=== PATIENT | female | born 1950 | race Caucasian/White ===

== ENCOUNTER → 2016-05-08 | Outpatient (CLI) | payer MEDICARE ==
[2016-05-08 10:24] LABS: ALT 67 U/L (9-52); AST 35 U/L (14-36); Alkaline Phosphatase 107 U/L (38-126); Anion Gap 12 mmol/L; Blood Urea Nitrogen 16 mg/dL (7-17); Calcium 10.1 mg/dL (8.4-10.2); Carbon Dioxide 26 mmol/L (22-30); Chloride 100 mmol/L (98-107); Cholesterol 153 mg/dL (<200); Glucose 197 mg/dL (74-99); HDL Cholesterol 88 mg/dL (40-60); Non-African American GFR(MDRD) >60 (>60 ml/min/1.73 sqM); Potassium 5.2 mmol/L (3.5-5.1); Sodium 138 mmol/L (137-145); Total Bilirubin 0.9 mg/dL (0.2-1.3); Total Protein 7.1 g/dL (6.3-8.2); Triglycerides 91 mg/dL (<150)
== END | disposition home or self-care (01) ==
LOC: LABWHC1 09:13
PROVIDERS: ATTEND Internal Medicine Endocrinology, Diabetes & Metabolism
DX: E10.65 Type 1 diabetes mellitus with hyperglycemia (principal)
CPT/HCPCS: 36415; 80053; 80061; 82043

== ENCOUNTER → 2016-08-14 | Outpatient (CLI) | payer MEDICARE ==
[2016-08-14 12:01] LABS: ALT 35 U/L (9-52); AST 28 U/L (14-36); Alkaline Phosphatase 95 U/L (38-126); Anion Gap 9 mmol/L; Blood Urea Nitrogen 15 mg/dL (7-17); Carbon Dioxide 28 mmol/L (22-30); Chloride 99 mmol/L (98-107); Glucose 113 mg/dL (74-99); Non-African American GFR(MDRD) >60 (>60 ml/min/1.73 sqM); Potassium 4.5 mmol/L (3.5-5.1); Sodium 136 mmol/L (137-145); Total Bilirubin 0.9 mg/dL (0.2-1.3); Total Protein 7.1 g/dL (6.3-8.2)
== END | disposition home or self-care (01) ==
LOC: LABWHC1 11:32
PROVIDERS: ATTEND Internal Medicine Endocrinology, Diabetes & Metabolism
DX: E10.65 Type 1 diabetes mellitus with hyperglycemia (principal)
CPT/HCPCS: 36415; 80053; 84443

== ENCOUNTER → 2016-09-03 | Outpatient (CLI) | payer MEDICARE ==
--- NOTE | 2016-09-03 15:51 | BD ---
EXAMINATION TYPE: MG DEXA axial skeleton. DATE OF EXAM: 09/03/2016 3:36 PM COMPARISON: 2007 CLINICAL HISTORY: osteoporosis Height: 4'9 Weight: 107 FRAX RISK QUESTIONS: Alcohol (3 or more units per day): no Family History (Parent hip fracture): yes Glucocorticoids (More than 3mos): no (Ex: prednisone, prednisolone, methylprednisolone, dexamethasone, and hydrocortisone). History of Fracture in Adulthood: no Secondary Osteoporosis: 1. Type 1 Diabetes: yes 2. Hyperthyroidism: no 3. Menopause before 45: yes 4. Malnutrition: no 5. Chronic liver disease: no Rheumatoid Arthritis: no Current Tobacco Use: yes RISK FACTORS HISTORY OF: Smoke tobacco: yes Active: Postmenopausal woman: MEDICATIONS: Osteoporosis Medications: Which medication: Other Atelvia How Lon years Additional Medications: insulin pump, blood pressure, cholesterol, heart meds Additional History: osteoporosis EXAM MEASUREMENTS: Bone mineral densitometry was performed using the Demdex System. Bone mineral density as measured about the Lumbar spine is: ----- L1-L4(G/cm2): 1.228 T Score Values are as follows: ----- L2: -0.6 ----- L3: 0.3 ----- L4: 2.0 ----- L1-L4: 0.4 Bone mineral density has: Increased 1.7% since study of: 12/17/2007 Bone mineral density about the R hip (g/cm2): 0752 Bone mineral density about the L hip (g/cm2): 0.828 T Score values are as follows: -----R Neck: -2.1 -----L Neck: -1.5 -----R Total: -1.8 -----L Total: -1.1 Bone mineral density has: Decreased -10.2% since study of: 12/17/2007 IMPRESSION: Osteopenia (T Score between -2.5 and -1 as noted by T score values Ferm[place] Hips There is slightly increased risk of fracture and the patient may be considered for treatment. Re-Screen 2-5 years. NOTE: T-SCORE=SD OF THE YOUNG ADULT MEAN.
== END | disposition home or self-care (01) ==
LOC: RADBDWWP 15:06
PROVIDERS: ATTEND Internal Medicine Endocrinology, Diabetes & Metabolism
DX: M85.851 Other specified disorders of bone density and structure, right thigh (principal); M85.852 Other specified disorders of bone density and structure, left thigh
CPT/HCPCS: 77080

== ENCOUNTER → 2016-11-09 | Outpatient (CLI) | payer MEDICARE ==
[2016-11-09 09:46] LABS: Blood Urea Nitrogen 13 mg/dL (7-17); Non-African American GFR(MDRD) >60 (>60 ml/min/1.73 sqM)
--- NOTE | 2016-11-09 11:16 | CT ---
EXAMINATION TYPE: CT angio neck DATE OF EXAM: 11/09/2016 COMPARISON: CT brain 07/08/2009 HISTORY: 66-year-old female right-sided carotid stenosis. History of CVA. TECHNIQUE: Contiguous axial scanning of the neck performed with IV Contrast, patient injected with 65 mL of Omnipaque 350. Coronal/sagittal MIP reconstructions performed. 3-D reconstructions generated o n a dedicated independent workstation. 3-D vessel probe was utilized for detailed assessment. CT DLP: 1434 mGycm Automated exposure control for dose reduction was used. FINDINGS: There is moderate emphysematous change within the visualized upper lungs. Moderate atherosclerotic calcifications involving the aortic arch. Conventional arch vessel branching anatomy. There is atherosclerotic calcification and plaque causing moderate narrowing at the origin of the lef t subclavian artery. Moderate to severe narrowing at the origin of the left vertebral artery, coronal minute image 16 and axial image 19. The vertebral arteries are otherwise codominant and the origin of the right vertebral artery is patent. Additional prominent atherosclerotic calcification narrowing the origin of the right brachiocephalic artery to a moderate degree, 60-70%. Large atherosclerotic calcification within the proximal right subclavian artery causes mild narrowing . On the right, there is moderate to severe atherosclerotic calcification at the bifurcation causing a severe, just over 70% proximal ICA stenosis. The carotid bifurcation is located 1.5 cm below the angl e of the mandible and there is a double hairpin loop formed of the mid ICA at the level of the mandib ular angle. On the left, there is focal noncalcified narrowing of the carotid bulb just after the bifurcation cau sing a moderate 60% stenosis. The carotid bifurcation is located 2.2 cm below the angle of the mandib le. There is a single hairpin loop directed left laterally at the mid ICA. Mild atherosclerotic calcifications within the carotid siphons with suspected persistent origin of the left WIRE TINNER. Focal hypodensity in the medial inferior left cerebellar hemisphere is more well-defined and has less mass effect as compared to CT of 07/08/2009 suggesting old infarct and should be correlated clinicall y. IMPRESSION: 1. ON THE RIGHT, SEVERE, JUST OVER 70% PROXIMAL ICA STENOSIS SECONDARY TO ATHEROSCLEROTIC CALCIFICATI ON. BIFURCATION APPROXIMATELY 1.5 CM BELOW THE ANGLE OF THE MANDIBLE. 2. ON THE LEFT, THERE IS MODERATE (APPROXIMATELY 60%) FOCAL NONCALCIFIED STENOSIS OF THE CAROTID BULB JUST AFTER THE BIFURCATION. BIFURCATION APPROXIMATELY 2.2 CM BELOW THE ANGLE OF THE MANDIBLE. 3. BILATERAL ICA TORTUOSITY, RIGHT GREATER THAN LEFT, OF THE MIDDLE THIRD SEGMENTS. 4. MODERATE ATHEROSCLEROTIC NARROWING AT THE ORIGIN OF THE LEFT SUBCLAVIAN ARTERY AND MODERATE TO SEV ERE NARROWING AT THE ORIGIN OF THE LEFT VERTEBRAL ARTERY. 5. MODERATE ATHEROSCLEROTIC NARROWING AT THE ORIGIN OF THE RIGHT BRACHIOCEPHALIC ARTERY (60-70%). 6. FINDINGS SUGGEST OLD LEFT-SIDED PICA INFARCT.
== END | disposition home or self-care (01) ==
LOC: RADCTMAIN 09:04
PROVIDERS: ATTEND Thoracic Surgery (Cardiothoracic Vascular Surgery)
DX: I65.23 Occlusion and stenosis of bilateral carotid arteries (principal); I65.02 Occlusion and stenosis of left vertebral artery; I70.208 Unspecified atherosclerosis of native arteries of extremities, other extremity; I70.8 Atherosclerosis of other arteries
CPT/HCPCS: 82565; 84520; 70498; 36415; Q9967

== ENCOUNTER → 2016-11-24 | Outpatient (CLI) | payer MEDICARE ==
[2016-11-24 09:57] LABS: ALT 29 U/L (9-52); AST 20 U/L (14-36); Alkaline Phosphatase 94 U/L (38-126); Anion Gap 8 mmol/L; Blood Urea Nitrogen 14 mg/dL (7-17); Calcium 9.5 mg/dL (8.4-10.2); Carbon Dioxide 29 mmol/L (22-30); Chloride 100 mmol/L (98-107); Cholesterol 129 mg/dL (<200); Glucose 178 mg/dL (74-99); HDL Cholesterol 75 mg/dL (40-60); Non-African American GFR(MDRD) >60 (>60 ml/min/1.73 sqM); Potassium 4.8 mmol/L (3.5-5.1); Sodium 137 mmol/L (137-145); Total Bilirubin 0.8 mg/dL (0.2-1.3); Total Protein 6.2 g/dL (6.3-8.2)
[2016-11-24 23:28] LABS: Urine Creatinine 24.3 mg/dL
== END | disposition home or self-care (01) ==
LOC: LABWHC1 09:17
PROVIDERS: ATTEND Internal Medicine Interventional Cardiology
DX: E78.2 Mixed hyperlipidemia (principal); E10.65 Type 1 diabetes mellitus with hyperglycemia
CPT/HCPCS: 36415; 80053; 80061; 82043; 82570

== ENCOUNTER → 2017-02-26 | Outpatient (CLI) | payer MEDICARE ==
[2017-02-26 10:53] LABS: ALT 28 U/L (9-52); AST 22 U/L (14-36); Alkaline Phosphatase 126 U/L (38-126); Anion Gap 10 mmol/L; Blood Urea Nitrogen 12 mg/dL (7-17); Calcium 10.4 mg/dL (8.4-10.2); Carbon Dioxide 28 mmol/L (22-30); Chloride 100 mmol/L (98-107); Cholesterol 138 mg/dL (<200); Glucose 198 mg/dL (74-99); HDL Cholesterol 65 mg/dL (40-60); Non-African American GFR(MDRD) >60 (>60 ml/min/1.73 sqM); Potassium 4.9 mmol/L (3.5-5.1); Sodium 138 mmol/L (137-145); Total Bilirubin 0.5 mg/dL (0.2-1.3); Total Protein 6.6 g/dL (6.3-8.2)
[2017-02-26 16:45] LABS: Urine Creatinine 27.4 mg/dL
== END | disposition home or self-care (01) ==
LOC: LABWHC1 10:00
PROVIDERS: ATTEND Internal Medicine Endocrinology, Diabetes & Metabolism
DX: E10.65 Type 1 diabetes mellitus with hyperglycemia (principal)
CPT/HCPCS: 36415; 80053; 80061; 82043; 82570; 83036

== ENCOUNTER → 2017-02-26 | Outpatient (CLI) | payer MEDICARE ==
--- NOTE | 2017-02-27 10:48 | MM ---
Reason for exam: screening (asymptomatic). Last mammogram was performed 1 year and 1 month ago. History: Patient is postmenopausal. Benign excisional biopsy of the left breast. Took estrogen for 15 years beginning at age 34. Physical Findings: A clinical breast exam by your physician is recommended on an annual basis and results should be correlated with mammographic findings. MG 3D Screening Mammo W/Cad Bilateral CC and MLO view(s) were taken. Prior study comparison: January 30, 2016, bilateral MG 3d screening mammo w/cad. January 26, 2015, bilateral MG screening mammo w CAD. The breast tissue is heterogeneously dense. This may lower the sensitivity of mammography. Finding: There are typically benign round, diffuse/scattered and grouped calcifications in both breasts. There is no discrete abnormality. ASSESSMENT: Benign, BI-RAD 2 RECOMMENDATION: Routine screening mammogram of both breasts in 1 year.
== END | disposition home or self-care (01) ==
LOC: RADMAMWWP 10:16
PROVIDERS: ATTEND Family Medicine
DX: Z12.31 Encounter for screening mammogram for malignant neoplasm of breast (principal)
CPT/HCPCS: 77063; G0202; 36415; 80053; 80061; 82043; 82570; 83036

== ENCOUNTER 2017-07-07 18:28 | Emergency (ER) | payer MEDICARE ==
[2017-07-07 18:41] VITALS: TEMP 97.3
[2017-07-07] MEDS ORDERED: methylPREDNISolone SOD SUCCI 125 MG/2 ML VIAL IV STA (18:43)
[2017-07-07] MEDS ORDERED: IPRATROPIUM 0.5 MG/2.5 ML NEBU INHALATION STA (18:43)
[2017-07-07] MEDS ORDERED: SODIUM CHLORIDE 0.9% 1,000 ML IV STA (18:43)
[2017-07-07] MEDS ORDERED: ALBUTEROL NEBULIZED 2.5 MG/3 ML INHALATION STA (18:43)
[2017-07-07 19:01] LABS: Basophils # (A) 0.1 k/uL (0-0.2); Basophils % (A) 0 %; Eosinophils # (A) 0.2 k/uL (0-0.7); Eosinophils % (A) 2 %; HCT 46.4 % (34.0-46.0); HGB 15.5 gm/dL (11.4-16.0); Lymphocytes # (A) 1.8 k/uL (1.0-4.8); Lymphocytes % (A) 15 %; MCHC 33.3 g/dL (31.0-37.0); Mean Platelet Volume 8.2; Monocytes # (A) 0.8 k/uL (0-1.0); Monocytes % (A) 6 %; Neutrophils # (A) 9.7 k/uL (1.3-7.7); Neutrophils % (A) 76 %; Platelet Count 279 k/uL (150-450); RBC 4.99 m/uL (3.80-5.40); RDW 12.4 % (11.5-15.5); WBC 12.7 k/uL (3.8-10.6)
[2017-07-07 19:08] VITALS: RESP 20
[2017-07-07 19:11] LABS: ALT 34 U/L (9-52); AST 15 U/L (14-36); Albumin 3.9 g/dL (3.5-5.0); Alkaline Phosphatase 96 U/L (38-126); Anion Gap 11 mmol/L; Blood Urea Nitrogen 9 mg/dL (7-17); Calcium 9.7 mg/dL (8.4-10.2); Carbon Dioxide 31 mmol/L (22-30); Chloride 92 mmol/L (98-107); Glucose 223 mg/dL (74-99); Magnesium 1.7 mg/dL (1.6-2.3); Potassium 4.3 mmol/L (3.5-5.1); Sodium 134 mmol/L (137-145); Total Bilirubin 1.1 mg/dL (0.2-1.3); Total Protein 6.1 g/dL (6.3-8.2)
[2017-07-07] MEDS ORDERED: MORPHINE SULFATE/PF 10MG/10ML VL IVP STA (19:16)
--- NOTE | 2017-07-07 19:16 | ED ---
General Adult HPI - General Chief complaint: Chest Pain Stated complaint: back/neck pain chest pressure Time Seen by Provider: 07/07/17 18:43 Source: patient, RN notes reviewed, old records reviewed Mode of arrival: wheelchair Limitations: no limitations - History of Present Illness Initial comments: This is a 59-year-old female the ER for eversion of left scapular pain. Acute on chronic pain. Patient has no cough or congestion no recent fevers. No travel history no sick contacts. Patient did have recent epidural for chronic pain. She has are from COPD she missed a mild cough and congestion but no fevers. No chest pain. No significant shortness of breath. No recent hospitalizations or travel history - Related Data Home Medications Medication Instructions Recorded Confirmed Clopidogrel Bisulfate [Clopidogrel] 75 mg PO DAILY 11/04/13 07/07/17 Furosemide 20 mg PO DAILY 11/04/13 07/07/17 Isosorbide Mononitrate [Imdur] 60 mg PO DAILY 11/04/13 07/07/17 Mometasone Furoate [Nasonex Nasal 2 spray EA NOSTRIL DAILY 11/04/13 07/07/17 [place]] Ranitidine HCl 300 mg PO DAILY 11/04/13 07/07/17 Risedronate Sodium [Atelvia] 35 mg PO MCKEON 11/04/13 07/07/17 Tiotropium 18 Mcg/Puff [Spiriva] 18 mcg INHALATION RT-DAILY 11/04/13 07/07/17 Albuterol Sulfate [Ventolin HFA] 1 - 2 puff INHALATION RT-Q4H PRN 12/29/1507/07 Diltiazem HCl [Diltiazem 24Hr ER] 360 mg PO DAILY 12/29/15 07/07/17 Gabapentin 300 mg PO HS 12/29/15 07/07/17 HYDROcodone/APAP 5-325MG [Isom 1 tab PO DAILY PRN 12/29/15 07/07/17 5-325] Metoprolol Tartrate 25 mg PO BID 12/29/15 07/07/17 Multivitamins, Thera [Multivitamin 1 tab PO DAILY 12/29/15 07/07/17 (formulary)] Nitroglycerin Sl Tabs [Nitrostat] 0.4 mg PO Q5M PRN 12/29/15 07/07/17 Promethazine [Phenergan] 25 mg PO Q8H PRN 12/29/15 07/07/17 SUMAtriptan SUCCINATE [Imitrex] 100 mg PO BID PRN 12/29/15 07/07/17 Atorvastatin [Lipitor] 10 mg PO DAILY 07/07/17 07/07/17 Benazepril [Lotensin] 10 mg PO DAILY 07/07/17 07/07/17 Ezetimibe [Zetia] 10 mg PO DAILY 07/07/17 07/07/17 Insulin Aspart (For Pump) [NovoLOG 0.01 unit SQ-PUMP CONTINUOUS 07/07/17 (For Pump)] Omeprazole [PriLOSEC] 40 mg PO DAILY 07/07/17 07/07/17 Polyethylene Glycol 3350 [Miralax] 17 gm PO DAILY PRN 07/07/17 07/07/17 Psyllium Husk [Metamucil] 0.4 gm PO DAILY PRN 07/07/17 07/07/17 Allergies Allergy/AdvReac Type Severity Reaction Status Date / Time erythromycin base Allergy Rash/Hives Verified 07/07/17 19:46 Review of Systems ROS Statement: Those systems with pertinent positive or pertinent negative responses have been documented in the HPI. ROS Other: All systems not noted in ROS Statement are negative. Past Medical History Past Medical History: COPD, CVA/TIA, Diabetes Mellitus, GERD/Reflux, Hyperlipidemia, Hypertension, Myocardial Infarction ([place]), Pneumonia, Seizure Disorder Additional Past Medical History / Comment(s): Only one seizure 2002, cva-06/2009 with residual lt sided weakness, HOME O2 2LITERS N/C AT HS, IDDM-HAS INSULIN PUMP,DIVERTICULITIS,OSTEOPOROSIS, ARTHRITIS, SEES DRENCHER FOR"LEAKY RETINA LT EYE" Last Myocardial Infarction Date:: 1993 History of Any Multi-Drug Resistant Organisms: None Reported Past Surgical History: Appendectomy, Bowel Resection, Cholecystectomy, Heart Catheterization, Hysterectomy Additional Past Surgical History / Comment(s): ANGIOPLASTY-1993, Colonoscopy/EGD ,CARPAL TUNNEL RELEASE,ASA CATARACTS, BREAST BX-NEG Past Anesthesia/Blood Transfusion Reactions: Previous Problems w/ Anesthesia, Motion Sickness, Postoperative Nausea & Vomiting (PONV) Past Psychological History: No Psychological Hx Reported Smoking Status: Current every day smoker Past Alcohol Use History: None Reported Past Drug Use History: None Reported - Past Family History Father Family Medical History: Diabetes Mellitus, Myocardial Infarction ([place]) Mother Family Medical History: Diabetes Mellitus, Renal Disease General Exam Limitations: no limitations General appearance: alert, in no apparent distress Head exam: Present: atraumatic, normocephalic, normal inspection Eye exam: Present: normal appearance, PERRL, EOMI. Absent: scleral icterus, conjunctival injection, periorbital swelling ENT exam: Present: normal exam, mucous membranes moist Neck exam: Present: normal inspection. Absent: tenderness, meningismus, lymphadenopathy Respiratory exam: Present: normal lung sounds bilaterally. Absent: respiratory distress, wheezes, rales, rhonchi, stridor Cardiovascular Exam: Present: regular rate, normal rhythm, normal heart sounds. Absent: systolic murmur, diastolic murmur, rubs, gallop, clicks GI/Abdominal exam: Present: soft, normal bowel sounds. Absent: distended, tenderness, guarding, rebound, rigid Extremities exam: Present: normal inspection, full ROM, normal capillary refill. Absent: tenderness, pedal edema, joint swelling, calf tenderness Back exam: Present: normal inspection Neurological exam: Present: alert, oriented X3, CN II-XII intact Psychiatric exam: Present: normal affect, normal mood Skin exam: Present: warm, dry, intact, normal color. Absent: rash Course Vital Signs 07/07/17 07/07/17 07/07/17 18:38 18:56 19:05 Temperature 97.3 F L Pulse Rate 67 64 84 Respiratory 18 Rate Blood Pressure 119/59 O2 Sat by Pulse 90 L Oximetry 07/07/17 19:07 Temperature Pulse Rate Respiratory 20 Rate Blood Pressure O2 Sat by Pulse Oximetry - Reevaluation(s) Reevaluation #1: 07/07/17 19:15 Records thoroughly reviewed EKG Findings - EKG Comments: EKG Findings:: EKG shows sinus rhythm rate of 72, MO 162, QRS 72, QTc 418 Medical Decision Making - Lab Data Result diagrams: 07/07/17 18:30 07/07/17 18:30 Lab Results 07/07/17 07/07/17 07/07/17 Range/Units 18:30 18:30 18:30 WBC 12.7 H (3.8-10.6) k/uL RBC 4.99 (3.80-5.40) m/uL Hgb 15.5 (11.4-16.0) gm/dL Hct 46.4 H (34.0-46.0) % MCV 93.0 (80.0-100.0) fL MCH 31.0 (25.0-35.0) pg MCHC 33.3 (31.0-37.0) g/dL RDW 12.4 (11.5-15.5) % Plt Count 279 (150-450) k/uL Neutrophils % 76 % Lymphocytes % 15 % Monocytes % 6 % Eosinophils % 2 % Basophils % 0 % Neutrophils # 9.7 H (1.3-7.7) k/uL Lymphocytes # 1.8 (1.0-4.8) k/uL Monocytes # 0.8 (0-1.0) k/uL Eosinophils # 0.2 (0-0.7) k/uL Basophils # 0.1 (0-0.2) k/uL PT (9.0-12.0) sec INR (<1.2) APTT (22.0-30.0) sec D-Dimer (<0.60) mg/L FEU Sodium 134 L (137-145) mmol/L Potassium 4.3 (3.5-5.1) mmol/L Chloride 92 L (98-107) mmol/L Carbon Dioxide 31 H (22-30) mmol/L Anion Gap 11 mmol/L BUN 9 (7-17) mg/dL Creatinine 0.60 (0.52-1.04) mg/dL Est GFR (CKD-EPI)AfAm >90 (>60 ml/min/1.73 sqM) Est GFR (CKD-EPI)NonAf >90 (>60 ml/min/1.73 sqM) Glucose 223 H (74-99) mg/dL Calcium 9.7 (8.4-10.2) mg/dL Magnesium 1.7 (1.6-2.3) mg/dL Total Bilirubin 1.1 (0.2-1.3) mg/dL AST 15 (14-36) U/L ALT 34 (9-52) U/L Alkaline Phosphatase 96 (38-126) U/L Total Creatine Kinase 27 L (30-135) U/L CK-MB (CK-2) 1.2 (0.0-2.4) ng/mL CK-MB (CK-2) Rel Index 4.4 Troponin I <0.012 (0.000-0.034) ng/mL NT-Pro-B Natriuret Pep pg/mL Total Protein 6.1 L (6.3-8.2) g/dL Albumin 3.9 (3.5-5.0) g/dL 07/07/17 07/07/17 Range/Units 18:30 18:30 WBC (3.8-10.6) k/uL RBC (3.80-5.40) m/uL Hgb (11.4-16.0) gm/dL Hct (34.0-46.0) % MCV (80.0-100.0) fL MCH (25.0-35.0) pg MCHC (31.0-37.0) g/dL RDW (11.5-15.5) % Plt Count (150-450) k/uL Neutrophils % % Lymphocytes % % Monocytes % % Eosinophils % % Basophils % % Neutrophils # (1.3-7.7) k/uL Lymphocytes # (1.0-4.8) k/uL Monocytes # (0-1.0) k/uL Eosinophils # (0-0.7) k/uL Basophils # (0-0.2) k/uL PT 9.9 (9.0-12.0) sec INR 1.0 (<1.2) APTT 21.7 L (22.0-30.0) sec D-Dimer 0.30 (<0.60) mg/L FEU Sodium (137-145) mmol/L Potassium (3.5-5.1) mmol/L Chloride (98-107) mmol/L Carbon Dioxide (22-30) mmol/L Anion Gap mmol/L BUN (7-17) mg/dL Creatinine (0.52-1.04) mg/dL Est GFR (CKD-EPI)AfAm (>60 ml/min/1.73 sqM) Est GFR (CKD-EPI)NonAf (>60 ml/min/1.73 sqM) Glucose (74-99) mg/dL Calcium (8.4-10.2) mg/dL Magnesium (1.6-2.3) mg/dL Total Bilirubin (0.2-1.3) mg/dL AST (14-36) U/L ALT (9-52) U/L Alkaline Phosphatase (38-126) U/L Total Creatine Kinase (30-135) U/L CK-MB (CK-2) (0.0-2.4) ng/mL CK-MB (CK-2) Rel Index Troponin I (0.000-0.034) ng/mL NT-Pro-B Natriuret Pep 138 pg/mL Total Protein (6.3-8.2) g/dL Albumin (3.5-5.0) g/dL Disposition Clinical Impression: Pain of left scapula, Back pain, Chronic back pain Disposition: HOME SELF-CARE Condition: Good Instructions: Back Pain (ED) Referrals: Lo Dugan DO [Primary Care Provider] - 1-2 days
[2017-07-07 19:18] LABS: D-Dimer 0.3 mg/L FEU (<0.60)
[2017-07-07 19:19] LABS: Creatine Kinase 27 U/L (30-135)
[2017-07-07 19:22] LABS: Partial Thromboplastin Time 21.7 sec (22.0-30.0)
[2017-07-07 19:25] LABS: Prothrombin Time 9.9 sec (9.0-12.0)
[2017-07-07 19:32] LABS: Creatine Kinase MB 1.2 ng/mL (0.0-2.4); Troponin I <0.012 ng/mL (0.000-0.034)
--- NOTE | 2017-07-07 20:19 | XR ---
EXAMINATION: XR chest 2V DATE AND TIME: 07/07/2017 7:30 PM ORDERING PROVIDER: Desmond Springer DO CLINICAL INDICATION: difficulty breathing TECHNIQUE: PA and lateral COMPARISON: 12/29/2015 DESCRIPTION: The lungs are clear. The pleural spaces are negative. The cardiac silhouette is not enlarged. The mediastinal and pleural silhouettes are unremarkable. The skeletal structures are intact without focal findings. The soft tissues are unremarkable. IMPRESSION: NO ACUTE PROCESS.
[2017-07-07 20:53] VITALS: BP 107/63; PULSE 76
== END 2017-07-07 20:56 | disposition home or self-care (01) ==
LOC: EC 18:28
DX: M25.512 Pain in left shoulder (principal); M54.9 Dorsalgia, unspecified; G89.29 Other chronic pain; R07.9 Chest pain, unspecified; J44.9 Chronic obstructive pulmonary disease, unspecified; E11.9 Type 2 diabetes mellitus without complications; K21.9 Gastro-esophageal reflux disease without esophagitis; E78.5 Hyperlipidemia, unspecified; I10 Essential (primary) hypertension; I25.2 Old myocardial infarction; F17.200 Nicotine dependence, unspecified, uncomplicated; G40.909 Epilepsy, unspecified, not intractable, without status epilepticus; Z86.73 Personal history of transient ischemic attack (TIA), and cerebral infarction without residual deficits; Z95.5 Presence of coronary angioplasty implant and graft; Z79.02 Long term (current) use of antithrombotics/antiplatelets; Z79.4 Long term (current) use of insulin; Z79.51 Long term (current) use of inhaled steroids; Z79.899 Other long term (current) drug therapy; Z53.8 Procedure and treatment not carried out for other reasons
CPT/HCPCS: 36415; 94640; 93005; 85379; 83880; 80053; 82550; 82553; 83735; 84484; 85025; 85610; 85730; 71046; 99285; 96374; 96361 ×2; J2930

== ENCOUNTER → 2017-07-25 | Outpatient (CLI) | payer MEDICARE ==
[2017-07-25 10:25] LABS: ALT 30 U/L (9-52); AST 17 U/L (14-36); Alkaline Phosphatase 117 U/L (38-126); Anion Gap 12 mmol/L; Blood Urea Nitrogen 14 mg/dL (7-17); Calcium 9.8 mg/dL (8.4-10.2); Carbon Dioxide 27 mmol/L (22-30); Chloride 102 mmol/L (98-107); Cholesterol 141 mg/dL (<200); Glucose 169 mg/dL (74-99); HDL Cholesterol 82 mg/dL (40-60); LDL Cholesterol,Calculated 50 mg/dL (0-99); Potassium 4.4 mmol/L (3.5-5.1); Sodium 141 mmol/L (137-145); Total Bilirubin 0.5 mg/dL (0.2-1.3); Total Protein 6.1 g/dL (6.3-8.2); Triglycerides 46 mg/dL (<150)
[2017-07-25 19:11] LABS: Hemoglobin A1C 7.5 % (4.0-6.0)
== END | disposition home or self-care (01) ==
LOC: LABWHC1 09:04
PROVIDERS: ATTEND Internal Medicine Endocrinology, Diabetes & Metabolism
DX: E78.2 Mixed hyperlipidemia (principal); E10.65 Type 1 diabetes mellitus with hyperglycemia
CPT/HCPCS: 36415; 80053; 80061; 82043; 82570; 83036; 84443

== ENCOUNTER 2017-08-20 12:31 | Inpatient (IN) | payer MEDICARE ==
[2017-08-20] MEDS ORDERED: SODIUM CHLORIDE 0.9% 500 ML IV STA (12:51)
[2017-08-20] MEDS ORDERED: ALBUTEROL NEBULIZED 2.5 MG/3 ML INHALATION STA (12:51)
[2017-08-20] MEDS ORDERED: methylPREDNISolone SOD SUCCI 125 MG/2 ML VIAL IV STA (12:51)
[2017-08-20] MEDS ORDERED: ACETAMINOPHEN TAB 500 MG TAB PO STA (12:55)
--- NOTE | 2017-08-20 12:55 | ED ---
General Adult HPI - General Chief complaint: Shortness of Breath Stated complaint: Weakness, SOB Time Seen by Provider: 08/20/17 12:31 Source: patient, RN notes reviewed Mode of arrival: wheelchair Limitations: no limitations - History of Present Illness Initial comments: This is a 67-year-old female with a past medical history significant for COPD. Patient states she continues to smoke though she hasn't smoked in the last 2 days. Patient states she went to her doctor's because she was feeling weak and short of breath the doctor sent her into our emergency department. Patient denies any fever patient denies any significant cough. Patient denies any headache patient denies lightheadedness patient denies any dizziness or near- syncopal episode. Patient denies any abdominal pain patient denies nausea vomiting diarrhea. Patient denies any edema to the legs patient denies any calf tenderness. - Related Data Home Medications Medication Instructions Recorded Confirmed Clopidogrel Bisulfate [Clopidogrel] 75 mg PO DAILY 11/04/13 08/20/17 Furosemide 20 mg PO DAILY 11/04/13 08/20/17 Isosorbide Mononitrate [Imdur] 60 mg PO DAILY 11/04/13 08/20/17 Mometasone Furoate [Nasonex Nasal 2 spray EA NOSTRIL DAILY 11/04/13 08/20/17 [place]] Ranitidine HCl 300 mg PO DAILY 11/04/13 08/20/17 Risedronate Sodium [Atelvia] 35 mg PO MCKEON 11/04/13 08/20/17 Tiotropium 18 Mcg/Puff [Spiriva] 18 mcg INHALATION RT-DAILY 11/04/13 08/20/17 Albuterol Sulfate [Ventolin HFA] 1 - 2 puff INHALATION RT-Q4H PRN 12/29/1508/20 Diltiazem HCl [Diltiazem 24Hr ER] 360 mg PO DAILY 12/29/15 08/20/17 Gabapentin 300 mg PO HS 12/29/15 08/20/17 HYDROcodone/APAP 5-325MG [[place] 1 tab PO DAILY PRN 12/29/15 08/20/17 5-325] Metoprolol Tartrate 25 mg PO BID 12/29/15 08/20/17 Multivitamins, Thera [Multivitamin 1 tab PO DAILY 12/29/15 08/20/17 (formulary)] Nitroglycerin Sl Tabs [Nitrostat] 0.4 mg PO Q5M PRN 12/29/15 08/20/17 Promethazine [Phenergan] 25 mg PO Q8H PRN 12/29/15 08/20/17 SUMAtriptan SUCCINATE [Imitrex] 100 mg PO BID PRN 12/29/15 08/20/17 Atorvastatin [Lipitor] 10 mg PO DAILY 07/07/17 08/20/17 Benazepril [Lotensin] 10 mg PO DAILY 07/07/17 08/20/17 Ezetimibe [Zetia] 10 mg PO DAILY 07/07/17 08/20/17 Insulin Aspart (For Pump) [NovoLOG 0.01 unit SQ-PUMP CONTINUOUS 07/07/17 (For Pump)] Omeprazole [PriLOSEC] 40 mg PO DAILY 07/07/17 08/20/17 Polyethylene Glycol 3350 [Miralax] 17 gm PO DAILY PRN 07/07/17 08/20/17 Psyllium Husk [Metamucil] 0.4 gm PO DAILY PRN 07/07/17 08/20/17 Calcium Carbonate/Vitamin D3 1 tab PO DAILY 08/20/17 08/20/17 [Calcium 600-Vit D3 400 Caplet] Allergies Allergy/AdvReac Type Severity Reaction Status Date / Time erythromycin base Allergy Rash/Hives Verified 08/20/17 13:10 Review of Systems ROS Statement: Those systems with pertinent positive or pertinent negative responses have been documented in the HPI. ROS Other: All systems not noted in ROS Statement are negative. Past Medical History Past Medical History: COPD, CVA/TIA, Diabetes Mellitus, GERD/Reflux, Hyperlipidemia, Hypertension, Myocardial Infarction ([place]), Pneumonia, Seizure Disorder Additional Past Medical History / Comment(s): Only one seizure 2002, cva-06/2009 with residual lt sided weakness, HOME O2 2LITERS N/C AT HS, IDDM-HAS INSULIN PUMP,DIVERTICULITIS,OSTEOPOROSIS, ARTHRITIS, SEES HULL GRINDER FOR"LEAKY RETINA LT EYE" Last Myocardial Infarction Date:: 1993 History of Any Multi-Drug Resistant Organisms: None Reported Past Surgical History: Appendectomy, Bowel Resection, Cholecystectomy, Heart Catheterization, Hysterectomy Additional Past Surgical History / Comment(s): ANGIOPLASTY-1993, Colonoscopy/EGD ,CARPAL TUNNEL RELEASE,ASA CATARACTS, BREAST BX-NEG Past Anesthesia/Blood Transfusion Reactions: Previous Problems w/ Anesthesia, Motion Sickness, Postoperative Nausea & Vomiting (PONV) Past Psychological History: No Psychological Hx Reported Smoking Status: Current some day smoker Past Alcohol Use History: None Reported Past Drug Use History: None Reported - Past Family History Father Family Medical History: Diabetes Mellitus, Myocardial Infarction ([place]) Mother Family Medical History: Diabetes Mellitus, Renal Disease General Exam - General Exam Comments Initial Comments: GENERAL: Patient is well-developed and well-nourished. Patient is nontoxic and well- hydrated and is in mild distress. ENT: Neck is soft and supple. No significant lymphadenopathy is noted. Oropharynx is clear. Moist mucous membranes. Neck has full range of motion without eliciting any pain. EYES: The sclera were anicteric and conjunctiva were pink and moist. Extraocular movements were intact and pupils were equal round and reactive to light. Eyelids were unremarkable. PULMONARY: Diminished breath sounds diffusely with an occasional expiratory wheeze CARDIOVASCULAR: There is a regular rate and rhythm without any murmurs gallops or rubs. ABDOMEN: Soft and nontender with normal bowel sounds. No palpable organomegaly was noted. There is no palpable pulsatile mass. SKIN: Skin is clear with no lesions or rashes and otherwise unremarkable. NEUROLOGIC: Patient is alert and oriented x3. Cranial nerves II through XII are grossly intact. Motor and sensory are also intact. Normal speech, volume and content. Symmetrical smile. MUSCULOSKELETAL: Normal extremities with adequate strength and full range of motion. No lower extremity swelling or edema. No calf tenderness. LYMPHATICS: No significant lymphadenopathy is noted PSYCHIATRIC: Normal psychiatric evaluation. Normal interpersonal interactions appears functionally intact in deals appropriately with others. No signs of depression. Limitations: no limitations Course Vital Signs 08/20/17 08/20/17 08/20/17 12:34 13:14 13:23 Temperature 99.9 F H Pulse Rate 83 77 73 Respiratory 20 20 Rate Blood Pressure 107/58 92/57 O2 Sat by Pulse 89 L 90 L Oximetry 08/20/17 08/20/17 13:49 13:51 Temperature Pulse Rate 74 72 Respiratory 108 H Rate Blood Pressure 92/55 O2 Sat by Pulse 98 Oximetry Medical Decision Making - Medical Decision Making EKG shows normal sinus rhythm at 79 bpm NV interval is 166 QRS is 66 QT interval 356 QTC is 408. Patient's EKG shows no ST segment elevation or depression or T wave abnormalities are noted. Chest x-ray shows patchy basilar infiltrates with small effusions I started patient on Levaquin. I spoke with Dr. Wakefield he agreed to admit the patient admitted the patient wrote admitting orders I continued antibiotics on the floor. - Lab Data Result diagrams: 08/20/17 13:00 08/20/17 13:00 Lab Results 08/20/17 08/20/17 08/20/17 Range/Units 13:00 13:00 13:00 WBC 16.3 H (3.8-10.6) k/uL RBC 4.12 (3.80-5.40) m/uL Hgb 12.8 (11.4-16.0) gm/dL Hct 38.3 (34.0-46.0) % MCV 92.8 (80.0-100.0) fL MCH 31.0 (25.0-35.0) pg MCHC 33.4 (31.0-37.0) g/dL RDW 12.8 (11.5-15.5) % Plt Count 399 (150-450) k/uL Neutrophils % 83 % Lymphocytes % 6 % Monocytes % 8 % Eosinophils % 1 % Basophils % 0 % Neutrophils # 13.5 H (1.3-7.7) k/uL Lymphocytes # 1.0 (1.0-4.8) k/uL Monocytes # 1.3 H (0-1.0) k/uL Eosinophils # 0.1 (0-0.7) k/uL Basophils # 0.1 (0-0.2) k/uL PT 9.9 (9.0-12.0) sec INR 1.0 (<1.2) APTT 21.3 L (22.0-30.0) sec Sodium 129 L (137-145) mmol/L Potassium 4.1 (3.5-5.1) mmol/L Chloride 87 L (98-107) mmol/L Carbon Dioxide 30 (22-30) mmol/L Anion Gap 12 mmol/L BUN 8 (7-17) mg/dL Creatinine 0.42 L (0.52-1.04) mg/dL Est GFR (CKD-EPI)AfAm >90 (>60 ml/min/1.73 sqM) Est GFR (CKD-EPI)NonAf >90 (>60 ml/min/1.73 sqM) Glucose 242 H (74-99) mg/dL Calcium 8.9 (8.4-10.2) mg/dL Magnesium 1.5 L (1.6-2.3) mg/dL Total Bilirubin 0.7 (0.2-1.3) mg/dL AST 16 (14-36) U/L ALT 29 (9-52) U/L Alkaline Phosphatase 128 H (38-126) U/L Total Protein 4.9 L (6.3-8.2) g/dL Albumin 2.9 L (3.5-5.0) g/dL Disposition Clinical Impression: Pneumonia, Acute exacerbation of chronic obstructive airways disease Disposition: ADMITTED IP TO THIS HOSP Referrals: Jackson Pena, [facility]I [REFERRING] - 1-2 days Time of Disposition: 14:02
[2017-08-20 13:14] LABS: Basophils # (A) 0.1 k/uL (0-0.2); Basophils % (A) 0 %; Eosinophils # (A) 0.1 k/uL (0-0.7); Eosinophils % (A) 1 %; HCT 38.3 % (34.0-46.0); HGB 12.8 gm/dL (11.4-16.0); Lymphocytes % (A) 6 %; MCHC 33.4 g/dL (31.0-37.0); MCV 92.8 fL (80.0-100.0); Mean Platelet Volume 7.5; Monocytes # (A) 1.3 k/uL (0-1.0); Monocytes % (A) 8 %; Neutrophils # (A) 13.5 k/uL (1.3-7.7); Neutrophils % (A) 83 %; Platelet Count 399 k/uL (150-450); RBC 4.12 m/uL (3.80-5.40); RDW 12.8 % (11.5-15.5); WBC 16.3 k/uL (3.8-10.6)
[2017-08-20 13:26] LABS: ALT 29 U/L (9-52); AST 16 U/L (14-36); Albumin 2.9 g/dL (3.5-5.0); Alkaline Phosphatase 128 U/L (38-126); Anion Gap 12 mmol/L; Blood Urea Nitrogen 8 mg/dL (7-17); Calcium 8.9 mg/dL (8.4-10.2); Carbon Dioxide 30 mmol/L (22-30); Chloride 87 mmol/L (98-107); Glucose 242 mg/dL (74-99); Magnesium 1.5 mg/dL (1.6-2.3); Potassium 4.1 mmol/L (3.5-5.1); Sodium 129 mmol/L (137-145); Total Bilirubin 0.7 mg/dL (0.2-1.3); Total Protein 4.9 g/dL (6.3-8.2)
--- NOTE | 2017-08-20 13:28 | XR ---
EXAMINATION TYPE: XR chest 2V DATE OF EXAM: 08/20/2017 COMPARISON: 325 HISTORY: Shortness of breath TECHNIQUE: Frontal and lateral views of the chest are obtained. FINDINGS: Scattered senescent parenchymal changes noted. Hyperinflation compatible with COPD. Patchy basilar infiltrates with small pleural effusions noted. Correlate for pneumonia. Heart size is stable. Mediastinal structures are stable and grossly unremarkable. No evidence for hilar prominence. Degenerative changes dorsal spine. IMPRESSION: 1. Patchy basilar infiltrates with small pleural effusions noted. Correlate for pneumonia.
[2017-08-20 13:29] LABS: Prothrombin Time 9.9 sec (9.0-12.0)
[2017-08-20 13:39] LABS: Partial Thromboplastin Time 21.3 sec (22.0-30.0)
[2017-08-20 13:47] LABS: Creatine Kinase MB 1.4 ng/mL (0.0-2.4)
[2017-08-20] MEDS ORDERED: MAGNESIUM SULFATE-D5W PMX 1 GM in DEXTROSE/WATER 1 100ML.BAG IVPB ONE (13:56)
[2017-08-20] MEDS ORDERED: SODIUM CHLORIDE 0.9% 1,000 ML IV ONE (13:57)
[2017-08-20] MEDS ORDERED: LEVOFLOXACIN 750MG-D5W PMX 750 MG in DEXTROSE/WATER 1 150ML.BAG IVPB STA (13:57)
[2017-08-20] MEDS ORDERED: PNEUMONIA PROTOCOL UTILIZED 1 EACH MISC PO PRN (14:03)
[2017-08-20] MEDS ORDERED: ALBUTEROL NEBULIZED 2.5 MG/3 ML INHALATION PRN (14:03)
[2017-08-20 14:07] LABS: Troponin I 0.07 ng/mL (0.000-0.034)
[2017-08-20] MEDS ORDERED: NON-FORMULARY DRUG (Psyllium Husk [Metamucil] 0.4 GM) PO PRN (15:39)
[2017-08-20] MEDS ORDERED: POLYETHYLENE GLYCOL 3350 17 GM POWD.PACK PO PRN (15:39)
[2017-08-20] MEDS ORDERED: SUMAtriptan SUCCINATE 50 MG TAB PO PRN (15:39)
[2017-08-20] MEDS ORDERED: Insulin Aspart (For Pump) 100 UNIT/ML VIAL SQ-PUMP SCH (15:45)
[2017-08-20] MEDS: IPRATROPIUM-ALBUTEROL 3 ML NEB INHALATION SCH ×2 (16:02→19:55)
--- NOTE | 2017-08-20 16:05 | P.HPIM ---
History of Present Illness H&P Date: 08/20/17 Chief Complaint: Shortness of breath with cough This is a 67-year-old female, patient of [facility]. She has a known past medical history of COPD, nicotine dependence, CVA, diabetes mellitus with insulin pump, hyperlipidemia, myocardial infarction with angioplasty in 1993, hypertension and seizure last seizure 2002. Patient with see her PCP regarding worsening cough and shortness of breath of the last 3 days. She was found to be hypoxic with oxygen saturation of 60-70% on room air. She was informed to present to the emergency room for further evaluation and treatment. Patient usually only uses home oxygen in the evening time but has required it throughout the day. She also has been having a productive cough with yellowish to greenish sputum also having some chills. She's also been nauseated and having some constipation. Last bowel movement was yesterday but hard pebble like. Patient denies any chest pain. Denies any vomiting. Denies any burning with urination. Patient was hypotensive on admission. She received 2 IV fluid boluses blood pressure has come up to 99/51. BP meds have been placed on hold. Patient's sodium level also 129. She'll be started on normal saline at 100 mL per hour. White count 16.3 troponin 0.070. Lactic acid normal at 1 and magnesium 1.5 she threw receiving replacement of magnesium in the ER. Dr. EYAL Teresa will be consulted for her COPD and pneumonia. EKG showing a normal sinus rhythm with septal infarct age undetermined Review of Systems Please refer to HPI otherwise unremarkable Past Medical History Past Medical History: COPD, CVA/TIA, Diabetes Mellitus, GERD/Reflux, Hyperlipidemia, Hypertension, Myocardial Infarction (SD), Pneumonia, Seizure Disorder Additional Past Medical History / Comment(s): Only one seizure 2002, cva-06/2009 with residual lt sided weakness, HOME O2 2LITERS N/C AT HS, IDDM-HAS INSULIN PUMP,DIVERTICULITIS,OSTEOPenia, ARTHRITIS, in past saw eye specualist for ?lt eye leaky retina-pt states never had any sx no current problem Last Myocardial Infarction Date:: 1993 History of Any Multi-Drug Resistant Organisms: None Reported Past Surgical History: Appendectomy, Bowel Resection, Cholecystectomy, Heart Catheterization, Hysterectomy Additional Past Surgical History / Comment(s): ANGIOPLASTY-1993, Colonoscopy/EGD ,rt CARPAL TUNNEL RELEASE,ASA CATARACTS, BREAST BX-NEG, tendon sx rt thumb Past Anesthesia/Blood Transfusion Reactions: Previous Problems w/ Anesthesia, Motion Sickness, Postoperative Nausea & Vomiting (PONV) Additional Past Anesthesia/Blood Transfusion Reaction / Comment(s): past blood transfusion-no reaction Smoking Status: Former smoker - Past Family History Father Family Medical History: Diabetes Mellitus, Myocardial Infarction (SD) Mother Family Medical History: Diabetes Mellitus, Renal Disease Medications and Allergies Home Medications Medication Instructions Recorded Confirmed Type Clopidogrel Bisulfate [Clopidogrel] 75 mg PO DAILY 11/04/13 08/20/17 History Furosemide 20 mg PO DAILY 11/04/13 08/20/17 History Isosorbide Mononitrate [Imdur] 60 mg PO DAILY 11/04/13 08/20/17 History Mometasone Furoate [Nasonex Nasal 2 spray EA NOSTRIL DAILY 11/04/13 08/20/17 History [place]] Ranitidine HCl 300 mg PO DAILY 11/04/13 08/20/17 History Risedronate Sodium [Atelvia] 35 mg PO MCKEON 11/04/13 08/20/17 History Tiotropium 18 Mcg/Puff [Spiriva] 18 mcg INHALATION RT-DAILY 11/04/13 08/20/17 History Albuterol Sulfate [Ventolin HFA] 1 - 2 puff INHALATION RT-Q4H PRN 12/29/1508/20 History Diltiazem HCl [Diltiazem 24Hr ER] 360 mg PO DAILY 12/29/15 08/20/17 History Gabapentin 300 mg PO HS 12/29/15 08/20/17 History HYDROcodone/APAP 5-325MG [Omar 1 tab PO DAILY PRN 12/29/15 08/20/17 History 5-325] Metoprolol Tartrate 25 mg PO BID 12/29/15 08/20/17 History Multivitamins, Thera [Multivitamin 1 tab PO DAILY 12/29/15 08/20/17 History (formulary)] Nitroglycerin Sl Tabs [Nitrostat] 0.4 mg PO Q5M PRN 12/29/15 08/20/17 History Promethazine [Phenergan] 25 mg PO Q8H PRN 12/29/15 08/20/17 History SUMAtriptan SUCCINATE [Imitrex] 100 mg PO BID PRN 12/29/15 08/20/17 History Atorvastatin [Lipitor] 10 mg PO DAILY 07/07/17 08/20/17 History Benazepril [Lotensin] 10 mg PO DAILY 07/07/17 08/20/17 History Ezetimibe [Zetia] 10 mg PO DAILY 07/07/17 08/20/17 History Insulin Aspart (For Pump) [NovoLOG 0.01 unit SQ-PUMP CONTINUOUS 07/07/17 History (For Pump)] Omeprazole [PriLOSEC] 40 mg PO DAILY 07/07/17 08/20/17 History Polyethylene Glycol 3350 [Miralax] 17 gm PO DAILY PRN 07/07/17 08/20/17 History Psyllium Husk [Metamucil] 0.4 gm PO DAILY PRN 07/07/17 08/20/17 History Calcium Carbonate/Vitamin D3 1 tab PO DAILY 08/20/17 08/20/17 History [Calcium 600-Vit D3 400 Caplet] Allergies Allergy/AdvReac Type Severity Reaction Status Date / Time erythromycin base Allergy Rash/Hives Verified 08/20/17 13:10 Physical Exam Vitals: Vital Signs Temp Pulse Resp BP Pulse Ox 08/20/17 14:58 78 20 99/51 90 L 08/20/17 14:27 80 20 96/46 89 L 08/20/17 14:15 76 20 81/44 89 L 08/20/17 13:51 72 08/20/17 13:49 74 20 92/55 98 08/20/17 13:23 73 08/20/17 13:14 77 20 92/57 90 L 08/20/17 12:34 99.9 F H 83 20 107/58 89 L Intake and Output 08/20/17 08/20/17 08/20/17 06:59 14:59 22:59 Other: Weight 49.895 kg Head normocephalic Neck supple Lungs tight with a few scattered wheezes posteriorly Heart regular rate and rhythm S1-S2, no rub or gallop Abdomen is soft epigastric tenderness nondistended positive bowel sounds no hepatosplenomegaly Extremities no edema Neuro alert and orientated to 3 Results CBC & Chem 7: 08/20/17 13:00 08/20/17 13:00 Labs: Abnormal Lab Results - Last 24 Hours (Table) 08/20/17 08/20/17 08/20/17 Range/Units 13:00 13:00 13:00 WBC 16.3 H (3.8-10.6) k/uL Neutrophils # 13.5 H (1.3-7.7) k/uL Monocytes # 1.3 H (0-1.0) k/uL APTT (22.0-30.0) sec Sodium 129 L (137-145) mmol/L Chloride 87 L (98-107) mmol/L Creatinine 0.42 L (0.52-1.04) mg/dL Glucose 242 H (74-99) mg/dL Magnesium 1.5 L (1.6-2.3) mg/dL Alkaline Phosphatase 128 H (38-126) U/L Troponin I 0.070 H* (0.000-0.034) ng/mL Total Protein 4.9 L (6.3-8.2) g/dL Albumin 2.9 L (3.5-5.0) g/dL 08/20/17 Range/Units 13:00 WBC (3.8-10.6) k/uL Neutrophils # (1.3-7.7) k/uL Monocytes # (0-1.0) k/uL APTT 21.3 L (22.0-30.0) sec Sodium (137-145) mmol/L Chloride (98-107) mmol/L Creatinine (0.52-1.04) mg/dL Glucose (74-99) mg/dL Magnesium (1.6-2.3) mg/dL Alkaline Phosphatase (38-126) U/L Troponin I (0.000-0.034) ng/mL Total Protein (6.3-8.2) g/dL Albumin (3.5-5.0) g/dL Assessment and Plan Assessment: 1. Acute COPD exacerbation: Patient started on nebulizer treatments and IV steroids. Pulmonary service consulted 2. Pneumonia with chest x-ray showing evidence of a patchy by basilar infiltrate with small effusion: Patient started on Levaquin in the emergency room. Pulmonary service consulted. Check sputum culture. 3. Hyponatremia with a sodium level 129. Likely related to dehydration. Hold Lasix. Place patient on normal saline at 100 mL an hour. Repeat labs in a.m. 4. Hypotension: Hold BP meds. Patient given Teufel fluid boluses in the ER. Also continue normal saline at 100 5. Hypomagnesemia and patient receiving magnesium supplement. Repeat magnesium level in a.m. 6. Acute hypoxic respiratory failure likely related to COPD exacerbation and pneumonia 7. Chronic hypoxic respiratory failure home O2 dependent 8. Nicotine dependence: Discussed smoking cessation for greater than 3 minutes. Add nicotine patch 9. Moderate protein calorie malnutrition with albumin of 2.9 add Glucerna shakes 10. Elevated troponin no chest pain. We'll check serial EKG and cardiac enzymes. Consult cardiology. 11. Insulin-dependent diabetes mellitus: On insulin pump at home sugars have been elevated in the 200s to 300s. 12. History of CVA with residual left-sided weakness on Plavix 13. Hyperlipidemia continue statin GI prophylaxis Protonix and DVT prophylaxis Lovenox Time with Patient: Greater than 30 (Greater than 50% of the total time spent in counseling and coordination of care.I performed an examination of the patient and discussed their management with the physician Business Analysis Professional. I have reviewed the Physician Business Analysis Professional's notes and agree with the documented findings and plan of care)
[2017-08-20 16:23] LABS: Amylase <30 U/L (30-110); Lipase 22 U/L (23-300)
[2017-08-20] MEDS: SODIUM CHLORIDE 0.9% 1,000 ML IV SCH (16:41)
[2017-08-20] MEDS: methylPREDNISolone SOD SUCCI 125 MG/2 ML VIAL IV SCH (18:05)
[2017-08-20] MEDS: PANTOPRAZOLE 40 MG/10 ML VIAL IVP SCH (18:15)
[2017-08-20] MEDS: NICOTINE 14MG/24HR PATCH TRANSDERM SCH (18:15)
[2017-08-20] MEDS: ENOXAPARIN 40 MG/0.4 ML SYRINGE SQ SCH (18:16)
[2017-08-20 20:12] LABS: Creatine Kinase MB 1.6 ng/mL (0.0-2.4)
[2017-08-20 20:15] LABS: Troponin I 0.053 ng/mL (0.000-0.034)
[2017-08-20] MEDS: GABAPENTIN 300 MG CAP PO SCH (20:58)
[2017-08-20] MEDS: DOCUSATE 100 MG CAP PO SCH (20:58)
[2017-08-20 21:02] LABS: Glucose,Whole Blood 313 mg/dL (75-99)
[2017-08-20] MEDS: CALCIUM CARB-VIT D 500MG-200UN 1 EACH TAB PO SCH (21:43)
[2017-08-20] MEDS: CLOPIDOGREL 75 MG TAB PO SCH (21:43)
[2017-08-20] MEDS: ATORVASTATIN 10 MG TAB PO SCH (21:43)
[2017-08-20] MEDS: EZETIMIBE 10 MG TAB PO SCH (21:43)
[2017-08-21] MEDS: methylPREDNISolone SOD SUCCI 125 MG/2 ML VIAL IV SCH ×5 (00:02→23:58)
[2017-08-21 01:31] LABS: Troponin I 0.037 ng/mL (0.000-0.034)
[2017-08-21] MEDS: SODIUM CHLORIDE 0.9% 1,000 ML IV SCH (02:46)
[2017-08-21 03:35] LABS: Glucose,Whole Blood 272 mg/dL (75-99)
[2017-08-21] MEDS: ONDANSETRON 4 MG/2 ML VIAL IVP PRN ×4 (03:42→23:58)
[2017-08-21 06:04] LABS: Glucose,Whole Blood 276 mg/dL (75-99)
[2017-08-21 06:50] LABS: Basophils % (A) 0 %; Eosinophils % (A) 0 %; HCT 35.3 % (34.0-46.0); HGB 11.5 gm/dL (11.4-16.0); Lymphocytes # (A) 0.9 k/uL (1.0-4.8); Lymphocytes % (A) 7 %; MCH 31.4 pg (25.0-35.0); MCHC 32.6 g/dL (31.0-37.0); MCV 96.2 fL (80.0-100.0); Mean Platelet Volume 7.5; Monocytes # (A) 0.5 k/uL (0-1.0); Monocytes % (A) 3 %; Neutrophils # (A) 11.7 k/uL (1.3-7.7); Neutrophils % (A) 89 %; Platelet Count 314 k/uL (150-450); RBC 3.67 m/uL (3.80-5.40); RDW 12.8 % (11.5-15.5); WBC 13.2 k/uL (3.8-10.6)
[2017-08-21 07:02] LABS: ALT 28 U/L (9-52); AST 20 U/L (14-36); Albumin 2.6 g/dL (3.5-5.0); Alkaline Phosphatase 106 U/L (38-126); Anion Gap 11 mmol/L; Blood Urea Nitrogen 7 mg/dL (7-17); Calcium 8.3 mg/dL (8.4-10.2); Carbon Dioxide 25 mmol/L (22-30); Chloride 96 mmol/L (98-107); Glucose 259 mg/dL (74-99); Magnesium 1.9 mg/dL (1.6-2.3); Potassium 4.6 mmol/L (3.5-5.1); Sodium 132 mmol/L (137-145); Total Bilirubin 0.5 mg/dL (0.2-1.3); Total Protein 4.7 g/dL (6.3-8.2)
[2017-08-21] MEDS ORDERED: TIOTROPIUM INHALATION SCH (08:00)
[2017-08-21] MEDS: IPRATROPIUM-ALBUTEROL 3 ML NEB INHALATION SCH ×4 (08:13→19:47)
[2017-08-21] MEDS: POLYETHYLENE GLYCOL 3350 17 GM POWD.PACK PO SCH (08:28)
[2017-08-21] MEDS: ISOSORBIDE MONONITRATE ER 60 MG TAB.ER.24H PO SCH (08:28)
[2017-08-21] MEDS: PANTOPRAZOLE 40 MG/10 ML VIAL IVP SCH (08:28)
[2017-08-21] MEDS: FLUTICASONE 50MCG/SPRAY NASAL 16GM EA NOSTRIL SCH (08:28)
[2017-08-21] MEDS: ENOXAPARIN 40 MG/0.4 ML SYRINGE SQ SCH (08:28)
[2017-08-21] MEDS ORDERED: SODIUM CHLORIDE 0.9% 1,000 ML IV STA (08:28)
[2017-08-21] MEDS: DOCUSATE 100 MG CAP PO SCH ×2 (08:28→20:16)
[2017-08-21] MEDS: NICOTINE 14MG/24HR PATCH TRANSDERM SCH (08:29)
[2017-08-21] MEDS: PSYLLIUM HUSK 100% 6 GM PACKET PO SCH (08:33)
--- NOTE | 2017-08-21 08:35 | P.PN ---
Subjective Progress Note Date: 08/21/17 This is a 67-year-old female, patient of [facility]. She has a known past medical history of COPD, nicotine dependence, CVA, diabetes mellitus with insulin pump, hyperlipidemia, myocardial infarction with angioplasty in 1993, hypertension and seizure last seizure 2002. Patient with see her PCP regarding worsening cough and shortness of breath of the last 3 days. She was found to be hypoxic with oxygen saturation of 60-70% on room air. She was informed to present to the emergency room for further evaluation and treatment. Patient usually only uses home oxygen in the evening time but has required it throughout the day. She also has been having a productive cough with yellowish to greenish sputum also having some chills. She's also been nauseated and having some constipation. Last bowel movement was yesterday but hard pebble like. Patient denies any chest pain. Denies any vomiting. Denies any burning with urination. Patient was hypotensive on admission. She received 2 IV fluid boluses blood pressure has come up to 99/51. BP meds have been placed on hold. Patient's sodium level also 129. She'll be started on normal saline at 100 mL per hour. White count 16.3 troponin 0.070. Lactic acid normal at 1 and magnesium 1.5 she threw receiving replacement of magnesium in the ER. Dr. EYAL Teresa will be consulted for her COPD and pneumonia. EKG showing a normal sinus rhythm with septal infarct age undetermined On 08/21/2017 patient is alert and oriented 3 complaining of headache, complaining of shortness of breath, complaining of cough was minimal sputum production, denies any chest pain, there is no fever or chills, she is complaining of upset stomach, no nausea or vomiting no diarrhea no burning with urination no frequency or urgency. Objective - Vital Signs Vital signs: Vital Signs Temp 97.3 F L 08/21/17 08:00 Pulse 100 08/21/17 08:28 Resp 18 08/21/17 08:00 BP 126/92 08/21/17 08:00 Pulse Ox 93 L 08/21/17 08:00 Intake & Output 08/20/17 08/21/17 08/21/17 18:59 06:59 18:59 Intake Total 700 240 Balance 700 240 Weight 49.895 kg 53.7 kg Intake: IV 700 Sodium Chloride 0.9% 1, 700 000 ml @ 100 mls/hr IV . Q10H [facility] Rx#:[id number] Oral 240 Other: Voiding Method Bedside Commode # Voids 1 1 # Bowel Movements 1 1 - Exam HEENT head normocephalic and atraumatic Neck is supple Chest exam reveals a scattered crackles bilaterally with end expiratory wheezing Cardiac exam reveals regular heart sounds no gallops no murmurs Abdomen is soft nontender no organomegaly Extremity exam reveals no edema - Labs CBC & Chem 7: 08/21/17 05:38 08/21/17 05:38 Labs: Abnormal Lab Results - Last 24 Hours (Table) 08/20/17 08/20/17 08/20/17 Range/Units 13:00 13:00 13:00 WBC 16.3 H (3.8-10.6) k/uL RBC (3.80-5.40) m/uL Neutrophils # 13.5 H (1.3-7.7) k/uL Lymphocytes # (1.0-4.8) k/uL Monocytes # 1.3 H (0-1.0) k/uL APTT (22.0-30.0) sec Sodium 129 L (137-145) mmol/L Chloride 87 L (98-107) mmol/L Creatinine 0.42 L (0.52-1.04) mg/dL Glucose 242 H (74-99) mg/dL POC Glucose (mg/dL) (75-99) mg/dL Calcium (8.4-10.2) mg/dL Magnesium 1.5 L (1.6-2.3) mg/dL Alkaline Phosphatase 128 H (38-126) U/L Troponin I 0.070 H* (0.000-0.034) ng/mL Total Protein 4.9 L (6.3-8.2) g/dL Albumin 2.9 L (3.5-5.0) g/dL Amylase (30-110) U/L Lipase (23-300) U/L 08/20/17 08/20/17 08/20/17 Range/Units 13:00 13:00 19:25 WBC (3.8-10.6) k/uL RBC (3.80-5.40) m/uL Neutrophils # (1.3-7.7) k/uL Lymphocytes # (1.0-4.8) k/uL Monocytes # (0-1.0) k/uL APTT 21.3 L (22.0-30.0) sec Sodium (137-145) mmol/L Chloride (98-107) mmol/L Creatinine (0.52-1.04) mg/dL Glucose (74-99) mg/dL POC Glucose (mg/dL) (75-99) mg/dL Calcium (8.4-10.2) mg/dL Magnesium (1.6-2.3) mg/dL Alkaline Phosphatase (38-126) U/L Troponin I 0.053 H* (0.000-0.034) ng/mL Total Protein (6.3-8.2) g/dL Albumin (3.5-5.0) g/dL Amylase <30 L (30-110) U/L Lipase 22 L (23-300) U/L 08/20/17 08/21/17 08/21/17 Range/Units 20:58 00:42 03:34 WBC (3.8-10.6) k/uL RBC (3.80-5.40) m/uL Neutrophils # (1.3-7.7) k/uL Lymphocytes # (1.0-4.8) k/uL Monocytes # (0-1.0) k/uL APTT (22.0-30.0) sec Sodium (137-145) mmol/L Chloride (98-107) mmol/L Creatinine (0.52-1.04) mg/dL Glucose (74-99) mg/dL POC Glucose (mg/dL) 313 H 272 H (75-99) mg/dL Calcium (8.4-10.2) mg/dL Magnesium (1.6-2.3) mg/dL Alkaline Phosphatase (38-126) U/L Troponin I 0.037 H* (0.000-0.034) ng/mL Total Protein (6.3-8.2) g/dL Albumin (3.5-5.0) g/dL Amylase (30-110) U/L Lipase (23-300) U/L 08/21/17 08/21/17 08/21/17 Range/Units 05:38 05:38 06:02 WBC 13.2 H (3.8-10.6) k/uL RBC 3.67 L (3.80-5.40) m/uL Neutrophils # 11.7 H (1.3-7.7) k/uL Lymphocytes # 0.9 L (1.0-4.8) k/uL Monocytes # (0-1.0) k/uL APTT (22.0-30.0) sec Sodium 132 L (137-145) mmol/L Chloride 96 L (98-107) mmol/L Creatinine 0.35 L (0.52-1.04) mg/dL Glucose 259 H (74-99) mg/dL POC Glucose (mg/dL) 276 H (75-99) mg/dL Calcium 8.3 L (8.4-10.2) mg/dL Magnesium (1.6-2.3) mg/dL Alkaline Phosphatase (38-126) U/L Troponin I (0.000-0.034) ng/mL Total Protein 4.7 L (6.3-8.2) g/dL Albumin 2.6 L (3.5-5.0) g/dL Amylase (30-110) U/L Lipase (23-300) U/L Assessment and Plan Plan: 1. Acute COPD exacerbation: Patient started on DuoNeb nebulizer treatments and IV steroids. Pulmonary service consulted 2. Pneumonia with chest x-ray showing evidence of a patchy by basilar infiltrate with small effusion: Patient started on Levaquin in the emergency room. Pulmonary service consulted. Check sputum culture. 3. Hyponatremia with a sodium level 129. Sodium is up to 132 today decrease IV fluids to 50 mL/h 4. Hypotension: Hold BP meds. Patient given fluid boluses in the ER. Also continue normal saline at 50 blood pressure today is 126/92 5. Hypomagnesemia and patient receiving magnesium supplement. Repeat magnesium level in a.m. 6. Acute hypoxic respiratory failure likely related to COPD exacerbation and pneumonia 7. Chronic hypoxic respiratory failure home O2 dependent 8. Nicotine dependence: Discussed smoking cessation for greater than 3 minutes. Add nicotine patch 9. Moderate protein calorie malnutrition with albumin of 2.9 add Glucerna shakes 10. Elevated troponin no chest pain. We'll check serial EKG and cardiac enzymes. Consult cardiology. 11. Insulin-dependent diabetes mellitus: On insulin pump at home sugars have been elevated in the 200s to 300s. Patient wants to continue managing her sugar through her pump she will be given a copy of a sliding scale so she can adjust her insulin intake before meals glucose is elevated due to steroid use 12. History of CVA with residual left-sided weakness on Plavix 13. Hyperlipidemia continue statin and Zetia 14. For DVT prophylaxis patient on subcu Lovenox, for GI prophylaxis patient on oral Protonix Continue current care awaiting input from cardiology and pulmonary patient is improving slowly.
[2017-08-21] MEDS ORDERED: NITROGLYCERIN SL TABS 0.4 MG TAB SUBLINGUAL PRN (08:42)
[2017-08-21] MEDS ORDERED: CLOPIDOGREL 75 MG TAB PO SCH (09:00)
[2017-08-21] MEDS ORDERED: CALCIUM CARB-VIT D 500MG-200UN 1 EACH TAB PO SCH (09:00)
[2017-08-21] MEDS ORDERED: EZETIMIBE 10 MG TAB PO SCH (09:00)
[2017-08-21] MEDS ORDERED: ATORVASTATIN 10 MG TAB PO SCH (09:00)
--- NOTE | 2017-08-21 09:16 | XR ---
EXAMINATION TYPE: XR chest 2V DATE OF EXAM: 08/21/2017 COMPARISON: 08/20/2017 TECHNIQUE: PA and lateral views submitted. HISTORY: Pneumonia FINDINGS: Bilateral consolidation and small effusion seen. Coarsened interstitium suggests chronic interstitial lung disease. Superimposed pneumonitis or venous congestion in the differential diagnosis. Generativ e change of the spine and atherosclerotic change aorta. No pneumothorax. Chronic rib deformity in the left suggest remote trauma. IMPRESSION: 1. Bilateral lower lobe infiltrate and small effusion. 2. COPD correlate for interstitial pulmonary lung disease such as fibrosis. Superimposed pneumonitis or congestion in the differential diagnosis. Findings are stable.
[2017-08-21] MEDS ORDERED: INSULIN PUMP BASAL RATES 1 EACH MISC MISCELLANE PRN (09:19)
[2017-08-21] MEDS ORDERED: INSULIN ASPART 100 UNIT/ML 1 ML 10 ML VIAL SQ PRN (09:19)
[2017-08-21] MEDS: METOPROLOL TARTRATE 25 MG TAB PO SCH ×2 (09:38→20:16)
[2017-08-21] MEDS: DILTIAZEM CD 180 MG CAP.ER.24H PO SCH (09:38)
[2017-08-21] MEDS: LISINOPRIL 10 MG TAB PO SCH (09:39)
[2017-08-21] MEDS: FUROSEMIDE 20 MG TAB PO SCH (09:39)
[2017-08-21] MEDS ORDERED: RX INFO: IV CONTRAST WAS GIVEN 1 EACH MISC MISCELLANE PRN (10:20)
--- NOTE | 2017-08-21 10:22 | P.CNPUL ---
History of Present Illness Consult date: 08/21/17 Requesting physician: Garcia Wakefield Reason for consult: dyspnea, COPD, pneumonia Chief complaint: shortness of breath History of present illness: This is a 67-year-old female patient being seen examined and evaluated today for consultation. This patient was being seen by her PCP for cough congestion and shortness of breath over the last 3 or 4 days and was found to be hypoxic in the office with oxygen saturations in the 60-70% on room air, and was sent over to the emergency room for evaluation and treatment. Patient is known to have supplemental oxygen at 2 L during the nighttime hours only. She states that over the past 3-4 days she has had a productive cough with yellow sputum with chills. She is also had some nausea and constipation. Upon evaluation in the emergency room she was found to be hypotensive and was given 2 L IV bolus. She also had a sodium of 129, WBC of 16.3 and slightly elevated troponins at 0.070. She was negative for a lactic acid. And her magnesium was 1.5 which was replaced. Patient was initiated on antibiotics and breathing treatments. Patient's chest x-ray from this morning does show bilateral lower lobe infiltrates with small effusion. COPD correlate for interstitial pulmonary lung disease such as fibrosis, superimposed pneumonitis or congestion also on the differential. Upon examination the patient's resting up in bed on 4 L of supplemental oxygen via nasal cannula. She continues to have shortness of breath cough and congestion. Sputum culture is pending. Patient is a half a pack per day smoker for approximately 30 years. She does have pets in the home just [place] dog[place] For work the patient worked in secretarial or housekeeping. She is afebrile no further complaints. Review of Systems 14 point review of systems was completed and is negative unless noted in the HPI. 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, HOME O2 2LITERS N/C AT HS, IDDM-HAS INSULIN PUMP,DIVERTICULITIS,OSTEOPenia, ARTHRITIS, in past saw eye specualist for ?lt eye leaky retina-pt states never had any sx no current problem Last Myocardial Infarction Date:: 1993 History of Any Multi-Drug Resistant Organisms: None Reported Past Surgical History: Appendectomy, Bowel Resection, Cholecystectomy, Heart Catheterization, Hysterectomy Additional Past Surgical History / Comment(s): ANGIOPLASTY-1993, Colonoscopy/EGD ,rt CARPAL TUNNEL RELEASE,ASA CATARACTS, BREAST BX-NEG, tendon sx rt thumb Past Anesthesia/Blood Transfusion Reactions: Previous Problems w/ Anesthesia, Motion Sickness, Postoperative Nausea & Vomiting (PONV) Additional Past Anesthesia/Blood Transfusion Reaction / Comment(s): past blood transfusion-no reaction Smoking Status: Former smoker - Past Family History Father Family Medical History: Diabetes Mellitus, Myocardial Infarction ([place]) Mother Family Medical History: Diabetes Mellitus, Renal Disease Medications and Allergies Home Medications Medication Instructions Recorded Confirmed Type Clopidogrel Bisulfate [Clopidogrel] 75 mg PO DAILY 11/04/13 08/20/17 History Furosemide 20 mg PO DAILY 11/04/13 08/20/17 History Isosorbide Mononitrate [Imdur] 60 mg PO DAILY 11/04/13 08/20/17 History Mometasone Furoate [Nasonex Nasal 2 spray EA NOSTRIL DAILY 11/04/13 08/20/17 History [place]] Ranitidine HCl 300 mg PO DAILY 11/04/13 08/20/17 History Risedronate Sodium [Atelvia] 35 mg PO MCKEON 11/04/13 08/20/17 History Tiotropium 18 Mcg/Puff [Spiriva] 18 mcg INHALATION RT-DAILY 11/04/13 08/20/17 History Albuterol Sulfate [Ventolin HFA] 1 - 2 puff INHALATION RT-Q4H PRN 12/29/1508/20 History Diltiazem HCl [Diltiazem 24Hr ER] 360 mg PO DAILY 12/29/15 08/20/17 History Gabapentin 300 mg PO HS 12/29/15 08/20/17 History HYDROcodone/APAP 5-325MG [[place] 1 tab PO DAILY PRN 12/29/15 08/20/17 History 5-325] Metoprolol Tartrate 25 mg PO BID 12/29/15 08/20/17 History Multivitamins, Thera [Multivitamin 1 tab PO DAILY 12/29/15 08/20/17 History (formulary)] Nitroglycerin Sl Tabs [Nitrostat] 0.4 mg PO Q5M PRN 12/29/15 08/20/17 History Promethazine [Phenergan] 25 mg PO Q8H PRN 12/29/15 08/20/17 History SUMAtriptan SUCCINATE [Imitrex] 100 mg PO BID PRN 12/29/15 08/20/17 History Atorvastatin [Lipitor] 10 mg PO DAILY 07/07/17 08/20/17 History Benazepril [Lotensin] 10 mg PO DAILY 07/07/17 08/20/17 History Ezetimibe [Zetia] 10 mg PO DAILY 07/07/17 08/20/17 History Insulin Aspart (For Pump) [NovoLOG 0.01 unit SQ-PUMP CONTINUOUS 07/07/17 History (For Pump)] Omeprazole [PriLOSEC] 40 mg PO DAILY 07/07/17 08/20/17 History Polyethylene Glycol 3350 [Miralax] 17 gm PO DAILY PRN 07/07/17 08/20/17 History Psyllium Husk [Metamucil] 0.4 gm PO DAILY PRN 07/07/17 08/20/17 History Calcium Carbonate/Vitamin D3 1 tab PO DAILY 08/20/17 08/20/17 History [Calcium 600-Vit D3 400 Caplet] Allergies Allergy/AdvReac Type Severity Reaction Status Date / Time erythromycin base Allergy Rash/Hives Verified 08/20/17 13:10 Physical Exam Vitals: Vital Signs Temp Pulse Pulse Resp BP BP Pulse Ox 08/21/17 08:28 100 08/21/17 08:13 104 H 08/21/17 08:00 97.3 F L 104 H 18 126/92 93 L 08/21/17 04:00 97.8 F 103 H 17 131/69 92 L 08/21/17 00:00 97.9 F 65 16 96/68 94 L 08/20/17 20:05 92 18 08/20/17 20:00 97.4 F L 81 18 99/54 92 L 08/20/17 19:56 91 18 08/20/17 18:22 97.8 F 83 20 100/50 91 L 08/20/17 16:44 77 18 103/55 93 L 08/20/17 16:12 84 18 08/20/17 16:02 80 16 05/08/18 15:45 78 20 104/55 91 L 08/20/17 14:58 78 20 99/51 90 L 08/20/17 14:27 80 20 96/46 89 L 08/20/17 14:15 76 20 81/44 89 L 08/20/17 13:51 72 08/20/17 13:49 74 20 92/55 98 08/20/17 13:23 73 08/20/17 13:14 77 20 92/57 90 L 08/20/17 12:34 99.9 F H 83 20 107/58 89 L Intake and Output 08/20/17 08/21/17 08/21/17 22:59 06:59 14:59 Intake Total 700 240 Balance 700 240 Intake: IV 700 Sodium Chloride 0.9% 1, 700 000 ml @ 100 mls/hr IV . Q10H [facility] Rx#:[id number] Oral 240 Other: Voiding Method Bedside Commode Bedside Commode # Voids 1 1 # Bowel Movements 1 1 Weight 53.7 kg 53.7 kg GENERAL EXAM: Alert, comfortable in no apparent distress. HEAD: Normocephalic. EYES: Normal reaction of pupils, equal size. NOSE: Clear with pink turbinates. THROAT: No erythema or exudates. NECK: No masses, no JVD. CHEST: No chest wall deformity. LUNGS: Lungs noted to be tight slightly coarse with few scattered expiratory wheezing. Bases diminished CVS: S1 and S2 normal with no audible mumurs, regular rhythm. ABDOMEN: No hepatosplenomegaly, normal bowel sounds, no guarding or rigidity. EXTREMITIES: No edema noted, pedal pulses palpable. CENTRAL NERVOUS SYSTEM: No focal deficits, tone is normal in all 4 extremities. Results - Laboratory Findings CBC and BMP: 08/21/17 05:38 08/21/17 05:38 PT/INR, D-dimer PT 9.9 sec (9.0-12.0) 08/20/17 13:00 INR 1.0 (<1.2) 08/20/17 13:00 Abnormal lab findings: Abnormal Labs 08/20/17 08/20/17 08/20/17 13:00 13:00 13:00 WBC 16.3 H RBC Neutrophils # 13.5 H Lymphocytes # Monocytes # 1.3 H APTT Sodium 129 L Chloride 87 L Creatinine 0.42 L Glucose 242 H POC Glucose (mg/dL) Calcium Magnesium 1.5 L Alkaline Phosphatase 128 H Troponin I 0.070 H* Total Protein 4.9 L Albumin 2.9 L Amylase Lipase 08/20/17 08/20/17 08/20/17 13:00 13:00 19:25 WBC RBC Neutrophils # Lymphocytes # Monocytes # APTT 21.3 L Sodium Chloride Creatinine Glucose POC Glucose (mg/dL) Calcium Magnesium Alkaline Phosphatase Troponin I 0.053 H* Total Protein Albumin Amylase <30 L Lipase 22 L 08/20/17 08/21/17 08/21/17 20:58 00:42 03:34 WBC RBC Neutrophils # Lymphocytes # Monocytes # APTT Sodium Chloride Creatinine Glucose POC Glucose (mg/dL) 313 H 272 H Calcium Magnesium Alkaline Phosphatase Troponin I 0.037 H* Total Protein Albumin Amylase Lipase 08/21/17 08/21/17 08/21/17 05:38 05:38 06:02 WBC 13.2 H RBC 3.67 L Neutrophils # 11.7 H Lymphocytes # 0.9 L Monocytes # APTT Sodium 132 L Chloride 96 L Creatinine 0.35 L Glucose 259 H POC Glucose (mg/dL) 276 H Calcium 8.3 L Magnesium Alkaline Phosphatase Troponin I Total Protein 4.7 L Albumin 2.6 L Amylase Lipase - Diagnostic Findings Chest x-ray: report reviewed, image reviewed Assessment and Plan Assessment: Assessment Acute exacerbation of COPD Bilateral pneumonia, community acquired suspect mixed bacterial Hyponatremia Hypotension next hypomagnesemia next acute on chronic hypoxic respiratory failure requiring additional supplemental oxygen. Nicotine dependence Elevated troponins Diabetes mellitus type 1 History of CVA Hyperlipidemia Plan Medications have been reviewed and will be continued as ordered. We will obtain a CT of the chest with contrast to further evaluate for suspected underlying fibrosis. We will obtain also alpha 1 antitrypsin antigen and phenotype as well as [place] ALLERGY panel and IGE. We will also obtain Legionella specimen from her urine. Initiate and encourage incentive spirometer. Add on PT and OT. Continue to monitor and replace electrolytes. Continue with pulmonary hygiene, coughing and deep breathing exercises, and supportive care. Supplemental oxygen to maintain oxygen saturations of 92% or better. Continue nebulizer treatments. GI and DVT prophylaxis. We will continue to monitor labs/results and adjust treatment as necessary. Further recommendations pending. I performed an examination of the patient and discussed their management with the nurse practitioner. I have reviewed the nurse practitioner's note and agree with the documented findings and plan of care.
[2017-08-21] MEDS: INSULIN PUMP MEAL BOLUS 1 UNIT MISC MISCELLANE SCH ×3 (11:07→20:41)
[2017-08-21] MEDS: MULTIVITAMINS, THERA 1 EACH TAB PO SCH (12:32)
--- NOTE | 2017-08-21 12:41 | CT ---
EXAMINATION TYPE: CT chest w con DATE OF EXAM: 08/21/2017 COMPARISON: CT chest January 11, 2011 HISTORY: Pneumonia, COPD Exacerbation shortness of breath CT DLP: 484 mGycm Automated exposure control for dose reduction was used. CONTRAST: CT scan of the chest is performed with IV Contrast, patient injected with 100 ml mL of Isovue 300. FINDINGS: LUNGS: Moderate to advanced underlying emphysematous change is redemonstrated. There are increased ma rkings bilaterally likely reflecting component of interstitial edema. There are new small bilateral p leural effusions with associated compressive atelectasis. There are more focal areas of reticulonodul ar infiltrates in the periphery of the bilateral upper lobes for reference coronal image 48 could ref lect more focal edema and/or infiltrates. No pneumothorax is seen bilaterally. There is masslike cons olidation abutting the anterior medial left chest wall axial image 32 measuring 3.5 x 1.9 cm new from prior study favor focal atelectasis. No suspicious nodule or mass is otherwise present. MEDIASTINUM: There are persistent abnormal thoracic lymph nodes slightly larger versus prior. For ref erence posterior AP window lymph node measures 1.7 x 1.2 cm on current study axial image 20. No card iomegaly or pericardial effusion is seen. Coronary artery calcification is present which is noted ma rker for coronary artery disease. There is moderate mixed plaque in the aorta extending into branch v essels OTHER: Underlying scoliosis is present. Some generalized fat replaced atrophy of pancreas is felt pr esent. Some new subcutaneous edema and/or skin thickening inferior aspect of left breast is felt pres ent. Suspect likely on basis of fluid overload state but should be correlated clinically and with rec ent mammograms. IMPRESSION: There is persistent moderate to advanced underlying emphysematous change. There is suspe cted fluid overload state as there are new small bilateral pleural effusions and new moderate interst itial edema felt present. Areas of acute interstitial infiltrate are difficult to exclude. More promi nent thoracic adenopathy identified. Consider bronchoscopy or PET CT follow-up. Attention to left blane ast as noted above.
[2017-08-21] MEDS ORDERED: LEVOFLOXACIN 750MG-D5W PMX 750 MG in DEXTROSE/WATER 1 150ML.BAG IVPB SCH (16:00)
--- NOTE | 2017-08-21 16:14 | ECHOF ---
Referral Reason:abn trop MEASUREMENTS -------- HEIGHT: 127.0 cm WEIGHT: 53.5 kg BP: IVSd: 0.7 cm (0.6 - 1.1) LVIDd: 3.8 cm (3.9 - 5.3) LVPWd: 0.6 cm (0.6 - 1.1) IVSs: 1.1 cm LVIDs: 2.1 cm LVPWs: 1.3 cm LA Diam: 3.1 cm (2.7 - 3.8) Ao Diam: 2.5 cm (2.0 - 3.7) AV Cusp: 1.5 cm (1.5 - 2.6) LA Diam: 3.7 cm (2.7 - 3.8) MV EXCURSION: 15.944 mm (> 18.000) MV EF SLOPE: 82 mm/s (70 - 150) EPSS: 0.7 cm MV E Tom: 0.84 m/s MV DecT: 238 ms MV A Tom: 0.99 m/s MV E/A Ratio: 0.85 RAP: 5.00 mmHg RVSP: 33.57 mmHg FINDINGS -------- Sinus rhythm. This was a technically good study. LV size, wall thickness and systolic function are normal, with an EF greater than 55%. The left elton tricular size is normal. The right ventricle is normal in size. The left atrial size is normal. The right atrial size is normal. There is mild aortic valve sclerosis. There is no evidence of aortic regurgitation. Mild mitral annular calcification present. Mild mitral regurgitation is present. Mild tricuspid regurgitation present. There is no evidence of pulmonary hypertension. The right v entricular systolic pressure, as measured by Doppler, is 33.57mmHg. There is no pulmonic regurgitation present. The aortic root size is normal. There is no pericardial effusion. CONCLUSIONS -------- 1. LV size, wall thickness and systolic function are normal, with an EF greater than 55%. 2. The left ventricular size is normal. 3. There is mild aortic valve sclerosis. 4. Mild mitral annular calcification present. 5. Mild mitral regurgitation is present. 6. Mild tricuspid regurgitation present. 7. There is no evidence of pulmonary hypertension. 8. The right ventricular systolic pressure, as measured by Doppler, is 33.57mmHg. 9. There is no pulmonic regurgitation present. 10. The aortic root size is normal. 11. There is no pericardial effusion. SALES ENGINEER [employer]: Devorah Lizama RDCS
[2017-08-21 16:49] LABS: Glucose,Whole Blood 343 mg/dL (75-99)
[2017-08-21] MEDS: LEVOFLOXACIN 750 MG TAB PO SCH (16:53)
[2017-08-21 19:42] LABS: Hemoglobin A1C 7.4 % (4.0-6.0)
[2017-08-21] MEDS: CLOPIDOGREL 75 MG TAB PO SCH (20:16)
[2017-08-21] MEDS: ATORVASTATIN 10 MG TAB PO SCH (20:16)
[2017-08-21] MEDS: CALCIUM CARB-VIT D 500MG-200UN 1 EACH TAB PO SCH (20:16)
[2017-08-21] MEDS: HYDROcodone/APAP 5-325MG 1 EACH TAB PO PRN (20:16)
[2017-08-21] MEDS: GABAPENTIN 300 MG CAP PO SCH (20:16)
[2017-08-21] MEDS: EZETIMIBE 10 MG TAB PO SCH (20:16)
[2017-08-21 20:36] LABS: Glucose,Whole Blood 372 mg/dL (75-99)
[2017-08-22 02:08] LABS: Glucose,Whole Blood 302 mg/dL (75-99)
[2017-08-22] MEDS: INSULIN PUMP MEAL BOLUS 1 UNIT MISC MISCELLANE SCH ×4 (02:16→21:11)
[2017-08-22] MEDS: HYDROcodone/APAP 5-325MG 1 EACH TAB PO PRN ×2 (02:31→22:21)
[2017-08-22 05:46] LABS: Glucose,Whole Blood 210 mg/dL (75-99)
[2017-08-22 05:52] LABS: Basophils % (A) 0 %; Eosinophils # (A) 0.2 k/uL (0-0.7); Eosinophils % (A) 1 %; HCT 35.9 % (34.0-46.0); HGB 12.2 gm/dL (11.4-16.0); Lymphocytes # (A) 1.3 k/uL (1.0-4.8); Lymphocytes % (A) 6 %; MCH 31.7 pg (25.0-35.0); MCHC 33.9 g/dL (31.0-37.0); MCV 93.2 fL (80.0-100.0); Mean Platelet Volume 7.4; Monocytes # (A) 0.8 k/uL (0-1.0); Monocytes % (A) 4 %; Neutrophils % (A) 88 %; Platelet Count 408 k/uL (150-450); RBC 3.85 m/uL (3.80-5.40); RDW 12.9 % (11.5-15.5); WBC 20.5 k/uL (3.8-10.6)
[2017-08-22 06:05] LABS: ALT 22 U/L (9-52); AST 21 U/L (14-36); Albumin 2.8 g/dL (3.5-5.0); Alkaline Phosphatase 102 U/L (38-126); Anion Gap 11 mmol/L; Blood Urea Nitrogen 12 mg/dL (7-17); Calcium 8.7 mg/dL (8.4-10.2); Carbon Dioxide 30 mmol/L (22-30); Chloride 91 mmol/L (98-107); Glucose 209 mg/dL (74-99); Potassium 4.4 mmol/L (3.5-5.1); Sodium 132 mmol/L (137-145); Total Bilirubin 0.2 mg/dL (0.2-1.3); Total Protein 4.9 g/dL (6.3-8.2)
[2017-08-22] MEDS: PANTOPRAZOLE 40 MG TABLET PO SCH (06:32)
[2017-08-22] MEDS: methylPREDNISolone SOD SUCCI 125 MG/2 ML VIAL IV SCH ×4 (06:32→23:33)
[2017-08-22] MEDS: IPRATROPIUM-ALBUTEROL 3 ML NEB INHALATION SCH ×4 (07:33→20:14)
[2017-08-22] MEDS: ONDANSETRON 4 MG/2 ML VIAL IVP PRN ×2 (07:36→20:27)
--- NOTE | 2017-08-22 08:30 | P.CRDCN ---
History of Present Illness Consult date: 08/22/17 Requesting physician: Garcia Wakefield Consult reason: shortness of breath Chief complaint: Shortness of breath History of present illness: This is a 67-year-old female with known history of coronary artery disease and prior angioplasty of the proximal OM 2 in 1993, she follows with Dr. Rausch in the office. Patient also has history of hyperlipidemia, hypertension, peripheral vascular disease, chronic nicotine dependence, COPD, O2 dependent, prior CVA, diabetes with insulin pump. She presented to the hospital with symptoms of shortness of breath with associated productive cough of yellow sputum. Patient also states that she had been having chills at home. Patient also complains that she's been quite nauseated and constipated at home , still complains of nausea this morning at the time of my examination. Blood pressure on admission here 107/58, O2 saturation 89% on 3 L of oxygen. Temperature on arrival 99.9. Let pressure this morning 136/70 with a heart rate in the 80s, temperature 90.7, she is 95% on 3 L of oxygen. EKG on arrival here showed a normal sinus rhythm with no acute changes. Chest x-ray on admission revealed patchy basilar infiltrates with small pleural effusions. Repeat chest x-ray showed bilateral lower lobe infiltrate and small effusions. COPD. CAT scan of the chest was also performed which revealed persistent moderate to advanced underlying emphysema changes. There is suspicion of possible fluid overload as her new small bilateral pleural effusions. An echocardiogram with Doppler study was performed which revealed an ejection fraction of greater than 55%. Laboratory data was reviewed, sodium 1:30 to, potassium 4.4, BUN 12, creatinine 0.4. Magnesium on admission 1.5, 1.9 subsequently. At the time of my examination this morning, patient still feels short of breath, her main complaint is that of nausea this morning. Troponins 0.07, 0.05, 0.03. Influenza A and B are negative. White blood cell count 16.3 on admission, 20.5 this morning, hemoglobin 12.2 and platelet count 408. Past Medical History Past Medical History: COPD, CVA/TIA, Diabetes Mellitus, GERD/Reflux, Hyperlipidemia, Hypertension, Myocardial Infarction ([place]), Pneumonia, Seizure Disorder Additional Past Medical History / Comment(s): Only one seizure 2002, cva-06/2009 with residual lt sided weakness, HOME O2 2LITERS N/C AT HS, IDDM-HAS INSULIN PUMP,DIVERTICULITIS,OSTEOPenia, ARTHRITIS, in past saw eye specualist for ?lt eye leaky retina-pt states never had any sx no current problem Last Myocardial Infarction Date:: 1993 History of Any Multi-Drug Resistant Organisms: None Reported Past Surgical History: Appendectomy, Bowel Resection, Cholecystectomy, Heart Catheterization, Hysterectomy Additional Past Surgical History / Comment(s): ANGIOPLASTY-1993, Colonoscopy/EGD ,rt CARPAL TUNNEL RELEASE,AAS CATARACTS, BREAST BX-NEG, tendon sx rt thumb Past Anesthesia/Blood Transfusion Reactions: Previous Problems w/ Anesthesia, Motion Sickness, Postoperative Nausea & Vomiting (PONV) Additional Past Anesthesia/Blood Transfusion Reaction / Comment(s): past blood transfusion-no reaction Smoking Status: Former smoker - Past Family History Father Family Medical History: Diabetes Mellitus, Myocardial Infarction ([place]) Mother Family Medical History: Diabetes Mellitus, Renal Disease Medications and Allergies Home Medications Medication Instructions Recorded Confirmed Type Clopidogrel Bisulfate [Clopidogrel] 75 mg PO DAILY 11/04/13 08/20/17 History Furosemide 20 mg PO DAILY 11/04/13 08/20/17 History Isosorbide Mononitrate [Imdur] 60 mg PO DAILY 11/04/13 08/20/17 History Mometasone Furoate [Nasonex Nasal 2 spray EA NOSTRIL DAILY 11/04/13 08/20/17 History Jefferson] Ranitidine HCl 300 mg PO DAILY 11/04/13 08/20/17 History Risedronate Sodium [Atelvia] 35 mg PO MCKEON 11/04/13 08/20/17 History Tiotropium 18 Mcg/Puff [Spiriva] 18 mcg INHALATION RT-DAILY 11/04/13 08/20/17 History Albuterol Sulfate [Ventolin HFA] 1 - 2 puff INHALATION RT-Q4H PRN 12/29/1508/20 History Diltiazem HCl [Diltiazem 24Hr ER] 360 mg PO DAILY 12/29/15 08/20/17 History Gabapentin 300 mg PO HS 12/29/15 08/20/17 History HYDROcodone/APAP 5-325MG [Hinckley 1 tab PO DAILY PRN 12/29/15 08/20/17 History 5-325] Metoprolol Tartrate 25 mg PO BID 12/29/15 08/20/17 History Multivitamins, Thera [Multivitamin 1 tab PO DAILY 12/29/15 08/20/17 History (formulary)] Nitroglycerin Sl Tabs [Nitrostat] 0.4 mg PO Q5M PRN 12/29/15 08/20/17 History Promethazine [Phenergan] 25 mg PO Q8H PRN 12/29/15 08/20/17 History SUMAtriptan SUCCINATE [Imitrex] 100 mg PO BID PRN 12/29/15 08/20/17 History Atorvastatin [Lipitor] 10 mg PO DAILY 07/07/17 08/20/17 History Benazepril [Lotensin] 10 mg PO DAILY 07/07/17 08/20/17 History Ezetimibe [Zetia] 10 mg PO DAILY 07/07/17 08/20/17 History Insulin Aspart (For Pump) [NovoLOG 0.01 unit SQ-PUMP CONTINUOUS 07/07/17 History (For Pump)] Omeprazole [PriLOSEC] 40 mg PO DAILY 07/07/17 08/20/17 History Polyethylene Glycol 3350 [Miralax] 17 gm PO DAILY PRN 07/07/17 08/20/17 History Psyllium Husk [Metamucil] 0.4 gm PO DAILY PRN 07/07/17 08/20/17 History Calcium Carbonate/Vitamin D3 1 tab PO DAILY 08/20/17 08/20/17 History [Calcium 600-Vit D3 400 Caplet] Allergies Allergy/AdvReac Type Severity Reaction Status Date / Time erythromycin base Allergy Rash/Hives Verified 08/20/17 13:10 Physical Exam Vitals: Vital Signs Temp Pulse Pulse Resp BP Pulse Ox 08/22/17 07:48 96 08/22/17 07:38 88 08/22/17 04:00 97.5 F L 82 16 131/70 96 08/22/17 00:00 97.6 F 79 16 114/58 93 L 08/21/17 20:05 100 08/21/17 20:00 97.2 F L 63 17 96/56 95 08/21/17 19:50 105 H 92 L 08/21/17 16:00 96.8 F L 88 18 105/63 95 08/21/17 15:39 92 08/21/17 15:26 92 08/21/17 12:00 96 20 115/79 93 L 08/21/17 11:44 100 08/21/17 11:19 96 08/21/17 08:28 100 Intake and Output 08/21/17 08/22/17 08/22/17 22:59 06:59 14:59 Output Total 800 400 Balance -800 -400 Output: Urine 800 400 Other: Voiding Method Bedside Commode Bedside Commode # Voids 1 Weight 54.2 kg PHYSICAL EXAMINATION: HEENT: Head is atraumatic, normocephalic. Pupils equal, round. Neck is supple. There is no elevated jugular venous pressure. HEART EXAMINATION: Heart S1 and S2 systolic ejection murmur is heard at the base. CHEST EXAMINATION: Lungs reveal scattered coarse wheezing throughout. Diminished air entry to the bases ABDOMEN: Soft, nontender. Bowel sounds are heard. No organomegaly noted. EXTREMITIES: 1+ peripheral pulses with trace evidence of peripheral edema and no calf tenderness noted. NEUROLOGIC patient is awake, alert and oriented -3. . Results 08/22/17 05:35 08/22/17 05:35 Cardiac Enzymes 08/22/17 Range/Units 05:35 AST 21 (14-36) U/L CBC 08/22/17 Range/Units 05:35 WBC 20.5 H (3.8-10.6) k/uL RBC 3.85 (3.80-5.40) m/uL Hgb 12.2 (11.4-16.0) gm/dL Hct 35.9 (34.0-46.0) % Plt Count 408 (150-450) k/uL Comprehensive Metabolic Panel 08/22/17 Range/Units 05:35 Sodium 132 L (137-145) mmol/L Potassium 4.4 (3.5-5.1) mmol/L Chloride 91 L (98-107) mmol/L Carbon Dioxide 30 (22-30) mmol/L BUN 12 (7-17) mg/dL Creatinine 0.40 L (0.52-1.04) mg/dL Glucose 209 H (74-99) mg/dL Calcium 8.7 (8.4-10.2) mg/dL AST 21 (14-36) U/L ALT 22 (9-52) U/L Alkaline Phosphatase 102 (38-126) U/L Total Protein 4.9 L (6.3-8.2) g/dL Albumin 2.8 L (3.5-5.0) g/dL Current Medications Generic Name Dose Route Start Last Admin Trade Name Freq PRN Reason Stop Dose Admin Hydrocodone Bitart/Acetaminophen 1 each 08/21/17 08:42 08/22/17 02:31 Hinckley 5-325 PO 1 each DAILY PRN Administration Pain Albuterol Sulfate 2.5 mg 08/20/17 14:03 Ventolin Nebulized INHALATION RT-Q4H PRN Shortness Of Breath Or Wheezing Albuterol/Ipratropium 3 ml 08/20/17 16:00 08/22/17 07:33 Duoneb 0.5 Mg-3 Mg/3 Ml Soln INHALATION 3 ml RT-QID RJ Administration Atorvastatin Calcium 10 mg 08/20/17 21:15 08/21/17 20:16 Lipitor PO 10 mg HS RJ Administration Calcium Carbonate 1 each 08/20/17 21:15 08/21/17 20:16 Oscal 500+D PO 1 each HS RJ Administration Clopidogrel Bisulfate 75 mg 08/20/17 21:15 08/21/17 20:16 Plavix PO 75 mg HS RJ Administration Diltiazem HCl 360 mg 08/21/17 09:00 08/21/17 09:38 Cardizem Cd PO 360 mg DAILY RJ Administration Docusate Sodium 100 mg 08/20/17 21:00 08/21/17 20:16 Colace PO 100 mg BID RJ Administration Ezetimibe 10 mg 08/20/17 21:15 08/21/17 20:16 Zetia PO 10 mg HS RJ Administration Enoxaparin Sodium 40 mg 08/20/17 16:00 08/21/17 08:28 Lovenox SQ 40 mg DAILY RJ Administration Fluticasone Propionate 2 spray 08/21/17 09:00 08/21/17 08:28 Flonase Nasal Jefferson EA NOSTRIL 2 spray DAILY RJ Administration Furosemide 20 mg 08/21/17 09:00 08/21/17 09:39 Lasix PO 20 mg DAILY RJ Administration Gabapentin 300 mg 08/20/17 21:00 08/21/17 20:16 Neurontin PO 300 mg HS RJ Administration Insulin Aspart 0 unit 08/21/17 09:19 Novolog SQ DAILY PRN Insulin Pump Replacement Isosorbide Mononitrate 60 mg 08/21/17 09:00 08/21/17 08:28 Imdur PO 60 mg DAILY RJ Administration Levofloxacin 750 mg 08/21/17 16:00 08/21/17 16:53 Levaquin PO 750 mg Q24H RJ Administration Lisinopril 10 mg 08/21/17 09:00 08/21/17 09:39 Zestril PO 10 mg DAILY RJ Administration Methylprednisolone Sodium Succinate 60 mg 08/20/17 18:00 08/22/17 06:32 Solu-Medrol IV 60 mg Q6HR RJ Administration Metoprolol Tartrate 25 mg 08/21/17 09:00 08/21/17 20:16 Lopressor PO 25 mg BID RJ Administration Miscellaneous Information 1 each 08/20/17 14:03 Pneumonia Protocol Utilized PO ONCE PRN Per Protocol Miscellaneous Information 1 each 08/21/17 09:19 Insulin Pump Basal Rates MISCELLANE Q6HR PRN Blood Sugar - High Protocol Miscellaneous Information 0 unit 08/21/17 09:19 Insulin Pump Correction Bolus MISCELLANE ACHS PRN Blood Sugar - High Protocol Miscellaneous Information 0 unit 08/21/17 12:30 08/22/17 06:39 Insulin Pump Meal Bolus MISCELLANE 6.4 unit ACHS RJ Administration Protocol Miscellaneous Information 1 each 08/21/17 10:20 Rx Info: Iv Contrast Was Given MISCELLANE 08/23/17 10:20 DAILY PRN Per Protocol Multivitamins 1 each 08/21/17 12:00 08/21/17 12:32 Theragran PO 1 each DAILY@1200 RJ Administration Nicotine 1 patch 08/20/17 16:00 08/21/17 08:29 Habitrol 14mg/24hr Patch TRANSDERM 1 patch DAILY RJ Administration Nitroglycerin 0.4 mg 08/21/17 08:42 Nitrostat SUBLINGUAL Q5M PRN Chest Pain Ondansetron HCl 4 mg 08/20/17 15:43 08/22/17 07:36 Zofran IVP 4 mg Q6HR PRN Administration Vomiting Pantoprazole Sodium 40 mg 08/22/17 07:30 08/22/17 06:32 Protonix PO 40 mg [id number] RJ Administration Polyethylene Glycol 17 gm 08/21/17 09:00 08/21/17 08:28 Miralax PO 17 gm DAILY RJ Administration Psyllium Hydrophilic Mucilloid 6 gm 08/21/17 09:00 08/21/17 08:33 Metamucil PO 6 gm DAILY RJ Administration Sumatriptan Succinate 100 mg 08/20/17 15:39 Imitrex PO BID PRN Migraine Headache Intake and Output 08/21/17 08/22/17 08/22/17 22:59 06:59 14:59 Output Total 800 400 Balance -800 -400 Output: Urine 800 400 Other: Voiding Method Bedside Commode Bedside Commode # Voids 1 Weight 54.2 kg 08/22/17 05:35 08/22/17 05:35 EKG Interpretations (text) EKG shows normal sinus rhythm with no acute changes. Assessment and Plan Plan: Assessment and plan #1 symptoms of shortness of breath with associated productive cough of yellow sputum, chills, acute exacerbation of COPD with evidence of a bilateral pneumonia. #2 hypotension #3 history of hypertension #4 history of coronary artery disease with prior PTCA of the proximal OM in 1993 #5 hyperlipidemia #6 nicotine dependence #7 COPD #8 history of CVA #9 diabetes #8 elevated troponins, likely secondary to supply and demand mismatch Plan Echocardiogram with Doppler study was performed which revealed a normal left ventricular systolic function. We will obtain a BNP level, no clear-cut evidence of congestive cardiac failure. Continue current medications. Further recommendations to follow. DNP note has been reviewed, I agree with a documented findings and plan of care. Patient was seen and examined.
[2017-08-22] MEDS: PSYLLIUM HUSK 100% 6 GM PACKET PO SCH (09:11)
[2017-08-22] MEDS: POLYETHYLENE GLYCOL 3350 17 GM POWD.PACK PO SCH (09:11)
[2017-08-22] MEDS: DOCUSATE 100 MG CAP PO SCH ×2 (09:12→20:20)
[2017-08-22] MEDS: DILTIAZEM CD 180 MG CAP.ER.24H PO SCH (09:12)
[2017-08-22] MEDS: METOPROLOL TARTRATE 25 MG TAB PO SCH ×2 (09:13→20:20)
[2017-08-22] MEDS: FLUTICASONE 50MCG/SPRAY NASAL 16GM EA NOSTRIL SCH (09:13)
[2017-08-22] MEDS: LISINOPRIL 10 MG TAB PO SCH (09:13)
[2017-08-22] MEDS: ENOXAPARIN 40 MG/0.4 ML SYRINGE SQ SCH (09:13)
[2017-08-22] MEDS: NICOTINE 14MG/24HR PATCH TRANSDERM SCH (09:13)
[2017-08-22] MEDS: ISOSORBIDE MONONITRATE ER 60 MG TAB.ER.24H PO SCH (09:13)
[2017-08-22] MEDS: FUROSEMIDE 20 MG TAB PO SCH (09:13)
--- NOTE | 2017-08-22 09:38 | P.PN ---
Subjective Progress Note Date: 08/22/17 HPI: This is a 67-year-old female patient being seen examined and evaluated today for consultation. This patient was being seen by her PCP for cough congestion and shortness of breath over the last 3 or 4 days and was found to be hypoxic in the office with oxygen saturations in the 60-70% on room air, and was sent over to the emergency room for evaluation and treatment. Patient is known to have supplemental oxygen at 2 L during the nighttime hours only. She states that over the past 3-4 days she has had a productive cough with yellow sputum with chills. She is also had some nausea and constipation. Upon evaluation in the emergency room she was found to be hypotensive and was given 2 L IV bolus. She also had a sodium of 129, WBC of 16.3 and slightly elevated troponins at 0.070. She was negative for a lactic acid. And her magnesium was 1.5 which was replaced. Patient was initiated on antibiotics and breathing treatments. Patient's chest x-ray from this morning does show bilateral lower lobe infiltrates with small effusion. COPD correlate for interstitial pulmonary lung disease such as fibrosis, superimposed pneumonitis or congestion also on the differential. Upon examination the patient's resting up in bed on 4 L of supplemental oxygen via nasal cannula. She continues to have shortness of breath cough and congestion. Sputum culture is pending. Patient is a half a pack per day smoker for approximately 30 years. She does have pets in the home [place] dog[place] For work the patient worked in secretarial or housekeeping. She is afebrile no further complaints. Interval History: 08/22/17- patient is being seen examined and evaluated today on rounds. She is resting up in bed on 3 L of supplemental oxygen via nasal cannula. The patient does have some nausea this morning. She was unable to eat her breakfast. She did receive Zofran and that seems to be working at this time. Patient states she continues to have shortness of breath cough and congestion. States that her secretions are still too thick to bring up. She currently is afebrile, WBC is 20.5. CT was reviewed and does show advanced emphysema with fluid overload and small bilateral pleural effusions with moderate interstitial edema/ infiltrate. There is also a masslike consolidation in the anterior medial left chest wall. Objective - Vital Signs Vital signs: Vital Signs Temp 97.0 F L 08/22/17 08:00 Pulse 87 08/22/17 08:00 Resp 18 08/22/17 08:00 BP 136/74 08/22/17 08:00 Pulse Ox 95 08/22/17 08:00 Intake & Output 08/21/17 08/22/17 08/22/17 18:59 06:59 18:59 Intake Total 300 0 Output Total 800 400 Balance -500 -400 0 Weight 53.7 kg 54.2 kg Intake: Oral 300 0 Output: Urine 800 400 Other: Voiding Method Bedside Commode Bedside Commode # Voids 1 1 1 # Bowel Movements 1 - Exam GENERAL EXAM: Alert, comfortable in no apparent distress. HEAD: Normocephalic. EYES: Normal reaction of pupils, equal size. NOSE: Clear with pink turbinates. THROAT: No erythema or exudates. NECK: No masses, no JVD. CHEST: No chest wall deformity. LUNGS: Lungs noted to be tight, slightly coarse with few scattered expiratory wheezing and rhonchi. Bases diminished CVS: S1 and S2 normal with no audible mumurs, regular rhythm. ABDOMEN: No hepatosplenomegaly, normal bowel sounds, no guarding or rigidity. EXTREMITIES: No edema noted, pedal pulses palpable. CENTRAL NERVOUS SYSTEM: No focal deficits, tone is normal in all 4 extremities. - Labs CBC & Chem 7: 08/22/17 05:35 08/22/17 05:35 Labs: Abnormal Lab Results - Last 24 Hours (Table) 08/20/17 08/21/17 08/21/17 Range/Units 13:00 16:45 20:34 WBC (3.8-10.6) k/uL Neutrophils # (1.3-7.7) k/uL Sodium (137-145) mmol/L Chloride (98-107) mmol/L Creatinine (0.52-1.04) mg/dL Glucose (74-99) mg/dL POC Glucose (mg/dL) 343 H 372 H (75-99) mg/dL Hemoglobin A1c 7.4 H (4.0-6.0) % Total Protein (6.3-8.2) g/dL Albumin (3.5-5.0) g/dL 08/22/17 08/22/17 08/22/17 Range/Units 02:06 05:35 05:35 WBC 20.5 H (3.8-10.6) k/uL Neutrophils # 18.0 H (1.3-7.7) k/uL Sodium 132 L (137-145) mmol/L Chloride 91 L (98-107) mmol/L Creatinine 0.40 L (0.52-1.04) mg/dL Glucose 209 H (74-99) mg/dL POC Glucose (mg/dL) 302 H (75-99) mg/dL Hemoglobin A1c (4.0-6.0) % Total Protein 4.9 L (6.3-8.2) g/dL Albumin 2.8 L (3.5-5.0) g/dL 08/22/17 Range/Units 05:44 WBC (3.8-10.6) k/uL Neutrophils # (1.3-7.7) k/uL Sodium (137-145) mmol/L Chloride (98-107) mmol/L Creatinine (0.52-1.04) mg/dL Glucose (74-99) mg/dL POC Glucose (mg/dL) 210 H (75-99) mg/dL Hemoglobin A1c (4.0-6.0) % Total Protein (6.3-8.2) g/dL Albumin (3.5-5.0) g/dL Microbiology - Last 24 Hours (Table) 08/21/17 08:29 Gram Stain - Preliminary Sputum 08/20/17 13:00 Blood Culture - Preliminary Blood No Growth after 24 hours Assessment and Plan Assessment: Assessment Small bilateral pleural effusions Acute exacerbation of COPD Bilateral pneumonia, community acquired suspect mixed bacterial Hyponatremia Hypotension hypomagnesemia acute on chronic hypoxic respiratory failure requiring additional supplemental oxygen. Nicotine dependence Elevated troponins Diabetes mellitus type 1 History of CVA Hyperlipidemia Plan Medications have been reviewed and will be continued as ordered. Add mucinex and flutter valve. Plan is for the patient to undergo a bronchoscopy this afternoon, unsure if a biopsy will be possible of the mass as it is peripheral on CT. We will do an outpatient PET scan as well. Also obtain an ultrasound of the chest of bilateral pleural effusions may undergo possible thoracentesis. Pending labs: alpha 1 antitrypsin antigen and phenotype as well as [place] ALLERGY panel, hypersensitivity pneumonitis, and IGE and urine Legionella. Initiate and encourage incentive spirometer. Add on PT and OT. Continue to monitor and replace electrolytes. Continue with pulmonary hygiene, coughing and deep breathing exercises, and supportive care. Supplemental oxygen to maintain oxygen saturations of 92% or better. Continue nebulizer treatments. GI and DVT prophylaxis. We will continue to monitor labs/results and adjust treatment as necessary. Further recommendations pending. I performed an examination of the patient and discussed their management with the nurse practitioner. I have reviewed the nurse practitioner's note and agree with the documented findings and plan of care.
[2017-08-22] MEDS: guaiFENesin 600 MG TABLET.ER PO SCH ×2 (10:03→20:20)
--- NOTE | 2017-08-22 11:20 | US ---
EXAMINATION TYPE: US chest DATE OF EXAM: 08/22/2017 COMPARISON: CT chest CLINICAL HISTORY: bilateraly pl effusions. EXAM MEASUREMENTS: Right Pleural Effusion fluid pocket: 1.8 cm Right skin to fluid thickness: 1.4 cm Left Pleural Effusion fluid pocket: 1.6 cm Left skin to fluid thickness: 1.4 cm No markings done due to small fluid pockets Pulmonologists are able to review the images in the patient?s EMR. IMPRESSIONS: Small bilateral pleural effusion
[2017-08-22 11:37] LABS: Glucose,Whole Blood 159 mg/dL (75-99)
--- NOTE | 2017-08-22 11:41 | P.PN ---
Subjective Progress Note Date: 08/22/17 this is a 67-year-old female, patient of [facility]. She has a known past medical history of COPD, nicotine dependence, CVA, diabetes mellitus with insulin pump, hyperlipidemia, myocardial infarction with angioplasty in 1993, hypertension and seizure last seizure 2002. Patient with see her PCP regarding worsening cough and shortness of breath of the last 3 days. She was found to be hypoxic with oxygen saturation of 60-70% on room air. She was informed to present to the emergency room for further evaluation and treatment. Patient usually only uses home oxygen in the evening time but has required it throughout the day. She also has been having a productive cough with yellowish to greenish sputum also having some chills. She's also been nauseated and having some constipation. Last bowel movement was yesterday but hard pebble like. Patient denies any chest pain. Denies any vomiting. Denies any burning with urination. Patient was hypotensive on admission. She received 2 IV fluid boluses blood pressure has come up to 99/51. BP meds have been placed on hold. Patient's sodium level also 129. She'll be started on normal saline at 100 mL per hour. White count 16.3 troponin 0.070. Lactic acid normal at 1 and magnesium 1.5 she threw receiving replacement of magnesium in the ER. Dr. EYAL Teresa will be consulted for her COPD and pneumonia. EKG showing a normal sinus rhythm with septal infarct age undetermined On 08/21/2017 patient is alert and oriented 3 complaining of headache, complaining of shortness of breath, complaining of cough was minimal sputum production, denies any chest pain, there is no fever or chills, she is complaining of upset stomach, no nausea or vomiting no diarrhea no burning with urination no frequency or urgency. 08/22/2017 patient is feeling more nauseated today. Still having elevated blood sugars in the 200s to 300s. Patient is now on 2 L satting at 96%. White count up to 20.5 she is on steroids. Echo showing EF of 55%. Computed tomography scan of the chest showing persistent moderate to advanced underlying emphysematous changes. There is suspected fluid overload state there is small bilateral pleural effusions and a new moderate interstitial edema felt present. There is more prominent thoracic adenopathy identified. Consider bronchoscopy or PET scans follow-up. Discussed with pulmonary service. The planning for bronchoscopy this afternoon. Patient is having small pebble-like bowel movements. Due to her nausea she is refused her MiraLAX and Metamucil. Objective - Vital Signs Vital signs: Vital Signs Temp 97.0 F L 08/22/17 08:00 Pulse 100 08/22/17 10:55 Resp 18 08/22/17 08:00 BP 136/74 08/22/17 08:00 Pulse Ox 95 08/22/17 08:00 Intake & Output 08/21/17 08/22/17 08/22/17 18:59 06:59 18:59 Intake Total 300 0 Output Total 800 400 Balance -500 -400 0 Weight 53.7 kg 54.2 kg Intake: Oral 300 0 Output: Urine 800 400 Other: Voiding Method Bedside Commode Bedside Commode # Voids 1 1 1 # Bowel Movements 1 - Exam Head normocephalic Neck supple Lungs diminished bilaterally no crackles or wheezing Heart regular rate and rhythm S1-S2, no rub or gallop Abdomen is soft nontender nondistended positive bowel sounds no hepatosplenomegaly Extremities no edema Neuro alert and orientated to 3 - Labs CBC & Chem 7: 08/22/17 05:35 08/22/17 05:35 Labs: Abnormal Lab Results - Last 24 Hours (Table) 08/20/17 08/21/17 08/21/17 Range/Units 13:00 16:45 20:34 WBC (3.8-10.6) k/uL Neutrophils # (1.3-7.7) k/uL Sodium (137-145) mmol/L Chloride (98-107) mmol/L Creatinine (0.52-1.04) mg/dL Glucose (74-99) mg/dL POC Glucose (mg/dL) 343 H 372 H (75-99) mg/dL Hemoglobin A1c 7.4 H (4.0-6.0) % Total Protein (6.3-8.2) g/dL Albumin (3.5-5.0) g/dL 08/22/17 08/22/17 08/22/17 Range/Units 02:06 05:35 05:35 WBC 20.5 H (3.8-10.6) k/uL Neutrophils # 18.0 H (1.3-7.7) k/uL Sodium 132 L (137-145) mmol/L Chloride 91 L (98-107) mmol/L Creatinine 0.40 L (0.52-1.04) mg/dL Glucose 209 H (74-99) mg/dL POC Glucose (mg/dL) 302 H (75-99) mg/dL Hemoglobin A1c (4.0-6.0) % Total Protein 4.9 L (6.3-8.2) g/dL Albumin 2.8 L (3.5-5.0) g/dL 08/22/17 Range/Units 05:44 WBC (3.8-10.6) k/uL Neutrophils # (1.3-7.7) k/uL Sodium (137-145) mmol/L Chloride (98-107) mmol/L Creatinine (0.52-1.04) mg/dL Glucose (74-99) mg/dL POC Glucose (mg/dL) 210 H (75-99) mg/dL Hemoglobin A1c (4.0-6.0) % Total Protein (6.3-8.2) g/dL Albumin (3.5-5.0) g/dL Microbiology - Last 24 Hours (Table) 08/21/17 08:29 Gram Stain - Preliminary Sputum 08/20/17 13:00 Blood Culture - Preliminary Blood No Growth after 24 hours Assessment and Plan Assessment: 1. Acute COPD exacerbation: Patient started on nebulizer treatments and IV steroids. Pulmonary service consulted 2. Pneumonia with chest x-ray showing evidence of a patchy by basilar infiltrate with small effusion: Continue Levaquin. Pulmonary service following. Patient is scheduled for bronchoscopy this afternoon. Computed tomography scan of the chest did reveal more of a prominent thoracic adenopathy 3. Hyponatremia with a sodium level 129 on admission. Sodium is up to 132. Fluids hep-locked 4. Hypotension: Improved. Patient restarted on blood pressure medications 5. Hypomagnesemia improved with supplement 6. Acute hypoxic respiratory failure likely related to COPD exacerbation and pneumonia 7. Chronic hypoxic respiratory failure home O2 dependent 8. Nicotine dependence: Discussed smoking cessation for greater than 3 minutes. Add nicotine patch 9. Moderate protein calorie malnutrition with albumin of 2.9 add Glucerna shakes 10. Elevated troponin no chest pain. Seen by cardiology. [place] that elevated troponins were due to a oxygen supply and demand mismatch 11. Insulin-dependent diabetes mellitus: Continue insulin pump and sliding scale. Patient's blood sugars are still elevated 12. History of CVA with residual left-sided weakness on Plavix 13. Hyperlipidemia continue statin GI prophylaxis Protonix and DVT prophylaxis Lovenox
[2017-08-22] MEDS: MULTIVITAMINS, THERA 1 EACH TAB PO SCH (12:04)
[2017-08-22] MEDS ORDERED: LIDOCAINE 2% (PF) 20 MG/ML 2 ML AMP INHALATION ONE (12:19)
[2017-08-22] MEDS ORDERED: LIDOCAINE VISCOUS 300 MG/15 ML CUP MUCOUS MEM ONE (12:19)
[2017-08-22] MEDS ORDERED: ALBUTEROL NEBULIZED 2.5 MG/3 ML INHALATION ONE (12:19)
[2017-08-22 12:54] LABS: Alpha 1 Anti-Trypsin 328 mg/dL (90 - 200)
[2017-08-22] MEDS ORDERED: IV FLUID CONTINUATION 950 ML IV ONE (13:34)
[2017-08-22 14:10] LABS: Partial Thromboplastin Time 21.8 sec (22.0-30.0)
[2017-08-22 14:47] LABS: Glucose,Whole Blood 179 mg/dL (75-99)
--- NOTE | 2017-08-22 14:53 | P.PCN ---
Date of Procedure: 08/22/17 Preoperative Diagnosis: Cough, COPD, pneumonitis Postoperative Diagnosis: Mucous plugging EDAC Procedure(s) Performed: Bronchoscopy with washings Surgeon: Phyllis Rivero Estimated Blood Loss (ml): 5 Pathology: other (washings sent for cytology) Condition: stable Disposition: PACU Indications for Procedure: Cough, pneumonitis, COPD, shortness of breath Description of Procedure: After review of risks and benefits and discussion of alternative methods of diagnosis, the patient provided informed consent and is willing to proceed with evaluation is recommended. The patient, in endoscopy suite, was placed on continuous electrocardiogram, noninvasive blood pressure monitoring, and SpO2 monitoring. She was administered supplemental oxygen via nasal cannula and given IV sedation by the Department of anesthesia. The video bronchoscope was passed through the left nares and carried down to the level of the vocal cords the vocal cords were seen to be moving freely and phonation and respiration. The larynx is normal. The trachea was normal. The tere is sharp. The right mainstem bronchus was entered first where the right upper lobe, right middle lobe, and right lower lobe were identified. The patient was found to have multiple mucous plugs worse in the right lower lobe where the mucosa was also edematous and friable. Saline was instilled and suctioned until clear. The bronchoscope was then directed into the left mainstem bronchus. The left upper lobe and lingula appeared somewhat edematous and friable. The left lower lobe bronchus was quite edematous. The left mainstem bronchus had a moderate amount of mucous. Saline was instilled and suctioned until clear. It was also noted that the patient appears to have excessive dynamic airway collapse. Some bleeding occurred but hemostasis was achieved spontaneously. The bronchoscope was then retracted and the procedure was terminated. The patient tolerated the procedure well. He was discharged to the recovery suite in stable and satisfactory position.
[2017-08-22 14:57] LABS: Alt. alternata IgE Class CLASS 0; Alternaria alternata IgE <0.35 kU/L (<0.35); Asperg. fumagatus IgE <0.35 kU/L (<0.35); Asperg. fumagatus IgE Class CLASS 0; Bermuda Grass IgE <0.35 kU/L (<0.35); Birch(Com.Silvr) IgE <0.35 kU/L (<0.35); Birch(Com.Silvr) IgE Class CLASS 0; Cat Epith & Dander IgE <0.35 kU/L (<0.35); Cat Epith & Dander IgE Class CLASS 0; Clad herbarum IgE <0.35 kU/L (<0.35); Cockroach IgE <0.35 kU/L (<0.35); Cottonwood IgE <0.35 kU/L (<0.35); Dermato. Pteronyssinus IgE <0.35 kU/L (<0.35); Dermato. farinae IgE <0.35 kU/L (<0.35); Dermato. farinae IgE Class CLASS 0; Dog Dander IgE <0.35 kU/L (<0.35); Elm IgE <0.35 kU/L (<0.35); Maple (Box Elder) IgE <0.35 kU/L (<0.35); Maple (Box Elder) IgE Class CLASS 0; Mountain Cedar IgE <0.35 kU/L (<0.35); Mountain Cedar IgE Class CLASS 0; Mouse Urine IgE Class CLASS 0; Nettle IgE <0.35 kU/L (<0.35); Nettle IgE Class CLASS 0; Oak IgE <0.35 kU/L (<0.35); Penicillium notatum IgE Class CLASS 0; Rough Marshelder IgE <0.35 kU/L (<0.35); Rough Marshelder IgE Class CLASS 0; Timothy Grass IgE <0.35 kU/L (<0.35); White Ash IgE Class CLASS 0
[2017-08-22 16:52] LABS: Glucose,Whole Blood 247 mg/dL (75-99)
[2017-08-22] MEDS: LEVOFLOXACIN 750 MG TAB PO SCH (17:27)
[2017-08-22] MEDS: INSPUCOR MISCELLANE PRN (19:08)
[2017-08-22] MEDS: BUDESONIDE 0.5 MG/2 ML NEBU INHALATION SCH (20:14)
[2017-08-22] MEDS: ATORVASTATIN 10 MG TAB PO SCH (20:19)
[2017-08-22] MEDS: GABAPENTIN 300 MG CAP PO SCH (20:20)
[2017-08-22] MEDS: EZETIMIBE 10 MG TAB PO SCH (20:20)
[2017-08-22] MEDS: CLOPIDOGREL 75 MG TAB PO SCH (20:20)
[2017-08-22] MEDS: MONTELUKAST 10 MG TAB PO SCH (20:20)
[2017-08-22] MEDS: CALCIUM CARB-VIT D 500MG-200UN 1 EACH TAB PO SCH (20:20)
[2017-08-22 20:45] LABS: Appearance,BF Bloody; Color,BF Red; Nucleated Cells, Body Fluid 600 /uL; Polynuclear WBC,Body Fluid 91 %; RBC, Body Fluid 72450 /uL
[2017-08-22 20:46] LABS: Appearance,BF Hazy; Color,BF Red; Mononuclear WBC,Body Fluid 9 %; Nucleated Cells, Body Fluid 275 /uL; RBC, Body Fluid 6580 /uL
[2017-08-22 20:47] LABS: Mononuclear WBC,Body Fluid 5 %; Polynuclear WBC,Body Fluid 95 %
[2017-08-22 21:06] LABS: Glucose,Whole Blood 337 mg/dL (75-99)
[2017-08-23 01:34] LABS: Glucose,Whole Blood 232 mg/dL (75-99)
[2017-08-23] MEDS: INSPUCOR MISCELLANE PRN (03:28)
[2017-08-23 06:14] LABS: Glucose,Whole Blood 81 mg/dL (75-99)
[2017-08-23 06:15] LABS: Basophils % (A) 0 %; Eosinophils # (A) 0.1 k/uL (0-0.7); Eosinophils % (A) 0 %; HCT 36.2 % (34.0-46.0); HGB 12.1 gm/dL (11.4-16.0); Lymphocytes # (A) 1.2 k/uL (1.0-4.8); Lymphocytes % (A) 6 %; MCH 30.6 pg (25.0-35.0); MCHC 33.4 g/dL (31.0-37.0); MCV 91.5 fL (80.0-100.0); Mean Platelet Volume 7.1; Monocytes # (A) 0.8 k/uL (0-1.0); Monocytes % (A) 4 %; Neutrophils # (A) 17.2 k/uL (1.3-7.7); Neutrophils % (A) 88 %; Platelet Count 446 k/uL (150-450); RBC 3.95 m/uL (3.80-5.40); RDW 12.7 % (11.5-15.5); WBC 19.5 k/uL (3.8-10.6)
[2017-08-23 06:28] LABS: ALT 39 U/L (9-52); AST 22 U/L (14-36); Albumin 2.6 g/dL (3.5-5.0); Alkaline Phosphatase 86 U/L (38-126); Anion Gap 7 mmol/L; Blood Urea Nitrogen 14 mg/dL (7-17); Calcium 8.7 mg/dL (8.4-10.2); Carbon Dioxide 34 mmol/L (22-30); Chloride 89 mmol/L (98-107); Glucose 80 mg/dL (74-99); Potassium 4.3 mmol/L (3.5-5.1); Sodium 130 mmol/L (137-145); Total Bilirubin 0.3 mg/dL (0.2-1.3); Total Protein 4.6 g/dL (6.3-8.2)
[2017-08-23] MEDS: INSULIN PUMP MEAL BOLUS 1 UNIT MISC MISCELLANE SCH ×4 (06:31→21:26)
[2017-08-23] MEDS: PANTOPRAZOLE 40 MG TABLET PO SCH (06:34)
[2017-08-23] MEDS: methylPREDNISolone SOD SUCCI 125 MG/2 ML VIAL IV SCH (06:34)
[2017-08-23] MEDS: HYDROcodone/APAP 5-325MG 1 EACH TAB PO PRN (06:44)
[2017-08-23] MEDS: ONDANSETRON 4 MG/2 ML VIAL IVP PRN ×3 (06:44→17:41)
[2017-08-23] MEDS: IPRATROPIUM-ALBUTEROL 3 ML NEB INHALATION SCH ×4 (07:53→19:48)
[2017-08-23] MEDS: BUDESONIDE 0.5 MG/2 ML NEBU INHALATION SCH ×2 (07:53→19:48)
[2017-08-23] MEDS: POLYETHYLENE GLYCOL 3350 17 GM POWD.PACK PO SCH (08:59)
[2017-08-23] MEDS: FLUTICASONE 50MCG/SPRAY NASAL 16GM EA NOSTRIL SCH (09:09)
[2017-08-23] MEDS: DILTIAZEM CD 180 MG CAP.ER.24H PO SCH (09:09)
[2017-08-23] MEDS: DOCUSATE 100 MG CAP PO SCH ×2 (09:09→21:23)
[2017-08-23] MEDS: PSYLLIUM HUSK 100% 6 GM PACKET PO SCH (09:09)
[2017-08-23] MEDS: METOPROLOL TARTRATE 25 MG TAB PO SCH ×2 (09:10→21:25)
[2017-08-23] MEDS: ISOSORBIDE MONONITRATE ER 60 MG TAB.ER.24H PO SCH (09:10)
[2017-08-23] MEDS: NICOTINE 14MG/24HR PATCH TRANSDERM SCH (09:10)
[2017-08-23] MEDS: guaiFENesin 600 MG TABLET.ER PO SCH ×2 (09:10→21:24)
[2017-08-23] MEDS: FUROSEMIDE 20 MG TAB PO SCH (09:10)
[2017-08-23] MEDS: LISINOPRIL 10 MG TAB PO SCH (09:10)
[2017-08-23] MEDS: ENOXAPARIN 40 MG/0.4 ML SYRINGE SQ SCH (09:10)
--- NOTE | 2017-08-23 09:56 | P.PN ---
<Tejal Ortiz E - Last Filed: 08/23/17 09:49> Subjective Progress Note Date: 08/23/17 HPI: This is a 67-year-old female patient being seen examined and evaluated today for consultation. This patient was being seen by her PCP for cough congestion and shortness of breath over the last 3 or 4 days and was found to be hypoxic in the office with oxygen saturations in the 60-70% on room air, and was sent over to the emergency room for evaluation and treatment. Patient is known to have supplemental oxygen at 2 L during the nighttime hours only. She states that over the past 3-4 days she has had a productive cough with yellow sputum with chills. She is also had some nausea and constipation. Upon evaluation in the emergency room she was found to be hypotensive and was given 2 L IV bolus. She also had a sodium of 129, WBC of 16.3 and slightly elevated troponins at 0.070. She was negative for a lactic acid. And her magnesium was 1.5 which was replaced. Patient was initiated on antibiotics and breathing treatments. Patient's chest x-ray from this morning does show bilateral lower lobe infiltrates with small effusion. COPD correlate for interstitial pulmonary lung disease such as fibrosis, superimposed pneumonitis or congestion also on the differential. Upon examination the patient's resting up in bed on 4 L of supplemental oxygen via nasal cannula. She continues to have shortness of breath cough and congestion. Sputum culture is pending. Patient is a half a pack per day smoker for approximately 30 years. She does have pets in the home just [place] dog[place] For work the patient worked in secretarial or housekeeping. She is afebrile no further complaints. Interval History: 08/22/17- patient is being seen examined and evaluated today on rounds. She is resting up in bed on 3 L of supplemental oxygen via nasal cannula. The patient does have some nausea this morning. She was unable to eat her breakfast. She did receive Zofran and that seems to be working at this time. Patient states she continues to have shortness of breath cough and congestion. States that her secretions are still too thick to bring up. She currently is afebrile, WBC is 20.5. CT was reviewed and does show advanced emphysema with fluid overload and small bilateral pleural effusions with moderate interstitial edema/ infiltrate. There is also a masslike consolidation in the anterior medial left chest wall. 08/23/17- patient is being seen examined and evaluated today on rounds. She is resting up in bed on 4 L of supplemental oxygen via nasal cannula and satting in the mid 90s. The patient did undergo a bronchoscopy yesterday with washings see those notes for details. Patient states she feels about the same today may be slightly better than yesterday after having the bronchoscopy procedure. She does have some complaints of oral thrush, nystatin will be initiated. Patient' s CT was reviewed with radiology and Dr. Rivero yesterday, it is recommended that she undergo a PET scan in the outpatient setting to evaluate her lymphadenopathy and the chest wall mass. She is afebrile no further complaints. Objective - Vital Signs Vital signs: Vital Signs Temp 97.9 F 08/23/17 08:00 Pulse 84 08/23/17 08:14 Resp 18 08/23/17 08:00 BP 97/64 08/23/17 08:00 Pulse Ox 97 08/23/17 08:00 Intake & Output 08/22/17 08/23/17 08/23/17 18:59 06:59 18:59 Intake Total 325 Output Total 200 Balance 125 Weight 55.1 kg Intake: IV 175 Oral 150 Output: Urine 200 Other: Voiding Method Bedside Commode # Voids 1 1 - Exam GENERAL EXAM: Alert, comfortable in no apparent distress. HEAD: Normocephalic. EYES: Normal reaction of pupils, equal size. NOSE: Clear with pink turbinates. THROAT: No erythema or exudates. NECK: No masses, no JVD. CHEST: No chest wall deformity. LUNGS: Lungs noted to be tight, slightly coarse with few scattered expiratory wheezing, much less rhonchi today. Bases diminished CVS: S1 and S2 normal with no audible mumurs, regular rhythm. ABDOMEN: No hepatosplenomegaly, normal bowel sounds, no guarding or rigidity. EXTREMITIES: No edema noted, pedal pulses palpable. CENTRAL NERVOUS SYSTEM: No focal deficits, tone is normal in all 4 extremities. - Labs CBC & Chem 7: 08/23/17 05:45 08/23/17 05:45 Labs: Abnormal Lab Results - Last 24 Hours (Table) 08/21/17 08/21/17 08/22/17 Range/Units 05:38 05:38 11:31 WBC (3.8-10.6) k/uL Neutrophils # (1.3-7.7) k/uL APTT (22.0-30.0) sec Sodium (137-145) mmol/L Chloride (98-107) mmol/L Carbon Dioxide (22-30) mmol/L Creatinine (0.52-1.04) mg/dL POC Glucose (mg/dL) 159 H (75-99) mg/dL Total Protein (6.3-8.2) g/dL Albumin (3.5-5.0) g/dL [id number] 328 H 330.0 H (90 - 200) mg/dL 08/22/17 08/22/17 08/22/17 Range/Units 13:18 14:43 16:47 WBC (3.8-10.6) k/uL Neutrophils # (1.3-7.7) k/uL APTT 21.8 L (22.0-30.0) sec Sodium (137-145) mmol/L Chloride (98-107) mmol/L Carbon Dioxide (22-30) mmol/L Creatinine (0.52-1.04) mg/dL POC Glucose (mg/dL) 179 H 247 H (75-99) mg/dL Total Protein (6.3-8.2) g/dL Albumin (3.5-5.0) g/dL Rqfst-1-[id number] (90 - 200) mg/dL 08/22/17 08/23/17 08/23/17 Range/Units 21:00 01:32 05:45 WBC 19.5 H (3.8-10.6) k/uL Neutrophils # 17.2 H (1.3-7.7) k/uL APTT (22.0-30.0) sec Sodium (137-145) mmol/L Chloride (98-107) mmol/L Carbon Dioxide (22-30) mmol/L Creatinine (0.52-1.04) mg/dL POC Glucose (mg/dL) 337 H 232 H (75-99) mg/dL Total Protein (6.3-8.2) g/dL Albumin (3.5-5.0) g/dL Eyxxx-2-Nnlnthiibhj (90 - 200) mg/dL 08/23/17 Range/Units 05:45 WBC (3.8-10.6) k/uL Neutrophils # (1.3-7.7) k/uL APTT (22.0-30.0) sec Sodium 130 L (137-145) mmol/L Chloride 89 L (98-107) mmol/L Carbon Dioxide 34 H (22-30) mmol/L Creatinine 0.49 L (0.52-1.04) mg/dL POC Glucose (mg/dL) (75-99) mg/dL Total Protein 4.6 L (6.3-8.2) g/dL Albumin 2.6 L (3.5-5.0) g/dL Xhkkf-1-Rtsuqqgncqk (90 - 200) mg/dL Microbiology - Last 24 Hours (Table) 08/22/17 13:59 Acid Fast Bacilli Smear - Final Bronchial Washings - Right Acid Fast Bacilli Culture - Preliminary 08/22/17 13:59 Acid Fast Bacilli Smear - Final Bronchial Washings - Left Acid Fast Bacilli Culture - Preliminary 08/22/17 13:59 Gram Stain - Preliminary Bronchial Washings - Right Bronchial Washings Culture - Preliminary 08/22/17 13:59 Gram Stain - Preliminary Bronchial Washings - Left Bronchial Washings Culture - Preliminary 08/22/17 13:59 Fungal Culture - Preliminary Bronchial Washings - Right 08/22/17 13:59 Fungal Culture - Preliminary Bronchial Washings - Left 08/20/17 13:00 Blood Culture - Preliminary Blood No Growth after 48 hours Assessment and Plan Assessment: Assessment Small bilateral pleural effusions Acute exacerbation of COPD Bilateral pneumonia, community acquired suspect mixed bacterial Hyponatremia Hypotension hypomagnesemia acute on chronic hypoxic respiratory failure requiring additional supplemental oxygen. Nicotine dependence Elevated troponins Diabetes mellitus type 1 History of CVA Hyperlipidemia Plan Medications have been reviewed and will be continued as ordered. Continue mucinex and flutter valve. Bronchoscopy completed yesterday We will do an outpatient PET scan as well. Ultrasound of the chest was reviewed and effusions too small for thoracentesis. Chest x-ray tomorrow. Reviewed labs: alpha 1 antitrypsin antigen and phenotype as well as [place] ALLERGY panel, hypersensitivity pneumonitis, and IGE and urine Legionella. Initiate and encourage incentive spirometer. PT and OT. Continue to monitor and replace electrolytes. Continue with pulmonary hygiene, coughing and deep breathing exercises, and supportive care. Supplemental oxygen to maintain oxygen saturations of 92% or better. Continue nebulizer treatments. GI and DVT prophylaxis. We will continue to monitor labs/results and adjust treatment as necessary. Further recommendations pending. I performed an examination of the patient and discussed their management with the nurse practitioner. I have reviewed the nurse practitioner's note and agree with the documented findings and plan of care. <MatPhyllis J Luis - Last Filed: 08/23/17 16:15> Objective - Vital Signs Vital signs: Vital Signs Temp 97.0 F L 08/23/17 12:00 Pulse 80 08/23/17 15:56 Resp 16 08/23/17 12:00 BP 107/71 08/23/17 12:00 Pulse Ox 91 L 08/23/17 12:00 Intake & Output 08/22/17 08/23/17 08/23/17 18:59 06:59 18:59 Intake Total 325 340 Output Total 200 200 Balance 125 140 Weight 55.1 kg Intake: IV 175 Oral 150 340 Output: Urine 200 200 Other: Voiding Method Bedside Commode # Voids 1 1 - Labs CBC & Chem 7: 08/23/17 05:45 08/23/17 05:45 Labs: Abnormal Lab Results - Last 24 Hours (Table) 08/22/17 08/22/17 08/22/17 Range/Units 13:18 13:59 13:59 WBC (3.8-10.6) k/uL Neutrophils # (1.3-7.7) k/uL Sodium (137-145) mmol/L Chloride (98-107) mmol/L Carbon Dioxide (22-30) mmol/L Creatinine (0.52-1.04) mg/dL POC Glucose (mg/dL) (75-99) mg/dL Total Protein (6.3-8.2) g/dL Albumin (3.5-5.0) g/dL T-Suppressor Cells 100 L (190-832) cell/ul CD4/CD8 Ratio 8.5 H (1.0-3.7) % CD8 Suppressor 7 L (9-37) % Viral Test See Below H See Below H 08/22/17 08/22/17 08/23/17 Range/Units 16:47 21:00 01:32 WBC (3.8-10.6) k/uL Neutrophils # (1.3-7.7) k/uL Sodium (137-145) mmol/L Chloride (98-107) mmol/L Carbon Dioxide (22-30) mmol/L Creatinine (0.52-1.04) mg/dL POC Glucose (mg/dL) 247 H 337 H 232 H (75-99) mg/dL Total Protein (6.3-8.2) g/dL Albumin (3.5-5.0) g/dL T-Suppressor Cells (190-832) cell/ul CD4/CD8 Ratio (1.0-3.7) % CD8 Suppressor (9-37) % Viral Test 08/23/17 08/23/17 08/23/17 Range/Units 05:45 05:45 11:46 WBC 19.5 H (3.8-10.6) k/uL Neutrophils # 17.2 H (1.3-7.7) k/uL Sodium 130 L (137-145) mmol/L Chloride 89 L (98-107) mmol/L Carbon Dioxide 34 H (22-30) mmol/L Creatinine 0.49 L (0.52-1.04) mg/dL POC Glucose (mg/dL) 224 H (75-99) mg/dL Total Protein 4.6 L (6.3-8.2) g/dL Albumin 2.6 L (3.5-5.0) g/dL T-Suppressor Cells (190-832) cell/ul CD4/CD8 Ratio (1.0-3.7) % CD8 Suppressor (9-37) % Viral Test Microbiology - Last 24 Hours (Table) 08/20/17 13:00 Blood Culture - Preliminary Blood No Growth after 72 hours 08/21/17 08:29 Gram Stain - Final Sputum Sputum Culture - Final 08/22/17 13:59 Acid Fast Bacilli Smear - Final Bronchial Washings - Right Acid Fast Bacilli Culture - Preliminary 08/22/17 13:59 Acid Fast Bacilli Smear - Final Bronchial Washings - Left Acid Fast Bacilli Culture - Preliminary 08/22/17 13:59 Gram Stain - Preliminary Bronchial Washings - Right Bronchial Washings Culture - Preliminary 08/22/17 13:59 Gram Stain - Preliminary Bronchial Washings - Left Bronchial Washings Culture - Preliminary 08/22/17 13:59 Fungal Culture - Preliminary Bronchial Washings - Right 08/22/17 13:59 Fungal Culture - Preliminary Bronchial Washings - Left Assessment and Plan Assessment: Patient seen and examined. Patient states she is feeling a little bit better but she feels very weak. She denies fevers and chills. She still has a cough. She is also complaining of nausea. Bronchoscopy cultures are pending. Continue antibiotics. Patient will need outpatient PET scan and possible EBUS for diagnosis of lymphadeonpathy and anterior mediastinal mass. Incentive spirometry, pulmonary hygiene, flutter, mucinex, bronchodilators, pulmicort, steroid taper, singlair. Outpatient PFT. 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 IgE/HP/allergy panel all within normal limits. Legionella pending. ~Phyllis Rivero, DO
[2017-08-23] MEDS: NYSTATIN 100,000 UNIT/ML SUSP 500,000 UNIT/5 ML CUP PO SCH ×4 (10:14→21:25)
[2017-08-23 10:32] LABS: T4/T8 Ratio (CD4:CD8) 8.5 (1.0-3.7)
[2017-08-23] MEDS: MULTIVITAMINS, THERA 1 EACH TAB PO SCH (11:45)
[2017-08-23 11:48] LABS: Glucose,Whole Blood 224 mg/dL (75-99)
[2017-08-23] MEDS ORDERED: BISACODYL 10 MG SUPP RECTAL STA (12:23)
--- NOTE | 2017-08-23 12:29 | P.PN ---
Subjective Progress Note Date: 08/23/17 this is a 67-year-old female, patient of [facility]. She has a known past medical history of COPD, nicotine dependence, CVA, diabetes mellitus with insulin pump, hyperlipidemia, myocardial infarction with angioplasty in 1993, hypertension and seizure last seizure 2002. Patient with see her PCP regarding worsening cough and shortness of breath of the last 3 days. She was found to be hypoxic with oxygen saturation of 60-70% on room air. She was informed to present to the emergency room for further evaluation and treatment. Patient usually only uses home oxygen in the evening time but has required it throughout the day. She also has been having a productive cough with yellowish to greenish sputum also having some chills. She's also been nauseated and having some constipation. Last bowel movement was yesterday but hard pebble like. Patient denies any chest pain. Denies any vomiting. Denies any burning with urination. Patient was hypotensive on admission. She received 2 IV fluid boluses blood pressure has come up to 99/51. BP meds have been placed on hold. Patient's sodium level also 129. She'll be started on normal saline at 100 mL per hour. White count 16.3 troponin 0.070. Lactic acid normal at 1 and magnesium 1.5 she threw receiving replacement of magnesium in the ER. Dr. EYAL Teresa will be consulted for her COPD and pneumonia. EKG showing a normal sinus rhythm with septal infarct age undetermined On 08/21/2017 patient is alert and oriented 3 complaining of headache, complaining of shortness of breath, complaining of cough was minimal sputum production, denies any chest pain, there is no fever or chills, she is complaining of upset stomach, no nausea or vomiting no diarrhea no burning with urination no frequency or urgency. 08/22/2017 patient is feeling more nauseated today. Still having elevated blood sugars in the 200s to 300s. Patient is now on 2 L satting at 96%. White count up to 20.5 she is on steroids. Echo showing EF of 55%. Computed tomography scan of the chest showing persistent moderate to advanced underlying emphysematous changes. There is suspected fluid overload state there is small bilateral pleural effusions and a new moderate interstitial edema felt present. There is more prominent thoracic adenopathy identified. Consider bronchoscopy or PET scans follow-up. Discussed with pulmonary service. The planning for bronchoscopy this afternoon. Patient is having small pebble-like bowel movements. Due to her nausea she is refused her MiraLAX and Metamucil. 08/23/2017 patient is looking better today. She still having some nausea. She underwent bronchoscopy yesterday which did show mucous plugging and EDAC. Pulmonary service is following. Blood sugars are showing improvement. Chest ultrasound showed small bilateral pleural effusions. Patient complaining of some constipation only able to have small hard bowel movements. But due to her nausea she is refusing lactulose and also her MiraLAX and Metamucil. Objective - Vital Signs Vital signs: Vital Signs Temp 97.0 F L 08/23/17 12:00 Pulse 87 08/23/17 12:00 Resp 16 08/23/17 12:00 BP 107/71 08/23/17 12:00 Pulse Ox 91 L 08/23/17 12:00 Intake & Output 08/22/17 08/23/17 08/23/17 18:59 06:59 18:59 Intake Total 325 100 Output Total 200 Balance 125 100 Weight 55.1 kg Intake: IV 175 Oral 150 100 Output: Urine 200 Other: Voiding Method Bedside Commode # Voids 1 1 - Exam Head normocephalic Neck supple Lungs diminished bilaterally no crackles or wheezing Heart regular rate and rhythm S1-S2, no rub or gallop Abdomen is soft nontender nondistended positive bowel sounds no hepatosplenomegaly Extremities no edema Neuro alert and orientated to 3 - Labs CBC & Chem 7: 08/23/17 05:45 08/23/17 05:45 Labs: Abnormal Lab Results - Last 24 Hours (Table) 08/21/17 08/21/17 08/22/17 Range/Units 05:38 05:38 13:18 WBC (3.8-10.6) k/uL Neutrophils # (1.3-7.7) k/uL APTT 21.8 L (22.0-30.0) sec Sodium (137-145) mmol/L Chloride (98-107) mmol/L Carbon Dioxide (22-30) mmol/L Creatinine (0.52-1.04) mg/dL POC Glucose (mg/dL) (75-99) mg/dL Total Protein (6.3-8.2) g/dL Albumin (3.5-5.0) g/dL Fxray-1-Kfocmyrqatt 328 H 330.0 H (90 - 200) mg/dL T-Suppressor Cells (190-832) cell/ul CD4/CD8 Ratio (1.0-3.7) % CD8 Suppressor (9-37) % 08/22/17 08/22/17 08/22/17 Range/Units 13:18 14:43 16:47 WBC (3.8-10.6) k/uL Neutrophils # (1.3-7.7) k/uL APTT (22.0-30.0) sec Sodium (137-145) mmol/L Chloride (98-107) mmol/L Carbon Dioxide (22-30) mmol/L Creatinine (0.52-1.04) mg/dL POC Glucose (mg/dL) 179 H 247 H (75-99) mg/dL Total Protein (6.3-8.2) g/dL Albumin (3.5-5.0) g/dL Kghxz-1-Xwipnsiyoba (90 - 200) mg/dL T-Suppressor Cells 100 L (190-832) cell/ul CD4/CD8 Ratio 8.5 H (1.0-3.7) % CD8 Suppressor 7 L (9-37) % 08/22/17 08/23/17 08/23/17 Range/Units 21:00 01:32 05:45 WBC 19.5 H (3.8-10.6) k/uL Neutrophils # 17.2 H (1.3-7.7) k/uL APTT (22.0-30.0) sec Sodium (137-145) mmol/L Chloride (98-107) mmol/L Carbon Dioxide (22-30) mmol/L Creatinine (0.52-1.04) mg/dL POC Glucose (mg/dL) 337 H 232 H (75-99) mg/dL Total Protein (6.3-8.2) g/dL Albumin (3.5-5.0) g/dL Rbesx-6-Latyrlevryz (90 - 200) mg/dL T-Suppressor Cells (190-832) cell/ul CD4/CD8 Ratio (1.0-3.7) % CD8 Suppressor (9-37) % 08/23/17 08/23/17 Range/Units 05:45 11:46 WBC (3.8-10.6) k/uL Neutrophils # (1.3-7.7) k/uL APTT (22.0-30.0) sec Sodium 130 L (137-145) mmol/L Chloride 89 L (98-107) mmol/L Carbon Dioxide 34 H (22-30) mmol/L Creatinine 0.49 L (0.52-1.04) mg/dL POC Glucose (mg/dL) 224 H (75-99) mg/dL Total Protein 4.6 L (6.3-8.2) g/dL Albumin 2.6 L (3.5-5.0) g/dL Ysdmf-5-Lykahkbxtte (90 - 200) mg/dL T-Suppressor Cells (190-832) cell/ul CD4/CD8 Ratio (1.0-3.7) % CD8 Suppressor (9-37) % Microbiology - Last 24 Hours (Table) 08/21/17 08:29 Gram Stain - Final Sputum Sputum Culture - Final 08/22/17 13:59 Acid Fast Bacilli Smear - Final Bronchial Washings - Right Acid Fast Bacilli Culture - Preliminary 08/22/17 13:59 Acid Fast Bacilli Smear - Final Bronchial Washings - Left Acid Fast Bacilli Culture - Preliminary 08/22/17 13:59 Gram Stain - Preliminary Bronchial Washings - Right Bronchial Washings Culture - Preliminary 08/22/17 13:59 Gram Stain - Preliminary Bronchial Washings - Left Bronchial Washings Culture - Preliminary 08/22/17 13:59 Fungal Culture - Preliminary Bronchial Washings - Right 08/22/17 13:59 Fungal Culture - Preliminary Bronchial Washings - Left 08/20/17 13:00 Blood Culture - Preliminary Blood No Growth after 48 hours Assessment and Plan Assessment: 1. Acute COPD exacerbation: Patient started on nebulizer treatments and IV steroids. Pulmonary service following. 2. Pneumonia with chest x-ray showing evidence of a patchy by basilar infiltrate with small effusion: Continue Levaquin. Pulmonary service following. Status post bronchoscopy cultures pending. Showed evidence of mucous plugging and excessive dynamic airway collapse 3. Hyponatremia with a sodium level 129 on admission. Sodium is up to 132. Fluids hep-locked 4. Hypotension: Improved. Patient restarted on blood pressure medications 5. Hypomagnesemia improved with supplement 6. Acute hypoxic respiratory failure likely related to COPD exacerbation and pneumonia 7. Chronic hypoxic respiratory failure home O2 dependent 8. Nicotine dependence: Discussed smoking cessation for greater than 3 minutes. Add nicotine patch 9. Moderate protein calorie malnutrition with albumin of 2.9 add Glucerna shakes 10. Elevated troponin no chest pain. Seen by cardiology. [place] that elevated troponins were due to a oxygen supply and demand mismatch 11. Insulin-dependent diabetes mellitus: Continue insulin pump and sliding scale. Blood sugars are showing improvement 12. History of CVA with residual left-sided weakness on Plavix 13. Hyperlipidemia continue statin 14. Prominent adenopathy anterior chest wall on computed tomography scan: Further evaluation with PET scan outpatient per pulmonary service 15. Constipation we'll add suppository Consult Physical therapy GI prophylaxis Protonix and DVT prophylaxis Lovenox I performed an examination of the patient and discussed their management with the physician Greenskeeper Supervisor. I have reviewed the Physician Greenskeeper Supervisor's notes and agree with the documented findings and plan of care
[2017-08-23] MEDS: LEVOFLOXACIN 750 MG TAB PO SCH (16:15)
[2017-08-23] MEDS ORDERED: LACTULOSE 20 GM/30 ML CUP PO ONE (17:00)
[2017-08-23 17:03] LABS: Glucose,Whole Blood 319 mg/dL (75-99)
[2017-08-23] MEDS: methylPREDNISolone SOD SUCCI 40 MG/ML 1 ML VIAL IV SCH ×2 (17:40→23:25)
[2017-08-23 20:48] LABS: Glucose,Whole Blood 275 mg/dL (75-99)
[2017-08-23] MEDS: EZETIMIBE 10 MG TAB PO SCH (21:23)
[2017-08-23] MEDS: ATORVASTATIN 10 MG TAB PO SCH (21:23)
[2017-08-23] MEDS: GABAPENTIN 300 MG CAP PO SCH (21:24)
[2017-08-23] MEDS: CLOPIDOGREL 75 MG TAB PO SCH (21:24)
[2017-08-23] MEDS: CALCIUM CARB-VIT D 500MG-200UN 1 EACH TAB PO SCH (21:25)
[2017-08-23] MEDS: MONTELUKAST 10 MG TAB PO SCH (21:25)
[2017-08-24] MEDS: ONDANSETRON 4 MG/2 ML VIAL IVP PRN ×2 (01:29→07:36)
[2017-08-24] MEDS: IPRATROPIUM-ALBUTEROL 3 ML NEB INHALATION SCH ×4 (07:00→19:24)
[2017-08-24] MEDS: BUDESONIDE 0.5 MG/2 ML NEBU INHALATION SCH ×2 (07:00→19:24)
[2017-08-24 07:26] LABS: Glucose,Whole Blood 205 mg/dL (75-99)
[2017-08-24] MEDS: FLUTICASONE 50MCG/SPRAY NASAL 16GM EA NOSTRIL SCH (07:48)
[2017-08-24] MEDS: methylPREDNISolone SOD SUCCI 40 MG/ML 1 ML VIAL IV SCH ×3 (07:48→23:24)
[2017-08-24] MEDS: DOCUSATE 100 MG CAP PO SCH ×2 (07:49→21:29)
[2017-08-24] MEDS: FUROSEMIDE 20 MG TAB PO SCH (07:49)
[2017-08-24] MEDS: NICOTINE 14MG/24HR PATCH TRANSDERM SCH (07:49)
[2017-08-24] MEDS: METOPROLOL TARTRATE 25 MG TAB PO SCH ×2 (07:49→21:29)
[2017-08-24] MEDS: guaiFENesin 600 MG TABLET.ER PO SCH ×2 (07:49→21:29)
[2017-08-24] MEDS: PANTOPRAZOLE 40 MG TABLET PO SCH (07:49)
[2017-08-24] MEDS: NYSTATIN 100,000 UNIT/ML SUSP 500,000 UNIT/5 ML CUP PO SCH ×4 (07:49→21:29)
[2017-08-24] MEDS: DILTIAZEM CD 180 MG CAP.ER.24H PO SCH (07:49)
[2017-08-24] MEDS: ISOSORBIDE MONONITRATE ER 60 MG TAB.ER.24H PO SCH (07:49)
[2017-08-24] MEDS: INSULIN PUMP MEAL BOLUS 1 UNIT MISC MISCELLANE SCH ×4 (07:50→21:30)
[2017-08-24] MEDS: LISINOPRIL 10 MG TAB PO SCH (07:50)
[2017-08-24] MEDS: ENOXAPARIN 40 MG/0.4 ML SYRINGE SQ SCH (07:50)
[2017-08-24] MEDS: POLYETHYLENE GLYCOL 3350 17 GM POWD.PACK PO SCH (07:50)
[2017-08-24] MEDS: PSYLLIUM HUSK 100% 6 GM PACKET PO SCH (08:09)
[2017-08-24 08:26] LABS: HCT 38.6 % (34.0-46.0); HGB 12.9 gm/dL (11.4-16.0); MCHC 33.4 g/dL (31.0-37.0); MCV 92.7 fL (80.0-100.0); Mean Platelet Volume 6.9; Platelet Count 522 k/uL (150-450); RBC 4.17 m/uL (3.80-5.40); RDW 12.9 % (11.5-15.5); WBC 24.2 k/uL (3.8-10.6)
[2017-08-24 08:29] LABS: ALT 37 U/L (9-52); AST 20 U/L (14-36); Albumin 2.7 g/dL (3.5-5.0); Alkaline Phosphatase 112 U/L (38-126); Anion Gap 9 mmol/L; Blood Urea Nitrogen 18 mg/dL (7-17); Calcium 8.8 mg/dL (8.4-10.2); Carbon Dioxide 33 mmol/L (22-30); Chloride 85 mmol/L (98-107); Glucose 198 mg/dL (74-99); Potassium 4.9 mmol/L (3.5-5.1); Sodium 127 mmol/L (137-145); Total Bilirubin 0.4 mg/dL (0.2-1.3); Total Protein 4.7 g/dL (6.3-8.2)
--- NOTE | 2017-08-24 09:44 | XR ---
EXAMINATION TYPE: XR chest 2V DATE OF EXAM: 08/24/2017 HISTORY: sob. REFERENCE: Previous study dated 08/21/2017 as well as a previous CT scan of the chest dated 08/21/2017. FINDINGS: The lungs are overinflated. There are bilateral pleural effusions. The heart is not enlarged. There is mild vascular congestion. There is no clemencia edema. IMPRESSION: 1. COPD. 2. BILATERAL EFFUSIONS.
[2017-08-24 10:14] LABS: Band Neutrophils % 3 %; Lymphocytes # (M) 1.45 k/uL (1.0-4.8); Metamyelocytes # (M) 0.97 k/uL (0); Metamyelocytes % 4 %; Monocytes # (M) 0.73 k/uL (0-1.0); Myelocytes # (M) 0.73 k/uL (0); Myelocytes % 3 %; Neutrophils % (M) 82 %; Nucleated Red Blood Cells 0 /100 WBC (0-0); Poikilocytosis (M) Present; Total Cells Counted 200
[2017-08-24] MEDS: HYDROcodone/APAP 5-325MG 1 EACH TAB PO PRN ×2 (11:02→22:18)
[2017-08-24 12:15] LABS: Glucose,Whole Blood 199 mg/dL (75-99)
[2017-08-24] MEDS ORDERED: FUROSEMIDE 10 MG/ML 10 ML VIAL IV STA (12:24)
[2017-08-24] MEDS: MULTIVITAMINS, THERA 1 EACH TAB PO SCH (13:06)
--- NOTE | 2017-08-24 13:40 | PN ---
PROGRESS NOTE DATE OF SERVICE: 08/24/2017. She continues to have shortness of breath and has been having some worsening edema as well. On physical examination: Respiratory rate is 20, pulse rate of 77, temperature 98.5, blood pressure 124/80, O2 saturation on 3 L by nasal cannula is 99%. HEENT is unremarkable. Chest is clear. Cardiovascular system reveals S1, S2. Abdomen is soft. There is 2+ pedal edema. White count is 24.2, hemoglobin of 12.9, sodium 127, potassium 4.9, chloride 85, bicarb 33. IMPRESSION: At this time: 1. Asthma with chronic obstructive pulmonary disease with acute exacerbation. 2. Congestive heart failure with fluid overload. 3. Medical debility. 4. Acute on chronic respiratory failure. Keep the patient in negative fluid balance. Increase activity level. Her prognosis at this time is guarded. MMJULIANNEL / SHMAAR: [id number] /
--- NOTE | 2017-08-24 14:04 | CONS ---
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 Need for antiviral. HISTORY OF PRESENT ILLNESS: The patient is a 67-year-old female presenting to the ER at [facility] on 08/20/2017 with the chief complaint of difficulty in breathing. Her symptom had been getting worse for the last 2-3 days prior to presentation to hospital. Main symptom was increasing shortness of breath along with wheezing. She did have a cough but unable to bring any sputum up. Patient denies having any URI symptoms. Some nausea but no vomiting and no diarrhea. With these symptoms the patient was evaluated by the ER physician on arrival in the ER. The patient did have a chest x-ray which shows patchy bibasilar infiltrate with small pleural effusion noted; correlate for pneumonia. The patient did have a temperature of 99.9 on admission. The white count was slightly elevated at 16.3. The patient subsequently has been treated with bronchodilator therapy and steroids in addition to the Levaquin. The patient subsequently had a CT of the chest completed on August 21, which showed persistent moderate to advanced underlying emphysematous changes, suspected fluid overload state, small bilateral effusion and new moderate interstitial edema felt present. Patient did have a bronchoscopy done by Dr. Rivero on August 22, noted to have mucous plugging. She did have bronchoscopy with washing. 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 That prompted this consultation. Patient does not have currently any perioral or lip lesions. She did have some thrush, currently being treated with nystatin swish and swallow. Denies having difficulty swallowing. REVIEW OF SYSTEMS: CONSTITUTIONAL: Positive for weakness. Some low-grade fever. EYES: No complaint. ENT: No complaint. RESPIRATORY: As per HPI. CARDIOVASCULAR: No complaint. GENITOURINARY: No complaint. GASTROINTESTINAL: No complaint. MUSCULOSKELETAL: No complaint. INTEGUMENTARY: No complaint. PSYCHOLOGICAL: No complaint. ENDOCRINE: No complaint. NEUROLOGICAL: No complaint. PAST MEDICAL HISTORY: 1. COPD. 2. CVA TIA. 3. Diabetes mellitus. 4. Gastroesophageal reflux disease. 5. Hyperlipidemia. 6. Hypertension. 7. Pneumonia. 8. Seizure disorder. PAST SURGICAL HISTORY: 1. Appendectomy. 2. Bowel resection. 3. Cholecystectomy. 4. Heart catheterization. 5. Hysterectomy. SOCIAL HISTORY: Positive for smoking. No drinking or drug use. FAMILY HISTORY: Father with history of diabetes, MS. Mother with history of diabetes and renal disease. ALLERGIES: ERYTHROMYCIN. CURRENT MEDICATIONS: 1. Imitrex. 2. Metamucil. 3. MiraLAX. 4. Protonix. 5. Zofran. 6. Nystatin swish and swallow. 7. Nicotine patch. 8. Singulair. 9. Solu-Medrol. 10.Levofloxacin. 11.Imdur. 12.NovoLog. 13.Mucinex. 14.Neurontin. 15.Flonase. 16.Colace. 17.Cardizem. 18.Plavix. 19.Os-Akhil + D. 20.Lipitor. 21.[place]. PHYSICAL EXAMINATION: Blood pressure 124/80 with a pulse of 77, temperature 98.5. She is 99% on 3 L nasal cannula. General description is an elderly female lying in bed in no distress with no tachypnea or accessory muscles of respiration use. HEENT examination shows no pallor or scleral icterus. Mild oral thrush. No upper lip or lower lip herpetic lesion. NECK: Trachea is central. There is no thyromegaly. LUNGS: Unlabored breathing with decreased intensity of breath sounds. No wheeze. HEART: S1, S2. Regular rate and rhythm. ABDOMEN: Soft. No tenderness. No guarding or rigidity. No organomegaly. EXTREMITIES: No edema of feet. SKIN EXAMINATION: No rash or mass palpable. Neurologically patient is awake, alert, oriented x3. Mood and affect normal. LABS: Hemoglobin is 12.9, white count 24.2. Admission white count was 16.3. BUN of 18, creatinine 0.52. Bronch culture so far negative. Blood culture negative. Sputum was negative. DIAGNOSTIC IMPRESSION AND PLAN: 1. Patient with a positive bronchial washing serology for HSV-1. It is more likely secondary to oropharyngeal shedding of this virus into the bronchial mucosa, as the HSV is not a very common cause of a community-acquired pneumonia in a patient who does have a normal immune system currently, with no evidence of any immunosuppression. CD4 counts were within normal range and no history of any immunosuppressive treatment. 2. Patient admitted to hospital with difficulty breathing, more likely representing chronic obstructive pulmonary disease exacerbation with possible tracheobronchitis. Clinical suspicion remains low for pneumonia. PLAN: 1. No need for any antiviral therapy. 2. Continue with bronchodilators, steroids and short course of Levaquin . 3. Continue with nystatin swish and swallow for her underlying oral thrush. 4. Will follow up on clinical condition and culture to further adjust medication if needed. Thank you for this consultation. Will follow this patient along with you. CHERYL / ETHANN: [id number] /
--- NOTE | 2017-08-24 15:29 | P.PN ---
Subjective Progress Note Date: 08/24/17 Patient reported that her shortness of breath is slightly better compared to yesterday. She is still dyspneic. She did not get up and walk around as directed. Objective - Vital Signs Vital signs: Vital Signs Temp 98.5 F 08/24/17 06:15 Pulse 86 08/24/17 11:26 Resp 20 08/24/17 06:15 BP 124/80 08/24/17 06:15 Pulse Ox 99 08/24/17 06:15 Intake & Output 08/23/17 08/24/17 08/24/17 18:59 06:59 18:59 Intake Total 340 Output Total 200 Balance 140 Weight 59.5 kg Intake: Oral 340 Output: Urine 200 Other: # Voids 3 # Bowel Movements 1 - Exam General: The patient is awake and alert, in no distress Eye: there is normal conjunctiva bilaterally. Neck: The neck is supple, there is no JVD. Cardiovascular: Normal S1-S2, no S3-S4, no murmurs. Respiratory: Lungs clear to auscultation bilaterally Gastrointestinal: Abdomen is soft, nontender Musculoskeletal: There is no pedal edema. Neurological:. Speech is normal. Skin: Skin is warm and dry - Labs CBC & Chem 7: 08/24/17 07:25 08/24/17 07:25 Labs: Abnormal Lab Results - Last 24 Hours (Table) 08/23/17 08/23/17 08/24/17 Range/Units 16:55 20:47 07:16 WBC (3.8-10.6) k/uL Plt Count (150-450) k/uL Neutrophils # (Manual) (1.3-7.7) k/uL Metamyelocytes # (Man) (0) k/uL Myelocytes # (Manual) (0) k/uL Sodium (137-145) mmol/L Chloride (98-107) mmol/L Carbon Dioxide (22-30) mmol/L BUN (7-17) mg/dL Glucose (74-99) mg/dL POC Glucose (mg/dL) 319 H 275 H 205 H (75-99) mg/dL Total Protein (6.3-8.2) g/dL Albumin (3.5-5.0) g/dL 08/24/17 08/24/17 08/24/17 Range/Units 07:25 07:25 12:13 WBC 24.2 H (3.8-10.6) k/uL Plt Count 522 H (150-450) k/uL Neutrophils # (Manual) 20.50 H (1.3-7.7) k/uL Metamyelocytes # (Man) 0.97 H (0) k/uL Myelocytes # (Manual) 0.73 H (0) k/uL Sodium 127 L (137-145) mmol/L Chloride 85 L (98-107) mmol/L Carbon Dioxide 33 H (22-30) mmol/L BUN 18 H (7-17) mg/dL Glucose 198 H (74-99) mg/dL POC Glucose (mg/dL) 199 H (75-99) mg/dL Total Protein 4.7 L (6.3-8.2) g/dL Albumin 2.7 L (3.5-5.0) g/dL Microbiology - Last 24 Hours (Table) 08/20/17 13:00 Blood Culture - Preliminary Blood No Growth after 96 hours 08/22/17 13:59 Gram Stain - Final Bronchial Washings - Left Bronchial Washings Culture - Final 08/22/17 13:59 Gram Stain - Final Bronchial Washings - Right Bronchial Washings Culture - Final Assessment and Plan Assessment: 1. Acute COPD exacerbation: Patient started on nebulizer treatments and IV steroids. Pulmonary service following. 2. Pneumonia with chest x-ray showing evidence of a patchy by basilar infiltrate with small effusion: Continue Levaquin. Pulmonary service following. Status post bronchoscopy cultures pending. Showed evidence of mucous plugging and excessive dynamic airway collapse 3. Hyponatremia with a sodium level 129 on admission. Sodium is up to 132. Fluids hep-locked 4. Hypotension: Improved. Patient restarted on blood pressure medications 5. Hypomagnesemia improved with supplement 6. Acute hypoxic respiratory failure likely related to COPD exacerbation and pneumonia 7. Chronic hypoxic respiratory failure home O2 dependent 8. Nicotine dependence: Discussed smoking cessation for greater than 3 minutes. Add nicotine patch 9. Moderate protein calorie malnutrition with albumin of 2.9 add Glucerna shakes 10. Elevated troponin no chest pain. Seen by cardiology. [place] that elevated troponins were due to a oxygen supply and demand mismatch 11. Insulin-dependent diabetes mellitus: Continue insulin pump and sliding scale. Blood sugars are showing improvement 12. History of CVA with residual left-sided weakness on Plavix 13. Hyperlipidemia continue statin 14. Prominent adenopathy anterior chest wall on computed tomography scan: Further evaluation with PET scan outpatient per pulmonary service 15. Constipation we'll add suppository Consult Physical therapy GI prophylaxis Protonix and DVT prophylaxis Lovenox
[2017-08-24 17:13] LABS: Glucose,Whole Blood 169 mg/dL (75-99)
[2017-08-24] MEDS: LEVOFLOXACIN 750 MG TAB PO SCH (17:17)
[2017-08-24 21:22] LABS: Glucose,Whole Blood 231 mg/dL (75-99)
[2017-08-24] MEDS: ATORVASTATIN 10 MG TAB PO SCH (21:29)
[2017-08-24] MEDS: CLOPIDOGREL 75 MG TAB PO SCH (21:29)
[2017-08-24] MEDS: MONTELUKAST 10 MG TAB PO SCH (21:29)
[2017-08-24] MEDS: EZETIMIBE 10 MG TAB PO SCH (21:29)
[2017-08-24] MEDS: GABAPENTIN 300 MG CAP PO SCH (21:29)
[2017-08-24] MEDS: CALCIUM CARB-VIT D 500MG-200UN 1 EACH TAB PO SCH (21:29)
[2017-08-24] MEDS: HEPARIN SODIUM,PORCINE 5,000 UNIT/ML 1 ML VIAL SQ SCH (21:31)
[2017-08-25 01:08] LABS: Glucose,Whole Blood 163 mg/dL (75-99)
[2017-08-25 07:31] LABS: Glucose,Whole Blood 244 mg/dL (75-99)
[2017-08-25 08:10] LABS: HGB 14.4 gm/dL (11.4-16.0); MCH 31.2 pg (25.0-35.0); MCHC 33.6 g/dL (31.0-37.0); MCV 92.9 fL (80.0-100.0); Mean Platelet Volume 6.9; Platelet Count 552 k/uL (150-450); RBC 4.63 m/uL (3.80-5.40); RDW 12.9 % (11.5-15.5)
[2017-08-25] MEDS: guaiFENesin 600 MG TABLET.ER PO SCH ×2 (08:10→20:09)
[2017-08-25] MEDS: FLUTICASONE 50MCG/SPRAY NASAL 16GM EA NOSTRIL SCH (08:10)
[2017-08-25] MEDS: ISOSORBIDE MONONITRATE ER 60 MG TAB.ER.24H PO SCH (08:10)
[2017-08-25] MEDS: DOCUSATE 100 MG CAP PO SCH ×2 (08:10→20:09)
[2017-08-25] MEDS: NYSTATIN 100,000 UNIT/ML SUSP 500,000 UNIT/5 ML CUP PO SCH ×4 (08:10→20:11)
[2017-08-25] MEDS: methylPREDNISolone SOD SUCCI 40 MG/ML 1 ML VIAL IV SCH ×3 (08:10→23:38)
[2017-08-25] MEDS: METOPROLOL TARTRATE 25 MG TAB PO SCH ×2 (08:11→20:09)
[2017-08-25] MEDS: PANTOPRAZOLE 40 MG TABLET PO SCH (08:11)
[2017-08-25] MEDS: INSULIN PUMP MEAL BOLUS 1 UNIT MISC MISCELLANE SCH ×4 (08:11→22:01)
[2017-08-25] MEDS: LISINOPRIL 10 MG TAB PO SCH (08:11)
[2017-08-25] MEDS: DILTIAZEM CD 180 MG CAP.ER.24H PO SCH (08:11)
[2017-08-25] MEDS: NICOTINE 14MG/24HR PATCH TRANSDERM SCH (08:11)
[2017-08-25] MEDS: HEPARIN SODIUM,PORCINE 5,000 UNIT/ML 1 ML VIAL SQ SCH ×2 (08:11→20:10)
[2017-08-25] MEDS: FUROSEMIDE 20 MG TAB PO SCH (08:11)
[2017-08-25 08:12] LABS: Anion Gap 8 mmol/L; Blood Urea Nitrogen 23 mg/dL (7-17); Calcium 9.2 mg/dL (8.4-10.2); Carbon Dioxide 38 mmol/L (22-30); Chloride 82 mmol/L (98-107); Glucose 223 mg/dL (74-99); Potassium 5.3 mmol/L (3.5-5.1); Sodium 128 mmol/L (137-145); WBC 26.9 k/uL (3.8-10.6)
[2017-08-25] MEDS: BUDESONIDE 0.5 MG/2 ML NEBU INHALATION SCH ×2 (08:20→20:01)
[2017-08-25] MEDS: IPRATROPIUM-ALBUTEROL 3 ML NEB INHALATION SCH ×4 (08:20→20:01)
[2017-08-25] MEDS: ONDANSETRON 4 MG/2 ML VIAL IVP PRN (09:17)
[2017-08-25 09:59] LABS: Band Neutrophils % 3 %; Lymphocytes # (M) 1.61 k/uL (1.0-4.8); Metamyelocytes # (M) 1.35 k/uL (0); Metamyelocytes % 5 %; Monocytes # (M) 0.81 k/uL (0-1.0); Myelocytes # (M) 0.81 k/uL (0); Myelocytes % 3 %; Neutrophils % (M) 81 %; Nucleated Red Blood Cells 0 /100 WBC (0-0); Total Cells Counted 200; Toxic Granulation Present
[2017-08-25] MEDS: POLYETHYLENE GLYCOL 3350 17 GM POWD.PACK PO SCH (11:00)
[2017-08-25] MEDS: PSYLLIUM HUSK 100% 6 GM PACKET PO SCH (11:01)
[2017-08-25 12:31] LABS: Glucose,Whole Blood 151 mg/dL (75-99)
[2017-08-25] MEDS: MULTIVITAMINS, THERA 1 EACH TAB PO SCH (12:59)
--- NOTE | 2017-08-25 15:10 | P.PN ---
Subjective Patient reported that her shortness of breath is slightly better compared to yesterday. Objective - Vital Signs Vital signs: Vital Signs Temp 98.3 F 08/25/17 05:55 Pulse 76 08/25/17 08:36 Resp 20 08/25/17 05:55 BP 154/85 08/25/17 05:55 Pulse Ox 98 08/25/17 05:55 Intake & Output 08/24/17 08/25/17 08/25/17 18:59 06:59 18:59 Weight 58.5 kg Other: # Voids 6 3 # Bowel Movements 2 1 - Exam General: The patient is awake and alert, in no distress Eye: there is normal conjunctiva bilaterally. Neck: The neck is supple, there is no JVD. Cardiovascular: Normal S1-S2, no S3-S4, no murmurs. Respiratory: Lungs are diminished bilaterally Gastrointestinal: Abdomen is soft, nontender Musculoskeletal: There is no pedal edema. Neurological:. Speech is normal. Skin: Skin is warm and dry - Labs CBC & Chem 7: 08/25/17 07:02 08/25/17 07:02 Labs: Abnormal Lab Results - Last 24 Hours (Table) 08/24/17 08/24/17 08/25/17 Range/Units 17:05 20:48 01:06 WBC (3.8-10.6) k/uL Plt Count (150-450) k/uL Neutrophils # (Manual) (1.3-7.7) k/uL Metamyelocytes # (Man) (0) k/uL Myelocytes # (Manual) (0) k/uL Sodium (137-145) mmol/L Potassium (3.5-5.1) mmol/L Chloride (98-107) mmol/L Carbon Dioxide (22-30) mmol/L BUN (7-17) mg/dL Glucose (74-99) mg/dL POC Glucose (mg/dL) 169 H 231 H 163 H (75-99) mg/dL 08/25/17 08/25/17 08/25/17 Range/Units 07:02 07:02 07:27 WBC 26.9 H* (3.8-10.6) k/uL Plt Count 552 H (150-450) k/uL Neutrophils # (Manual) 22.50 H (1.3-7.7) k/uL Metamyelocytes # (Man) 1.35 H (0) k/uL Myelocytes # (Manual) 0.81 H (0) k/uL Sodium 128 L (137-145) mmol/L Potassium 5.3 H (3.5-5.1) mmol/L Chloride 82 L (98-107) mmol/L Carbon Dioxide 38 H (22-30) mmol/L BUN 23 H (7-17) mg/dL Glucose 223 H (74-99) mg/dL POC Glucose (mg/dL) 244 H (75-99) mg/dL 08/25/17 Range/Units 12:30 WBC (3.8-10.6) k/uL Plt Count (150-450) k/uL Neutrophils # (Manual) (1.3-7.7) k/uL Metamyelocytes # (Man) (0) k/uL Myelocytes # (Manual) (0) k/uL Sodium (137-145) mmol/L Potassium (3.5-5.1) mmol/L Chloride (98-107) mmol/L Carbon Dioxide (22-30) mmol/L BUN (7-17) mg/dL Glucose (74-99) mg/dL POC Glucose (mg/dL) 151 H (75-99) mg/dL Microbiology - Last 24 Hours (Table) 08/20/17 13:00 Blood Culture - Preliminary Blood No Growth after 120 hours Assessment and Plan Assessment: 1. Acute COPD exacerbation: Patient started on nebulizer treatments and IV steroids. Pulmonary service following. 2. Pneumonia with chest x-ray showing evidence of a patchy by basilar infiltrate with small effusion: Continue Levaquin. Pulmonary service following. Status post bronchoscopy cultures pending. Showed evidence of mucous plugging and excessive dynamic airway collapse 3. Hyponatremia with a sodium level 129 on admission. Sodium is up to 132. Fluids hep-locked 4. Hypotension: Improved. Patient restarted on blood pressure medications 5. Hypomagnesemia improved with supplement 6. Acute hypoxic respiratory failure likely related to COPD exacerbation and pneumonia 7. Chronic hypoxic respiratory failure home O2 dependent 8. Nicotine dependence: Discussed smoking cessation for greater than 3 minutes. Add nicotine patch 9. Moderate protein calorie malnutrition with albumin of 2.9 add Glucerna shakes 10. Elevated troponin no chest pain. Seen by cardiology. [place] that elevated troponins were due to a oxygen supply and demand mismatch 11. Insulin-dependent diabetes mellitus: Continue insulin pump and sliding scale. Blood sugars are showing improvement 12. History of CVA with residual left-sided weakness on Plavix 13. Hyperlipidemia continue statin 14. Prominent adenopathy anterior chest wall on computed tomography scan: Further evaluation with PET scan outpatient per pulmonary service 15. Constipation we'll add suppository Consult Physical therapy GI prophylaxis Protonix and DVT prophylaxis Lovenox
--- NOTE | 2017-08-25 17:52 | US ---
EXAMINATION TYPE: US venous doppler duplex LE DATE OF EXAM: 08/25/2017 5:46 PM COMPARISON: NONE CLINICAL HISTORY: dvt. Bilateral swelling SIDE PERFORMED: Bilateral TECHNIQUE: The lower extremity deep venous system is examined utilizing real time linear array sonog julia with graded compression, doppler sonography and color-flow sonography. VESSELS IMAGED: External Iliac Vein (EIV) Common Femoral Vein Deep Femoral Vein Greater Saphenous Vein * Femoral Vein Popliteal Vein Small Saphenous Vein * Proximal Calf Veins (* superficial vessels) Grayscale, color doppler, spectral doppler imaging performed of the deep veins of the lower extremiti es. There is normal flow, compressibility, vascular waveforms. Right Leg: Negative for DVT Left Leg: Negative for DVT Nonspecific lower extremity subcutaneous edema is noted, moderate in degree. IMPRESSION: No sonographic evidence of deep venous thrombosis within the lower extremities.
[2017-08-25 17:56] LABS: Glucose,Whole Blood 106 mg/dL (75-99)
[2017-08-25] MEDS: LEVOFLOXACIN 750 MG TAB PO SCH (18:08)
[2017-08-25] MEDS: ATORVASTATIN 10 MG TAB PO SCH (20:08)
[2017-08-25] MEDS: CLOPIDOGREL 75 MG TAB PO SCH (20:09)
[2017-08-25] MEDS: CALCIUM CARB-VIT D 500MG-200UN 1 EACH TAB PO SCH (20:09)
[2017-08-25] MEDS: MONTELUKAST 10 MG TAB PO SCH (20:09)
[2017-08-25] MEDS: EZETIMIBE 10 MG TAB PO SCH (20:09)
[2017-08-25] MEDS: GABAPENTIN 300 MG CAP PO SCH (20:10)
[2017-08-25 20:49] LABS: Glucose,Whole Blood 165 mg/dL (75-99)
[2017-08-25] MEDS: HYDROcodone/APAP 5-325MG 1 EACH TAB PO PRN (21:59)
--- NOTE | 2017-08-25 22:14 | PN ---
PROGRESS NOTE She continues to have shortness of breath. She has no chest pain, but has swelling in the left lower extremity. On physical examination, her respiratory rate is 16, pulse rate of 78, O2 saturation on 2 L by nasal cannula is 93%. Blood pressure is 154/85. HEENT is unremarkable. Chest is prolonged expiration. Cardiovascular system is S1, S2. Abdomen is soft. There is edema of the left lower extremity. IMPRESSION: 1. Acute respiratory failure secondary to atypical pneumonia. 2. Left lower extremity edema secondary to cor pulmonale is likely. Continue to diurese her. Check a lower extremity duplex to make sure we are not dealing with deep vein thrombosis. Continue on the current medications which were reviewed. MMODL / IJN: [id number] /
--- NOTE | 2017-08-25 22:49 | PN ---
PROGRESS NOTE DATE OF SERVICE: 08/25/2017 REASON FOR FOLLOWUP: 1. patient tracheobronchitis. 2. Positive blood culture with herpes. INTERVAL HISTORY: The patient is afebrile. She is complaining of more shortness of breath. She did have wheezing. Cough is mostly dry in nature. No chest pain. No nausea, no vomiting. No abdominal pain or any diarrhea. EXAMINATION: Blood pressure is 154/85 with a pulse of 80, temperature of 98.3. She is 98% on 3 L nasal cannula. General description is an elderly female up in the bed in no distress. RESPIRATORY DISTRESS: Unlabored breathing, decreased breath sound with no wheeze. HEART: S1, S2. Regular rate and rhythm. ABDOMEN: Soft, no tenderness. LABS: Hemoglobin 14.4, white count 26.9, BUN of 23, creatinine 0.60. cultures so far negative showing only HSV. DIAGNOSTIC IMPRESSION/PLAN: 1. Patient admitted to the hospital because of shortness of breath and wheezing, more likely an underlying chronic obstructive pulmonary disease. The patient with tracheobronchitis. Clinically doubt pneumonia. positive in the bronch is usually indicative of an oropharyngeal shedding other than herpetic pneumonia. 2. Patient with elevated white count more likely steroid effect worsening condition. We will continue to monitor closely. 3. Multiple family member present at bedside. Their questions were answered. MMODL / IJN: [id number] /
[2017-08-26 02:17] LABS: Glucose,Whole Blood 143 mg/dL (75-99)
[2017-08-26] MEDS: ONDANSETRON 4 MG/2 ML VIAL IVP PRN (03:00)
--- NOTE | 2017-08-26 06:24 | P.CONS ---
History of Present Illness - Chief Complaint Medical debility - History of Present Illness I had the opportunity to see patient for inpatient rehab consultation with regard to medical debility. She was admitted to [facility] August 20 with shortness of breath and cough. Diagnoses bilateral pneumonia. Seen in consultation by Dr. anthony tracy and cardiology. Chest CT demonstrates persistent moderate emphysematous change and pleural effusions. Chest ultrasound demonstrated small effusions. Chest x-ray demonstrates COPD with effusions. Lower extremity Doppler for negative for DVT right and left. PT reports minimal assistance for functional body transfers and gait 175 feet with roller walker. OT prescribed. Previous functional history as elicited from patient: 67-year-old right-handed white female who is lives in one floor home with . does the cooking, laundry, driving although patient can do some of it. Patient retired. Describes independent with standing shower, gait with roller walker. History smoking but doesn't smoke or drink currently. Dr. Lo Dugan regular doctor. Family history of [place] in father and end-stage renal failure mother. Review of Systems Review of systems: ENT: Denies sneezes or discharge. Eyes: Denies discharge or photophobia. Cardiac: Denies chest pain or palpitation. Pulmonary: Improved shortness of breath. Breast: Denies discharge or lumps. Gastrointestinal: Denies nausea, emesis, constipation, diarrhea. Genitourinary: Denies discharge or frequency. Musculoskeletal: Denies muscle or bone aches. Neurologic: Mild weakness. Endocrine: Denies shakes or sweats. Oncology: Denies cancers. Dermatologic: Denies rash, itching, pruritus. ALLERGY/immunology: Denies sneezes, rashes. Past Medical History Past Medical History: COPD, CVA/TIA, Diabetes Mellitus, GERD/Reflux, Hyperlipidemia, Hypertension, Myocardial Infarction (TX), Pneumonia, Seizure Disorder Additional Past Medical History / Comment(s): Only one seizure 2002, cva-06/2009 with residual lt sided weakness, HOME O2 2LITERS N/C AT HS, IDDM-HAS INSULIN PUMP,DIVERTICULITIS,OSTEOPenia, ARTHRITIS, in past saw eye specualist for ?lt eye leaky retina-pt states never had any sx no current problem Last Myocardial Infarction Date:: 1993 History of Any Multi-Drug Resistant Organisms: None Reported Past Surgical History: Appendectomy, Bowel Resection, Cholecystectomy, Heart Catheterization, Hysterectomy Additional Past Surgical History / Comment(s): ANGIOPLASTY-1993, Colonoscopy/EGD ,rt CARPAL TUNNEL RELEASE,ASA CATARACTS, BREAST BX-NEG, tendon sx rt thumb Past Anesthesia/Blood Transfusion Reactions: Previous Problems w/ Anesthesia, Motion Sickness, Postoperative Nausea & Vomiting (PONV) Additional Past Anesthesia/Blood Transfusion Reaction / Comm: past blood transfusion-no reaction Smoking Status: Former smoker - Past Family History Father Family Medical History: Diabetes Mellitus, Myocardial Infarction (TX) Mother Family Medical History: Diabetes Mellitus, Renal Disease Medications and Allergies Home Medications Medication Instructions Recorded Confirmed Type Clopidogrel Bisulfate [Clopidogrel] 75 mg PO DAILY 11/04/13 08/20/17 History Furosemide 20 mg PO DAILY 11/04/13 08/20/17 History Isosorbide Mononitrate [Imdur] 60 mg PO DAILY 11/04/13 08/20/17 History Mometasone Furoate [Nasonex Nasal 2 spray EA NOSTRIL DAILY 11/04/13 08/20/17 History [place]] Ranitidine HCl 300 mg PO DAILY 11/04/13 08/20/17 History Risedronate Sodium [Atelvia] 35 mg PO MCKEON 11/04/13 08/20/17 History Tiotropium 18 Mcg/Puff [Spiriva] 18 mcg INHALATION RT-DAILY 11/04/13 08/20/17 History Albuterol Sulfate [Ventolin HFA] 1 - 2 puff INHALATION RT-Q4H PRN 12/29/1508/20 History Diltiazem HCl [Diltiazem 24Hr ER] 360 mg PO DAILY 12/29/15 08/20/17 History Gabapentin 300 mg PO HS 12/29/15 08/20/17 History HYDROcodone/APAP 5-325MG [Ucon 1 tab PO DAILY PRN 12/29/15 08/20/17 History 5-325] Metoprolol Tartrate 25 mg PO BID 12/29/15 08/20/17 History Multivitamins, Thera [Multivitamin 1 tab PO DAILY 12/29/15 08/20/17 History (formulary)] Nitroglycerin Sl Tabs [Nitrostat] 0.4 mg PO Q5M PRN 12/29/15 08/20/17 History Promethazine [Phenergan] 25 mg PO Q8H PRN 12/29/15 08/20/17 History SUMAtriptan SUCCINATE [Imitrex] 100 mg PO BID PRN 12/29/15 08/20/17 History Atorvastatin [Lipitor] 10 mg PO DAILY 07/07/17 08/20/17 History Benazepril [Lotensin] 10 mg PO DAILY 07/07/17 08/20/17 History Ezetimibe [Zetia] 10 mg PO DAILY 07/07/17 08/20/17 History Insulin Aspart (For Pump) [NovoLOG 0.01 unit SQ-PUMP CONTINUOUS 07/07/17 History (For Pump)] Omeprazole [PriLOSEC] 40 mg PO DAILY 07/07/17 08/20/17 History Polyethylene Glycol 3350 [Miralax] 17 gm PO DAILY PRN 07/07/17 08/20/17 History Psyllium Husk [Metamucil] 0.4 gm PO DAILY PRN 07/07/17 08/20/17 History Calcium Carbonate/Vitamin D3 1 tab PO DAILY 08/20/17 08/20/17 History [Calcium 600-Vit D3 400 Caplet] Allergies Allergy/AdvReac Type Severity Reaction Status Date / Time erythromycin base Allergy Rash/Hives Verified 08/20/17 13:10 Physical Exam Vitals: Vital Signs Temp Pulse Pulse Resp BP BP Pulse Ox 08/25/17 23:00 98.5 F 75 20 111/68 96 08/25/17 20:01 84 16 08/25/17 16:45 98.6 F 84 14 117/70 95 08/25/17 15:59 80 16 08/25/17 15:52 93 L 08/25/17 15:51 78 16 08/25/17 08:36 76 08/25/17 08:20 80 Intake and Output 08/25/17 08/25/17 08/26/17 14:59 22:59 06:59 Intake Total 1025 500 Output Total 300 Balance 1025 500 -300 Intake: Oral 1025 500 Output: Urine 300 Other: # Voids 3 2 1 # Bowel Movements 1 2 0 Skin: Good color, texture, turgor. General: Medium build and comfortable appearance. Head: Normocephalic, atraumatic. Eyes: Symmetric. Pupils equal round. Ears: Symmetric. Hearing within normal limits. Mouth: Clear. Neck: Supple. Carotid without bruit. Cardiac: Regular rate and rhythm. Lungs: Clear anteriorly and posteriorly. Abdomen: Soft active nontender. Extremities: Normal tone. Neurological: Mental status: Alert, cooperative, pleasant. Cranial nerves: Symmetric facial tone and trapezius. Motor: Normal strength and isolation all 4 limbs. Left ankle 4/5. Left arm and synergy posturing when still. Sensation: Intact throughout. DTRs: Symmetric and equal throughout. Mobility: Sits with minimal assistance. Results CBC & Chem 7: 08/25/17 07:02 08/25/17 07:02 Labs: Abnormal Lab Results - Last 24 Hours (Table) 08/25/17 08/25/17 08/25/17 Range/Units 07:02 07:02 07:27 WBC 26.9 H* (3.8-10.6) k/uL Plt Count 552 H (150-450) k/uL Neutrophils # (Manual) 22.50 H (1.3-7.7) k/uL Metamyelocytes # (Man) 1.35 H (0) k/uL Myelocytes # (Manual) 0.81 H (0) k/uL Sodium 128 L (137-145) mmol/L Potassium 5.3 H (3.5-5.1) mmol/L Chloride 82 L (98-107) mmol/L Carbon Dioxide 38 H (22-30) mmol/L BUN 23 H (7-17) mg/dL Glucose 223 H (74-99) mg/dL POC Glucose (mg/dL) 244 H (75-99) mg/dL 08/25/17 08/25/17 08/25/17 Range/Units 12:30 17:52 20:36 WBC (3.8-10.6) k/uL Plt Count (150-450) k/uL Neutrophils # (Manual) (1.3-7.7) k/uL Metamyelocytes # (Man) (0) k/uL Myelocytes # (Manual) (0) k/uL Sodium (137-145) mmol/L Potassium (3.5-5.1) mmol/L Chloride (98-107) mmol/L Carbon Dioxide (22-30) mmol/L BUN (7-17) mg/dL Glucose (74-99) mg/dL POC Glucose (mg/dL) 151 H 106 H 165 H (75-99) mg/dL 08/26/17 Range/Units 02:12 WBC (3.8-10.6) k/uL Plt Count (150-450) k/uL Neutrophils # (Manual) (1.3-7.7) k/uL Metamyelocytes # (Man) (0) k/uL Myelocytes # (Manual) (0) k/uL Sodium (137-145) mmol/L Potassium (3.5-5.1) mmol/L Chloride (98-107) mmol/L Carbon Dioxide (22-30) mmol/L BUN (7-17) mg/dL Glucose (74-99) mg/dL POC Glucose (mg/dL) 143 H (75-99) mg/dL Microbiology - Last 24 Hours (Table) 08/20/17 13:00 Blood Culture - Preliminary Blood No Growth after 120 hours Chest x-ray: report reviewed (COPD and effusions.) CT scan - chest: report reviewed (Persistent emphysematous change and effusions. ) Assessment and Plan (1) Pneumonia Current Visit: Yes Status: Acute Code(s): J18.9 - PNEUMONIA, UNSPECIFIED ORGANISM SNOMED Code(s): 938581710 Plan: Impression: 1. Medical debility. 2. Pneumonia. 3. COPD exacerbation. 4. Angina. 5. Hypertension. 6. Dyslipidemia. 7. History of [place]. 8. Seizure disorder. 9. History of stroke and left hemiparesthesias. Comments and plan: PT ongoing and OT prescribed. Follow therapies with yourself for possible need and benefit inpatient rehab. Have also discussed therapies at home.
[2017-08-26 07:19] LABS: Glucose,Whole Blood 161 mg/dL (75-99)
[2017-08-26 07:55] LABS: HGB 13.9 gm/dL (11.4-16.0); MCV 91.3 fL (80.0-100.0); Mean Platelet Volume 6.7; Platelet Count 532 k/uL (150-450); RBC 4.48 m/uL (3.80-5.40); RDW 12.9 % (11.5-15.5)
[2017-08-26 08:04] LABS: WBC 27.8 k/uL (3.8-10.6)
[2017-08-26 08:13] LABS: Anion Gap 7 mmol/L; Blood Urea Nitrogen 22 mg/dL (7-17); Calcium 8.7 mg/dL (8.4-10.2); Carbon Dioxide 36 mmol/L (22-30); Chloride 83 mmol/L (98-107); Glucose 155 mg/dL (74-99); Potassium 4.9 mmol/L (3.5-5.1); Sodium 126 mmol/L (137-145)
[2017-08-26] MEDS: BUDESONIDE 0.5 MG/2 ML NEBU INHALATION SCH ×2 (08:27→20:18)
[2017-08-26] MEDS: IPRATROPIUM-ALBUTEROL 3 ML NEB INHALATION SCH ×4 (08:27→20:18)
[2017-08-26 08:35] LABS: Band Neutrophils % 1 %; Lymphocytes # (M) 1.95 k/uL (1.0-4.8); Metamyelocytes # (M) 0.56 k/uL (0); Metamyelocytes % 2 %; Monocytes # (M) 0.83 k/uL (0-1.0); Myelocytes # (M) 0.56 k/uL (0); Myelocytes % 2 %; Neutrophils % (M) 86 %; Nucleated Red Blood Cells 0 /100 WBC (0-0); Total Cells Counted 200
[2017-08-26 08:36] LABS: Toxic Vacuolation Present
[2017-08-26] MEDS: PSYLLIUM HUSK 100% 6 GM PACKET PO SCH (08:44)
[2017-08-26] MEDS: POLYETHYLENE GLYCOL 3350 17 GM POWD.PACK PO SCH (08:44)
[2017-08-26] MEDS: NICOTINE 14MG/24HR PATCH TRANSDERM SCH (08:45)
[2017-08-26] MEDS: NYSTATIN 100,000 UNIT/ML SUSP 500,000 UNIT/5 ML CUP PO SCH ×4 (08:45→21:50)
[2017-08-26] MEDS: ISOSORBIDE MONONITRATE ER 60 MG TAB.ER.24H PO SCH (08:45)
[2017-08-26] MEDS: methylPREDNISolone SOD SUCCI 40 MG/ML 1 ML VIAL IV SCH ×2 (08:45→21:40)
[2017-08-26] MEDS: FLUTICASONE 50MCG/SPRAY NASAL 16GM EA NOSTRIL SCH (08:45)
[2017-08-26] MEDS: PANTOPRAZOLE 40 MG TABLET PO SCH (08:46)
[2017-08-26] MEDS: DILTIAZEM CD 180 MG CAP.ER.24H PO SCH (08:46)
[2017-08-26] MEDS: guaiFENesin 600 MG TABLET.ER PO SCH ×2 (08:46→21:29)
[2017-08-26] MEDS: HEPARIN SODIUM,PORCINE 5,000 UNIT/ML 1 ML VIAL SQ SCH ×2 (08:46→21:40)
[2017-08-26] MEDS: LISINOPRIL 10 MG TAB PO SCH (08:46)
[2017-08-26] MEDS: DOCUSATE 100 MG CAP PO SCH ×2 (08:46→21:28)
[2017-08-26] MEDS: INSULIN PUMP MEAL BOLUS 1 UNIT MISC MISCELLANE SCH ×4 (08:47→21:40)
[2017-08-26] MEDS: FUROSEMIDE 20 MG TAB PO SCH (08:47)
[2017-08-26] MEDS: METOPROLOL TARTRATE 25 MG TAB PO SCH ×2 (08:47→21:28)
--- NOTE | 2017-08-26 10:11 | P.PN ---
Subjective Progress Note Date: 08/26/17 HPI: This is a 67-year-old female patient being seen examined and evaluated today for consultation. This patient was being seen by her PCP for cough congestion and shortness of breath over the last 3 or 4 days and was found to be hypoxic in the office with oxygen saturations in the 60-70% on room air, and was sent over to the emergency room for evaluation and treatment. Patient is known to have supplemental oxygen at 2 L during the nighttime hours only. She states that over the past 3-4 days she has had a productive cough with yellow sputum with chills. She is also had some nausea and constipation. Upon evaluation in the emergency room she was found to be hypotensive and was given 2 L IV bolus. She also had a sodium of 129, WBC of 16.3 and slightly elevated troponins at 0.070. She was negative for a lactic acid. And her magnesium was 1.5 which was replaced. Patient was initiated on antibiotics and breathing treatments. Patient's chest x-ray from this morning does show bilateral lower lobe infiltrates with small effusion. COPD correlate for interstitial pulmonary lung disease such as fibrosis, superimposed pneumonitis or congestion also on the differential. Upon examination the patient's resting up in bed on 4 L of supplemental oxygen via nasal cannula. She continues to have shortness of breath cough and congestion. Sputum culture is pending. Patient is a half a pack per day smoker for approximately 30 years. She does have pets in the home just [place] dog[place] For work the patient worked in secretarial or housekeeping. She is afebrile no further complaints. Interval History: 08/22/17- patient is being seen examined and evaluated today on rounds. She is resting up in bed on 3 L of supplemental oxygen via nasal cannula. The patient does have some nausea this morning. She was unable to eat her breakfast. She did receive Zofran and that seems to be working at this time. Patient states she continues to have shortness of breath cough and congestion. States that her secretions are still too thick to bring up. She currently is afebrile, WBC is 20.5. CT was reviewed and does show advanced emphysema with fluid overload and small bilateral pleural effusions with moderate interstitial edema/ infiltrate. There is also a masslike consolidation in the anterior medial left chest wall. 08/23/17- patient is being seen examined and evaluated today on rounds. She is resting up in bed on 4 L of supplemental oxygen via nasal cannula and satting in the mid 90s. The patient did undergo a bronchoscopy yesterday with washings see those notes for details. Patient states she feels about the same today may be slightly better than yesterday after having the bronchoscopy procedure. She does have some complaints of oral thrush, nystatin will be initiated. Patient' s CT was reviewed with radiology and Dr. Rivero yesterday, it is recommended that she undergo a PET scan in the outpatient setting to evaluate her lymphadenopathy and the chest wall mass. She is afebrile no further complaints. 08/24-08/25/17- Please see Dr EYAL Box notes 08/26/17- patient is being seen examined and evaluated today on rounds. She is resting up in bed on 2 L of supplemental oxygen via nasal cannula. The patient appears to be doing a lot better. She is currently being evaluated for inpatient rehab. Patient was also noted to have a positive herpes simplex type I noted and her" shooting and infectious disease on consult and feels that this is more herpetic setting versus a herpetic pneumonia which is less likely. Her breathing is more stable today. She does occasional get short of breath with exertion. She continues to have a cough however its place productive. Steroids continue to be tapered. Objective - Vital Signs Vital signs: Vital Signs Temp 98.4 F 08/26/17 06:39 Pulse 75 08/26/17 08:42 Resp 18 08/26/17 06:39 BP 153/75 08/26/17 06:39 Pulse Ox 97 08/26/17 06:39 Intake & Output 08/25/17 08/26/17 08/26/17 18:59 06:59 18:59 Intake Total 1025 800 Output Total 300 Balance 1025 500 Weight 59 kg Intake: Oral 1025 800 Output: Urine 300 Other: Voiding Method Bedside Commode # Voids 3 2 1 # Bowel Movements 1 2 1 - Exam GENERAL EXAM: Alert, comfortable in no apparent distress. HEAD: Normocephalic. EYES: Normal reaction of pupils, equal size. NOSE: Clear with pink turbinates. THROAT: No erythema or exudates. NECK: No masses, no JVD. CHEST: No chest wall deformity. LUNGS: Lungs noted to be improving, slightly coarse with few faint scattered expiratory wheezing, Bases diminished CVS: S1 and S2 normal with no audible mumurs, regular rhythm. ABDOMEN: No hepatosplenomegaly, normal bowel sounds, no guarding or rigidity. EXTREMITIES: No edema noted, pedal pulses palpable. CENTRAL NERVOUS SYSTEM: No focal deficits, tone is normal in all 4 extremities. - Labs CBC & Chem 7: 08/26/17 07:21 08/26/17 07:21 Labs: Abnormal Lab Results - Last 24 Hours (Table) 08/25/17 08/25/17 08/25/17 Range/Units 12:30 17:52 20:36 WBC (3.8-10.6) k/uL Plt Count (150-450) k/uL Neutrophils # (Manual) (1.3-7.7) k/uL Metamyelocytes # (Man) (0) k/uL Myelocytes # (Manual) (0) k/uL Sodium (137-145) mmol/L Chloride (98-107) mmol/L Carbon Dioxide (22-30) mmol/L BUN (7-17) mg/dL Glucose (74-99) mg/dL POC Glucose (mg/dL) 151 H 106 H 165 H (75-99) mg/dL 08/26/17 08/26/17 08/26/17 Range/Units 02:12 07:11 07:21 WBC 27.8 H* (3.8-10.6) k/uL Plt Count 532 H (150-450) k/uL Neutrophils # (Manual) 24.10 H (1.3-7.7) k/uL Metamyelocytes # (Man) 0.56 H (0) k/uL Myelocytes # (Manual) 0.56 H (0) k/uL Sodium (137-145) mmol/L Chloride (98-107) mmol/L Carbon Dioxide (22-30) mmol/L BUN (7-17) mg/dL Glucose (74-99) mg/dL POC Glucose (mg/dL) 143 H 161 H (75-99) mg/dL 08/26/17 Range/Units 07:21 WBC (3.8-10.6) k/uL Plt Count (150-450) k/uL Neutrophils # (Manual) (1.3-7.7) k/uL Metamyelocytes # (Man) (0) k/uL Myelocytes # (Manual) (0) k/uL Sodium 126 L (137-145) mmol/L Chloride 83 L (98-107) mmol/L Carbon Dioxide 36 H (22-30) mmol/L BUN 22 H (7-17) mg/dL Glucose 155 H (74-99) mg/dL POC Glucose (mg/dL) (75-99) mg/dL Microbiology - Last 24 Hours (Table) 08/20/17 13:00 Blood Culture - Preliminary Blood No Growth after 120 hours Assessment and Plan Assessment: Assessment Small bilateral pleural effusions Acute exacerbation of COPD Bilateral pneumonia, community acquired suspect mixed bacterial Hyponatremia Hypotension hypomagnesemia acute on chronic hypoxic respiratory failure requiring additional supplemental oxygen. Nicotine dependence Elevated troponins Diabetes mellitus type 1 History of CVA Hyperlipidemia Plan Medications have been reviewed and will be continued as ordered. Continue mucinex and flutter valve. Steroids have been tapered. Patient could switch to oral steroids tomorrow. We will do an outpatient PET scan as well. Initiate and encourage incentive spirometer. Evaluation for inpatient rehab under way, continue with PT and OT. Continue to monitor and replace electrolytes. Continue with pulmonary hygiene, coughing and deep breathing exercises, and supportive care. Supplemental oxygen to maintain oxygen saturations of 92% or better. She will need a home oxygen evaluation before discharge. Continue nebulizer treatments. GI and DVT prophylaxis. We will continue to monitor labs/results and adjust treatment as necessary. Further recommendations pending. I performed an examination of the patient and discussed their management with the nurse practitioner. I have reviewed the nurse practitioner's note and agree with the documented findings and plan of care.
[2017-08-26 12:18] LABS: Glucose,Whole Blood 207 mg/dL (75-99)
[2017-08-26] MEDS: MULTIVITAMINS, THERA 1 EACH TAB PO SCH (13:48)
[2017-08-26] MEDS: SODIUM CHLORIDE 0.9% 1,000 ML IV SCH (13:54)
--- NOTE | 2017-08-26 13:58 | P.PN ---
Subjective Progress Note Date: 08/26/17 this is a 67-year-old female, patient of [facility]. She has a known past medical history of COPD, nicotine dependence, CVA, diabetes mellitus with insulin pump, hyperlipidemia, myocardial infarction with angioplasty in 1993, hypertension and seizure last seizure 2002. Patient with see her PCP regarding worsening cough and shortness of breath of the last 3 days. She was found to be hypoxic with oxygen saturation of 60-70% on room air. She was informed to present to the emergency room for further evaluation and treatment. Patient usually only uses home oxygen in the evening time but has required it throughout the day. She also has been having a productive cough with yellowish to greenish sputum also having some chills. She's also been nauseated and having some constipation. Last bowel movement was yesterday but hard pebble like. Patient denies any chest pain. Denies any vomiting. Denies any burning with urination. Patient was hypotensive on admission. She received 2 IV fluid boluses blood pressure has come up to 99/51. BP meds have been placed on hold. Patient's sodium level also 129. She'll be started on normal saline at 100 mL per hour. White count 16.3 troponin 0.070. Lactic acid normal at 1 and magnesium 1.5 she threw receiving replacement of magnesium in the ER. Dr. EYAL Teresa will be consulted for her COPD and pneumonia. EKG showing a normal sinus rhythm with septal infarct age undetermined On 08/21/2017 patient is alert and oriented 3 complaining of headache, complaining of shortness of breath, complaining of cough was minimal sputum production, denies any chest pain, there is no fever or chills, she is complaining of upset stomach, no nausea or vomiting no diarrhea no burning with urination no frequency or urgency. 08/22/2017 patient is feeling more nauseated today. Still having elevated blood sugars in the 200s to 300s. Patient is now on 2 L satting at 96%. White count up to 20.5 she is on steroids. Echo showing EF of 55%. Computed tomography scan of the chest showing persistent moderate to advanced underlying emphysematous changes. There is suspected fluid overload state there is small bilateral pleural effusions and a new moderate interstitial edema felt present. There is more prominent thoracic adenopathy identified. Consider bronchoscopy or PET scans follow-up. Discussed with pulmonary service. The planning for bronchoscopy this afternoon. Patient is having small pebble-like bowel movements. Due to her nausea she is refused her MiraLAX and Metamucil. 08/23/2017 patient is looking better today. She still having some nausea. She underwent bronchoscopy yesterday which did show mucous plugging and EDAC. Pulmonary service is following. Blood sugars are showing improvement. Chest ultrasound showed small bilateral pleural effusions. Patient complaining of some constipation only able to have small hard bowel movements. But due to her nausea she is refusing lactulose and also her MiraLAX and Metamucil. 08/26/17 patient reports improvement in her breathing. She was able to ambulate in the hallway down to the nurses station. She is on her home dose of oxygen of 2 L. Pulmonary service is planning to switch her over to oral prednisone tomorrow. 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 Patient seen by infectious disease they felt that HSV is most likely secondary to oropharyngeal shedding of the virus into the bronchial mucosa. And no antiviral is needed. Patient's sodium is 126. Lasix has been discontinued. Objective - Vital Signs Vital signs: Vital Signs Temp 98.4 F 08/26/17 06:39 Pulse 75 08/26/17 08:42 Resp 18 08/26/17 06:39 BP 153/75 08/26/17 06:39 Pulse Ox 97 08/26/17 06:39 Intake & Output 08/25/17 08/26/17 08/26/17 18:59 06:59 18:59 Intake Total 1025 800 Output Total 300 Balance 1025 500 Weight 59 kg Intake: Oral 1025 800 Output: Urine 300 Other: Voiding Method Bedside Commode # Voids 3 2 1 # Bowel Movements 1 2 1 - Exam Head normocephalic Neck supple Lungs diminished bilaterally no crackles or wheezing Heart regular rate and rhythm S1-S2, no rub or gallop Abdomen is soft nontender nondistended positive bowel sounds no hepatosplenomegaly Extremities +1 edema bilateral lower extremities Neuro alert and orientated to 3 - Labs CBC & Chem 7: 08/26/17 07:21 08/26/17 07:21 Labs: Abnormal Lab Results - Last 24 Hours (Table) 08/25/17 08/25/17 08/26/17 Range/Units 17:52 20:36 02:12 WBC (3.8-10.6) k/uL Plt Count (150-450) k/uL Neutrophils # (Manual) (1.3-7.7) k/uL Metamyelocytes # (Man) (0) k/uL Myelocytes # (Manual) (0) k/uL Sodium (137-145) mmol/L Chloride (98-107) mmol/L Carbon Dioxide (22-30) mmol/L BUN (7-17) mg/dL Glucose (74-99) mg/dL POC Glucose (mg/dL) 106 H 165 H 143 H (75-99) mg/dL 08/26/17 08/26/17 08/26/17 Range/Units 07:11 07:21 07:21 WBC 27.8 H* (3.8-10.6) k/uL Plt Count 532 H (150-450) k/uL Neutrophils # (Manual) 24.10 H (1.3-7.7) k/uL Metamyelocytes # (Man) 0.56 H (0) k/uL Myelocytes # (Manual) 0.56 H (0) k/uL Sodium 126 L (137-145) mmol/L Chloride 83 L (98-107) mmol/L Carbon Dioxide 36 H (22-30) mmol/L BUN 22 H (7-17) mg/dL Glucose 155 H (74-99) mg/dL POC Glucose (mg/dL) 161 H (75-99) mg/dL 08/26/17 Range/Units 12:14 WBC (3.8-10.6) k/uL Plt Count (150-450) k/uL Neutrophils # (Manual) (1.3-7.7) k/uL Metamyelocytes # (Man) (0) k/uL Myelocytes # (Manual) (0) k/uL Sodium (137-145) mmol/L Chloride (98-107) mmol/L Carbon Dioxide (22-30) mmol/L BUN (7-17) mg/dL Glucose (74-99) mg/dL POC Glucose (mg/dL) 207 H (75-99) mg/dL Microbiology - Last 24 Hours (Table) 08/20/17 13:00 Blood Culture - Preliminary Blood No Growth after 120 hours Assessment and Plan Assessment: 1. Acute COPD exacerbation: Patient started on nebulizer treatments and IV steroids. Pulmonary service following. They're planning to start oral prednisone tomorrow. IV Solu-Medrol taper down to 40 mg every 12 hours 2. Pneumonia with chest x-ray showing evidence of a patchy by basilar infiltrate with small effusion: Continue Levaquin. Pulmonary service following. Status post bronchoscopy pathology shows no malignant cells. Bronchial wash essentially negative. 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 3. Hyponatremia with a sodium level 129 on admission. Sodium is again trending down to 126. Lasix discontinued. Will give patient normal saline at 20 MLS per hour. Patient does have some lower extremity edema. Repeat sodium level in a.m. 4. Hypotension: Improved. Patient restarted on blood pressure medications 5. Hypomagnesemia improved with supplement 6. Acute hypoxic respiratory failure likely related to COPD exacerbation and pneumonia 7. Chronic hypoxic respiratory failure home O2 dependent 8. Nicotine dependence: Discussed smoking cessation for greater than 3 minutes. Add nicotine patch 9. Moderate protein calorie malnutrition with albumin of 2.9 add Glucerna shakes 10. Elevated troponin no chest pain. Seen by cardiology. [place] that elevated troponins were due to a oxygen supply and demand mismatch 11. Insulin-dependent diabetes mellitus: Continue insulin pump and sliding scale. Blood sugars are showing improvement 12. History of CVA with residual left-sided weakness on Plavix 13. Hyperlipidemia continue statin 14. Prominent adenopathy anterior chest wall on computed tomography scan: Further evaluation with PET scan outpatient per pulmonary service 15. Constipation improved Consult Physical therapy GI prophylaxis Protonix and DVT prophylaxis Lovenox Anticipating discharge home within the next 1-2 days depending on sodium level I performed an examination of the patient and discussed their management with the physician Book Or Script Editor. I have reviewed the Physician Book Or Script Editor's notes and agree with the documented findings and plan of care
[2017-08-26 15:07] VITALS: BMI 27.1
[2017-08-26 17:38] LABS: Glucose,Whole Blood 226 mg/dL (75-99)
[2017-08-26] MEDS: LEVOFLOXACIN 750 MG TAB PO SCH (17:38)
[2017-08-26 20:24] LABS: Glucose,Whole Blood 166 mg/dL (75-99)
[2017-08-26] MEDS: CLOPIDOGREL 75 MG TAB PO SCH (21:28)
[2017-08-26] MEDS: MONTELUKAST 10 MG TAB PO SCH (21:28)
[2017-08-26] MEDS: ATORVASTATIN 10 MG TAB PO SCH (21:28)
[2017-08-26] MEDS: CALCIUM CARB-VIT D 500MG-200UN 1 EACH TAB PO SCH (21:28)
[2017-08-26] MEDS: EZETIMIBE 10 MG TAB PO SCH (21:29)
[2017-08-26] MEDS: GABAPENTIN 300 MG CAP PO SCH (21:29)
[2017-08-26] MEDS: HYDROcodone/APAP 5-325MG 1 EACH TAB PO PRN (21:38)
[2017-08-27 02:47] LABS: Glucose,Whole Blood 229 mg/dL (75-99)
--- NOTE | 2017-08-27 03:09 | PN ---
PROGRESS NOTE DATE OF SERVICE: 08/26/2017. REASON FOR FOLLOWUP: 1. Tracheobronchitis. 2. Positive blood culture with herpes. INTERVAL HISTORY: The patient is afebrile. She has been breathing slightly comfortably. The patient denies having any chest pain. She did have some cough but less productive. No chest pain. No abdominal pain. No diarrhea. EXAMINATION: Her blood pressure is 153/75 with a pulse of 73, temperature 98.4. She is 97% on 3 L nasal cannula. General description is an elderly female up in the bed in no distress. Respiratory system unlabored breathing, with decreased intensive breath sounds. No wheeze. Heart S1, S2. Regular rate and rhythm. ABDOMEN: Soft, no tenderness. EXTREMITIES: No edema of the feet. LABS: Hemoglobin 13.9, white count 27.8. BUN of 22, creatinine 0.52. DIAGNOSTIC IMPRESSION AND PLAN: 1. Patient admitted to the hospital to the hospital with increasing shortness of breath, more likely chronic obstructive pulmonary disease exacerbation with tracheobronchitis. Clinically doubt pneumonia. She did have a sputum which has been negative. Bronch cultures did show yeast and both of them colonizer and some oropharyngeal swelling cause of pneumonia in an immune compromised patient. No need for antiviral. She will continue bronchodilators and steroids per Pulmonary. 2. Patient with elevated white count more likely steroid effect. Continue supportive care. MMODL / IJN: [id number] /
[2017-08-27 07:24] LABS: Glucose,Whole Blood 193 mg/dL (75-99)
[2017-08-27] MEDS: ONDANSETRON 4 MG/2 ML VIAL IVP PRN (07:29)
[2017-08-27 07:30] VITALS: BP 133/76; RESP 18; TEMP 98.1
[2017-08-27] MEDS: INSPUCOR MISCELLANE PRN (07:31)
[2017-08-27] MEDS: IPRATROPIUM-ALBUTEROL 3 ML NEB INHALATION SCH ×2 (08:16→11:55)
[2017-08-27] MEDS: BUDESONIDE 0.5 MG/2 ML NEBU INHALATION SCH (08:16)
[2017-08-27 08:21] VITALS: PULSE 76
[2017-08-27 08:56] LABS: HCT 47.2 % (34.0-46.0); MCHC 31.7 g/dL (31.0-37.0); MCV 94.4 fL (80.0-100.0); Platelet Count 511 k/uL (150-450); RDW 13.2 % (11.5-15.5)
[2017-08-27 08:57] LABS: WBC 28.6 k/uL (3.8-10.6)
[2017-08-27] MEDS ORDERED: predniSONE 50 MG TAB PO SCH (09:00)
[2017-08-27] MEDS: FLUTICASONE 50MCG/SPRAY NASAL 16GM EA NOSTRIL SCH (09:01)
[2017-08-27] MEDS: METOPROLOL TARTRATE 25 MG TAB PO SCH (09:02)
[2017-08-27] MEDS: PANTOPRAZOLE 40 MG TABLET PO SCH (09:02)
[2017-08-27] MEDS: NYSTATIN 100,000 UNIT/ML SUSP 500,000 UNIT/5 ML CUP PO SCH ×2 (09:02→13:09)
[2017-08-27] MEDS: methylPREDNISolone SOD SUCCI 40 MG/ML 1 ML VIAL IV SCH (09:02)
[2017-08-27] MEDS: HEPARIN SODIUM,PORCINE 5,000 UNIT/ML 1 ML VIAL SQ SCH (09:02)
[2017-08-27] MEDS: guaiFENesin 600 MG TABLET.ER PO SCH (09:02)
[2017-08-27] MEDS: ISOSORBIDE MONONITRATE ER 60 MG TAB.ER.24H PO SCH (09:02)
[2017-08-27] MEDS: DILTIAZEM CD 180 MG CAP.ER.24H PO SCH (09:02)
[2017-08-27] MEDS: NICOTINE 14MG/24HR PATCH TRANSDERM SCH (09:02)
[2017-08-27 09:03] LABS: Anion Gap 9 mmol/L; Blood Urea Nitrogen 25 mg/dL (7-17); Carbon Dioxide 37 mmol/L (22-30); Chloride 83 mmol/L (98-107); Glucose 198 mg/dL (74-99); Potassium 4.4 mmol/L (3.5-5.1); Sodium 129 mmol/L (137-145)
[2017-08-27] MEDS: DOCUSATE 100 MG CAP PO SCH (09:03)
[2017-08-27] MEDS: LISINOPRIL 10 MG TAB PO SCH (09:03)
[2017-08-27] MEDS: INSULIN PUMP MEAL BOLUS 1 UNIT MISC MISCELLANE SCH ×2 (09:03→13:08)
[2017-08-27] MEDS: POLYETHYLENE GLYCOL 3350 17 GM POWD.PACK PO SCH (09:04)
[2017-08-27] MEDS: SODIUM CHLORIDE 0.9% 1,000 ML IV SCH (09:04)
[2017-08-27] MEDS: PSYLLIUM HUSK 100% 6 GM PACKET PO SCH (09:04)
[2017-08-27] MEDS ORDERED: ACETAMINOPHEN TAB 325 MG TAB PO PRN (09:59)
--- NOTE | 2017-08-27 10:33 | P.PN ---
Subjective Progress Note Date: 08/27/17 HPI: This is a 67-year-old female patient being seen examined and evaluated today for consultation. This patient was being seen by her PCP for cough congestion and shortness of breath over the last 3 or 4 days and was found to be hypoxic in the office with oxygen saturations in the 60-70% on room air, and was sent over to the emergency room for evaluation and treatment. Patient is known to have supplemental oxygen at 2 L during the nighttime hours only. She states that over the past 3-4 days she has had a productive cough with yellow sputum with chills. She is also had some nausea and constipation. Upon evaluation in the emergency room she was found to be hypotensive and was given 2 L IV bolus. She also had a sodium of 129, WBC of 16.3 and slightly elevated troponins at 0.070. She was negative for a lactic acid. And her magnesium was 1.5 which was replaced. Patient was initiated on antibiotics and breathing treatments. Patient's chest x-ray from this morning does show bilateral lower lobe infiltrates with small effusion. COPD correlate for interstitial pulmonary lung disease such as fibrosis, superimposed pneumonitis or congestion also on the differential. Upon examination the patient's resting up in bed on 4 L of supplemental oxygen via nasal cannula. She continues to have shortness of breath cough and congestion. Sputum culture is pending. Patient is a half a pack per day smoker for approximately 30 years. She does have pets in the home just [place] dog[place] For work the patient worked in secretarial or housekeeping. She is afebrile no further complaints. Interval History: 08/22/17- patient is being seen examined and evaluated today on rounds. She is resting up in bed on 3 L of supplemental oxygen via nasal cannula. The patient does have some nausea this morning. She was unable to eat her breakfast. She did receive Zofran and that seems to be working at this time. Patient states she continues to have shortness of breath cough and congestion. States that her secretions are still too thick to bring up. She currently is afebrile, WBC is 20.5. CT was reviewed and does show advanced emphysema with fluid overload and small bilateral pleural effusions with moderate interstitial edema/ infiltrate. There is also a masslike consolidation in the anterior medial left chest wall. 08/23/17- patient is being seen examined and evaluated today on rounds. She is resting up in bed on 4 L of supplemental oxygen via nasal cannula and satting in the mid 90s. The patient did undergo a bronchoscopy yesterday with washings see those notes for details. Patient states she feels about the same today may be slightly better than yesterday after having the bronchoscopy procedure. She does have some complaints of oral thrush, nystatin will be initiated. Patient' s CT was reviewed with radiology and Dr. Rivero yesterday, it is recommended that she undergo a PET scan in the outpatient setting to evaluate her lymphadenopathy and the chest wall mass. She is afebrile no further complaints. 08/24-08/25/17- Please see Dr EYAL Box notes 08/26/17- patient is being seen examined and evaluated today on rounds. She is resting up in bed on 2 L of supplemental oxygen via nasal cannula. The patient appears to be doing a lot better. She is currently being evaluated for inpatient rehab. Patient was also noted to have a positive herpes simplex type I noted and her" shooting and infectious disease on consult and feels that this is more herpetic setting versus a herpetic pneumonia which is less likely. Her breathing is more stable today. She does occasional get short of breath with exertion. She continues to have a cough however its place productive. Steroids continue to be tapered. 08/27/17- patient seen and seen examined and evaluated today on rounds. She is resting up in bed on 2 L of supplemental oxygen via nasal cannula. Patient continues to improve respiratory burdick. She is being cleared for discharge from pulmonary standpoint. She has been up ambulating in the hallway. Her steroids have been switched over to oral. Objective - Vital Signs Vital signs: Vital Signs Temp 98.1 F 08/27/17 07:00 Pulse 76 08/27/17 08:36 Resp 18 08/27/17 07:00 BP 133/76 08/27/17 07:00 Pulse Ox 92 L 08/27/17 07:00 Intake & Output 08/26/17 08/27/17 08/27/17 18:59 06:59 18:59 Intake Total 750 Balance 750 Weight 59 kg Intake: Oral 750 Other: Voiding Method Bedside Commode # Voids 1 3 # Bowel Movements 1 0 - Exam GENERAL EXAM: Alert, comfortable in no apparent distress. HEAD: Normocephalic. EYES: Normal reaction of pupils, equal size. NOSE: Clear with pink turbinates. THROAT: No erythema or exudates. NECK: No masses, no JVD. CHEST: No chest wall deformity. LUNGS: Lungs noted to be improving, less coarse with few faint scattered expiratory wheezing, Bases diminished CVS: S1 and S2 normal with no audible mumurs, regular rhythm. ABDOMEN: No hepatosplenomegaly, normal bowel sounds, no guarding or rigidity. EXTREMITIES: No edema noted, pedal pulses palpable. CENTRAL NERVOUS SYSTEM: No focal deficits, tone is normal in all 4 extremities. - Labs CBC & Chem 7: 08/27/17 08:05 08/27/17 08:05 Labs: Abnormal Lab Results - Last 24 Hours (Table) 08/26/17 08/26/17 08/26/17 Range/Units 12:14 17:26 20:20 WBC (3.8-10.6) k/uL Hct (34.0-46.0) % Plt Count (150-450) k/uL Sodium (137-145) mmol/L Chloride (98-107) mmol/L Carbon Dioxide (22-30) mmol/L BUN (7-17) mg/dL Glucose (74-99) mg/dL POC Glucose (mg/dL) 207 H 226 H 166 H (75-99) mg/dL 08/27/17 08/27/17 08/27/17 Range/Units 02:31 07:02 08:05 WBC 28.6 H* (3.8-10.6) k/uL Hct 47.2 H (34.0-46.0) % Plt Count 511 H (150-450) k/uL Sodium (137-145) mmol/L Chloride (98-107) mmol/L Carbon Dioxide (22-30) mmol/L BUN (7-17) mg/dL Glucose (74-99) mg/dL POC Glucose (mg/dL) 229 H 193 H (75-99) mg/dL 08/27/17 Range/Units 08:05 WBC (3.8-10.6) k/uL Hct (34.0-46.0) % Plt Count (150-450) k/uL Sodium 129 L (137-145) mmol/L Chloride 83 L (98-107) mmol/L Carbon Dioxide 37 H (22-30) mmol/L BUN 25 H (7-17) mg/dL Glucose 198 H (74-99) mg/dL POC Glucose (mg/dL) (75-99) mg/dL Microbiology - Last 24 Hours (Table) 08/22/17 13:59 Fungal Culture - Preliminary Bronchial Washings - Right Olga glabrata 08/20/17 13:00 Blood Culture - Final Blood No Growth after 144 hours Assessment and Plan Assessment: Assessment Small bilateral pleural effusions Acute exacerbation of COPD Bilateral pneumonia, community acquired suspect mixed bacterial Hyponatremia Hypotension hypomagnesemia acute on chronic hypoxic respiratory failure requiring additional supplemental oxygen. Nicotine dependence Elevated troponins Diabetes mellitus type 1 History of CVA Hyperlipidemia Plan Patient is cleared from pulmonary standpoint for discharge. Medications have been reviewed and will be continued as ordered. Continue mucinex and flutter valve. Steroids have been tapered, and switched over to oral.. We will do an outpatient PET scan as well. Initiate and encourage incentive spirometer. Evaluation for inpatient rehab under way, continue with PT and OT. Continue to monitor and replace electrolytes. Continue with pulmonary hygiene, coughing and deep breathing exercises, and supportive care. Supplemental oxygen to maintain oxygen saturations of 92% or better. She will need a home oxygen evaluation before discharge. Continue nebulizer treatments. GI and DVT prophylaxis. We will continue to monitor labs/results and adjust treatment as necessary. Further recommendations pending. I performed an examination of the patient and discussed their management with the nurse practitioner. I have reviewed the nurse practitioner's note and agree with the documented findings and plan of care.
--- NOTE | 2017-08-27 10:54 | P.PN ---
Subjective Progress Note Date: 08/27/17 this is a 67-year-old female, patient of [facility]. She has a known past medical history of COPD, nicotine dependence, CVA, diabetes mellitus with insulin pump, hyperlipidemia, myocardial infarction with angioplasty in 1993, hypertension and seizure last seizure 2002. Patient with see her PCP regarding worsening cough and shortness of breath of the last 3 days. She was found to be hypoxic with oxygen saturation of 60-70% on room air. She was informed to present to the emergency room for further evaluation and treatment. Patient usually only uses home oxygen in the evening time but has required it throughout the day. She also has been having a productive cough with yellowish to greenish sputum also having some chills. She's also been nauseated and having some constipation. Last bowel movement was yesterday but hard pebble like. Patient denies any chest pain. Denies any vomiting. Denies any burning with urination. Patient was hypotensive on admission. She received 2 IV fluid boluses blood pressure has come up to 99/51. BP meds have been placed on hold. Patient's sodium level also 129. She'll be started on normal saline at 100 mL per hour. White count 16.3 troponin 0.070. Lactic acid normal at 1 and magnesium 1.5 she threw receiving replacement of magnesium in the ER. Dr. EYAL Teresa will be consulted for her COPD and pneumonia. EKG showing a normal sinus rhythm with septal infarct age undetermined On 08/21/2017 patient is alert and oriented 3 complaining of headache, complaining of shortness of breath, complaining of cough was minimal sputum production, denies any chest pain, there is no fever or chills, she is complaining of upset stomach, no nausea or vomiting no diarrhea no burning with urination no frequency or urgency. 08/22/2017 patient is feeling more nauseated today. Still having elevated blood sugars in the 200s to 300s. Patient is now on 2 L satting at 96%. White count up to 20.5 she is on steroids. Echo showing EF of 55%. Computed tomography scan of the chest showing persistent moderate to advanced underlying emphysematous changes. There is suspected fluid overload state there is small bilateral pleural effusions and a new moderate interstitial edema felt present. There is more prominent thoracic adenopathy identified. Consider bronchoscopy or PET scans follow-up. Discussed with pulmonary service. The planning for bronchoscopy this afternoon. Patient is having small pebble-like bowel movements. Due to her nausea she is refused her MiraLAX and Metamucil. 08/23/2017 patient is looking better today. She still having some nausea. She underwent bronchoscopy yesterday which did show mucous plugging and EDAC. Pulmonary service is following. Blood sugars are showing improvement. Chest ultrasound showed small bilateral pleural effusions. Patient complaining of some constipation only able to have small hard bowel movements. But due to her nausea she is refusing lactulose and also her MiraLAX and Metamucil. 08/26/17 patient reports improvement in her breathing. She was able to ambulate in the hallway down to the nurses station. She is on her home dose of oxygen of 2 L. Pulmonary service is planning to switch her over to oral prednisone tomorrow. 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 Patient seen by infectious disease they felt that HSV is most likely secondary to oropharyngeal shedding of the virus into the bronchial mucosa. And no antiviral is needed. Patient's sodium is 126. Lasix has been discontinued. 08/27/2017 patient has had improvement in her breathing. Coronary service has switched over to oral prednisone. She's been cleared by pulmonary service for discharge. Patient did have an episode of hypotension yesterday afternoon that per improved on its own. Blood pressures this morning are stable. Patient's sodium level has come up from 126-129. Her Lasix remains on hold. She does have some lower extremity edema. Reports having bowel movements. Still having some nausea occasionally. She is complaining of left-sided rib pain with her cough. Tylenol has been ordered. Objective - Vital Signs Vital signs: Vital Signs Temp 98.1 F 08/27/17 07:00 Pulse 76 08/27/17 08:36 Resp 18 08/27/17 07:00 BP 133/76 08/27/17 07:00 Pulse Ox 92 L 08/27/17 07:00 Intake & Output 08/26/17 08/27/17 08/27/17 18:59 06:59 18:59 Intake Total 750 Balance 750 Weight 59 kg Intake: Oral 750 Other: Voiding Method Bedside Commode # Voids 1 3 # Bowel Movements 1 0 - Exam Head normocephalic Neck supple Lungs diminished bilaterally no crackles or wheezing Heart regular rate and rhythm S1-S2, no rub or gallop Abdomen is soft nontender nondistended positive bowel sounds no hepatosplenomegaly Extremities +1 edema bilateral lower extremities Neuro alert and orientated to 3 - Labs CBC & Chem 7: 08/27/17 08:05 08/27/17 08:05 Labs: Abnormal Lab Results - Last 24 Hours (Table) 08/26/17 08/26/17 08/26/17 Range/Units 12:14 17:26 20:20 WBC (3.8-10.6) k/uL Hct (34.0-46.0) % Plt Count (150-450) k/uL Sodium (137-145) mmol/L Chloride (98-107) mmol/L Carbon Dioxide (22-30) mmol/L BUN (7-17) mg/dL Glucose (74-99) mg/dL POC Glucose (mg/dL) 207 H 226 H 166 H (75-99) mg/dL 08/27/17 08/27/17 08/27/17 Range/Units 02:31 07:02 08:05 WBC 28.6 H* (3.8-10.6) k/uL Hct 47.2 H (34.0-46.0) % Plt Count 511 H (150-450) k/uL Sodium (137-145) mmol/L Chloride (98-107) mmol/L Carbon Dioxide (22-30) mmol/L BUN (7-17) mg/dL Glucose (74-99) mg/dL POC Glucose (mg/dL) 229 H 193 H (75-99) mg/dL 08/27/17 Range/Units 08:05 WBC (3.8-10.6) k/uL Hct (34.0-46.0) % Plt Count (150-450) k/uL Sodium 129 L (137-145) mmol/L Chloride 83 L (98-107) mmol/L Carbon Dioxide 37 H (22-30) mmol/L BUN 25 H (7-17) mg/dL Glucose 198 H (74-99) mg/dL POC Glucose (mg/dL) (75-99) mg/dL Microbiology - Last 24 Hours (Table) 08/22/17 13:59 Fungal Culture - Preliminary Bronchial Washings - Right Olga glabrata 08/20/17 13:00 Blood Culture - Final Blood No Growth after 144 hours Assessment and Plan Assessment: 1. Acute COPD exacerbation: Continue nebulizer treatments. Pulmonary service has placed patient on prednisone 50 mg by mouth daily 2. Pneumonia with chest x-ray showing evidence of a patchy by basilar infiltrate with small effusion: Continue Levaquin. Pulmonary service following. Status post bronchoscopy pathology shows no malignant cells. Bronchial wash essentially negative. 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 We'll await final recommendations for antibiotics per infectious disease 3. Hyponatremia: Sodium has increased from 126-129. Lasix currently on hold. Patient received IV fluids at 20 MLS per hour. Repeat sodium level in a.m. 4. Hypotension: Improved. Continue to monitor 5. Hypomagnesemia improved with supplement 6. Acute hypoxic respiratory failure likely related to COPD exacerbation and pneumonia 7. Chronic hypoxic respiratory failure home O2 dependent 8. Nicotine dependence: Discussed smoking cessation for greater than 3 minutes. Add nicotine patch 9. Moderate protein calorie malnutrition with albumin of 2.9 add Glucerna shakes 10. Elevated troponin no chest pain. Seen by cardiology. [place] that elevated troponins were due to a oxygen supply and demand mismatch 11. Insulin-dependent diabetes mellitus: Continue insulin pump and sliding scale. Blood sugars are showing improvement 12. History of CVA with residual left-sided weakness on Plavix 13. Hyperlipidemia continue statin 14. Prominent adenopathy anterior chest wall on computed tomography scan: Further evaluation with PET scan outpatient per pulmonary service 15. Constipation improved Consult Physical therapy GI prophylaxis Protonix and DVT prophylaxis Lovenox Anticipate discharge possibly tomorrow I performed an examination of the patient and discussed their management with the physician Central Lab Technician. I have reviewed the Physician Central Lab Technician's notes and agree with the documented findings and plan of care
[2017-08-27 11:10] LABS: Band Neutrophils % 2 %; Lymphocytes # (M) 1.14 k/uL (1.0-4.8); Metamyelocytes # (M) 0.29 k/uL (0); Metamyelocytes % 1 %; Monocytes # (M) 0.86 k/uL (0-1.0); Myelocytes # (M) 0.57 k/uL (0); Myelocytes % 2 %; Neutrophils % (M) 90 %; Nucleated Red Blood Cells 0 /100 WBC (0-0); Total Cells Counted 200
[2017-08-27 11:11] LABS: Anisocytosis (M) Present; Poikilocytosis (M) Present
[2017-08-27] MEDS: MULTIVITAMINS, THERA 1 EACH TAB PO SCH (11:23)
[2017-08-27 11:39] LABS: Glucose,Whole Blood 259 mg/dL (75-99)
--- NOTE | 2017-08-27 13:35 | P.DS ---
Providers Date of admission: 08/20/17 14:03 Expected date of discharge: 08/27/17 Attending physician: Garcia Wakefield Consults: 08/20/17 15:45 Consult Physician Routine Consulting Provider: John Teresa Consult Reason/Comments: COPD exacerbation, pneumonia Do you want consulting provider notified?: Yes 08/20/17 16:09 Consult Physician Routine Consulting Provider: Jaqui Aguayo Consult Reason/Comments: elevated troponin Do you want consulting provider notified?: Yes 08/23/17 16:16 Consult Physician Routine Consulting Provider: Mauro Davis Consult Reason/Comments: HSV1 in bronch washings Do you want consulting provider notified?: Yes 08/24/17 12:23 Consult Physician Routine Consulting Provider: Byron De La O Consult Reason/Comments: medical debility Do you want consulting provider notified?: Yes Primary care physician: Lo Dugan Hospital Course: Discharge diagnosis 1. Acute COPD exacerbation: Patient has been cleared by pulmonary service for discharge. Continue prednisone taper and home inhalers. Follow-up with primary service outpatient 2. Community-acquired Pneumonia with chest x-ray showing evidence of a patchy by basilar infiltrate with small effusion: Pulmonary service following. Status post bronchoscopy pathology shows no malignant cells. Bronchial wash essentially negative. 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 Continue Levaquin for 3 more days 3. Hyponatremia: Sodium has increased from 126-129. We'll have patient recheck sodium level on Saturday. Okay for patient to resume her Lasix 20 mg daily. Patient informed that if she has no lower extremity edema that she can hold off on taking the Lasix. 4. Hypotension: Improved. Continue to monitor 5. Hypomagnesemia improved with supplement 6. Acute hypoxic respiratory failure likely related to COPD exacerbation and pneumonia 7. Chronic hypoxic respiratory failure home O2 dependent 8. Nicotine dependence: Discussed smoking cessation for greater than 3 minutes. Add nicotine patch 9. Moderate protein calorie malnutrition with albumin of 2.9 . Patient given a prescription for Glucerna shakes 10. Elevated troponin no chest pain. Seen by cardiology. [place] that elevated troponins were due to a oxygen supply and demand mismatch 11. Insulin-dependent diabetes mellitus: Continue insulin pump and sliding scale. Blood sugars are showing improvement 12. History of CVA with residual left-sided weakness on Plavix 13. Hyperlipidemia continue statin 14. Prominent adenopathy anterior chest wall on computed tomography scan: Further evaluation with PET scan outpatient per pulmonary service 15. Constipation improved Hospital course this is a 67-year-old female, patient of [facility]. She has a known past medical history of COPD, nicotine dependence, CVA, diabetes mellitus with insulin pump, hyperlipidemia, myocardial infarction with angioplasty in 1993, hypertension and seizure last seizure 2002. Patient with see her PCP regarding worsening cough and shortness of breath of the last 3 days. She was found to be hypoxic with oxygen saturation of 60-70% on room air. She was informed to present to the emergency room for further evaluation and treatment. Patient usually only uses home oxygen in the evening time but has required it throughout the day. She also has been having a productive cough with yellowish to greenish sputum also having some chills. She's also been nauseated and having some constipation. Last bowel movement was yesterday but hard pebble like. Patient denies any chest pain. Denies any vomiting. Denies any burning with urination. Patient was hypotensive on admission. She received 2 IV fluid boluses blood pressure has come up to 99/51. BP meds have been placed on hold. Patient's sodium level also 129. She'll be started on normal saline at 100 mL per hour. White count 16.3 troponin 0.070. Lactic acid normal at 1 and magnesium 1.5 she threw receiving replacement of magnesium in the ER. Dr. EYAL Teresa will be consulted for her COPD and pneumonia. EKG showing a normal sinus rhythm with septal infarct age undetermined Patient was seen evaluated by pulmonary service. She was maintained on IV antibiotics IV steroids for a possible pneumonia and COPD exacerbation. Patient underwent bronchoscopy. Pathology results as stated above showed no malignant cells. She was seen by infectious disease due to HSV type I positive and culture results from bronchoscopy. However, infectious disease felt this was shedding from the oropharyngeal area and did not require any antiviral medication. I patient will continue Levaquin for 3 more days to complete treatment for her pneumonia. Patient is also on a long prednisone taper for her COPD exacerbation. Patient's symptoms are improved. Place service has cleared her for discharge. Patient also had elevated blood sugars due to her diabetes history and steroids. Blood sugars are controlled with her insulin pump and the addition of using R sliding scale. Patient can continue using the sliding scale at home with her insulin pump while finishing the prednisone taper. Computed tomography scan of the chest had shown some prominent adenopathy in the chest wall. Pulmonary service has evaluated patient and recommending PET scan as outpatient. Patient did have some hypotension during this admission lisinopril was decreased from 10 mg daily to 5 mg daily. Will have patient follow-up with her PCP for further adjustment in blood pressure medications. Patient is also been having some hyponatremia she has had hyponatremia in the past. Lasix was held and patient given IV fluids. Potassium level has shown improvement at 129. Recommend the patient has sodium level rechecked on Saturday. Also, patient can restart her Lasix 20 mg daily only if she is having lower extremity edema. Patient is medically stable for discharge. We'll have her follow-up with her PCP and pulmonary service. I performed an examination of the patient and discussed their management with the physician Telecommunication Systems Designer. I have reviewed the Physician Telecommunication Systems Designer's notes and agree with the documented findings and plan of care Patient Condition at Discharge: Stable Plan - Discharge Summary Discharge Rx Participant: No New Discharge Prescriptions: New Docusate [Colace] 100 mg PO BID #60 cap guaiFENesin [Mucinex] 1,200 mg PO Q12HR #6 tablet.er Levofloxacin [Levaquin] 500 mg PO DAILY 3 Days #3 tab Montelukast [Singulair] 10 mg PO HS #30 tab Nicotine 14Mg/24Hr Patch [Habitrol] 1 patch TRANSDERM DAILY #30 patch Nystatin 100,000 Unit/ml Susp [Mycostatin Oral Susp] 500,000 unit PO QID #10 cup predniSONE 10 mg PO DIRECTED #30 tab Continue Tiotropium 18 Mcg/Puff [Spiriva] 18 mcg INHALATION RT-DAILY Risedronate Sodium [Atelvia] 35 mg PO MCKEON Ranitidine HCl 300 mg PO DAILY Mometasone Furoate [Nasonex Nasal [place]] 2 spray EA NOSTRIL DAILY Isosorbide Mononitrate [Imdur] 60 mg PO DAILY Furosemide 20 mg PO DAILY Clopidogrel Bisulfate [Clopidogrel] 75 mg PO DAILY SUMAtriptan SUCCINATE [Imitrex] 100 mg PO BID PRN PRN Reason: Migraine Headache Albuterol Sulfate [Ventolin HFA] 1 - 2 puff INHALATION RT-Q4H PRN PRN Reason: Shortness Of Breath Promethazine [Phenergan] 25 mg PO Q8H PRN PRN Reason: Nausea Multivitamins, Thera [Multivitamin (formulary)] 1 tab PO DAILY Metoprolol Tartrate 25 mg PO BID HYDROcodone/APAP 5-325MG [[place] 5-325] 1 tab PO DAILY PRN PRN Reason: Pain Gabapentin 300 mg PO HS Diltiazem HCl [Diltiazem 24Hr ER] 360 mg PO DAILY Nitroglycerin Sl Tabs [Nitrostat] 0.4 mg PO Q5M PRN PRN Reason: Chest Pain Psyllium Husk [Metamucil] 0.4 gm PO DAILY PRN PRN Reason: Constipation Omeprazole [PriLOSEC] 40 mg PO DAILY Ezetimibe [Zetia] 10 mg PO DAILY Atorvastatin [Lipitor] 10 mg PO DAILY Insulin Aspart (For Pump) [NovoLOG (For Pump)] 0.01 unit SQ-PUMP CONTINUOUS Polyethylene Glycol 3350 [Miralax] 17 gm PO DAILY PRN PRN Reason: Constipation Calcium Carbonate/Vitamin D3 [Calcium 600-Vit D3 400 Caplet] 1 tab PO DAILY Changed Benazepril [Lotensin] 5 mg PO DAILY #30 tab Discharge Medication List Clopidogrel Bisulfate [Clopidogrel] 75 mg PO DAILY 11/04/13 [History] Furosemide 20 mg PO DAILY 11/04/13 [History] Isosorbide Mononitrate [Imdur] 60 mg PO DAILY 11/04/13 [History] Mometasone Furoate [Nasonex Nasal [place]] 2 spray EA NOSTRIL DAILY 11/04/13 [ History] Ranitidine HCl 300 mg PO DAILY 11/04/13 [History] Risedronate Sodium [Atelvia] 35 mg PO MCKEON 11/04/13 [History] Tiotropium 18 Mcg/Puff [Spiriva] 18 mcg INHALATION RT-DAILY 11/04/13 [History] Albuterol Sulfate [Ventolin HFA] 1 - 2 puff INHALATION RT-Q4H PRN 12/29/15 [ History] Diltiazem HCl [Diltiazem 24Hr ER] 360 mg PO DAILY 12/29/15 [History] Gabapentin 300 mg PO HS 12/29/15 [History] HYDROcodone/APAP 5-325MG [[place] 5-325] 1 tab PO DAILY PRN 12/29/15 [History] Metoprolol Tartrate 25 mg PO BID 12/29/15 [History] Multivitamins, Thera [Multivitamin (formulary)] 1 tab PO DAILY 12/29/15 [History ] Nitroglycerin Sl Tabs [Nitrostat] 0.4 mg PO Q5M PRN 12/29/15 [History] Promethazine [Phenergan] 25 mg PO Q8H PRN 12/29/15 [History] SUMAtriptan SUCCINATE [Imitrex] 100 mg PO BID PRN 12/29/15 [History] Atorvastatin [Lipitor] 10 mg PO DAILY 07/07/17 [History] Ezetimibe [Zetia] 10 mg PO DAILY 07/07/17 [History] Insulin Aspart (For Pump) [NovoLOG (For Pump)] 0.01 unit SQ-PUMP CONTINUOUS [History] Omeprazole [PriLOSEC] 40 mg PO DAILY 07/07/17 [History] Polyethylene Glycol 3350 [Miralax] 17 gm PO DAILY PRN 07/07/17 [History] Psyllium Husk [Metamucil] 0.4 gm PO DAILY PRN 07/07/17 [History] Calcium Carbonate/Vitamin D3 [Calcium 600-Vit D3 400 Caplet] 1 tab PO DAILY 11/30 [History] Benazepril [Lotensin] 5 mg PO DAILY #30 tab 08/27/17 [Rx] Docusate [Colace] 100 mg PO BID #60 cap 08/27/17 [Rx] Levofloxacin [Levaquin] 500 mg PO DAILY 3 Days #3 tab 08/27/17 [Rx] Montelukast [Singulair] 10 mg PO HS #30 tab 08/27/17 [Rx] Nicotine 14Mg/24Hr Patch [Habitrol] 1 patch TRANSDERM DAILY #30 patch 08/27/17 [ Rx] Nystatin 100,000 Unit/ml Susp [Mycostatin Oral Susp] 500,000 unit PO QID #10 cup 08/27/17 [Rx] guaiFENesin [Mucinex] 1,200 mg PO Q12HR #6 tablet.er 08/27/17 [Rx] predniSONE 10 mg PO DIRECTED #30 tab 08/27/17 [Rx] Follow up Appointment(s)/Referral(s): [facility] Nurse, [NON-STAFF] - Jackson Pena PAC [REFERRING] - 3 Days Patient Instructions/Handouts: Type 2 Diabetes in Adults (DC) Activity/Diet/Wound Care/Special Instructions: diet: diabetic Activity: as tolerated hold lasix if there is no lower extremity edema check BMP on Saturday Discharge Disposition: HOME WITH HOME HEALTH SERVICES
--- NOTE | 2017-08-27 16:19 | PN ---
PROGRESS NOTE DATE OF SERVICE: 08/27/2017. REASON FOR FOLLOWUP: Tracheobronchitis and positive bronch culture. INTERVAL HISTORY: The patient is afebrile. She is breathing slightly comfortably. She did have some cough with less sputum which is clear. No purulence. No chest pain. No abdominal pain or diarrhea. EXAMINATION: Blood pressure 133/76, pulse of 73, temperature 98.1. She is 92% on room air. General description is an elderly female up in the bed in no distress. RESPIRATORY SYSTEM: Unlabored breathing with decreased breath sounds. No wheeze. HEART: S1, S2. Regular rate and rhythm. ABDOMEN: Soft, no tenderness. LABS: Hemoglobin is 15, white count 8.6 with a BUN of 25, creatinine 0.63. DIAGNOSTIC IMPRESSION/PLAN: 1. Patient difficulty in breathing more likely attributed to severe tracheobronchitis, clinically doubt pneumonia. Bronchodilators as per Pulmonary. 2. Elevated white count more likely steroid effect. 3. Patient with a positive blood culture with Olga likely colonizer, more likely from oropharyngeal swelling. Continue supportive care. MMODL / IJN: [id number] /
[2017-08-27 21:32] LABS: Alternaria Alternata IgG < 2.0 mcg/mL (< 13.6); Aspergillus fumigatus IgG Not detected (Not detected); Aureobasidium pullulans IgG < 2.0 mcg/mL (< 13.6); Phoma ssp. IgG < 2.0 mcg/mL (< 6.6); Saccaharomospora viridis Not detected (Not detected); Saccaharopoly. rectivirgula Not detected (Not detected)
[2017-08-28] MEDS ORDERED: LISINOPRIL 5 MG TAB PO SCH (09:00)
== END 2017-08-27 15:37 | disposition home health service (06) | DRG 166 ==
LOC: EC 12:31 → 6SEL 14:03 → 4MS4W 08-23 16:44
PROVIDERS: ADMIT Internal Medicine; ATTEND Internal Medicine
PROC: 0B9F8ZX Drainage of Right Lower Lung Lobe, Via Natural or Artificial Opening Endoscopic, Diagnostic (ICD-10-PCS; 2017-08-22)
PROC: 0WCQ8ZZ Extirpation of Matter from Respiratory Tract, Via Natural or Artificial Opening Endoscopic (ICD-10-PCS; principal; 2017-08-22 08:15)
DX: J44.0 Chronic obstructive pulmonary disease with (acute) lower respiratory infection (principal); J96.21 Acute and chronic respiratory failure with hypoxia; J15.9 Unspecified bacterial pneumonia; I69.354 Hemiplegia and hemiparesis following cerebral infarction affecting left non-dominant side; E87.1 Hypo-osmolality and hyponatremia; E44.0 Moderate protein-calorie malnutrition; B37.0 Candidal stomatitis; E10.65 Type 1 diabetes mellitus with hyperglycemia; J44.1 Chronic obstructive pulmonary disease with (acute) exacerbation; Z96.41 Presence of insulin pump (external) (internal); F17.210 Nicotine dependence, cigarettes, uncomplicated; E78.5 Hyperlipidemia, unspecified; G40.909 Epilepsy, unspecified, not intractable, without status epilepticus; K59.00 Constipation, unspecified; I95.9 Hypotension, unspecified; R11.0 Nausea; E86.0 Dehydration; M81.0 Age-related osteoporosis without current pathological fracture; I25.119 Atherosclerotic heart disease of native coronary artery with unspecified angina pectoris; E83.42 Hypomagnesemia; T17.990A Other foreign object in respiratory tract, part unspecified in causing asphyxiation, initial encounter; B00.9 Herpesviral infection, unspecified; K21.9 Gastro-esophageal reflux disease without esophagitis; I27.81 Cor pulmonale (chronic); I50.9 Heart failure, unspecified; R59.1 Generalized enlarged lymph nodes; R77.8 Other specified abnormalities of plasma proteins; I10 Essential (primary) hypertension; Z79.4 Long term (current) use of insulin; Z98.41 Cataract extraction status, right eye; Z98.42 Cataract extraction status, left eye; Z82.49 Family history of ischemic heart disease and other diseases of the circulatory system; Z83.3 Family history of diabetes mellitus; Z84.1 Family history of disorders of kidney and ureter; I25.2 Old myocardial infarction; Z99.81 Dependence on supplemental oxygen; Z90.710 Acquired absence of both cervix and uterus; Z98.61 Coronary angioplasty status; Z79.899 Other long term (current) drug therapy; Z79.52 Long term (current) use of systemic steroids; Z79.02 Long term (current) use of antithrombotics/antiplatelets
CPT/HCPCS: 31624; 36415; 71046; 71260; 76604; 80048; 80053; 82103; 82104; 82150; 82550; 82553; 82785; 83036; 83605; 83690; 83735; 83880; 84484; 85025; 85610; 85730; 86001; 86003; 86360; 86606; 86609; 87040; 87070; 87102; 87116; 87205; 87206; 87252; 87449; 87496; 87498; 87502; 87529; 87634; 87798; 88108; 88305; 89050; 93005; 93306; 93970; 94640; 94667; 94760; 96365; 96366; 96367; 96372; 96375; 99285

== ENCOUNTER → 2017-09-23 | Outpatient (CLI) | payer MEDICARE ==
--- NOTE | 2017-09-23 16:26 | CT ---
EXAMINATION TYPE: CT chest wo con DATE OF EXAM: 09/23/2017 COMPARISON: CT chest August 21, 2017 HISTORY: Cough and shortness of breath. CT DLP: 114.6 mGycm. Automated Exposure Control for Dose Reduction was Utilized. TECHNIQUE: CT scan of the thorax is performed without IV contrast. FINDINGS: LUNGS: There is background moderate to advanced underlying emphysematous change redemonstrated. There is lower lung scattered scarring redemonstrated bilaterally. There is interval improvement in massli ke consolidation in the anterior lingula axial image 34 with residual irregular linear scarring that remains present. There is interval resolution of bilateral small pleural effusions and associated com pressive atelectasis. No new suspicious nodule or mass is present. MEDIASTINUM: Lack of IV contrast is noted to limit evaluation for mediastinal and especially hilar ad enopathy. There is interval diminished size of thoracic lymph nodes particularly in the AP window axi al image 22 now prominent but subcentimeter in size. No cardiomegaly or pericardial effusion is see n. Severe 3 vessel coronary artery calcification is seen which is noted marker for coronary artery di sease. There is moderate to severe calcified plaque of aorta extending into branch vessels. OTHER: There is moderate multilevel spurring in the thoracic spine. Asymmetric subcutaneous edema and skin thickening left breast inferiorly is improved from prior. IMPRESSION: Interval resolution of bilateral pleural effusions and fluid overload state or CHF exacer bation. Near complete resolution of lingular masslike infiltrate and/or atelectasis. Interval improve ment in thoracic adenopathy. Background moderate to advanced chronic emphysematous change with lower lung scarring is redemonstrated. No new suspicious acute pulmonary process is seen.
== END | disposition home or self-care (01) ==
LOC: RADCTMAIN 15:55
PROVIDERS: ATTEND Internal Medicine Pulmonary Disease
DX: J43.9 Emphysema, unspecified (principal); R59.0 Localized enlarged lymph nodes; R91.8 Other nonspecific abnormal finding of lung field
CPT/HCPCS: 71250

== ENCOUNTER 2018-10-30 13:05 | Inpatient (IN) | payer MEDICARE ==
[2018-10-30] MEDS ORDERED: IPRATROPIUM-ALBUTEROL 3 ML NEB INHALATION STA (13:11)
[2018-10-30] MEDS ORDERED: methylPREDNISolone SOD SUCCI 125 MG/2 ML VIAL IV STA (13:11)
[2018-10-30] MEDS ORDERED: SODIUM CHLORIDE 0.9% 1,000 ML IV STA ×2 (13:11)
--- NOTE | 2018-10-30 13:34 | ED ---
SOB HPI - General Chief Complaint: Shortness of Breath Stated Complaint: pneumonia Time Seen by Provider: 10/30/18 13:10 Source: patient, RN notes reviewed, old records reviewed Mode of arrival: wheelchair Limitations: no limitations - History of Present Illness Initial Comments: This is a 68-year-old female the ER for evaluation. She was essay for margarita luation shortness breath severe history of COPD. No recent travel history or sick contacts denies fever but increased cough and congestion. Patient also has severe COPD, on antibiotics currently and breathing treatments was significantly worsening since treatment started MD Complaint: shortness of breath, cough -: days(s) Severity: moderate Severity scale (1-10): 6 Consistency: constant Improves With: nothing Worsens With: nothing Known History Of: COPD, asthma, recurrent pneumonia Context: recent URI Associated Symptoms: fever, cough, sputum production Treatments Prior to Arrival: none - Related Data Home Medications Medication Instructions Recorded Confirmed Clopidogrel Bisulfate [Clopidogrel] 75 mg PO DAILY 11/04/13 08/20/17 Furosemide 20 mg PO DAILY 11/04/13 08/20/17 Isosorbide Mononitrate [Imdur] 60 mg PO DAILY 11/04/13 08/20/17 Mometasone Furoate [Nasonex Nasal 2 spray EA NOSTRIL DAILY 11/04/13 08/20/17 [place]] Ranitidine HCl 300 mg PO DAILY 11/04/13 08/20/17 Risedronate Sodium [Atelvia] 35 mg PO MCKEON 11/04/13 08/20/17 Tiotropium 18 Mcg/Puff [Spiriva] 18 mcg INHALATION RT-DAILY 11/04/13 08/20/17 Albuterol Sulfate [Ventolin HFA] 1 - 2 puff INHALATION RT-Q4H PRN 12/29/15 08/20/17 Diltiazem HCl [Diltiazem 24Hr ER] 360 mg PO DAILY 12/29/15 08/20/17 Gabapentin 300 mg PO HS 12/29/15 08/20/17 HYDROcodone/APAP 5-325MG [[place] 1 tab PO DAILY PRN 12/29/15 08/20/17 5-325] Metoprolol Tartrate 25 mg PO BID 12/29/15 08/20/17 Multivitamins, Thera [Multivitamin 1 tab PO DAILY 12/29/15 08/20/17 (formulary)] Nitroglycerin Sl Tabs [Nitrostat] 0.4 mg PO Q5M PRN 12/29/15 08/20/17 Promethazine [Phenergan] 25 mg PO Q8H PRN 12/29/15 08/20/17 SUMAtriptan SUCCINATE [Imitrex] 100 mg PO BID PRN 12/29/15 08/20/17 Atorvastatin [Lipitor] 10 mg PO DAILY 07/07/17 08/20/17 Ezetimibe [Zetia] 10 mg PO DAILY 07/07/17 08/20/17 Insulin Aspart (For Pump) [NovoLOG 0.01 unit SQ-PUMP CONTINUOUS 07/07/17 08/20/17 (For Pump)] Omeprazole [PriLOSEC] 40 mg PO DAILY 07/07/17 08/20/17 Polyethylene Glycol 3350 [Miralax] 17 gm PO DAILY PRN 07/07/17 08/20/17 Psyllium Husk [Metamucil] 0.4 gm PO DAILY PRN 07/07/17 08/20/17 Calcium Carbonate/Vitamin D3 1 tab PO DAILY 08/20/17 08/20/17 [Calcium 600-Vit D3 400 Caplet] Previous Rx's Medication Instructions Recorded Benazepril [Lotensin] 5 mg PO DAILY #30 tab 08/27/17 Docusate [Colace] 100 mg PO BID #60 cap 08/27/17 Levofloxacin [Levaquin] 500 mg PO DAILY 3 Days #3 tab 08/27/17 Montelukast [Singulair] 10 mg PO HS #30 tab 08/27/17 Nicotine 14Mg/24Hr Patch [Habitrol] 1 patch TRANSDERM DAILY #30 patch 08/27/17 Nystatin 100,000 Unit/ml Susp 500,000 unit PO QID #10 cup 08/27/17 [Mycostatin Oral Susp] guaiFENesin [Mucinex] 1,200 mg PO Q12HR #6 tablet.er 08/27/17 predniSONE 10 mg PO DIRECTED #30 tab 08/27/17 Allergies Allergy/AdvReac Type Severity Reaction Status Date / Time erythromycin base Allergy Rash/Hives Verified 10/30/18 13:16 Review of Systems ROS Statement: Those systems with pertinent positive or pertinent negative responses have been documented in the HPI. ROS Other: All systems not noted in ROS Statement are negative. 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, HOME O2 2LITERS N/C AT HS, IDDM-HAS INSULIN PUMP,DIVERTICULITIS,OSTEOPenia, ARTHRITIS, in past saw eye specualist for ?lt eye leaky retina-pt states never had any sx no current problem Last Myocardial Infarction Date:: 1993 History of Any Multi-Drug Resistant Organisms: None Reported Past Surgical History: Appendectomy, Bowel Resection, Cholecystectomy, Heart Catheterization, Hysterectomy Additional Past Surgical History / Comment(s): ANGIOPLASTY-1993, Colonoscopy/EGD,rt CARPAL TUNNEL RELEASE,ASA CATARACTS, BREAST BX-NEG, tendon sx rt thumb Past Anesthesia/Blood Transfusion Reactions: Previous Problems w/ Anesthesia, Motion Sickness, Postoperative Nausea & Vomiting (PONV) Additional Past Anesthesia/Blood Transfusion Reaction / Comment(s): past blood transfusion-no reaction Past Psychological History: No Psychological Hx Reported Smoking Status: Former smoker Past Alcohol Use History: None Reported Past Drug Use History: None Reported - Past Family History Father Family Medical History: Diabetes Mellitus, Myocardial Infarction (MS) Mother Family Medical History: Diabetes Mellitus, Renal Disease General Exam Limitations: no limitations General appearance: alert, in no apparent distress Head exam: Present: atraumatic, normocephalic, normal inspection Eye exam: Present: normal appearance, PERRL, EOMI. Absent: scleral icterus, conjunctival injection, periorbital swelling ENT exam: Present: normal exam, mucous membranes moist Neck exam: Present: normal inspection. Absent: tenderness, meningismus, lymphadenopathy Respiratory exam: Present: respiratory distress, wheezes, accessory muscle use, decreased breath sounds, prolonged expiratory. Absent: rales, rhonchi, stridor Cardiovascular Exam: Present: regular rate, normal rhythm, normal heart sounds. Absent: systolic murmur, diastolic murmur, rubs, gallop, clicks GI/Abdominal exam: Present: soft, normal bowel sounds. Absent: distended, tenderness, guarding, rebound, rigid Extremities exam: Present: normal inspection, full ROM, normal capillary refill. Absent: tenderness, pedal edema, joint swelling, calf tenderness Back exam: Present: normal inspection Neurological exam: Present: alert, oriented X3, CN II-XII intact Psychiatric exam: Present: normal affect, normal mood Skin exam: Present: warm, dry, intact, normal color. Absent: rash Course Vital Signs 10/30/18 13:14 Temperature 98.3 F Pulse Rate 86 Respiratory 20 Rate Blood Pressure 121/71 O2 Sat by Pulse 92 L Oximetry - Reevaluation(s) Reevaluation #1: 10/30/18 14:03 Medical record reviewed Reevaluation #2: 10/30/18 14:03 Spoke with urgent care regarding symptoms and treatment Reevaluation #3: 10/30/18 14:04 A she still with significant shortness of breath Medical Decision Making - Medical Decision Making 68 female the ER for evaluation. Patient has history of severe COPD coming in for felt outpatient treatment of pneumonia. Patient will admit for continued antibiotics breathing treatments and monitoring of pulmonary status - Lab Data Result diagrams: 10/30/18 13:33 Lab Results 10/30/18 Range/Units 13:33 WBC 11.4 H (3.8-10.6) k/uL RBC 4.29 (3.80-5.40) m/uL Hgb 7.3 L (11.4-16.0) gm/dL Hct 27.2 L (34.0-46.0) % MCV 63.5 L (80.0-100.0) fL MCH 17.0 L (25.0-35.0) pg MCHC 26.7 L (31.0-37.0) g/dL RDW 19.9 H (11.5-15.5) % Plt Count 491 H (150-450) k/uL Neutrophils % 90 % Lymphocytes % 6 % Monocytes % 2 % Eosinophils % 1 % Basophils % 1 % Neutrophils # 10.2 H (1.3-7.7) k/uL Lymphocytes # 0.7 L (1.0-4.8) k/uL Monocytes # 0.2 (0-1.0) k/uL Eosinophils # 0.1 (0-0.7) k/uL Basophils # 0.1 (0-0.2) k/uL Hypochromasia Marked Poikilocytosis Moderate Anisocytosis Slight Microcytosis Marked - EKG Data -: EKG Interpreted by Me (EKG shows sinus rhythm rate of 84, ME 142, QRS 74, QTc 434) - Radiology Data Radiology results: report reviewed (Chest x-ray shows pneumonia), image reviewed Disposition Clinical Impression: Pneumonia, Acute exacerbation of chronic obstructive airways disease, Community acquired pneumonia Disposition: ADMITTED IP TO THIS HOSP Condition: Fair Is patient prescribed a controlled substance at d/c from ED?: No Referrals: Lo Dugan DO [Primary Care Provider] - 1-2 days
[2018-10-30 13:54] LABS: Anisocytosis Slight; Basophils # (A) 0.1 k/uL (0-0.2); Basophils % (A) 1 %; Eosinophils # (A) 0.1 k/uL (0-0.7); Eosinophils % (A) 1 %; HCT 27.2 % (34.0-46.0); HGB 7.3 gm/dL (11.4-16.0); Hypochromasia Marked; Lymphocytes # (A) 0.7 k/uL (1.0-4.8); Lymphocytes % (A) 6 %; MCHC 26.7 g/dL (31.0-37.0); MCV 63.5 fL (80.0-100.0); Mean Platelet Volume 6.8; Microcytosis Marked; Monocytes # (A) 0.2 k/uL (0-1.0); Monocytes % (A) 2 %; Neutrophils # (A) 10.2 k/uL (1.3-7.7); Neutrophils % (A) 90 %; Platelet Count 491 k/uL (150-450); Poikilocytosis Moderate; RBC 4.29 m/uL (3.80-5.40); RDW 19.9 % (11.5-15.5); WBC 11.4 k/uL (3.8-10.6)
[2018-10-30] MEDS ORDERED: PNEUMONIA PROTOCOL UTILIZED 1 EACH MISC PO PRN (13:55)
[2018-10-30 14:01] LABS: ALT 18 U/L (9-52); AST 22 U/L (14-36); African American GFR (CKD) >90 (>60 ml/min/1.73 sqM); Albumin 4.2 g/dL (3.5-5.0); Alkaline Phosphatase 103 U/L (38-126); Anion Gap 11 mmol/L; Blood Urea Nitrogen 13 mg/dL (7-17); Calcium 8.8 mg/dL (8.4-10.2); Carbon Dioxide 35 mmol/L (22-30); Chloride 85 mmol/L (98-107); Glucose 251 mg/dL (74-99); Magnesium 1.8 mg/dL (1.6-2.3); Potassium 4.2 mmol/L (3.5-5.1); Sodium 131 mmol/L (137-145); Total Bilirubin 0.4 mg/dL (0.2-1.3); Total Protein 6.7 g/dL (6.3-8.2)
[2018-10-30 14:13] LABS: D-Dimer 0.36 mg/L FEU (<0.60); Partial Thromboplastin Time 23.3 sec (22.0-30.0)
[2018-10-30] MEDS ORDERED: AZITHROMYCIN 500 MG in SODIUM CHLORIDE 0.9% 250 ML IVPB STA (14:13)
--- NOTE | 2018-10-30 14:14 | XR ---
EXAMINATION TYPE: XR chest 2V DATE OF EXAM: 10/30/2018 COMPARISON: 08/24/2017 INDICATION: Difficulty breathing shortness of breath TECHNIQUE: Frontal and lateral views of the chest are obtained. FINDINGS: The heart size is normal. The pulmonary vasculature is normal. The lungs are clear. There is hyperinflation flattening the diaphragms compatible COPD. Prior pleura l effusions are not evident. IMPRESSION: 1. No acute pulmonary process. 2. COPD
[2018-10-30] MEDS ORDERED: POLYETHYLENE GLYCOL 3350 17 GM POWD.PACK PO PRN (15:10)
[2018-10-30] MEDS: IPRATROPIUM-ALBUTEROL 3 ML NEB INHALATION SCH ×2 (15:33→19:10)
[2018-10-30 20:58] LABS: Glucose,Whole Blood 435 mg/dL (75-99)
[2018-10-30] MEDS ORDERED: INSULIN DETEMIR (LEVEMIR) 100 UNIT/ML SYR SQ SCH (22:00)
[2018-10-30 22:20] LABS: Glucose,Whole Blood 360 mg/dL (75-99)
[2018-10-30] MEDS ORDERED: INSULIN ASPART (NovoLOG) 100 UNIT/ML VIAL SQ ONE (22:36)
[2018-10-30] MEDS: methylPREDNISolone SOD SUCCI 125 MG/2 ML VIAL IV SCH (22:37)
[2018-10-30] MEDS: MONTELUKAST 10 MG TAB PO SCH (22:37)
[2018-10-30] MEDS: GABAPENTIN 300 MG CAP PO SCH (22:37)
[2018-10-30] MEDS: METOPROLOL TARTRATE 25 MG TAB PO SCH (22:39)
[2018-10-30] MEDS: ATORVASTATIN 10 MG TAB PO SCH (22:43)
[2018-10-30] MEDS: ONDANSETRON ODT 4 MG TAB PO PRN (22:44)
[2018-10-31 02:01] LABS: Glucose,Whole Blood 168 mg/dL (75-99)
[2018-10-31 07:20] LABS: Glucose,Whole Blood 128 mg/dL (75-99)
[2018-10-31] MEDS: INSULIN ASPART (NovoLOG) 100 UNIT/ML VIAL SQ SCH ×4 (08:32→21:04)
[2018-10-31] MEDS: IPRATROPIUM-ALBUTEROL 3 ML NEB INHALATION SCH ×4 (08:41→21:23)
--- NOTE | 2018-10-31 09:10 | XR ---
EXAMINATION TYPE: XR chest 2V DATE OF EXAM: 10/31/2018 COMPARISON: 10/30/2018 TECHNIQUE: PA and lateral views submitted. HISTORY: Shortness of breath FINDINGS: No pneumothorax Chronic rib deformities are seen. There is a coarsened interstitium. Hyperinflation n oted. Hypertrophic and degenerative change of the spine. Small bilateral effusions are seen. IMPRESSION: 1. COPD with small bilateral effusions correlate for interstitial lung disease or pneumonitis versus venous congestion.
[2018-10-31] MEDS: ATORVASTATIN 10 MG TAB PO SCH ×2 (09:12→09:17)
[2018-10-31] MEDS: methylPREDNISolone SOD SUCCI 125 MG/2 ML VIAL IV SCH ×2 (09:12→21:13)
[2018-10-31] MEDS: ONDANSETRON ODT 4 MG TAB PO PRN ×2 (09:17→15:23)
[2018-10-31] MEDS: ENOXAPARIN 40 MG/0.4 ML SYRINGE SQ SCH (09:18)
[2018-10-31] MEDS: METOPROLOL TARTRATE 25 MG TAB PO SCH ×2 (09:18→21:13)
[2018-10-31] MEDS: FUROSEMIDE 20 MG TAB PO SCH (09:18)
[2018-10-31] MEDS: PANTOPRAZOLE 40 MG TABLET PO SCH (09:18)
[2018-10-31] MEDS: DILTIAZEM CD 180 MG CAP.ER.24H PO SCH (09:21)
[2018-10-31] MEDS: ISOSORBIDE MONONITRATE ER 60 MG TAB.ER.24H PO SCH (09:21)
[2018-10-31 11:10] VITALS: BMI 19.6
[2018-10-31 11:35] LABS: Glucose,Whole Blood 376 mg/dL (75-99)
--- NOTE | 2018-10-31 12:12 | P.HPIM ---
History of Present Illness H&P Date: 10/31/18 Chief Complaint: SHOSHANA Hernandez is a 68 yo F with PMH significant for COPD on 2 L home O2, diastolic CHF, T1DM on pump, HTN, HLD who presents with cough and dyspnea which has not improved despite outpatient treatment with levaquin and prednisone. She states her has had sinusitis for the past week or so and she began to come down with cough, malaise, and needing O2 on during the daytime. She was seen in clinic and started on levaquin and prednisone. She followed up in clinic yesterday and symptoms were not improved and pt O2 sat in high 80s on RA so she was advised to come to [facility]. In the ED SpO2 92% on 2 L O2, WBC 11, BNP 300. CXR showed COPD with small bilateral effusions. Review of Systems All systems: negative Constitutional: Denies chills, Denies fever Eyes: denies blurred vision, denies pain Ears, nose, mouth and throat: Denies headache, Denies sore throat Cardiovascular: Denies chest pain, Denies shortness of breath Respiratory: Reports cough, Reports cough with sputum, Reports dyspnea, Reports home oxygen, Reports wheezing Gastrointestinal: Reports constipation, Reports nausea, Denies abdominal pain, Denies diarrhea, Denies vomiting Genitourinary: Denies dysuria, Denies hematuria Musculoskeletal: Denies myalgias Integumentary: Denies pruritus, Denies rash Neurological: Denies numbness, Denies weakness Psychiatric: Denies anxiety, Denies depression Endocrine: Denies fatigue, Denies weight change Past Medical History Past Medical History: Coronary Artery Disease (CAD), COPD, CVA/TIA, Diabetes Mellitus, GERD/Reflux, Hyperlipidemia, Hypertension, Myocardial Infarction (MS), Pneumonia, Seizure Disorder Additional Past Medical History / Comment(s): Recently tx at home for pne, recurrent pne, home oxygen at 2L/NC at hs and prn, IDDM type II with insulin pump, neuropathy bilateral hands/fingers, CVA 2009 with L sided weakness, one seizure in 2002, moderate protein calorie malnutrition, diverticular disease, osteoporosis, migraines, chronic low back pain, L eye retinal leak. Last Myocardial Infarction Date:: 1993 History of Any Multi-Drug Resistant Organisms: None Reported Past Surgical History: Appendectomy, Bowel Resection, Cholecystectomy, Heart Catheterization, Hysterectomy Additional Past Surgical History / Comment(s): PTCA in 1993, bowel resection-pt cannot recall reason at this time, EGD, colonoscopy, R carpal tunnel release, R thumb tendon surgery, L breast benign bx, bilateral cataract removals. Past Anesthesia/Blood Transfusion Reactions: Previous Problems w/ Anesthesia, Motion Sickness, Postoperative Nausea & Vomiting (PONV) Additional Past Anesthesia/Blood Transfusion Reaction / Comment(s): past blood transfusion-no reaction Smoking Status: Current every day smoker - Past Family History Father Family Medical History: Diabetes Mellitus, Myocardial Infarction (MS) Mother Family Medical History: Diabetes Mellitus, Renal Disease Medications and Allergies Home Medications Medication Instructions Recorded Confirmed Type Furosemide 20 mg PO DAILY 11/04/13 10/30/18 History Isosorbide Mononitrate [Imdur] 60 mg PO DAILY 11/04/13 10/30/18 History Mometasone Furoate [Nasonex Nasal 2 spray EA NOSTRIL DAILY 11/04/13 10/30/18 History [place]] Risedronate Sodium [Atelvia] 35 mg PO MCKEON 11/04/13 10/30/18 History Tiotropium 18 Mcg/Puff [Spiriva] 18 mcg INHALATION RT-DAILY 11/04/13 10/30/18 History Albuterol Sulfate [Ventolin HFA] 1 - 2 puff INHALATION RT-Q4H PRN 12/29/1510/13 History Diltiazem HCl [Diltiazem 24Hr ER] 360 mg PO DAILY 12/29/15 10/30/18 History Gabapentin 300 mg PO HS 12/29/15 10/30/18 History HYDROcodone/APAP 5-325MG [[place] 1 tab PO DAILY PRN 12/29/15 10/30/18 History 5-325] Metoprolol Tartrate 25 mg PO BID 12/29/15 10/30/18 History Multivitamins, Thera [Multivitamin 1 tab PO DAILY 12/29/15 10/30/18 History (formulary)] Nitroglycerin Sl Tabs [Nitrostat] 0.4 mg PO Q5M PRN 12/29/15 10/30/18 History SUMAtriptan SUCCINATE [Imitrex] 100 mg PO BID PRN 12/29/15 10/30/18 History Atorvastatin [Lipitor] 10 mg PO DAILY 07/07/17 10/30/18 History Ezetimibe [Zetia] 10 mg PO DAILY 07/07/17 10/30/18 History Insulin Aspart (For Pump) [NovoLOG 0.01 unit SQ-PUMP CONTINUOUS 07/07/17 10/30/18 History (For Pump)] Omeprazole [PriLOSEC] 40 mg PO DAILY 07/07/17 10/30/18 History Polyethylene Glycol 3350 [Miralax] 17 gm PO DAILY PRN 07/07/17 10/30/18 History Psyllium Husk [Metamucil] 0.4 gm PO DAILY PRN 07/07/17 10/30/18 History Calcium Carbonate/Vitamin D3 1 tab PO DAILY 08/20/17 10/30/18 History [Calcium 600-Vit D3 400 Caplet] Montelukast [Singulair] 10 mg PO HS #30 tab 08/27/17 10/30/18 Rx guaiFENesin [Mucinex] 1,200 mg PO Q12HR #6 tablet.er 08/27/17 10/30/18 Rx Allergies Allergy/AdvReac Type Severity Reaction Status Date / Time erythromycin base Allergy Rash/Hives Verified 10/30/18 14:01 Physical Exam Vitals: Vital Signs Temp Pulse Pulse Resp BP BP Pulse Ox 10/31/18 08:51 96 10/31/18 08:41 100 10/31/18 04:22 97.4 F L 62 16 110/64 98 10/30/18 21:11 97.5 F L 77 18 107/67 97 10/30/18 19:21 75 10/30/18 19:11 72 10/30/18 15:57 98.2 F 75 17 95/53 95 10/30/18 14:57 98.4 F 70 20 122/65 98 10/30/18 14:33 77 10/30/18 14:15 71 10/30/18 13:14 98.3 F 86 20 121/71 92 L Intake and Output 10/30/18 10/31/18 10/31/18 22:59 06:59 14:59 Intake Total 1440 Balance 1440 Intake: Intake, IV Titration 1200 Amount Sodium Chloride 0.9% 1, 1200 000 ml @ 100 mls/hr IV . Q10H STA Rx#:[id number] Oral 240 Other: Voiding Method Toilet Toilet Toilet # Voids 2 1 # Bowel Movements 1 General: well nourished, well developed, NAD. On 4 L O2. Vitals reviewed Eyes: PERRL, EOMI, conjunctiva normal HENT: normocephalic, mucus membranes moist Neck: supple, no JVD Lungs: normal respiratory effort. Breath sounds diminished throughout. Expiratory wheezing. No rales or rhonchi CV: Regular rate and rhythm, no murmur. Peripheral pulses 2+ Abdomen: soft, nondistended, no organomegaly Lymph: no cervical or axillary LAD Skin: warm and dry. Neuro: A&Ox3, normal mood and affect Results CBC & Chem 7: 10/30/18 13:33 10/30/18 13:33 Labs: Abnormal Lab Results - Last 24 Hours (Table) 10/30/18 10/30/18 10/30/18 Range/Units 13:33 13:33 20:55 WBC 11.4 H (3.8-10.6) k/uL Hgb 7.3 L (11.4-16.0) gm/dL Hct 27.2 L (34.0-46.0) % MCV 63.5 L (80.0-100.0) fL MCH 17.0 L (25.0-35.0) pg MCHC 26.7 L (31.0-37.0) g/dL RDW 19.9 H (11.5-15.5) % Plt Count 491 H (150-450) k/uL Neutrophils # 10.2 H (1.3-7.7) k/uL Lymphocytes # 0.7 L (1.0-4.8) k/uL Sodium 131 L (137-145) mmol/L Chloride 85 L (98-107) mmol/L Carbon Dioxide 35 H (22-30) mmol/L Creatinine 0.42 L (0.52-1.04) mg/dL Glucose 251 H (74-99) mg/dL POC Glucose (mg/dL) 435 H (75-99) mg/dL 10/30/18 10/31/18 10/31/18 Range/Units 22:19 01:59 07:18 WBC (3.8-10.6) k/uL Hgb (11.4-16.0) gm/dL Hct (34.0-46.0) % MCV (80.0-100.0) fL MCH (25.0-35.0) pg MCHC (31.0-37.0) g/dL RDW (11.5-15.5) % Plt Count (150-450) k/uL Neutrophils # (1.3-7.7) k/uL Lymphocytes # (1.0-4.8) k/uL Sodium (137-145) mmol/L Chloride (98-107) mmol/L Carbon Dioxide (22-30) mmol/L Creatinine (0.52-1.04) mg/dL Glucose (74-99) mg/dL POC Glucose (mg/dL) 360 H 168 H 128 H (75-99) mg/dL Thrombosis Risk Factor Assmnt - Choose All That Apply Any of the Below Risk Factors Present?: Yes Each Factor Represents 1 point: Abnormal pulmonary function (COPD), Serious lung disease incl. pneumonia (< 1month) Other Risk Factors: Yes Each Risk Factor Represents 2 Points: Age 61-74 years Other congenital or acquired thrombophilia - If yes, enter type in comment: No Thrombosis Risk Factor Assessment Total Risk Factor Score: 4 Thrombosis Risk Factor Assessment Level: Moderate Risk Assessment and Plan (1) Acute exacerbation of chronic obstructive airways disease Current Visit: Yes Status: Acute Code(s): J44.1 - CHRONIC OBSTRUCTIVE PULMONARY DISEASE W (ACUTE) EXACERBATION SNOMED Code(s): 147434273 (2) CAD (coronary artery disease) Current Visit: No Status: Acute Code(s): I25.10 - ATHSCL HEART DISEASE OF [place] CORONARY ARTERY W/O ANG PCTRS SNOMED Code(s): 54983743 (3) Constipation Current Visit: Yes Status: Acute Code(s): K59.00 - CONSTIPATION, UNSPECIFIED SNOMED Code(s): 59346642 (4) Hypertension Current Visit: No Status: Acute Code(s): I10 - ESSENTIAL (PRIMARY) HYPERTENSION SNOMED Code(s): 11774050 (5) Type 1 diabetes mellitus Current Visit: Yes Status: Acute Code(s): E10.9 - TYPE 1 DIABETES MELLITUS WITHOUT COMPLICATIONS SNOMED Code(s): 72132987 (6) Diastolic CHF Current Visit: Yes Status: Acute Code(s): I50.30 - UNSPECIFIED DIASTOLIC (CONGESTIVE) HEART FAILURE SNOMED Code(s): 063375539 Plan: 1. COPD exacerbation. Failed outpatient levaquin and 30 mg prednisone. Loaded with solumedrol in the ED. Continue solumedrol bid, rocephin, azithromycin. Duonebs per RT. AM labs 2. Diastolic CHF. No evidence of fluid overload. Continue home lasix 20 mg PO 3. Type 1 diabetes. Levemir and sliding scale while inpatient 4. CAD. Continue toprol and cardizem 5. Constipation. Miralax qd. Zofran prn for nausea
[2018-10-31 13:13] LABS: Anisocytosis Slight; Basophils % (A) 0 %; Eosinophils % (A) 0 %; HCT 26.9 % (34.0-46.0); Hypochromasia Marked; Lymphocytes # (A) 0.7 k/uL (1.0-4.8); Lymphocytes % (A) 7 %; MCH 17.4 pg (25.0-35.0); Mean Platelet Volume 7.3; Microcytosis Marked; Monocytes # (A) 0.3 k/uL (0-1.0); Monocytes % (A) 3 %; Neutrophils # (A) 8.4 k/uL (1.3-7.7); Neutrophils % (A) 89 %; Platelet Count 542 k/uL (150-450); Poikilocytosis Moderate; RBC 3.87 m/uL (3.80-5.40); RDW 19.6 % (11.5-15.5); WBC 9.5 k/uL (3.8-10.6)
[2018-10-31 13:19] LABS: HGB 6.7 gm/dL (11.4-16.0); MCV 69.4 fL (80.0-100.0)
[2018-10-31 13:23] LABS: African American GFR (CKD) >90 (>60 ml/min/1.73 sqM); Anion Gap 10 mmol/L; Blood Urea Nitrogen 17 mg/dL (7-17); Calcium 8.1 mg/dL (8.4-10.2); Carbon Dioxide 29 mmol/L (22-30); Chloride 93 mmol/L (98-107); Glucose 329 mg/dL (74-99); Potassium 4.5 mmol/L (3.5-5.1); Sodium 132 mmol/L (137-145)
[2018-10-31] MEDS: NICOTINE 14MG/24HR PATCH TRANSDERM SCH (13:35)
[2018-10-31] MEDS: LORATADINE 10 MG TAB PO SCH (13:36)
[2018-10-31] MEDS: POLYETHYLENE GLYCOL 3350 17 GM POWD.PACK PO SCH (13:36)
[2018-10-31] MEDS: AZITHROMYCIN 500 MG in SODIUM CHLORIDE 0.9% 250 ML IVPB SCH (13:39)
[2018-10-31 17:21] LABS: Glucose,Whole Blood 522 mg/dL (75-99)
[2018-10-31] MEDS ORDERED: INSULIN ASPART (NovoLOG) 100 UNIT/ML VIAL SQ ONE ×2 (18:00→20:49)
[2018-10-31 18:20] LABS: Iron Saturation 1.99 (12.00-45.00)
[2018-10-31 20:08] LABS: Glucose,Whole Blood 424 mg/dL (75-99)
[2018-10-31] MEDS ORDERED: HYDROcodone/APAP 5-325MG 1 EACH TAB PO PRN (20:48)
[2018-10-31] MEDS ORDERED: INSULIN DETEMIR (LEVEMIR) 100 UNIT/ML SYR SQ SCH (21:00)
[2018-10-31] MEDS: GABAPENTIN 300 MG CAP PO SCH (21:13)
[2018-10-31] MEDS: MONTELUKAST 10 MG TAB PO SCH (21:13)
[2018-11-01 03:01] LABS: Glucose,Whole Blood 134 mg/dL (75-99)
[2018-11-01 07:06] LABS: Anisocytosis Moderate; Basophils % (A) 0 %; Eosinophils % (A) 0 %; HCT 30.9 % (34.0-46.0); Hypochromasia Marked; Lymphocytes # (A) 0.9 k/uL (1.0-4.8); Lymphocytes % (A) 7 %; MCH 19.8 pg (25.0-35.0); MCHC 27.8 g/dL (31.0-37.0); MCV 71.3 fL (80.0-100.0); Mean Platelet Volume 8.7; Microcytosis Marked; Monocytes # (A) 0.6 k/uL (0-1.0); Monocytes % (A) 5 %; Neutrophils # (A) 11.3 k/uL (1.3-7.7); Neutrophils % (A) 87 %; Platelet Count 467 k/uL (150-450); Poikilocytosis Marked; RBC 4.33 m/uL (3.80-5.40); RDW 21.1 % (11.5-15.5); WBC 13.1 k/uL (3.8-10.6)
[2018-11-01 07:17] LABS: Glucose,Whole Blood 64 mg/dL (75-99)
[2018-11-01 07:18] LABS: African American GFR (CKD) >90 (>60 ml/min/1.73 sqM); Anion Gap 6 mmol/L; Blood Urea Nitrogen 19 mg/dL (7-17); Carbon Dioxide 32 mmol/L (22-30); Chloride 96 mmol/L (98-107); Potassium 4.2 mmol/L (3.5-5.1); Sodium 134 mmol/L (137-145)
[2018-11-01 07:25] LABS: Glucose 50 mg/dL (74-99); HGB 8.6 gm/dL (11.4-16.0)
[2018-11-01 07:34] LABS: Glucose,Whole Blood 72 mg/dL (75-99)
[2018-11-01] MEDS: IPRATROPIUM-ALBUTEROL 3 ML NEB INHALATION SCH ×4 (08:28→19:56)
[2018-11-01] MEDS: INSULIN ASPART (NovoLOG) 100 UNIT/ML VIAL SQ SCH ×4 (08:37→20:22)
[2018-11-01] MEDS ORDERED: traZODone HCL 50 MG TAB PO PRN (08:42)
[2018-11-01] MEDS: METOPROLOL TARTRATE 25 MG TAB PO SCH ×2 (08:48→20:59)
[2018-11-01] MEDS: methylPREDNISolone SOD SUCCI 125 MG/2 ML VIAL IV SCH ×2 (08:48→21:00)
[2018-11-01] MEDS: DILTIAZEM CD 180 MG CAP.ER.24H PO SCH (08:48)
[2018-11-01] MEDS: FUROSEMIDE 20 MG TAB PO SCH (08:48)
[2018-11-01] MEDS: LORATADINE 10 MG TAB PO SCH (08:48)
[2018-11-01] MEDS: ENOXAPARIN 40 MG/0.4 ML SYRINGE SQ SCH (08:49)
[2018-11-01] MEDS: POLYETHYLENE GLYCOL 3350 17 GM POWD.PACK PO SCH (08:49)
[2018-11-01] MEDS: NICOTINE 14MG/24HR PATCH TRANSDERM SCH (08:49)
[2018-11-01] MEDS: ISOSORBIDE MONONITRATE ER 60 MG TAB.ER.24H PO SCH (08:49)
[2018-11-01] MEDS: PANTOPRAZOLE 40 MG TABLET PO SCH (08:49)
[2018-11-01] MEDS: SUMAtriptan SUCCINATE 50 MG TAB PO PRN ×2 (09:07→22:13)
--- NOTE | 2018-11-01 10:42 | P.PN ---
Subjective Progress Note Date: 11/01/18 Ainsley Hernandez is a 68 yo F with PMH significant for COPD on 2 L home O2, diastolic CHF, T1DM on pump, HTN, HLD who presents with cough and dyspnea which has not improved despite outpatient treatment with levaquin and prednisone. She states her has had sinusitis for the past week or so and she began to come down with cough, malaise, and needing O2 on during the daytime. She was seen in clinic and started on levaquin and prednisone. She followed up in clinic yesterday and symptoms were not improved and pt O2 sat in high 80s on RA so she was advised to come to [facility]. In the ED SpO2 92% on 2 L O2, WBC 11, BNP 300. CXR showed COPD with small bilateral effusions. 11/01. Pt seen and evaluated. She reports improvement in her cough and shortness of breath. her O2 requirements today are back 2 L from 4 L yesterday. She complains of headache today. Objective - Vital Signs Vital signs: Vital Signs Temp 98.1 F 11/01/18 05:00 Pulse 90 11/01/18 08:40 Resp 16 11/01/18 05:00 BP 109/65 11/01/18 05:00 Pulse Ox 96 11/01/18 05:00 Intake & Output 10/31/18 11/01/18 11/01/18 18:59 06:59 18:59 Intake Total 800 1900 Balance 800 1900 Weight 42.638 kg Intake: Intake, IV Titration 800 1000 Amount Sodium Chloride 0.9% 1, 750 1000 000 ml @ 100 mls/hr IV . Q10H STA Rx#:[id number] cefTRIAXone 2 gm In 50 Sodium Chloride 0.9% 50 ml @ 100 mls/hr IVPB ONCE ONE Rx#:[id number] Oral 590 Blood Product 0 310 Rc As-1 Unit 0 310 [id number] Other: Voiding Method Toilet Toilet # Voids 3 - Exam Constitutional: well developed, thin, NAD. Vitals reviewed CV: RRR, no murmur Lungs: expiratory wheezing, distant breath sounds, no rales or rhonchi Abd: soft, nontender - Labs CBC & Chem 7: 11/01/18 06:38 11/01/18 06:38 Labs: Abnormal Lab Results - Last 24 Hours (Table) 10/30/18 10/31/18 10/31/18 Range/Units 13:33 11:18 11:48 WBC (3.8-10.6) k/uL Hgb 6.7 L* (11.4-16.0) gm/dL Hct 26.9 L (34.0-46.0) % MCV 69.4 L D (80.0-100.0) fL MCH 17.4 L (25.0-35.0) pg MCHC 25.0 L (31.0-37.0) g/dL RDW 19.6 H (11.5-15.5) % Plt Count 542 H (150-450) k/uL Neutrophils # 8.4 H (1.3-7.7) k/uL Lymphocytes # 0.7 L (1.0-4.8) k/uL Sodium (137-145) mmol/L Chloride (98-107) mmol/L Carbon Dioxide (22-30) mmol/L BUN (7-17) mg/dL Creatinine (0.52-1.04) mg/dL Glucose (74-99) mg/dL POC Glucose (mg/dL) 376 H (75-99) mg/dL Calcium (8.4-10.2) mg/dL Iron (50-170) ug/dL Iron Saturation (12.00-45.00) Ferritin (10.0-291.0) ng/mL Crossmatch See Detail 10/31/18 10/31/18 10/31/18 Range/Units 11:48 11:48 17:19 WBC (3.8-10.6) k/uL Hgb (11.4-16.0) gm/dL Hct (34.0-46.0) % MCV (80.0-100.0) fL MCH (25.0-35.0) pg MCHC (31.0-37.0) g/dL RDW (11.5-15.5) % Plt Count (150-450) k/uL Neutrophils # (1.3-7.7) k/uL Lymphocytes # (1.0-4.8) k/uL Sodium 132 L (137-145) mmol/L Chloride 93 L (98-107) mmol/L Carbon Dioxide (22-30) mmol/L BUN (7-17) mg/dL Creatinine 0.41 L (0.52-1.04) mg/dL Glucose 329 H (74-99) mg/dL POC Glucose (mg/dL) 522 H (75-99) mg/dL Calcium 8.1 L (8.4-10.2) mg/dL Iron 8 L (50-170) ug/dL Iron Saturation 1.99 L (12.00-45.00) Ferritin 6.9 L (10.0-291.0) ng/mL Crossmatch 10/31/18 11/01/18 11/01/18 Range/Units 20:07 02:59 06:38 WBC 13.1 H (3.8-10.6) k/uL Hgb 8.6 L D (11.4-16.0) gm/dL Hct 30.9 L (34.0-46.0) % MCV 71.3 L (80.0-100.0) fL MCH 19.8 L (25.0-35.0) pg MCHC 27.8 L (31.0-37.0) g/dL RDW 21.1 H (11.5-15.5) % Plt Count 467 H (150-450) k/uL Neutrophils # 11.3 H (1.3-7.7) k/uL Lymphocytes # 0.9 L (1.0-4.8) k/uL Sodium (137-145) mmol/L Chloride (98-107) mmol/L Carbon Dioxide (22-30) mmol/L BUN (7-17) mg/dL Creatinine (0.52-1.04) mg/dL Glucose (74-99) mg/dL POC Glucose (mg/dL) 424 H 134 H (75-99) mg/dL Calcium (8.4-10.2) mg/dL Iron (50-170) ug/dL Iron Saturation (12.00-45.00) Ferritin (10.0-291.0) ng/mL Crossmatch 11/01/18 11/01/18 11/01/18 Range/Units 06:38 07:17 07:32 WBC (3.8-10.6) k/uL Hgb (11.4-16.0) gm/dL Hct (34.0-46.0) % MCV (80.0-100.0) fL MCH (25.0-35.0) pg MCHC (31.0-37.0) g/dL RDW (11.5-15.5) % Plt Count (150-450) k/uL Neutrophils # (1.3-7.7) k/uL Lymphocytes # (1.0-4.8) k/uL Sodium 134 L (137-145) mmol/L Chloride 96 L (98-107) mmol/L Carbon Dioxide 32 H (22-30) mmol/L BUN 19 H (7-17) mg/dL Creatinine 0.40 L (0.52-1.04) mg/dL Glucose 50 L (74-99) mg/dL POC Glucose (mg/dL) 64 L 72 L (75-99) mg/dL Calcium 8.0 L (8.4-10.2) mg/dL Iron (50-170) ug/dL Iron Saturation (12.00-45.00) Ferritin (10.0-291.0) ng/mL Crossmatch Microbiology - Last 24 Hours (Table) 10/31/18 11:57 Gram Stain - Preliminary Sputum 10/30/18 14:42 Blood Culture - Preliminary Blood No Growth after 24 hours Assessment and Plan (1) Acute exacerbation of chronic obstructive airways disease Current Visit: Yes Status: Acute Code(s): J44.1 - CHRONIC OBSTRUCTIVE PULMONARY DISEASE W (ACUTE) EXACERBATION SNOMED Code(s): 009990666 (2) CAD (coronary artery disease) Current Visit: No Status: Acute Code(s): I25.10 - ATHSCL HEART DISEASE OF [place] CORONARY ARTERY W/O ANG PCTRS SNOMED Code(s): 08814472 (3) Constipation Current Visit: Yes Status: Acute Code(s): K59.00 - CONSTIPATION, UNSPECIFIED SNOMED Code(s): 34261459 (4) Hypertension Current Visit: No Status: Acute Code(s): I10 - ESSENTIAL (PRIMARY) HYPERTENSION SNOMED Code(s): 76008833 (5) Type 1 diabetes mellitus Current Visit: Yes Status: Acute Code(s): E10.9 - TYPE 1 DIABETES MELLITUS WITHOUT COMPLICATIONS SNOMED Code(s): 27365251 (6) Diastolic CHF Current Visit: Yes Status: Acute Code(s): I50.30 - UNSPECIFIED DIASTOLIC (CONGESTIVE) HEART FAILURE SNOMED Code(s): 722871348 Plan: 1. COPD exacerbation. Continuing solumedrol bid, rocephin, azithromycin. Anticip ate switch to PO steroids tomorrow. Duonebs per RT 2. Diastolic CHF. Continue home lasix 20 mg PO 3. Type 1 diabetes. Levemir and sliding scale while inpatient 4. CAD. Continue toprol and cardizem 5. Constipation. Miralax qd. Zofran prn for nausea
[2018-11-01 10:59] LABS: Glucose,Whole Blood 212 mg/dL (75-99)
[2018-11-01] MEDS: AZITHROMYCIN 500 MG in SODIUM CHLORIDE 0.9% 250 ML IVPB SCH (14:00)
[2018-11-01 16:47] LABS: Glucose,Whole Blood 311 mg/dL (75-99)
[2018-11-01 19:58] LABS: Glucose,Whole Blood 489 mg/dL (75-99)
[2018-11-01] MEDS ORDERED: INSULIN ASPART (NovoLOG) 100 UNIT/ML VIAL SQ ONE (20:08)
[2018-11-01] MEDS: INSULIN DETEMIR (LEVEMIR) 100 UNIT/ML SYR SQ SCH (20:22)
[2018-11-01] MEDS: MONTELUKAST 10 MG TAB PO SCH (20:59)
[2018-11-01] MEDS: GABAPENTIN 300 MG CAP PO SCH (21:00)
[2018-11-02] MEDS: ONDANSETRON ODT 4 MG TAB PO PRN (05:20)
[2018-11-02 06:47] LABS: Glucose,Whole Blood 105 mg/dL (75-99)
[2018-11-02] MEDS: INSULIN ASPART (NovoLOG) 100 UNIT/ML VIAL SQ SCH ×4 (07:14→21:16)
[2018-11-02 07:43] LABS: Anisocytosis Moderate; Basophils % (A) 0 %; Eosinophils % (A) 0 %; HCT 34.8 % (34.0-46.0); HGB 9.5 gm/dL (11.4-16.0); Hypochromasia Marked; Lymphocytes # (A) 0.6 k/uL (1.0-4.8); Lymphocytes % (A) 4 %; MCH 19.7 pg (25.0-35.0); MCHC 27.3 g/dL (31.0-37.0); MCV 72.3 fL (80.0-100.0); Mean Platelet Volume 8.4; Microcytosis Marked; Monocytes # (A) 0.7 k/uL (0-1.0); Monocytes % (A) 5 %; Neutrophils # (A) 12.1 k/uL (1.3-7.7); Neutrophils % (A) 89 %; Platelet Count 501 k/uL (150-450); Poikilocytosis Marked; RBC 4.82 m/uL (3.80-5.40); RDW 21.4 % (11.5-15.5); WBC 13.6 k/uL (3.8-10.6)
[2018-11-02 08:06] LABS: African American GFR (CKD) >90 (>60 ml/min/1.73 sqM); Anion Gap 7 mmol/L; Blood Urea Nitrogen 18 mg/dL (7-17); Calcium 8.8 mg/dL (8.4-10.2); Carbon Dioxide 33 mmol/L (22-30); Chloride 96 mmol/L (98-107); Glucose 88 mg/dL (74-99); Potassium 4.6 mmol/L (3.5-5.1); Sodium 136 mmol/L (137-145)
[2018-11-02] MEDS: ISOSORBIDE MONONITRATE ER 60 MG TAB.ER.24H PO SCH (08:10)
[2018-11-02] MEDS: FUROSEMIDE 20 MG TAB PO SCH (08:10)
[2018-11-02] MEDS: PANTOPRAZOLE 40 MG TABLET PO SCH (08:10)
[2018-11-02] MEDS: POLYETHYLENE GLYCOL 3350 17 GM POWD.PACK PO SCH ×3 (08:10→18:03)
[2018-11-02] MEDS: AZITHROMYCIN 500 MG TAB PO SCH (08:11)
[2018-11-02] MEDS: NICOTINE 14MG/24HR PATCH TRANSDERM SCH (08:11)
[2018-11-02] MEDS: ATORVASTATIN 10 MG TAB PO SCH (08:11)
[2018-11-02] MEDS: ENOXAPARIN 40 MG/0.4 ML SYRINGE SQ SCH (08:11)
[2018-11-02] MEDS: methylPREDNISolone SOD SUCCI 125 MG/2 ML VIAL IV SCH (08:11)
[2018-11-02] MEDS: DILTIAZEM CD 180 MG CAP.ER.24H PO SCH (08:11)
[2018-11-02] MEDS: METOPROLOL TARTRATE 25 MG TAB PO SCH ×2 (08:11→21:22)
[2018-11-02] MEDS: LORATADINE 10 MG TAB PO SCH (08:11)
[2018-11-02] MEDS: IPRATROPIUM-ALBUTEROL 3 ML NEB INHALATION SCH ×4 (08:47→20:22)
[2018-11-02] MEDS: HYDROcodone/APAP 5-325MG 1 EACH TAB PO PRN ×2 (11:11→21:22)
[2018-11-02 11:19] LABS: Glucose,Whole Blood 272 mg/dL (75-99)
[2018-11-02 14:02] VITALS: TEMP 98.1
--- NOTE | 2018-11-02 17:01 | P.PN ---
Subjective Progress Note Date: 11/02/18 Ainsley Hernandez is a 68 yo F with PMH significant for COPD on 2 L home O2, diastolic CHF, T1DM on pump, HTN, HLD who presents with cough and dyspnea which has not improved despite outpatient treatment with levaquin and prednisone. She states her has had sinusitis for the past week or so and she began to come down with cough, malaise, and needing O2 on during the daytime. She was seen in clinic and started on levaquin and prednisone. She followed up in clinic yesterday and symptoms were not improved and pt O2 sat in high 80s on RA so she was advised to come to [facility]. In the ED SpO2 92% on 2 L O2, WBC 11, BNP 300. CXR showed COPD with small bilateral effusions. 11/01. Pt seen and evaluated. She reports improvement in her cough and shortness of breath. her O2 requirements today are back 2 L from 4 L yesterday. She complains of headache today. 11/02. She feels overall unchanged from yesterday, with some cough and shortness of breath. She states the imitrex worked well for her headache yesterday but has one again today. Still has not had a BM since admission and feeling bloated and nauseated. Objective - Vital Signs Vital signs: Vital Signs Temp 98.1 F 11/02/18 13:00 Pulse 72 11/02/18 16:02 Resp 18 11/02/18 13:00 BP 117/66 11/02/18 13:00 Pulse Ox 98 11/02/18 13:00 Intake & Output 11/01/18 11/02/18 11/02/18 18:59 06:59 18:59 Intake Total 1180 650 Balance 1180 650 Intake: Intake, IV Titration 50 Amount cefTRIAXone 1 gm In 50 Sodium Chloride 0.9% 50 ml @ 100 mls/hr IVPB Q24HR RJ Rx#:[id number] Oral 1180 600 Other: Voiding Method Toilet Toilet Toilet # Voids 4 4 3 - Exam Constitutional: well developed, thin, NAD. Vitals reviewed CV: RRR, no murmur Lungs: expiratory wheezing, distant breath sounds, no rales or rhonchi Abd: soft, nontender - Labs CBC & Chem 7: 11/02/18 07:18 11/02/18 07:18 Labs: Abnormal Lab Results - Last 24 Hours (Table) 11/01/18 11/02/18 11/02/18 Range/Units 19:57 06:47 07:18 WBC 13.6 H (3.8-10.6) k/uL Hgb 9.5 L (11.4-16.0) gm/dL MCV 72.3 L (80.0-100.0) fL MCH 19.7 L (25.0-35.0) pg MCHC 27.3 L (31.0-37.0) g/dL RDW 21.4 H (11.5-15.5) % Plt Count 501 H (150-450) k/uL Neutrophils # 12.1 H (1.3-7.7) k/uL Lymphocytes # 0.6 L (1.0-4.8) k/uL Sodium (137-145) mmol/L Chloride (98-107) mmol/L Carbon Dioxide (22-30) mmol/L BUN (7-17) mg/dL Creatinine (0.52-1.04) mg/dL POC Glucose (mg/dL) 489 H 105 H (75-99) mg/dL 11/02/18 11/02/18 Range/Units 07:18 11:18 WBC (3.8-10.6) k/uL Hgb (11.4-16.0) gm/dL MCV (80.0-100.0) fL MCH (25.0-35.0) pg MCHC (31.0-37.0) g/dL RDW (11.5-15.5) % Plt Count (150-450) k/uL Neutrophils # (1.3-7.7) k/uL Lymphocytes # (1.0-4.8) k/uL Sodium 136 L (137-145) mmol/L Chloride 96 L (98-107) mmol/L Carbon Dioxide 33 H (22-30) mmol/L BUN 18 H (7-17) mg/dL Creatinine 0.44 L (0.52-1.04) mg/dL POC Glucose (mg/dL) 272 H (75-99) mg/dL Microbiology - Last 24 Hours (Table) 10/30/18 14:42 Blood Culture - Preliminary Blood No Growth after 72 hours 10/31/18 11:57 Gram Stain - Final Sputum Sputum Culture - Final Assessment and Plan (1) Acute exacerbation of chronic obstructive airways disease Current Visit: Yes Status: Acute Code(s): J44.1 - CHRONIC OBSTRUCTIVE PULMONARY DISEASE W (ACUTE) EXACERBATION SNOMED Code(s): 305995353 (2) CAD (coronary artery disease) Current Visit: No Status: Acute Code(s): I25.10 - ATHSCL HEART DISEASE OF [place] CORONARY ARTERY W/O ANG PCTRS SNOMED Code(s): 98799767 (3) Constipation Current Visit: Yes Status: Acute Code(s): K59.00 - CONSTIPATION, UNSPECIFIED SNOMED Code(s): 72416690 (4) Hypertension Current Visit: No Status: Acute Code(s): I10 - ESSENTIAL (PRIMARY) HYPERTENSION SNOMED Code(s): 48002822 (5) Type 1 diabetes mellitus Current Visit: Yes Status: Acute Code(s): E10.9 - TYPE 1 DIABETES MELLITUS WITHOUT COMPLICATIONS SNOMED Code(s): 02014283 (6) Diastolic CHF Current Visit: Yes Status: Acute Code(s): I50.30 - UNSPECIFIED DIASTOLIC (CONGESTIVE) HEART FAILURE SNOMED Code(s): 658228188 (7) Anemia Current Visit: Yes Status: Acute Code(s): D64.9 - ANEMIA, UNSPECIFIED SNOMED Code(s): 370824757 Plan: 1. COPD exacerbation. Switch to prednisone bid. Continue rocephin and azithromycin. Duonebs per RT 2. Diastolic CHF. Continue home lasix 20 mg PO 3. Type 1 diabetes. Levemir and sliding scale 4. Anemia. Hgb 7 on admission, down to 6.7 the following day. Transfused 1 U PRBC. Ordered iron studies 5. CAD. Continue toprol and cardizem 6. Constipation. Increase miralax to tid today
[2018-11-02 17:02] LABS: Glucose,Whole Blood 449 mg/dL (75-99)
[2018-11-02 17:04] LABS: Glucose,Whole Blood 430 mg/dL (75-99)
[2018-11-02] MEDS ORDERED: INSULIN ASPART (NovoLOG) 100 UNIT/ML VIAL SQ ONE ×2 (17:28→20:45)
[2018-11-02] MEDS: predniSONE 20 MG TAB PO SCH (18:02)
[2018-11-02 20:36] LABS: Glucose,Whole Blood 477 mg/dL (75-99)
[2018-11-02 20:36] LABS: Glucose,Whole Blood 509 mg/dL (75-99)
[2018-11-02] MEDS: MONTELUKAST 10 MG TAB PO SCH (21:22)
[2018-11-02] MEDS: GABAPENTIN 300 MG CAP PO SCH (21:23)
[2018-11-02] MEDS: INSULIN DETEMIR (LEVEMIR) 100 UNIT/ML SYR SQ SCH (21:24)
[2018-11-03] MEDS: SUMAtriptan SUCCINATE 50 MG TAB PO PRN (00:54)
[2018-11-03 02:09] LABS: Glucose,Whole Blood 250 mg/dL (75-99)
[2018-11-03] MEDS: HYDROcodone/APAP 5-325MG 1 EACH TAB PO PRN ×2 (03:19→10:14)
[2018-11-03 04:45] VITALS: BP 146/81; RESP 18
[2018-11-03 06:48] LABS: Glucose,Whole Blood 94 mg/dL (75-99)
[2018-11-03] MEDS: INSULIN ASPART (NovoLOG) 100 UNIT/ML VIAL SQ SCH ×2 (07:52→12:20)
[2018-11-03] MEDS: ENOXAPARIN 40 MG/0.4 ML SYRINGE SQ SCH (08:04)
[2018-11-03] MEDS: POLYETHYLENE GLYCOL 3350 17 GM POWD.PACK PO SCH ×2 (08:04→12:27)
[2018-11-03] MEDS: PANTOPRAZOLE 40 MG TABLET PO SCH (08:05)
[2018-11-03] MEDS: predniSONE 20 MG TAB PO SCH (08:05)
[2018-11-03] MEDS: LORATADINE 10 MG TAB PO SCH (08:06)
[2018-11-03] MEDS: METOPROLOL TARTRATE 25 MG TAB PO SCH (08:06)
[2018-11-03] MEDS: FUROSEMIDE 20 MG TAB PO SCH (08:06)
[2018-11-03] MEDS: AZITHROMYCIN 500 MG TAB PO SCH (08:07)
[2018-11-03] MEDS: DILTIAZEM CD 180 MG CAP.ER.24H PO SCH (08:07)
[2018-11-03] MEDS: ATORVASTATIN 10 MG TAB PO SCH (08:07)
[2018-11-03] MEDS: ISOSORBIDE MONONITRATE ER 60 MG TAB.ER.24H PO SCH (08:08)
[2018-11-03] MEDS: NICOTINE 14MG/24HR PATCH TRANSDERM SCH (08:08)
[2018-11-03] MEDS: IPRATROPIUM-ALBUTEROL 3 ML NEB INHALATION SCH ×2 (08:34→11:44)
[2018-11-03 10:22] LABS: Anisocytosis Moderate; Basophils % (A) 0 %; Eosinophils % (A) 0 %; HCT 36.1 % (34.0-46.0); HGB 10.2 gm/dL (11.4-16.0); Hypochromasia Marked; Lymphocytes % (A) 6 %; MCH 19.8 pg (25.0-35.0); MCHC 28.2 g/dL (31.0-37.0); MCV 70.1 fL (80.0-100.0); Mean Platelet Volume 8.2; Microcytosis Marked; Monocytes % (A) 6 %; Neutrophils # (A) 14.6 k/uL (1.3-7.7); Neutrophils % (A) 86 %; Platelet Count 563 k/uL (150-450); Poikilocytosis Marked; RBC 5.15 m/uL (3.80-5.40); RDW 22.8 % (11.5-15.5); WBC 16.9 k/uL (3.8-10.6)
[2018-11-03 11:08] LABS: Glucose,Whole Blood 111 mg/dL (75-99)
[2018-11-03 11:22] LABS: Hypersegmented Neutrophils Present; Large Platelets Present
--- NOTE | 2018-11-03 11:44 | P.DS ---
Providers Date of admission: 10/30/18 13:55 Expected date of discharge: 11/03/18 Attending physician: Pipe Antonio MD Primary care physician: Lo Dugan - Discharge Diagnosis(es) (1) Acute exacerbation of chronic obstructive airways disease Current Visit: Yes Status: Acute (2) CAD (coronary artery disease) Current Visit: No Status: Acute (3) Constipation Current Visit: Yes Status: Acute (4) Hypertension Current Visit: No Status: Acute (5) Type 1 diabetes mellitus Current Visit: Yes Status: Acute (6) Diastolic CHF Current Visit: Yes Status: Acute (7) Anemia Current Visit: Yes Status: Acute Hospital Course: Ainsley Hernandez is a 68 yo F with PMH significant for COPD on 2 L home O2, diastolic CHF, T1DM on pump, HTN, HLD who presents with cough and dyspnea which has not improved despite outpatient treatment with levaquin and prednisone. She states her has had sinusitis for the past week or so and she began to come down with cough, malaise, and needing O2 on during the daytime. She was seen in clinic and started on levaquin and prednisone. She followed up in clinic yesterday and symptoms were not improved and pt O2 sat in high 80s on RA so she was advised to come to [facility]. In the ED SpO2 92% on 2 L O2, WBC 11, BNP 300. CXR showed COPD with small bilateral effusions. Pt was admitted to medicine and started on rocephin and azithromycin as well as IV solumedrol bid. She was continued on her home lasix dose and given miralax for constipation. Pt's Hgb on admission was 7.2 and by the next morning had dropped to 6.7, so she was transfused 1 U PRBC. Iron studies were ordered and are pending at discharge. Blood culture and sputum culture were both obtained and negative. Pt's respiratory status did continue to improve throughout her hospitalization and her oxygen requirements had decreased to her home 2 L. Her hemoglobin has remained stable at 10 since her transfusion. She is discharged to continue an extended prednisone taper, and will finish omnicef and azithromycin. Her constipation was treated with miralax while inpatient and she is recommended to resume metamucil and continue miralax bid. Follow up on ferritin and TIBC at discharge. Pt will likely need to be on iron supplementation. Patient Condition at Discharge: Fair Plan - Discharge Summary Discharge Rx Participant: No New Discharge Prescriptions: New Ipratropium-Albuterol Nebulize [Duoneb 0.5 mg-3 mg/3 ml Soln] 3 ml INHALATION QID PRN #90 ampul.neb PRN Reason: Dyspnea Cefdinir [Omnicef] 300 mg PO Q12HR 4 Days #8 capsule predniSONE See Taper PO DIRECTED #34 tab Azithromycin [Zithromax] 500 mg PO DAILY #2 tab Ondansetron Odt [Zofran ODT] 4 mg PO Q8HR PRN #12 tab PRN Reason: Nausea Continue Tiotropium 18 Mcg/Puff [Spiriva] 18 mcg INHALATION RT-DAILY Risedronate Sodium [Atelvia] 35 mg PO MCKEON Mometasone Furoate [Nasonex Nasal Burns] 2 spray EA NOSTRIL DAILY Isosorbide Mononitrate [Imdur] 60 mg PO DAILY Furosemide 20 mg PO DAILY SUMAtriptan SUCCINATE [Imitrex] 100 mg PO BID PRN PRN Reason: Migraine Headache Albuterol Sulfate [Ventolin HFA] 1 - 2 puff INHALATION RT-Q4H PRN PRN Reason: Shortness Of Breath Multivitamins, Thera [Multivitamin (formulary)] 1 tab PO DAILY Metoprolol Tartrate 25 mg PO BID HYDROcodone/APAP 5-325MG [[place] 5-325] 1 tab PO Q6HR PRN PRN Reason: Pain Gabapentin 300 mg PO HS Diltiazem HCl [Diltiazem 24Hr ER] 360 mg PO DAILY Nitroglycerin Sl Tabs [Nitrostat] 0.4 mg PO Q5M PRN PRN Reason: Chest Pain Psyllium Husk [Metamucil] 0.4 gm PO DAILY PRN PRN Reason: Constipation Omeprazole [PriLOSEC] 40 mg PO DAILY Ezetimibe [Zetia] 10 mg PO DAILY Atorvastatin [Lipitor] 10 mg PO DAILY Insulin Aspart (For Pump) [NovoLOG (For Pump)] 0.01 unit SQ-PUMP CONTINUOUS Polyethylene Glycol 3350 [Miralax] 17 gm PO DAILY PRN PRN Reason: Constipation Calcium Carbonate/Vitamin D3 [Calcium 600-Vit D3 400 Caplet] 1 tab PO DAILY guaiFENesin [Mucinex] 1,200 mg PO Q12HR #6 tablet.er Montelukast [Singulair] 10 mg PO HS #30 tab Rivaroxaban [Xarelto] 20 mg PO DAILY Discharge Medication List Furosemide 20 mg PO DAILY 11/04/13 [History] Isosorbide Mononitrate [Imdur] 60 mg PO DAILY 11/04/13 [History] Mometasone Furoate [Nasonex Nasal Burns] 2 spray EA NOSTRIL DAILY 11/04/13 [History] Risedronate Sodium [Atelvia] 35 mg PO MCKEON 11/04/13 [History] Tiotropium 18 Mcg/Puff [Spiriva] 18 mcg INHALATION RT-DAILY 11/04/13 [History] Albuterol Sulfate [Ventolin HFA] 1 - 2 puff INHALATION RT-Q4H PRN 12/29/15 [History] Diltiazem HCl [Diltiazem 24Hr ER] 360 mg PO DAILY 12/29/15 [History] Gabapentin 300 mg PO HS 12/29/15 [History] HYDROcodone/APAP 5-325MG [[place] 5-325] 1 tab PO Q6HR PRN 12/29/15 [History] Metoprolol Tartrate 25 mg PO BID 12/29/15 [History] Multivitamins, Thera [Multivitamin (formulary)] 1 tab PO DAILY 12/29/15 [History] Nitroglycerin Sl Tabs [Nitrostat] 0.4 mg PO Q5M PRN 12/29/15 [History] SUMAtriptan SUCCINATE [Imitrex] 100 mg PO BID PRN 12/29/15 [History] Atorvastatin [Lipitor] 10 mg PO DAILY 07/07/17 [History] Ezetimibe [Zetia] 10 mg PO DAILY 07/07/17 [History] Insulin Aspart (For Pump) [NovoLOG (For Pump)] 0.01 unit SQ-PUMP CONTINUOUS [History] Omeprazole [PriLOSEC] 40 mg PO DAILY 07/07/17 [History] Polyethylene Glycol 3350 [Miralax] 17 gm PO DAILY PRN 07/07/17 [History] Psyllium Husk [Metamucil] 0.4 gm PO DAILY PRN 07/07/17 [History] Calcium Carbonate/Vitamin D3 [Calcium 600-Vit D3 400 Caplet] 1 tab PO DAILY 08/20/17 [History] Montelukast [Singulair] 10 mg PO HS #30 tab 08/27/17 [Rx] guaiFENesin [Mucinex] 1,200 mg PO Q12HR #6 tablet.er 08/27/17 [Rx] Rivaroxaban [Xarelto] 20 mg PO DAILY 11/01/18 [History] Azithromycin [Zithromax] 500 mg PO DAILY #2 tab 11/03/18 [Rx] Cefdinir [Omnicef] 300 mg PO Q12HR 4 Days #8 capsule 11/03/18 [Rx] Ipratropium-Albuterol Nebulize [Duoneb 0.5 mg-3 mg/3 ml Soln] 3 ml INHALATION QID PRN #90 ampul.neb 11/03/18 [Rx] Ondansetron Odt [Zofran ODT] 4 mg PO Q8HR PRN #12 tab 11/03/18 [Rx] predniSONE See Taper PO DIRECTED #34 tab 11/03/18 [Rx] Follow up Appointment(s)/Referral(s): Lo Dugan DO [Primary Care Provider] - 11/05/18 11:00 am ([facility]) [facility] Visiting Nurse, [NON-STAFF] - 1-2 Days Patient Instructions/Handouts: Prednisone (By mouth), Azithromycin (By mouth), Ondansetron (By mouth), Ipratropium/Albuterol (By breathing), Cefdinir (By mouth), Constipation (DC), COPD (Chronic Obstructive Pulmonary Disease) (DC), Pneumonia (DC) Discharge Disposition: HOME SELF-CARE
[2018-11-03 12:00] VITALS: PULSE 91
[2018-11-03] MEDS: ONDANSETRON ODT 4 MG TAB PO PRN (14:17)
[2018-11-03 18:08] LABS: Iron Saturation 2.13 (12.00-45.00)
--- NOTE | 2018-11-05 02:57 | CDI ---
Documentation Clarification Form Date: 11/05/2018 2:52:00 AM From: Mingo Teresa Phone: call to [phone] Admit Date: 10/30/2018 1:55:00 PM Patient Name: Ainsley Hernandez Visit Number: [id number] Discharge Date: 11/03/2018 2:25:00 PM ATTENTION: The Clinical Documentation Specialists (CDI) and [facility] Coding Staff appreciate your assistance in clarifying documentation. Please respond to the clarification below the line at the bottom and electronically sign. The CDI & [facility] Coding staff will review the response and follow-up if needed. Please note: Queries are made part of the Legal Health Record. If you have any questions, please contact the author of this message via ITS. Dr. Pipe Antonio, Pneumonia was documented in ED note mentioned as "Failed outpatient treatment of Pneumonia". History/Risk Factors: COPD Clinical Indicators: Vital signs: heart rate 86 oxygen pulse 92L WBC/Left shift: 11.4 X-ray:pleural effusion ,COPD Lung/Breathing assessment Treatment: IV Soumedrol and abx. Antibiotics: Rocephin, Azithromycin In order to capture the severity of condition, please clarify if the condition signifies and you are treating for: Healthcare Acquired Pneumonia/Pneumonia, unspecified Other, please specify Unable to determine This patient had Community Acquired Pneumonia on admission MTDD
== END 2018-11-03 14:25 | disposition home or self-care (01) | DRG 190 ==
LOC: EC 13:05 → 3NMEDONC 13:55
PROVIDERS: ADMIT Family Medicine; ATTEND Family Medicine
PROC: 30233N1 Transfusion of Nonautologous Red Blood Cells into Peripheral Vein, Percutaneous Approach (ICD-10-PCS; principal; 2018-11-01)
DX: J44.1 Chronic obstructive pulmonary disease with (acute) exacerbation (principal); J18.9 Pneumonia, unspecified organism; I50.32 Chronic diastolic (congestive) heart failure; M19.90 Unspecified osteoarthritis, unspecified site; E10.9 Type 1 diabetes mellitus without complications; E78.5 Hyperlipidemia, unspecified; G40.909 Epilepsy, unspecified, not intractable, without status epilepticus; I11.0 Hypertensive heart disease with heart failure; I25.10 Atherosclerotic heart disease of native coronary artery without angina pectoris; K21.9 Gastro-esophageal reflux disease without esophagitis; K59.00 Constipation, unspecified; M81.0 Age-related osteoporosis without current pathological fracture; Z96.41 Presence of insulin pump (external) (internal); D64.9 Anemia, unspecified; I25.2 Old myocardial infarction; Z90.49 Acquired absence of other specified parts of digestive tract; Z90.710 Acquired absence of both cervix and uterus; Z79.02 Long term (current) use of antithrombotics/antiplatelets; Z79.899 Other long term (current) drug therapy; Z79.4 Long term (current) use of insulin; Z87.01 Personal history of pneumonia (recurrent); Z86.73 Personal history of transient ischemic attack (TIA), and cerebral infarction without residual deficits; Z87.891 Personal history of nicotine dependence; Z82.49 Family history of ischemic heart disease and other diseases of the circulatory system; Z83.3 Family history of diabetes mellitus; Z99.81 Dependence on supplemental oxygen; Z88.1 Allergy status to other antibiotic agents; Z90.89 Acquired absence of other organs
CPT/HCPCS: 36415; 71046; 80048; 80053; 82728; 83540; 83550; 83735; 83880; 84484; 85025; 85379; 85610; 85730; 86850; 86900; 86901; 86920; 87040; 87070; 87205; 93005; 94640; 94760; 96361; 96374; 99285

== ENCOUNTER 2018-11-11 15:50 | Inpatient (IN) | payer MEDICARE ==
[2018-11-11] MEDS ORDERED: SODIUM CHLORIDE 0.9% 1,000 ML IV ONE (16:08)
--- NOTE | 2018-11-11 16:13 | ED ---
General Adult HPI - General Chief complaint: Recheck/Abnormal Lab/Rx Stated complaint: Low BP Time Seen by Provider: 11/11/18 15:59 Source: patient Mode of arrival: ambulatory Limitations: no limitations - History of Present Illness Initial comments: 68 yoF with history of COPD on 2-3L of O2 at home presenting with hypotension from home. She states that she has been feeling thirsty, dizzy, and weak over the last couple of days. She states she was recently diagnosed with iron deficiency anemia when she was hospitalized on 11/03. She received 1 unit of PRBC at that time. She states they are unsure if she is bleeding, and they have not done a colonoscopy or EGD. She states her shortness of breath is mildly worse. Denies change in her cough. She was recently treated for a COPD exacerbation and PNA with Levaquin and Prendisone. She denies fever, chills, chest pain, N/V/D, or urinary symptoms. - Related Data Home Medications Medication Instructions Recorded Confirmed Furosemide 20 mg PO DAILY 11/04/13 11/11/18 Isosorbide Mononitrate [Imdur] 60 mg PO DAILY 11/04/13 11/11/18 Risedronate Sodium [Atelvia] 35 mg PO MCKEON 11/04/13 11/11/18 Tiotropium 18 Mcg/Puff [Spiriva] 1 puff INHALATION RT-DAILY 11/04/13 11/11/18 Diltiazem HCl [Diltiazem 24Hr ER] 360 mg PO DAILY 12/29/15 11/11/18 Gabapentin 300 mg PO HS 12/29/15 11/11/18 Metoprolol Tartrate 25 mg PO DAILY 12/29/15 11/11/18 Nitroglycerin Sl Tabs [Nitrostat] 0.4 mg PO Q5M PRN 12/29/15 11/11/18 SUMAtriptan SUCCINATE [Imitrex] 100 mg PO BID PRN 12/29/15 11/11/18 Atorvastatin [Lipitor] 10 mg PO DAILY 07/07/17 11/11/18 Ezetimibe [Zetia] 10 mg PO DAILY 07/07/17 11/11/18 Insulin Aspart (For Pump) [NovoLOG 50 - 60 unit SQ-PUMP DAILY 07/07/17 11/11/18 (For Pump)] Omeprazole [PriLOSEC] 40 mg PO DAILY 07/07/17 11/11/18 Polyethylene Glycol 3350 [Miralax] 17 gm PO DAILY 07/07/17 11/11/18 Rivaroxaban [Xarelto] 20 mg PO DAILY 11/01/18 11/11/18 Albuterol Nebulized [Ventolin 2.5 mg INHALATION Q6H PRN 11/11/18 11/11/18 Nebulized] Baclofen 10 - 20 mg PO HS PRN 11/11/18 11/11/18 DULoxetine HCL [Cymbalta] 60 mg PO DAILY 11/11/18 11/11/18 Ferrous Sulfate [Feosol] 325 mg PO DAILY 11/11/18 11/11/18 Fluticasone Nasal [place] [Flonase 1 spray EA NOSTRIL BID 11/11/18 11/11/18 Nasal [place]] Nystatin 100,000 Unit/ml Susp 5 ml PO QID 11/11/18 11/11/18 [Mycostatin Oral Susp] Ranitidine HCl [Zantac] 150 mg PO BID 11/11/18 11/11/18 Previous Rx's Medication Instructions Recorded Ipratropium-Albuterol Nebulize 3 ml INHALATION QID PRN #90 11/03/18 [Duoneb 0.5 mg-3 mg/3 ml Soln] ampul.neb Allergies Allergy/AdvReac Type Severity Reaction Status Date / Time erythromycin base Allergy Rash/Hives Verified 11/11/18 16:35 Review of Systems ROS Statement: Those systems with pertinent positive or pertinent negative responses have been documented in the HPI. Review of Systems Constitutional: Denies fever, chills. Positive weakness Eyes: Denies change in vision, Denies pain Ears, nose, mouth, throat: Denies headaches, Denies sore throat Cardiovascular: Denies chest pain. Denies palpitations Respiratory: Positive shortness of breath, Positive cough Gastrointestinal: Denies abdominal pain. Denies nausea, vomiting, diarrhea. Genitourinary: Denies hematuria, Denies infections Musculoskeletal: Denies pain, Denies swelling Integumentary: Denies rash Neurological: Denies headache, focal weakness, focal numbness Psychiatric: Denies anxiety, Denies depression Hematologic/Lymphatic: Denies easy bleeding or bruising ROS Other: All systems not noted in ROS Statement are negative. Past Medical History Past Medical History: Coronary Artery Disease (CAD), COPD, CVA/TIA, Diabetes Mellitus, GERD/Reflux, Hyperlipidemia, Hypertension, Myocardial Infarction (SD), Pneumonia, Seizure Disorder Additional Past Medical History / Comment(s): Recently tx at home for pne, recurrent pne, home oxygen at 2L/NC at hs and prn, IDDM type II with insulin pump, neuropathy bilateral hands/fingers, CVA 2009 with L sided weakness, one seizure in 2002, moderate protein calorie malnutrition, diverticular disease, osteoporosis, migraines, chronic low back pain, L eye retinal leak. Last Myocardial Infarction Date:: 1993 History of Any Multi-Drug Resistant Organisms: None Reported Past Surgical History: Appendectomy, Bowel Resection, Cholecystectomy, Heart Catheterization, Hysterectomy Additional Past Surgical History / Comment(s): PTCA in 1993, bowel resection-pt cannot recall reason at this time, EGD, colonoscopy, R carpal tunnel release, R thumb tendon surgery, L breast benign bx, bilateral cataract removals. Past Anesthesia/Blood Transfusion Reactions: Previous Problems w/ Anesthesia, Motion Sickness, Postoperative Nausea & Vomiting (PONV) Additional Past Anesthesia/Blood Transfusion Reaction / Comment(s): past blood transfusion-no reaction Past Psychological History: No Psychological Hx Reported Smoking Status: Current every day smoker Past Alcohol Use History: None Reported Past Drug Use History: None Reported - Past Family History Father Family Medical History: Diabetes Mellitus, Myocardial Infarction (SD) Mother Family Medical History: Diabetes Mellitus, Renal Disease General Exam - General Exam Comments Initial Comments: General: Awake, alert, No acute Distress. Nasal cannula present HENT: Normocephalic. Atraumatic Eyes: PERRL. EOMI. No scleral icterus. Pale conjunctiva. Neck: Full ROM Chest/Lungs: Clear to auscultation bilaterally. No wheezing, rhonchi, or rales Cardiac: Regular rate, rhythm. No murmurs or rubs Abdomen/GI: Soft, nontender, nondistended. No rebound, guarding, or rigidity. Musculoskeletal: Full ROM Skin: Warm, dry, intact. Bruising to BUE. Neurologic: A/Ox3, no weakness, no sensory deficit, no abnormal gait, no coordination deficit Limitations: no limitations Course Vital Signs 11/11/18 11/11/18 11/11/18 15:51 17:30 19:18 Temperature 98.0 F Pulse Rate 70 65 65 Respiratory 24 18 18 Rate Blood Pressure 79/45 103/61 111/61 O2 Sat by Pulse 86 L 98 97 Oximetry 11/11/18 11/11/18 20:00 21:00 Temperature Pulse Rate 70 69 Respiratory 18 18 Rate Blood Pressure 119/78 129/76 O2 Sat by Pulse 96 96 Oximetry EKG Findings - EKG Comments: EKG Findings:: EKG shows normal sinus rhythm at a rate of 61 bpm. SC interval 148 ms. QRS duration 74 ms. QT/QTc 446/[address] segment elevation, depression. No prolonged QT/QTc or SC interval. No dysrythmia noted. Medical Decision Making - Medical Decision Making 68 yoF presenting with hypotension. On initial exam the patient is awake, alert, and in NAD. She was initially hypotensive but on repeat measurement her she had a MAP of 74. She is awake, alert, and mentating appropriately. Patient found to have a left basal infiltrate that was not seen on previous chest x-ray. She was started on vancomycin and cefepime for hospital acquired pneumonia and sepsis. She remained normo-tensive while in the department. I spoke with the admitting physician who was agreeable to admission. Patient is currently stable for transfer to the floor. - Lab Data Result diagrams: 11/11/18 16:25 11/11/18 16:25 Lab Results 11/11/18 11/11/18 11/11/18 Range/Units 16:25 16:25 16:25 WBC 17.7 H (3.8-10.6) k/uL RBC 4.47 (3.80-5.40) m/uL Hgb 9.0 L (11.4-16.0) gm/dL Hct 33.0 L (34.0-46.0) % MCV 73.8 L (80.0-100.0) fL MCH 20.2 L (25.0-35.0) pg MCHC 27.4 L (31.0-37.0) g/dL RDW 23.9 H (11.5-15.5) % Plt Count 614 H (150-450) k/uL Neutrophils % 92 % Lymphocytes % 3 % Monocytes % 4 % Eosinophils % 0 % Basophils % 0 % Neutrophils # 16.4 H (1.3-7.7) k/uL Lymphocytes # 0.6 L (1.0-4.8) k/uL Monocytes # 0.7 (0-1.0) k/uL Eosinophils # 0.0 (0-0.7) k/uL Basophils # 0.0 (0-0.2) k/uL Hypochromasia Marked Poikilocytosis Marked Anisocytosis Moderate Microcytosis Marked PT (9.0-12.0) sec INR (<1.2) Sodium 132 L (137-145) mmol/L Potassium 3.5 (3.5-5.1) mmol/L Chloride 86 L (98-107) mmol/L Carbon Dioxide 39 H (22-30) mmol/L Anion Gap 7 mmol/L BUN 16 (7-17) mg/dL Creatinine 0.59 (0.52-1.04) mg/dL Est GFR (CKD-EPI)AfAm >90 (>60 ml/min/1.73 sqM) Est GFR (CKD-EPI)NonAf >90 (>60 ml/min/1.73 sqM) Glucose 338 H (74-99) mg/dL Calcium 8.4 (8.4-10.2) mg/dL Total Bilirubin 0.5 (0.2-1.3) mg/dL Conjugated Bilirubin 0.0 (0.0-0.3) mg/dL Unconjugated Bilirubin 0.6 (0.0-1.1) mg/dL Delta Bilirubin 0.0 (0.0-0.2) mg/dL AST 20 (14-36) U/L ALT 31 (9-52) U/L Alkaline Phosphatase 111 (38-126) U/L Troponin I (0.000-0.034) ng/mL Total Protein 5.9 L (6.3-8.2) g/dL Albumin 3.6 (3.5-5.0) g/dL Lipase 44 (23-300) U/L Urine Color Urine Appearance (Clear) Urine pH (5.0-8.0) Ur Specific [place] (1.001-1.035) Urine Protein (Negative) Urine Glucose (UA) (Negative) Urine Ketones (Negative) Urine Blood (Negative) Urine Nitrite (Negative) Urine Bilirubin (Negative) Urine Urobilinogen (<2.0) mg/dL Ur Leukocyte Esterase (Negative) Blood Type B Positive Blood Type Recheck No Antibody Screen NEGATIVE Spec Expiration Date 11/14/2018 - 232411/11/18 11/11/18 11/11/18 Range/Units 16:25 16:25 19:15 WBC (3.8-10.6) k/uL RBC (3.80-5.40) m/uL Hgb (11.4-16.0) gm/dL Hct (34.0-46.0) % MCV (80.0-100.0) fL MCH (25.0-35.0) pg MCHC (31.0-37.0) g/dL RDW (11.5-15.5) % Plt Count (150-450) k/uL Neutrophils % % Lymphocytes % % Monocytes % % Eosinophils % % Basophils % % Neutrophils # (1.3-7.7) k/uL Lymphocytes # (1.0-4.8) k/uL Monocytes # (0-1.0) k/uL Eosinophils # (0-0.7) k/uL Basophils # (0-0.2) k/uL Hypochromasia Poikilocytosis Anisocytosis Microcytosis PT 10.6 (9.0-12.0) sec INR 1.0 (<1.2) Sodium (137-145) mmol/L Potassium (3.5-5.1) mmol/L Chloride (98-107) mmol/L Carbon Dioxide (22-30) mmol/L Anion Gap mmol/L BUN (7-17) mg/dL Creatinine (0.52-1.04) mg/dL Est GFR (CKD-EPI)AfAm (>60 ml/min/1.73 sqM) Est GFR (CKD-EPI)NonAf (>60 ml/min/1.73 sqM) Glucose (74-99) mg/dL Calcium (8.4-10.2) mg/dL Total Bilirubin (0.2-1.3) mg/dL Conjugated Bilirubin (0.0-0.3) mg/dL Unconjugated Bilirubin (0.0-1.1) mg/dL Delta Bilirubin (0.0-0.2) mg/dL AST (14-36) U/L ALT (9-52) U/L Alkaline Phosphatase (38-126) U/L Troponin I <0.012 (0.000-0.034) ng/mL Total Protein (6.3-8.2) g/dL Albumin (3.5-5.0) g/dL Lipase (23-300) U/L Urine Color Yellow Urine Appearance Clear (Clear) Urine pH 6.0 (5.0-8.0) Ur Specific [place] 1.020 (1.001-1.035) Urine Protein Negative (Negative) Urine Glucose (UA) 3+ H (Negative) Urine Ketones Negative (Negative) Urine Blood Negative (Negative) Urine Nitrite Negative (Negative) Urine Bilirubin Negative (Negative) Urine Urobilinogen <2.0 (<2.0) mg/dL Ur Leukocyte Esterase Negative (Negative) Blood Type Blood Type Recheck Antibody Screen Spec Expiration Date Disposition Clinical Impression: Sepsis, Pneumonia, Hypotension Disposition: ADMITTED IP TO [facility] Decision to Admit Reason: Admit from EC Decision Date: 11/11/18 Decision Time: 19:49
[2018-11-11 17:01] LABS: Anisocytosis Moderate; Basophils % (A) 0 %; Eosinophils % (A) 0 %; Hypochromasia Marked; Lymphocytes # (A) 0.6 k/uL (1.0-4.8); Lymphocytes % (A) 3 %; MCH 20.2 pg (25.0-35.0); MCHC 27.4 g/dL (31.0-37.0); MCV 73.8 fL (80.0-100.0); Microcytosis Marked; Monocytes # (A) 0.7 k/uL (0-1.0); Monocytes % (A) 4 %; Neutrophils # (A) 16.4 k/uL (1.3-7.7); Neutrophils % (A) 92 %; Platelet Count 614 k/uL (150-450); Poikilocytosis Marked; RBC 4.47 m/uL (3.80-5.40); RDW 23.9 % (11.5-15.5); WBC 17.7 k/uL (3.8-10.6)
[2018-11-11 17:05] LABS: Prothrombin Time 10.6 sec (9.0-12.0)
--- NOTE | 2018-11-11 17:05 | XR ---
EXAMINATION TYPE: XR chest 1V portable DATE OF EXAM: 11/11/2018 COMPARISON: 10/31/2018 HISTORY: Pain TECHNIQUE: Single frontal view of the chest is obtained. FINDINGS: Small left pleural effusion. No consolidation or pneumothorax. Diffuse arthropathy shoulde rs. Chronic rib cage deformity seen. No overt failure. Heart size normal. IMPRESSION: Left basilar infiltrate and small effusion. Correlate for COPD
[2018-11-11 17:09] LABS: ALT 31 U/L (9-52); AST 20 U/L (14-36); African American GFR (CKD) >90 (>60 ml/min/1.73 sqM); Albumin 3.6 g/dL (3.5-5.0); Alkaline Phosphatase 111 U/L (38-126); Anion Gap 7 mmol/L; Bilirubin,Unconjugated 0.6 mg/dL (0.0-1.1); Blood Urea Nitrogen 16 mg/dL (7-17); Calcium 8.4 mg/dL (8.4-10.2); Carbon Dioxide 39 mmol/L (22-30); Chloride 86 mmol/L (98-107); Glucose 338 mg/dL (74-99); Sodium 132 mmol/L (137-145); Total Bilirubin 0.5 mg/dL (0.2-1.3); Total Protein 5.9 g/dL (6.3-8.2)
[2018-11-11] MEDS ORDERED: VANCOMYCIN IV PER PHARMACY 1 EACH MISC MISCELLANE PRN (17:12)
[2018-11-11] MEDS ORDERED: CEFEPIME 2 GM in SODIUM CHLORIDE 0.9% 100 ML IVPB STA (17:13)
[2018-11-11 17:16] LABS: Potassium 3.5 mmol/L (3.5-5.1)
[2018-11-11] MEDS ORDERED: VANCOMYCIN 1,000 MG in SODIUM CHLORIDE 0.9% 250 ML IVPB STA (17:43)
[2018-11-11] MEDS ORDERED: NALOXONE 0.4 MG/ML 1 ML VIAL IV PRN (19:39)
[2018-11-11] MEDS ORDERED: BACLOFEN 10 MG TAB PO PRN (19:42)
[2018-11-11] MEDS ORDERED: ALBUTEROL NEBULIZED 2.5 MG/3 ML INHALATION PRN (19:42)
[2018-11-11 19:55] LABS: Appearance,Urine Clear (Clear); Bilirubin,Urine Negative (Negative); Blood,Urine Negative (Negative); Color,Urine Yellow; Glucose,Urine (UA) 3+ (Negative); Ketones,Urine Negative (Negative); Leukocyte Esterase,Urine Negative (Negative); Nitrite,Urine Negative (Negative); Protein,Urine Negative (Negative); Urobilinogen,Urine <2.0 mg/dL (<2.0)
[2018-11-11] MEDS: FAMOTIDINE 20 MG TAB PO SCH (22:28)
[2018-11-11] MEDS: GABAPENTIN 300 MG CAP PO SCH (22:29)
[2018-11-11] MEDS: FLUTICASONE 50MCG/SPRAY NASAL 16GM EA NOSTRIL SCH (22:54)
[2018-11-12] MEDS: HYDROcodone/APAP 5-325MG 1 EACH TAB PO PRN ×2 (01:14→21:12)
[2018-11-12] MEDS: IPRATROPIUM 0.5 MG/2.5 ML NEBU INHALATION SCH ×4 (07:15→19:41)
[2018-11-12 07:17] LABS: Glucose,Whole Blood 444 mg/dL (75-99)
[2018-11-12] MEDS: FAMOTIDINE 20 MG TAB PO SCH ×2 (08:00→20:49)
[2018-11-12] MEDS: INSULIN ASPART (NovoLOG) 100 UNIT/ML VIAL SQ SCH ×4 (08:01→20:48)
[2018-11-12] MEDS: DILTIAZEM CD 180 MG CAP.ER.24H PO SCH (08:01)
[2018-11-12] MEDS: EZETIMIBE 10 MG TAB PO SCH (08:01)
[2018-11-12] MEDS: FERROUS SULFATE 325 MG TAB PO SCH (08:01)
[2018-11-12] MEDS: DULoxetine HCL 60 MG CAPSULE.DR PO SCH (08:01)
[2018-11-12] MEDS: METOPROLOL TARTRATE 25 MG TAB PO SCH (08:01)
[2018-11-12] MEDS: FLUTICASONE 50MCG/SPRAY NASAL 16GM EA NOSTRIL SCH ×2 (08:01→20:49)
[2018-11-12] MEDS: ATORVASTATIN 10 MG TAB PO SCH (08:01)
[2018-11-12] MEDS: NICOTINE 21MG/24HR PATCH TRANSDERM SCH (08:04)
[2018-11-12] MEDS ORDERED: INSULIN ASPART (NovoLOG) 100 UNIT/ML VIAL SQ ONE (08:21)
[2018-11-12 08:27] LABS: Anisocytosis Marked; Basophils % (A) 0 %; Eosinophils # (A) 0.1 k/uL (0-0.7); Eosinophils % (A) 0 %; HCT 36.1 % (34.0-46.0); HGB 9.5 gm/dL (11.4-16.0); Hypochromasia Marked; Lymphocytes # (A) 1.1 k/uL (1.0-4.8); Lymphocytes % (A) 8 %; MCH 19.2 pg (25.0-35.0); MCHC 26.2 g/dL (31.0-37.0); MCV 73.2 fL (80.0-100.0); Mean Platelet Volume 7.6; Microcytosis Marked; Monocytes # (A) 0.8 k/uL (0-1.0); Monocytes % (A) 6 %; Neutrophils # (A) 10.3 k/uL (1.3-7.7); Neutrophils % (A) 83 %; Platelet Count 550 k/uL (150-450); Poikilocytosis Moderate; RBC 4.94 m/uL (3.80-5.40); RDW 24.8 % (11.5-15.5); WBC 12.4 k/uL (3.8-10.6)
[2018-11-12] MEDS: VANCOMYCIN 750 MG in SODIUM CHLORIDE 0.9% 250 ML IVPB SCH ×2 (08:28→22:03)
[2018-11-12 08:46] LABS: African American GFR (CKD) >90 (>60 ml/min/1.73 sqM); Anion Gap 10 mmol/L; Blood Urea Nitrogen 15 mg/dL (7-17); Calcium 8.7 mg/dL (8.4-10.2); Carbon Dioxide 35 mmol/L (22-30); Chloride 88 mmol/L (98-107); Glucose 425 mg/dL (74-99); Sodium 133 mmol/L (137-145)
[2018-11-12] MEDS ORDERED: SUMAtriptan SUCCINATE 50 MG TAB PO PRN (09:14)
[2018-11-12] MEDS: PANTOPRAZOLE 40 MG TABLET PO SCH (10:55)
[2018-11-12] MEDS: FUROSEMIDE 20 MG TAB PO SCH (11:00)
[2018-11-12] MEDS: POLYETHYLENE GLYCOL 3350 17 GM POWD.PACK PO SCH (11:01)
[2018-11-12 11:34] LABS: Glucose,Whole Blood 217 mg/dL (75-99)
[2018-11-12] MEDS: RIVAROXABAN 20 MG TAB PO SCH (16:04)
[2018-11-12] MEDS: predniSONE 20 MG TAB PO SCH (16:17)
[2018-11-12] MEDS: CEFEPIME 1 GM in SODIUM CHLORIDE 0.9% 50 ML IVPB SCH ×2 (16:17→21:24)
[2018-11-12 17:41] LABS: Glucose,Whole Blood 319 mg/dL (75-99)
[2018-11-12 18:21] LABS: Hemoglobin A1C 7.6 % (4.0-6.0)
[2018-11-12 20:33] LABS: Glucose,Whole Blood 441 mg/dL (75-99)
[2018-11-12] MEDS: traZODone HCL 50 MG TAB PO SCH (20:49)
[2018-11-12] MEDS: GABAPENTIN 300 MG CAP PO SCH (20:49)
[2018-11-12] MEDS ORDERED: INSULIN DETEMIR (LEVEMIR) 100 UNIT/ML SYR SQ SCH (21:00)
--- NOTE | 2018-11-12 21:08 | P.HPIM ---
History of Present Illness H&P Date: 11/12/18 Chief Complaint: hypotension Ainsley Hernandez is a 68 yo F with PMH COPD on 2-3 L home O2, diastolic CHF, T1DM on pump, HTN, HLD who presented to the ED on recommendation of her visiting home nurse. She was recently admitted a few weeks ago for COPD exacerbation and treated at that time with steroids, ceftriaxone and azithromycin. She was also found to be anemic during that admission and required a transfusion. Pt completed omnicef after discharge and a 10 day prednisone taper and felt her breathing was improved, but still not back to baseline. She had been seen by visiting nurse and BP was measured to be very low, so pt came in to the ED. On her initial presentation BP 79/45 and SpO2 86% on 3 L O2. Pt was given 1 L NS and her BP improved to 100/60 and SpO2 98% on 2 L. WBC on admission 17 and Hgb 9.5. Her CXR showed a new L basilar infiltrate compared to previous admission. She complains of malaise and fatigue today as well as dyspnea on exertion and cough which are largely at her baseline. Review of Systems All systems: negative Constitutional: Reports malaise, Reports weakness, Denies chills, Denies fever Eyes: denies blurred vision, denies pain Ears, nose, mouth and throat: Denies headache, Denies sore throat Cardiovascular: Denies chest pain, Denies shortness of breath Respiratory: Reports cough, Reports dyspnea, Reports home oxygen, Reports respiratory infections Gastrointestinal: Denies abdominal pain, Denies diarrhea, Denies hematochezia, Denies melena, Denies nausea, Denies vomiting Genitourinary: Denies dysuria, Denies hematuria Musculoskeletal: Denies myalgias Integumentary: Denies pruritus, Denies rash Neurological: Denies numbness, Denies weakness Psychiatric: Denies anxiety, Denies depression Endocrine: Denies fatigue, Denies weight change Past Medical History Past Medical History: Coronary Artery Disease (CAD), COPD, CVA/TIA, Diabetes Mellitus, GERD/Reflux, Hyperlipidemia, Hypertension, Myocardial Infarction ([place]), Pneumonia, Seizure Disorder Additional Past Medical History / Comment(s): Recently tx at home for pne, recurrent pne, home oxygen at 2L/NC at hs and prn, IDDM type II with insulin pump, neuropathy bilateral hands/fingers, CVA 2009 with L sided weakness, one seizure in 2002, moderate protein calorie malnutrition, diverticular disease, osteoporosis, migraines, chronic low back pain, L eye retinal leak. Last Myocardial Infarction Date:: 1993 History of Any Multi-Drug Resistant Organisms: None Reported Past Surgical History: Appendectomy, Bowel Resection, Cholecystectomy, Heart Catheterization, Hysterectomy Additional Past Surgical History / Comment(s): PTCA in 1993, bowel resection-pt cannot recall reason at this time, EGD, colonoscopy, R carpal tunnel release, R thumb tendon surgery, L breast benign bx, bilateral cataract removals. Past Anesthesia/Blood Transfusion Reactions: Previous Problems w/ Anesthesia, Motion Sickness, Postoperative Nausea & Vomiting (PONV) Additional Past Anesthesia/Blood Transfusion Reaction / Comment(s): past blood transfusion-no reaction Past Psychological History: No Psychological Hx Reported Smoking Status: Current every day smoker Past Alcohol Use History: None Reported Past Drug Use History: None Reported - Past Family History Father Family Medical History: Diabetes Mellitus, Myocardial Infarction ([place]) Mother Family Medical History: Diabetes Mellitus, Renal Disease Medications and Allergies Home Medications Medication Instructions Recorded Confirmed Type Furosemide 20 mg PO DAILY 11/04/13 11/11/18 History Isosorbide Mononitrate [Imdur] 60 mg PO DAILY 11/04/13 11/11/18 History Risedronate Sodium [Atelvia] 35 mg PO MCKEON 11/04/13 11/11/18 History Tiotropium 18 Mcg/Puff [Spiriva] 1 puff INHALATION RT-DAILY 11/04/13 11/11/18 History Diltiazem HCl [Diltiazem 24Hr ER] 360 mg PO DAILY 12/29/15 11/11/18 History Gabapentin 300 mg PO HS 12/29/15 11/11/18 History Metoprolol Tartrate 25 mg PO DAILY 12/29/15 11/11/18 History Nitroglycerin Sl Tabs [Nitrostat] 0.4 mg PO Q5M PRN 12/29/15 11/11/18 History SUMAtriptan SUCCINATE [Imitrex] 100 mg PO BID PRN 12/29/15 11/11/18 History Atorvastatin [Lipitor] 10 mg PO DAILY 07/07/17 11/11/18 History Ezetimibe [Zetia] 10 mg PO DAILY 07/07/17 11/11/18 History Insulin Aspart (For Pump) [NovoLOG 50 - 60 unit SQ-PUMP DAILY 07/07/17 11/11/18 History (For Pump)] Omeprazole [PriLOSEC] 40 mg PO DAILY 07/07/17 11/11/18 History Polyethylene Glycol 3350 [Miralax] 17 gm PO DAILY 07/07/17 11/11/18 History Rivaroxaban [Xarelto] 20 mg PO DAILY 11/01/18 11/11/18 History Ipratropium-Albuterol Nebulize 3 ml INHALATION QID PRN #90 11/03/18 11/11/18 Rx [Duoneb 0.5 mg-3 mg/3 ml Soln] ampul.neb Albuterol Nebulized [Ventolin 2.5 mg INHALATION Q6H PRN 11/11/18 11/11/18 History Nebulized] Baclofen 10 - 20 mg PO HS PRN 11/11/18 11/11/18 History DULoxetine HCL [Cymbalta] 60 mg PO DAILY 11/11/18 11/11/18 History Ferrous Sulfate [Feosol] 325 mg PO DAILY 11/11/18 11/11/18 History Fluticasone Nasal [place] [Flonase 1 spray EA NOSTRIL BID 11/11/18 11/11/18 History Nasal [place]] Nystatin 100,000 Unit/ml Susp 5 ml PO QID 11/11/18 11/11/18 History [Mycostatin Oral Susp] Ranitidine HCl [Zantac] 150 mg PO BID 11/11/18 11/11/18 History Allergies Allergy/AdvReac Type Severity Reaction Status Date / Time erythromycin base Allergy Rash/Hives Verified 11/11/18 16:35 Physical Exam Vitals: Vital Signs Temp Pulse Pulse Resp BP BP Pulse Ox 11/12/18 15:58 84 11/12/18 15:45 80 99 11/12/18 13:56 98 F 61 16 104/65 99 11/12/18 11:40 78 11/12/18 11:19 72 11/12/18 08:00 76 16 11/12/18 07:26 70 11/12/18 07:15 68 11/12/18 07:00 98.6 F 76 16 145/79 100 11/12/18 04:00 16 11/12/18 00:31 98.4 F 73 16 118/69 99 11/11/18 23:00 17 11/11/18 22:03 97.9 F 88 16 110/55 100 11/11/18 21:00 69 18 129/76 96 11/11/18 20:00 70 18 119/78 96 11/11/18 19:18 65 18 111/61 97 Intake and Output 11/12/18 11/12/18 11/12/18 06:59 14:59 22:59 Intake Total 190 800 Output Total 400 Balance -210 800 Intake: Intake, IV Titration 250 Amount Vancomycin 750 mg In 250 Sodium Chloride 0.9% 250 ml @ 125 mls/hr IVPB Q12H [facility] Rx#:[id number] Oral 190 550 Output: Urine 400 Other: Voiding Method Toilet Toilet # Voids 1 Constitutional: thin, ill appearing, no distress. vitals reviewed HENT: normocephalic, TMs clear, EOMI, PERRL. mucus membranes moist Neck: supple, no JVD or thyromegaly Lymph: no cervical or axillary LAD CV: RRR, no murmur. Pulses 2+ Lungs: poor air entry throughout. No rales. Expiratory wheezing and scattered rhonchi are present Abd: soft, nontender, no organomegaly Ext: no cynaosis, clubbing or edema Neuro: AAOx3, no focal deficits Results CBC & Chem 7: 11/12/18 07:37 11/12/18 07:37 Labs: Abnormal Lab Results - Last 24 Hours (Table) 11/11/18 11/12/18 11/12/18 Range/Units 19:15 07:05 07:37 WBC 12.4 H (3.8-10.6) k/uL Hgb 9.5 L (11.4-16.0) gm/dL MCV 73.2 L (80.0-100.0) fL MCH 19.2 L (25.0-35.0) pg MCHC 26.2 L (31.0-37.0) g/dL RDW 24.8 H (11.5-15.5) % Plt Count 550 H (150-450) k/uL Neutrophils # 10.3 H (1.3-7.7) k/uL Sodium (137-145) mmol/L Chloride (98-107) mmol/L Carbon Dioxide (22-30) mmol/L Creatinine (0.52-1.04) mg/dL Glucose (74-99) mg/dL POC Glucose (mg/dL) 444 H (75-99) mg/dL Hemoglobin A1c (4.0-6.0) % Urine Glucose (UA) 3+ H (Negative) 11/12/18 11/12/18 11/12/18 Range/Units 07:37 07:37 11:31 WBC (3.8-10.6) k/uL Hgb (11.4-16.0) gm/dL MCV (80.0-100.0) fL MCH (25.0-35.0) pg MCHC (31.0-37.0) g/dL RDW (11.5-15.5) % Plt Count (150-450) k/uL Neutrophils # (1.3-7.7) k/uL Sodium 133 L (137-145) mmol/L Chloride 88 L (98-107) mmol/L Carbon Dioxide 35 H (22-30) mmol/L Creatinine 0.42 L (0.52-1.04) mg/dL Glucose 425 H (74-99) mg/dL POC Glucose (mg/dL) 217 H (75-99) mg/dL Hemoglobin A1c 7.6 H (4.0-6.0) % Urine Glucose (UA) (Negative) 11/12/18 Range/Units 17:30 WBC (3.8-10.6) k/uL Hgb (11.4-16.0) gm/dL MCV (80.0-100.0) fL MCH (25.0-35.0) pg MCHC (31.0-37.0) g/dL RDW (11.5-15.5) % Plt Count (150-450) k/uL Neutrophils # (1.3-7.7) k/uL Sodium (137-145) mmol/L Chloride (98-107) mmol/L Carbon Dioxide (22-30) mmol/L Creatinine (0.52-1.04) mg/dL Glucose (74-99) mg/dL POC Glucose (mg/dL) 319 H (75-99) mg/dL Hemoglobin A1c (4.0-6.0) % Urine Glucose (UA) (Negative) Thrombosis Risk Factor Assmnt - Choose All That Apply Any of the Below Risk Factors Present?: Yes Each Factor Represents 1 point: Abnormal pulmonary function (COPD), Acute [place] Other Risk Factors: Yes Each Risk Factor Represents 2 Points: Age 61-74 years Thrombosis Risk Factor Assessment Total Risk Factor Score: 4 Thrombosis Risk Factor Assessment Level: Moderate Risk Assessment and Plan (1) HCAP (healthcare-associated pneumonia) Current Visit: Yes Status: Acute Code(s): J18.9 - PNEUMONIA, UNSPECIFIED ORGANISM SNOMED Code(s): 732239256 (2) Sepsis associated hypotension Current Visit: Yes Status: Acute Code(s): A41.9 - SEPSIS, UNSPECIFIED ORGANISM; I95.9 - HYPOTENSION, UNSPECIFIED SNOMED Code(s): 36276144 (3) Sepsis due to pneumonia Current Visit: Yes Status: Acute Code(s): J18.9 - PNEUMONIA, UNSPECIFIED ORGANISM; A41.9 - SEPSIS, UNSPECIFIED ORGANISM SNOMED Code(s): 30240327 (4) Diastolic CHF Current Visit: No Status: Acute Code(s): I50.30 - UNSPECIFIED DIASTOLIC (CONGESTIVE) HEART FAILURE SNOMED Code(s): 248321320 (5) Type 1 diabetes mellitus Current Visit: No Status: Acute Code(s): E10.9 - TYPE 1 DIABETES MELLITUS WITHOUT COMPLICATIONS SNOMED Code(s): 55288306 Plan: 1. Sepsis/HCAP. SIRS 3/4 positive with suspected respiratory source. Blood culture obtained in the ED. Check procalcitonin. Continue cefepime and vancomycin 2. Hypotension, resolved. BP normalized with IVF 3. COPD on 2 L home O2. Oxygen requirements at baseline. Pulmonology consult placed. Prednisone 20 mg qd. Duonebs prn 4. Iron def anemia. Ferritin 10. Hgb stable from previous admission. Will need colonoscopy/EGD as outpatient 5. Diastolic CHF. Continue lasix 6. CAD. Continue toprol and diltiazem 7. Hx PE. Continue xarelto GI prophylaxis protonix
[2018-11-12 22:29] LABS: Glucose,Whole Blood 411 mg/dL (75-99)
[2018-11-13 02:40] LABS: Glucose,Whole Blood 316 mg/dL (75-99)
[2018-11-13 07:03] LABS: Glucose,Whole Blood 128 mg/dL (75-99)
[2018-11-13] MEDS: IPRATROPIUM 0.5 MG/2.5 ML NEBU INHALATION SCH ×4 (07:14→19:10)
[2018-11-13] MEDS: INSULIN ASPART (NovoLOG) 100 UNIT/ML VIAL SQ SCH ×4 (07:17→21:52)
[2018-11-13] MEDS: METOPROLOL TARTRATE 25 MG TAB PO SCH (07:54)
[2018-11-13] MEDS: predniSONE 20 MG TAB PO SCH (07:54)
[2018-11-13] MEDS: ATORVASTATIN 10 MG TAB PO SCH (07:54)
[2018-11-13] MEDS: FUROSEMIDE 20 MG TAB PO SCH (07:54)
[2018-11-13] MEDS: FLUTICASONE 50MCG/SPRAY NASAL 16GM EA NOSTRIL SCH ×2 (07:55→21:56)
[2018-11-13] MEDS: NICOTINE 21MG/24HR PATCH TRANSDERM SCH (07:55)
[2018-11-13] MEDS: POLYETHYLENE GLYCOL 3350 17 GM POWD.PACK PO SCH (07:56)
[2018-11-13] MEDS: RIVAROXABAN 20 MG TAB PO SCH ×2 (07:56→09:38)
[2018-11-13] MEDS ORDERED: VANCOMYCIN TROUGH DUE 1 EACH MISC MISCELLANE ONE (08:00)
[2018-11-13] MEDS: CEFEPIME 1 GM in SODIUM CHLORIDE 0.9% 50 ML IVPB SCH ×2 (08:01→21:55)
[2018-11-13 08:25] LABS: African American GFR (CKD) >90 (>60 ml/min/1.73 sqM)
[2018-11-13] MEDS: VANCOMYCIN 750 MG in SODIUM CHLORIDE 0.9% 250 ML IVPB SCH ×2 (09:33→16:42)
[2018-11-13] MEDS: PANTOPRAZOLE 40 MG TABLET PO SCH (09:37)
[2018-11-13] MEDS: EZETIMIBE 10 MG TAB PO SCH (09:38)
[2018-11-13] MEDS: DULoxetine HCL 60 MG CAPSULE.DR PO SCH (09:38)
[2018-11-13] MEDS: DILTIAZEM CD 180 MG CAP.ER.24H PO SCH (09:38)
[2018-11-13] MEDS: FAMOTIDINE 20 MG TAB PO SCH ×2 (09:38→21:51)
[2018-11-13] MEDS: FERROUS SULFATE 325 MG TAB PO SCH (09:38)
[2018-11-13 09:53] LABS: Anisocytosis Marked; HCT 35.3 % (34.0-46.0); HGB 9.5 gm/dL (11.4-16.0); Hypochromasia Marked; MCH 19.4 pg (25.0-35.0); MCHC 26.9 g/dL (31.0-37.0); Mean Platelet Volume 6.6; Microcytosis Marked; Platelet Count 494 k/uL (150-450); Poikilocytosis Moderate; RBC 4.91 m/uL (3.80-5.40); RDW 24.6 % (11.5-15.5); WBC 14.3 k/uL (3.8-10.6)
[2018-11-13 10:03] LABS: Anion Gap 6 mmol/L; Blood Urea Nitrogen 10 mg/dL (7-17); Calcium 8.6 mg/dL (8.4-10.2); Chloride 91 mmol/L (98-107); Glucose 96 mg/dL (74-99); Potassium 3.6 mmol/L (3.5-5.1); Sodium 137 mmol/L (137-145)
[2018-11-13 10:10] LABS: Carbon Dioxide 40 mmol/L (22-30)
[2018-11-13 11:56] LABS: Glucose,Whole Blood 183 mg/dL (75-99)
--- NOTE | 2018-11-13 13:22 | P.PN ---
Subjective Progress Note Date: 11/13/18 Ainsley Hernadnez is a 68 yo F with PMH COPD on 2-3 L home O2, diastolic CHF, T1DM on pump, HTN, HLD who presented to the ED on recommendation of her visiting home nurse. She was recently admitted a few weeks ago for COPD exacerbation and treated at that time with steroids, ceftriaxone and azithromycin. She was also found to be anemic during that admission and required a transfusion. Pt completed omnicef after discharge and a 10 day prednisone taper and felt her breathing was improved, but still not back to baseline. She had been seen by visiting nurse and BP was measured to be very low, so pt came in to the ED. On her initial presentation BP 79/45 and SpO2 86% on 3 L O2. Pt was given 1 L NS and her BP improved to 100/60 and SpO2 98% on 2 L. WBC on admission 17 and Hgb 9.5. Her CXR showed a new L basilar infiltrate compared to previous admission. She complains of malaise and fatigue today as well as dyspnea on exertion and cough which are largely at her baseline. 11/13/2018 maintain on cefepime on nebulized bronchodilators, oral steroids with breathing slowly improving. Less wheezing, now in bilateral lower lobes. Cough improved-Loose congested, nonproductive cough and occasional clear thick sputum. Telemetry sinus rhythm with PACs. Maintaining O2 sats of 100% on 3 L nasal cannula which can be titrated down to 2 L, patient's baseline. Ambulating tolerating exertion well-denies shortness of breath with exertion with O2. Good diet intake, and nausea vomiting or diarrhea. Positive bowel movement. Vital signs stable. Hemoglobin stable. Objective - Vital Signs Vital signs: Vital Signs Temp 97.7 F 11/13/18 07:05 Pulse 69 11/13/18 08:00 Resp 15 11/13/18 08:00 BP 152/74 11/13/18 07:05 Pulse Ox 100 11/13/18 07:05 Intake & Output 11/12/18 11/13/18 11/13/18 18:59 06:59 18:59 Intake Total 800 480 300 Output Total 200 Balance 800 280 300 Intake: Intake, IV Titration 250 Amount Vancomycin 750 mg In 250 Sodium Chloride 0.9% 250 ml @ 125 mls/hr IVPB Q12H [facility] Rx#:[id number] Oral 550 480 300 Output: Urine 200 Other: Voiding Method Toilet Toilet # Voids 1 # Bowel Movements 1 - Exam PHYSICAL EXAM: VITAL SIGNS: [As above] GENERAL: Sitting up in bed, no acute distress HEENT: Conjunctivae normal. eyes normal. NECK: No JVD. No thyroid enlargement. No LNs CARDIOVASCULAR: S1, S2 regular.No murmur. Pulses 2+ RESPIRATION: Nonlabored, Breath sounds diminished in the bases. Scattered rhonchi,no crackles. Expiratory wheezing bilateral lower lobes. ABDOMEN: Soft, nontender . No guarding. no masses palpable. No ascites, No hepatosplenomegaly.Bowel sounds heard. LEGS: No edema. no swelling PSYCHIATRY: Alert and oriented X3, mood and affect normal. NERVOUS SYSTEM: Cranial N 2-12 grossly normal. Moves all 4 limbs. Diffuse weakness No focal deficits. Strength and sensation grossly intact. Skin: no lesions, no rash - Labs CBC & Chem 7: 11/13/18 07:32 11/13/18 07:32 Labs: Abnormal Lab Results - Last 24 Hours (Table) 11/12/18 11/12/18 11/12/18 Range/Units 07:37 11:31 17:30 Creatinine (0.52-1.04) mg/dL POC Glucose (mg/dL) 217 H 319 H (75-99) mg/dL Hemoglobin A1c 7.6 H (4.0-6.0) % 11/12/18 11/12/18 11/13/18 Range/Units 20:21 22:16 02:29 Creatinine (0.52-1.04) mg/dL POC Glucose (mg/dL) 441 H 411 H 316 H (75-99) mg/dL Hemoglobin A1c (4.0-6.0) % 11/13/18 11/13/18 Range/Units 06:52 07:32 Creatinine 0.32 L (0.52-1.04) mg/dL POC Glucose (mg/dL) 128 H (75-99) mg/dL Hemoglobin A1c (4.0-6.0) % Microbiology - Last 24 Hours (Table) 11/11/18 21:00 Blood Culture - Preliminary Blood No Growth after 24 hours Assessment and Plan Assessment: (1) HCAP (healthcare-associated pneumonia) Current Visit: Yes Status: Acute Code(s): J18.9 - PNEUMONIA, UNSPECIFIED ORGANISM SNOMED Code(s): 147746566 (2) Sepsis associated hypotension Current Visit: Yes Status: Acute Code(s): A41.9 - SEPSIS, UNSPECIFIED ORGANISM; I95.9 - HYPOTENSION, UNSPECIFIED SNOMED Code(s): 51854042 (3) Sepsis due to pneumonia Current Visit: Yes Status: Acute Code(s): J18.9 - PNEUMONIA, UNSPECIFIED ORGANISM; A41.9 - SEPSIS, UNSPECIFIED ORGANISM SNOMED Code(s): 65962010 (4) Diastolic CHF Current Visit: No Status: Acute Code(s): I50.30 - UNSPECIFIED DIASTOLIC (CONGESTIVE) HEART FAILURE SNOMED Code(s): 940263107 (5) Type 1 diabetes mellitus, hemoglobin A1c 7.6 Current Visit: No Status: Acute Code(s): E10.9 - TYPE 1 DIABETES MELLITUS WITHOUT COMPLICATIONS SNOMED Code(s): 58873851 In continue current medication regime ,monitoring and symptomatic treatment. Maintained on nebulized bronchodilators, antibiotics, steroids. Calcitonin levels pending. Pulmonary consult in place with recommendations pending. PT/OT. Increase ambulation as tolerated. Patient declining subacute rehab at this time. Patient already has scheduled outpatient appointment for colonoscopy with Dr. Blankenship on the sixth. Sputum culture ordered, currently nonproductive cough so not yet collected. Discharge planning in progress for tomorrow. The impression and plan of care has been dictated as directed. : I performed a history and examination of this patient, discussed the same with the dictator. I agree with the dictator's note ,documented as a scribe. Any additional findings or plans will be noted.
[2018-11-13] MEDS: HYDROcodone/APAP 5-325MG 1 EACH TAB PO PRN (16:41)
[2018-11-13 16:56] LABS: Glucose,Whole Blood 526 mg/dL (75-99)
[2018-11-13 17:08] LABS: Glucose,Whole Blood 556 mg/dL (75-99)
[2018-11-13] MEDS ORDERED: INSULIN ASPART (NovoLOG) 100 UNIT/ML VIAL SQ ONE (17:18)
--- NOTE | 2018-11-13 17:27 | CONS ---
CONSULTATION DATE OF SERVICE: 11/13/2018 HISTORY OF PRESENT ILLNESS: The patient is a 68-year-old female who is followed at home by visiting nurses and states visiting nurse came out to her house yesterday and patient was found to be thirsty, dizzy, weak. The visiting nurse took patient's blood pressure and she was found to be hypotensive. Subsequently the nurse called the patient's primary care physician, which I understand is a PA at Dr. Dugan's office, who instructed the patient to come to the emergency room, which patient did do and was admitted for acute hypotension with worsening shortness of breath. The patient denied fever, chills, chest pain, nausea, vomiting or urinary symptoms; just did complain of feeling weak, worsening over these last few days. Patient recently was hospitalized for acute anemia, at which time she received a transfusion of a unit of packed red blood cells and is on supplemental iron. PAST MEDICAL HISTORY: Past medical history is significant for: 1. COPD. 2. CVA, TIA. 3. Diabetes mellitus, type 1. 4. GERD. 5. Hyperlipidemia. 6. Hypertension. 7. Myocardial infarction. 8. Pneumonia. 9. Seizure disorder. 10.The patient is on oxygen at home. 11.Diverticulitis. 12.Osteopenia. 13.Arthritis. PAST SURGICAL HISTORY: Past surgical history is significant for: 1. Appendectomy. 2. Bowel resection. 3. Cholecystectomy. 4. Heart catheterization. 5. Hysterectomy with angioplasty in . 6. The patient is scheduled for colonoscopy on November 18 for further evaluation of the anemia. ALLERGIES: ERYTHROMYCIN causes rash and hives. HOME MEDICATIONS: Home medications include: 1. Imitrex 100 mg p.o. b.i.d. p.r.n. 2. Atelvia 35 mg p.o. on Sundays. 3. DuoNeb q.i.d. p.r.n. 4. Gabapentin 300 mg p.o. at bedtime. 5. Baclofen 10-20 mg p.o. at bedtime p.r.n. 6. Albuterol via nebulizer 2.5 mg q.6 hours p.r.n. 7. Tiotropium 1 puff daily. 8. Nitrostat 0.4 mg p.o. q.5 minutes p.r.n. chest pain. 9. Imdur 60 mg p.o. daily. 10.Zetia 10 mg p.o. daily. 11.Lipitor 10 mg p.o. daily. 12.Xarelto 20 mg p.o. daily. 13.Nystatin 5 mg p.o. q.i.d. swish and swallow. 14.Zantac 150 mg p.o. b.i.d. 15.Metoprolol 25 mg p.o. daily. 16.Furosemide 20 mg p.o. daily. 17.Cymbalta 60 mg p.o. daily. 18.Flonase 1 spray each nostril b.i.d. 19.Prilosec 40 mg p.o. daily. 20.NovoLog via pump. 21.Feosol 325 mg p.o. daily. 22.Diltiazem 24-hour extended-release 360 mg p.o. daily. 23.MiraLAX 17 grams p.o. daily. PAST FAMILY HISTORY: Father with a history of diabetes mellitus and an [place]. Mother with a history of diabetes mellitus and renal disease. SOCIAL HISTORY: The patient continues to smoke and has a long-time history of nicotine dependence. Denies alcohol or illicit drug use. REVIEW OF SYSTEMS: Negative other than that mentioned in the HPI. PHYSICAL EXAMINATION: VITAL SIGNS: Temperature is 98.4, heart rate 72, respiratory rate 18, blood pressure 126/71, oxygen saturation 100% on 4 L oxygen via nasal cannula. HEENT: Head is normocephalic, atraumatic. Pupils equal, round, react to light. Ears and nose: No discharge is noted. Mouth with moist mucous membranes. No pharyngeal erythema. NECK: Supple. Trachea is midline. LUNGS: Decreased breath sounds and a prolonged expiratory phase. HEART: S1 and S2 are heard. Not tachycardic. ABDOMEN: Soft. Bowel sounds are heard. EXTREMITIES: No edema. NEUROLOGIC: Patient is awake and alert. LABS: White count is 14.3, hemoglobin 9.5, hematocrit 35.3 with 494,000 platelets. Sodium is 137, potassium 3.6, chloride 91. CO2 is 40. Anion gap is 6. BUN is 10, creatinine 0.32. Glucose is 96. Calcium is 8.6. IMAGING: Chest x-ray shows left basilar infiltrate and small effusion. Correlate for COPD. IMPRESSION: 1. Suspected left lower lobe pneumonia, possibly hospital-acquired, as patient was recently in the hospital for anemia. 2. Sepsis. 3. Hypotension. 4. Acute on chronic hypoxic respiratory failure. 5. Nicotine dependence. 6. Anemia. 7. Diabetes mellitus, type 1. 8. History of cerebrovascular accident. PLAN: Continue bronchodilators and aerosolized steroids. Continue supplemental oxygen. Continue IV antibiotics. Continue IV fluids. I would continue the weaning dose at 20 mg. Continue GI and DVT prophylaxis. Add pulmonary hygiene with incentive spirometry. We will follow patient closely with you, making further changes as necessary. Thank you for the consultation. MMODL / IJN: [id number] / JUDY
[2018-11-13] MEDS: BUDESONIDE 0.5 MG/2 ML NEBU INHALATION SCH (19:10)
[2018-11-13 20:44] LABS: Glucose,Whole Blood 336 mg/dL (75-99)
[2018-11-13] MEDS ORDERED: INSULIN DETEMIR (LEVEMIR) 100 UNIT/ML SYR SQ SCH (21:00)
[2018-11-13] MEDS: GABAPENTIN 300 MG CAP PO SCH (21:51)
[2018-11-13] MEDS: traZODone HCL 50 MG TAB PO SCH (21:51)
[2018-11-13] MEDS: NYSTATIN 100,000 UNIT/ML SUSP 500,000 UNIT/5 ML CUP PO SCH (22:14)
[2018-11-14] MEDS: HYDROcodone/APAP 5-325MG 1 EACH TAB PO PRN ×3 (00:04→23:32)
[2018-11-14] MEDS: VANCOMYCIN 750 MG in SODIUM CHLORIDE 0.9% 250 ML IVPB SCH ×3 (00:09→17:02)
[2018-11-14 07:03] LABS: Glucose,Whole Blood 45 mg/dL (75-99)
[2018-11-14 07:21] LABS: Glucose,Whole Blood 76 mg/dL (75-99)
[2018-11-14 07:21] LABS: Anisocytosis Marked; Basophils % (A) 0 %; Eosinophils # (A) 0.1 k/uL (0-0.7); Eosinophils % (A) 1 %; HCT 32.1 % (34.0-46.0); HGB 8.8 gm/dL (11.4-16.0); Hypochromasia Marked; Lymphocytes # (A) 1.6 k/uL (1.0-4.8); Lymphocytes % (A) 13 %; MCH 20.5 pg (25.0-35.0); MCHC 27.4 g/dL (31.0-37.0); MCV 74.8 fL (80.0-100.0); Mean Platelet Volume 6.5; Microcytosis Marked; Monocytes # (A) 0.8 k/uL (0-1.0); Monocytes % (A) 7 %; Neutrophils # (A) 9.3 k/uL (1.3-7.7); Neutrophils % (A) 76 %; Platelet Count 451 k/uL (150-450); Poikilocytosis Marked; RDW 24.3 % (11.5-15.5); WBC 12.2 k/uL (3.8-10.6)
[2018-11-14 07:43] LABS: African American GFR (CKD) >90 (>60 ml/min/1.73 sqM); Anion Gap 3 mmol/L; Blood Urea Nitrogen 12 mg/dL (7-17); Calcium 8.1 mg/dL (8.4-10.2); Carbon Dioxide 37 mmol/L (22-30); Chloride 98 mmol/L (98-107); Potassium 3.4 mmol/L (3.5-5.1); Sodium 138 mmol/L (137-145)
[2018-11-14 07:56] LABS: Glucose 34 mg/dL (74-99)
[2018-11-14] MEDS: NICOTINE 21MG/24HR PATCH TRANSDERM SCH (08:08)
[2018-11-14] MEDS: NYSTATIN 100,000 UNIT/ML SUSP 500,000 UNIT/5 ML CUP PO SCH ×4 (08:09→22:08)
[2018-11-14] MEDS: POLYETHYLENE GLYCOL 3350 17 GM POWD.PACK PO SCH ×2 (08:09→09:27)
[2018-11-14] MEDS: FLUTICASONE 50MCG/SPRAY NASAL 16GM EA NOSTRIL SCH ×2 (08:09→20:53)
[2018-11-14] MEDS: INSULIN DETEMIR (LEVEMIR) 100 UNIT/ML SYR SQ SCH ×2 (08:10→08:28)
[2018-11-14] MEDS: INSULIN ASPART (NovoLOG) 100 UNIT/ML VIAL SQ SCH ×4 (08:10→21:02)
[2018-11-14] MEDS: FERROUS SULFATE 325 MG TAB PO SCH (08:11)
[2018-11-14] MEDS: PANTOPRAZOLE 40 MG TABLET PO SCH (08:11)
[2018-11-14] MEDS: DULoxetine HCL 60 MG CAPSULE.DR PO SCH (08:11)
[2018-11-14] MEDS: predniSONE 20 MG TAB PO SCH (08:11)
[2018-11-14] MEDS: FAMOTIDINE 20 MG TAB PO SCH ×2 (08:11→20:53)
[2018-11-14] MEDS: METOPROLOL TARTRATE 25 MG TAB PO SCH (08:11)
[2018-11-14] MEDS: ATORVASTATIN 10 MG TAB PO SCH (08:11)
[2018-11-14] MEDS: EZETIMIBE 10 MG TAB PO SCH (08:11)
[2018-11-14] MEDS: FUROSEMIDE 20 MG TAB PO SCH (08:11)
[2018-11-14] MEDS: RIVAROXABAN 20 MG TAB PO SCH (08:12)
[2018-11-14] MEDS: DILTIAZEM CD 180 MG CAP.ER.24H PO SCH (08:12)
[2018-11-14] MEDS: IPRATROPIUM 0.5 MG/2.5 ML NEBU INHALATION SCH ×4 (09:02→20:36)
[2018-11-14] MEDS: BUDESONIDE 0.5 MG/2 ML NEBU INHALATION SCH ×2 (09:02→20:36)
[2018-11-14] MEDS: CEFEPIME 1 GM in SODIUM CHLORIDE 0.9% 50 ML IVPB SCH ×2 (10:52→20:55)
[2018-11-14] MEDS ORDERED: Potassium Replacement Protocol 1 EACH MISC MISCELLANE PRN (11:08)
--- NOTE | 2018-11-14 11:31 | CDI ---
Documentation Clarification Form Date: 11/14/2018 11:09:13 AM From: Korin Johns RN CCDS Admit Date: 11/11/2018 7:39:00 PM Patient Name: Ainsley Hernandez Visit Number: [id number] Discharge Date: ATTENTION: The Clinical Documentation Specialists (CDI) and [facility] Coding Staff appreciate your assistance in clarifying documentation. Please respond to the clarification below the line at the bottom and electronically sign. The CDI & [facility] Coding staff will review the response and follow-up if needed. Please note: Queries are made part of the Legal Health Record. If you have any questions, please contact the author of this message via ITS. Dr. Pipe Antonio HCAP Pneumonia was documented in your H & P and Progress Note 11/13/2018 History/Risk Factors: 68 year old female presents to the ED for malaise and fatigue recent admission to hospital for COPD exacerbation and anemia. CAD, COPD, CVA/TIA, DM, GERD, Hyperlipdemia, HTN,[place], Pneumonia, Home oxygen 2L nc Clinical Indicators: Vital signs: initial 79/45 70 98.0 24 86% nc 3L WBC 17.7 CXR: Left basilar infiltrate and small effusion Lung/Breathing assessment Nonlabored, Breath sounds diminished in the bases. Scattered rhonchi, no crackles. Expiratory wheezing bilateral lower lobes. Treatment: Antibiotics Cefepime Ivpb; Vancomycin ivpb; O2: Nasal Cannula 2L to 3L Breathing Tx: Ventolin; Albuterol / Ipratropium : Atrovent nebulized Pulmicort; In order to capture the severity of condition, please clarify if the condition signifies and you are treating for: Bacterial Pneumonia, specify causal organism (if known) Gram Negative Pneumonia Due to Strep Due to Staph Due to E. Coli Other bacteria (please specify) Other, please specify Unable to determine (Last Revision: July 2017) Unable to determine MTDD
[2018-11-14 11:32] LABS: Glucose,Whole Blood 80 mg/dL (75-99)
[2018-11-14] MEDS: POTASSIUM CHLORIDE ER 20 MEQ TAB.ER PO SCH ×2 (11:53→13:20)
--- NOTE | 2018-11-14 12:42 | PN ---
PROGRESS NOTE DATE OF SERVICE: 11/14/2018 Patient is a 68-year-old female who is seen sitting up at the bedside. Denies worsening shortness of breath or pain. Still feels weak. The patient is hemodynamically stable. Does have a bronchospastic cough and unable to bring any mucus up. The patient is afebrile in no acute distress. ON PHYSICAL EXAM: VITAL SIGNS: Temp is 98.4, heart rate is 89, respiratory rate is 16, blood pressure is 135/75, O2 sats 97% on 3 L O2 via nasal cannula. HEENT: Head is normocephalic, atraumatic. Neck is supple. Trachea is midline. Lungs are diminished with a prolonged expiratory phase and expiratory wheeze. HEART: S1, S2 are heard. Not tachycardic. ABDOMEN: Soft. Bowel sounds are heard. EXTREMITIES: With no edema. NEUROLOGIC: Patient is awake and alert. LABS: White count is 12.2, hemoglobin is 8.8, hematocrit 32.1 with 451,000 platelets. Sodium is 138, potassium is 3.4, chloride is 98, CO2 is 37, anion gap is 3, BUN is 12, creatinine 0.38. Glucose low at 34 this morning, however, last checked at 11:30 was 80. Calcium is 8.1. No new imaging to review. IMPRESSION AT THIS TIME: 1. Suspected left lower lobe pneumonia. 2. Sepsis. 3. Hypotension. 4. Acute on chronic hypoxic respiratory failure. 5. Nicotine dependence. 6. Anemia. 7. Diabetes mellitus type 1. 8. History of cerebrovascular accident. PLAN: Continue current medications which have been reviewed. Will add Solu-Medrol 60 mg q.6 hours times x4 doses only to see if we can decrease the inflammation in the airways and then go back to the prednisone at 20 mg daily. Continue IV antibiotics. Continue GI and DVT prophylaxis. Continue incentive spirometry and pulmonary hygiene and will follow patient closely with you making further changes as necessary. MMODL / IJN: [id number] /
--- NOTE | 2018-11-14 12:59 | P.GSCN ---
History of Present Illness Consult date: 11/14/18 Reason for Consult: anemia History of present illness: CHIEF COMPLAINT: Anemia HISTORY OF PRESENT ILLNESS: 68-year-old female who was admitted to the hospital secondary to pneumonia. Patient is scheduled to have outpatient EGD and colonoscopy with Dr. Gruber on 11/18/2018. Patient is requesting to have procedures done during this admission. She states she is not able to tolerate bowel prep at home and every time she has attempted in the past she becomes lig htheaded, dizzy, and passes out. PAST MEDICAL HISTORY: See list. PAST SURGICAL HISTORY: See list. SOCIAL HISTORY: No illicit drug use. REVIEW OF SYSTEMS: CONSTITUTIONAL: Denies fever or chills. HEENT: Denies blurred vision, vision changes, or eye pain. Denies hemoptysis CARDIOVASCULAR: Denies chest pain or pressure. RESPIRATORY: No shortness of breath. GASTROINTESTINAL: Refer to [facility] for pertinent findings HEMATOLOGIC: Denies bleeding disorders. GENITOURINARY: Denies any blood in urine. SKIN: Denies pruitis. Denies rash. PHYSICAL EXAM: VITAL SIGNS: Reviewed. GENERAL: Well-developed in no acute distress. HEENT: No sclera icterus. Extraocular movements grossly intact. Moist buccal mucosa. Head is atraumatic, normocephalic. ABDOMEN: Soft. Nondistended. Nontender. NEUROLOGIC: Alert and oriented. Cranial nerves II through XII grossly intact. LABORATORY DATA: WBC 12.2. Hemoglobin 8.8. ASSESSMENT: 1. Anemia, etiology unknown PLAN: Hold Xarleto EGD/Colonoscopy on saturday Clear liquid diet on saturday. NPO after midnight bowel prep saturday afternoon Nurse practitioner note has been reviewed by physician. Signing provider agrees with the documented findings, assessment, and plan of care. Past Medical History Past Medical History: Coronary Artery Disease (CAD), COPD, CVA/TIA, Diabetes Mellitus, GERD/Reflux, Hyperlipidemia, Hypertension, Myocardial Infarction (MT), Pneumonia, Seizure Disorder Additional Past Medical History / Comment(s): Recently tx at home for pne, re current pne, home oxygen at 2L/NC at hs and prn, IDDM type II with insulin pump, neuropathy bilateral hands/fingers, CVA 2009 with L sided weakness, one seizure in 2002, moderate protein calorie malnutrition, diverticular disease, osteoporosis, migraines, chronic low back pain, L eye retinal leak. Last Myocardial Infarction Date:: 1993 History of Any Multi-Drug Resistant Organisms: None Reported Past Surgical History: Appendectomy, Bowel Resection, Cholecystectomy, Heart Catheterization, Hysterectomy Additional Past Surgical History / Comment(s): PTCA in 1993, bowel resection-pt cannot recall reason at this time, EGD, colonoscopy, R carpal tunnel release, R thumb tendon surgery, L breast benign bx, bilateral cataract removals. Past Anesthesia/Blood Transfusion Reactions: Previous Problems w/ Anesthesia, Motion Sickness, Postoperative Nausea & Vomiting (PONV) Additional Past Anesthesia/Blood Transfusion Reaction / Comm: past blood transf usion-no reaction Past Psychological History: No Psychological Hx Reported Smoking Status: Current every day smoker Past Alcohol Use History: None Reported Past Drug Use History: None Reported - Past Family History Father Family Medical History: Diabetes Mellitus, Myocardial Infarction (MT) Mother Family Medical History: Diabetes Mellitus, Renal Disease Medications and Allergies Home Medications Medication Instructions Recorded Confirmed Type Furosemide 20 mg PO DAILY 11/04/13 11/11/18 History Isosorbide Mononitrate [Imdur] 60 mg PO DAILY 11/04/13 11/11/18 History Risedronate Sodium [Atelvia] 35 mg PO MCKEON 11/04/13 11/11/18 History Tiotropium 18 Mcg/Puff [Spiriva] 1 puff INHALATION RT-DAILY 11/04/13 11/11/18 History Diltiazem HCl [Diltiazem 24Hr ER] 360 mg PO DAILY 12/29/15 11/11/18 History Gabapentin 300 mg PO HS 12/29/15 11/11/18 History Metoprolol Tartrate 25 mg PO DAILY 12/29/15 11/11/18 History Nitroglycerin Sl Tabs [Nitrostat] 0.4 mg PO Q5M PRN 12/29/15 11/11/18 History SUMAtriptan SUCCINATE [Imitrex] 100 mg PO BID PRN 12/29/15 11/11/18 History Atorvastatin [Lipitor] 10 mg PO DAILY 07/07/17 11/11/18 History Ezetimibe [Zetia] 10 mg PO DAILY 07/07/17 11/11/18 History Insulin Aspart (For Pump) [NovoLOG 50 - 60 unit SQ-PUMP DAILY 07/07/17 11/11/18 History (For Pump)] Omeprazole [PriLOSEC] 40 mg PO DAILY 07/07/17 11/11/18 History Polyethylene Glycol 3350 [Miralax] 17 gm PO DAILY 07/07/17 11/11/18 History Rivaroxaban [Xarelto] 20 mg PO DAILY 11/01/18 11/11/18 History Ipratropium-Albuterol Nebulize 3 ml INHALATION QID PRN #90 11/03/18 11/11/18 Rx [Duoneb 0.5 mg-3 mg/3 ml Soln] ampul.neb Albuterol Nebulized [Ventolin 2.5 mg INHALATION Q6H PRN 11/11/18 11/11/18 History Nebulized] Baclofen 10 - 20 mg PO HS PRN 11/11/18 11/11/18 History DULoxetine HCL [Cymbalta] 60 mg PO DAILY 11/11/18 11/11/18 History Ferrous Sulfate [Feosol] 325 mg PO DAILY 11/11/18 11/11/18 History Fluticasone Nasal [place] [Flonase 1 spray EA NOSTRIL BID 11/11/18 11/11/18 History Nasal [place]] Nystatin 100,000 Unit/ml Susp 5 ml PO QID 11/11/18 11/11/18 History [Mycostatin Oral Susp] Ranitidine HCl [Zantac] 150 mg PO BID 11/11/18 11/11/18 History Allergies Allergy/AdvReac Type Severity Reaction Status Date / Time erythromycin base Allergy Rash/Hives Verified 11/11/18 16:35 Surgical - Exam Vital Signs Temp Pulse Resp BP Pulse Ox 98.0 F 70 24 79/45 86 L 11/11/18 15:51 11/11/18 15:51 11/11/18 15:51 11/11/18 15:51 11/11/18 15:51 Results - Labs 11/14/18 06:25 11/14/18 06:25 Abnormal Lab Results - Last 24 Hours (Table) 11/13/18 11/13/18 11/13/18 Range/Units 16:53 16:56 20:33 WBC (3.8-10.6) k/uL Hgb (11.4-16.0) gm/dL Hct (34.0-46.0) % MCV (80.0-100.0) fL MCH (25.0-35.0) pg MCHC (31.0-37.0) g/dL RDW (11.5-15.5) % Plt Count (150-450) k/uL Neutrophils # (1.3-7.7) k/uL Potassium (3.5-5.1) mmol/L Carbon Dioxide (22-30) mmol/L Creatinine (0.52-1.04) mg/dL Glucose (74-99) mg/dL POC Glucose (mg/dL) 526 H 556 H 336 H (75-99) mg/dL Calcium (8.4-10.2) mg/dL 11/14/18 11/14/18 11/14/18 Range/Units 06:25 06:25 07:01 WBC 12.2 H (3.8-10.6) k/uL Hgb 8.8 L (11.4-16.0) gm/dL Hct 32.1 L (34.0-46.0) % MCV 74.8 L (80.0-100.0) fL MCH 20.5 L (25.0-35.0) pg MCHC 27.4 L (31.0-37.0) g/dL RDW 24.3 H (11.5-15.5) % Plt Count 451 H (150-450) k/uL Neutrophils # 9.3 H (1.3-7.7) k/uL Potassium 3.4 L (3.5-5.1) mmol/L Carbon Dioxide 37 H (22-30) mmol/L Creatinine 0.38 L (0.52-1.04) mg/dL Glucose 34 L* (74-99) mg/dL POC Glucose (mg/dL) 45 L (75-99) mg/dL Calcium 8.1 L (8.4-10.2) mg/dL Microbiology - Last 24 Hours (Table) 11/11/18 21:00 Blood Culture - Preliminary Blood No Growth after 48 hours Diabetes panel 11/14/18 Range/Units 06:25 Sodium 138 (137-145) mmol/L Potassium 3.4 L (3.5-5.1) mmol/L Chloride 98 (98-107) mmol/L Carbon Dioxide 37 H (22-30) mmol/L BUN 12 (7-17) mg/dL Creatinine 0.38 L (0.52-1.04) mg/dL Glucose 34 L* (74-99) mg/dL Calcium 8.1 L (8.4-10.2) mg/dL Calcium panel 11/14/18 Range/Units 06:25 Calcium 8.1 L (8.4-10.2) mg/dL Pituitary panel 11/14/18 Range/Units 06:25 Sodium 138 (137-145) mmol/L Potassium 3.4 L (3.5-5.1) mmol/L Chloride 98 (98-107) mmol/L Carbon Dioxide 37 H (22-30) mmol/L BUN 12 (7-17) mg/dL Creatinine 0.38 L (0.52-1.04) mg/dL Glucose 34 L* (74-99) mg/dL Calcium 8.1 L (8.4-10.2) mg/dL Adrenal panel 11/14/18 Range/Units 06:25 Sodium 138 (137-145) mmol/L Potassium 3.4 L (3.5-5.1) mmol/L Chloride 98 (98-107) mmol/L Carbon Dioxide 37 H (22-30) mmol/L BUN 12 (7-17) mg/dL Creatinine 0.38 L (0.52-1.04) mg/dL Glucose 34 L* (74-99) mg/dL Calcium 8.1 L (8.4-10.2) mg/dL
[2018-11-14] MEDS: methylPREDNISolone SOD SUCCI 125 MG/2 ML VIAL IV SCH ×2 (13:20→17:35)
--- NOTE | 2018-11-14 14:30 | P.PN ---
Subjective Progress Note Date: 11/14/18 Ainsley Hernandez is a 68 yo F with PMH COPD on 2-3 L home O2, diastolic CHF, T1DM on pump, HTN, HLD who presented to the ED on recommendation of her visiting home nurse. She was recently admitted a few weeks ago for COPD exacerbation and treated at that time with steroids, ceftriaxone and azithromycin. She was also found to be anemic during that admission and required a transfusion. Pt completed omnicef after discharge and a 10 day prednisone taper and felt her breathing was improved, but still not back to baseline. She had been seen by visiting nurse and BP was measured to be very low, so pt came in to the ED. On her initial presentation BP 79/45 and SpO2 86% on 3 L O2. Pt was given 1 L NS and her BP improved to 100/60 and SpO2 98% on 2 L. WBC on admission 17 and Hgb 9.5. Her CXR showed a new L basilar infiltrate compared to previous admission. She complains of malaise and fatigue today as well as dyspnea on exertion and cough which are largely at her baseline. 11/13/2018 maintain on cefepime on nebulized bronchodilators, oral steroids with breathing slowly improving. Less wheezing, now in bilateral lower lobes. Cough improved-Loose congested, nonproductive cough and occasional clear thick sputum. Telemetry sinus rhythm with PACs. Maintaining O2 sats of 100% on 3 L nasal cannula which can be titrated down to 2 L, patient's baseline. Ambulating tolerating exertion well-denies shortness of breath with exertion with O2. Good diet intake, and nausea vomiting or diarrhea. Positive bowel movement. Vital signs stable. Hemoglobin stable. 11/14/2018 continues on nebulized bronchodilators,steroids and cefepime. reports no changes in breathing, not sleeping well.maintaining O2 sats in the high 90s to 100 on 3 L nasal cannula.afebrile,WBC improving, down to 12.2. Platelets de creased to 451. Hemoglobin decreased to 8.8, suspect dilutional. Objective - Vital Signs Vital signs: Vital Signs Temp 98.4 F 11/14/18 06:57 Pulse 80 11/14/18 09:13 Resp 16 11/14/18 08:00 BP 135/75 11/14/18 06:57 Pulse Ox 97 11/14/18 06:57 Intake & Output 11/13/18 11/14/18 11/14/18 18:59 06:59 18:59 Intake Total 900 Balance 900 Intake: Oral 900 Other: Voiding Method Toilet Toilet Toilet # Voids 3 1 # Bowel Movements 0 - Exam PHYSICAL EXAM: VITAL SIGNS: [As above] GENERAL: Sitting up in bed, no acute distress HEENT: Conjunctivae normal. eyes normal. NECK: No JVD. No thyroid enlargement. No LNs CARDIOVASCULAR: S1, S2 regular.No murmur. Pulses 2+ RESPIRATION: Nonlabored, Breath sounds diminished in the bases. Scattered rhonchi,no crackles. Decreased Expiratory wheezing bilateral lower lobes. ABDOMEN: Soft, nontender . No guarding. no masses palpable. No ascites, No hepatosplenomegaly.Bowel sounds heard. LEGS: No edema. no swelling PSYCHIATRY: Alert and oriented X3, mood and affect normal. NERVOUS SYSTEM: Cranial N 2-12 grossly normal. Moves all 4 limbs. Diffuse weakness No focal deficits. Strength and sensation grossly intact. Skin: no lesions, no rash - Labs CBC & Chem 7: 11/14/18 06:25 11/14/18 06:25 Labs: Abnormal Lab Results - Last 24 Hours (Table) 11/13/18 11/13/18 11/13/18 Range/Units 16:53 16:56 20:33 WBC (3.8-10.6) k/uL Hgb (11.4-16.0) gm/dL Hct (34.0-46.0) % MCV (80.0-100.0) fL MCH (25.0-35.0) pg MCHC (31.0-37.0) g/dL RDW (11.5-15.5) % Plt Count (150-450) k/uL Neutrophils # (1.3-7.7) k/uL Potassium (3.5-5.1) mmol/L Carbon Dioxide (22-30) mmol/L Creatinine (0.52-1.04) mg/dL Glucose (74-99) mg/dL POC Glucose (mg/dL) 526 H 556 H 336 H (75-99) mg/dL Calcium (8.4-10.2) mg/dL 11/14/18 11/14/18 11/14/18 Range/Units 06:25 06:25 07:01 WBC 12.2 H (3.8-10.6) k/uL Hgb 8.8 L (11.4-16.0) gm/dL Hct 32.1 L (34.0-46.0) % MCV 74.8 L (80.0-100.0) fL MCH 20.5 L (25.0-35.0) pg MCHC 27.4 L (31.0-37.0) g/dL RDW 24.3 H (11.5-15.5) % Plt Count 451 H (150-450) k/uL Neutrophils # 9.3 H (1.3-7.7) k/uL Potassium 3.4 L (3.5-5.1) mmol/L Carbon Dioxide 37 H (22-30) mmol/L Creatinine 0.38 L (0.52-1.04) mg/dL Glucose 34 L* (74-99) mg/dL POC Glucose (mg/dL) 45 L (75-99) mg/dL Calcium 8.1 L (8.4-10.2) mg/dL Microbiology - Last 24 Hours (Table) 11/11/18 21:00 Blood Culture - Preliminary Blood No Growth after 48 hours Assessment and Plan Assessment: (1) HCAP (healthcare-associated pneumonia) Current Visit: Yes Status: Acute Code(s): J18.9 - PNEUMONIA, UNSPECIFIED ORGANISM SNOMED Code(s): 150217500 (2) Sepsis associated hypotension Current Visit: Yes Status: Acute Code(s): A41.9 - SEPSIS, UNSPECIFIED ORGANISM; I95.9 - HYPOTENSION, UNSPECIFIED SNOMED Code(s): 93273829 (3) Sepsis due to pneumonia Current Visit: Yes Status: Acute Code(s): J18.9 - PNEUMONIA, UNSPECIFIED ORGANISM; A41.9 - SEPSIS, UNSPECIFIED ORGANISM SNOMED Code(s): 86775630 (4) Diastolic CHF Current Visit: No Status: Acute Code(s): I50.30 - UNSPECIFIED DIASTOLIC (CONGESTIVE) HEART FAILURE SNOMED Code(s): 947148667 (5) Type 1 diabetes mellitus, hemoglobin A1c 7.6 Current Visit: No Status: Acute Code(s): E10.9 - TYPE 1 DIABETES MELLITUS WITHOUT COMPLICATIONS SNOMED Code(s): 93213155 In continue current medication regime ,monitoring and symptomatic treatment. PT/OT,Suspect decrease in hemoglobin delusional,patient requesting Dr. Blankenship be consulted. She is scheduled for colonoscopy on the sixth- concerned about receiving the prep outpatient related to prior experiences of passing out from it.nebulized bronchodilators, antibiotics, steroids. Pulmonary consult in place with recommendations pending. Sputum culture collected, pending. The impression and plan of care has been dictated as directed. : I performed a history and examination of this patient, discussed the same with the dictator. I agree with the dictator's note ,documented as a scribe. Any additional findings or plans will be noted.
[2018-11-14] MEDS ORDERED: VANCOMYCIN TROUGH DUE 1 EACH MISC MISCELLANE ONE (16:00)
[2018-11-14 16:51] LABS: Glucose,Whole Blood 366 mg/dL (75-99)
[2018-11-14 20:42] LABS: Glucose,Whole Blood 313 mg/dL (75-99)
[2018-11-14] MEDS: traZODone HCL 50 MG TAB PO SCH (20:53)
[2018-11-14] MEDS: GABAPENTIN 300 MG CAP PO SCH (20:53)
[2018-11-15] MEDS: VANCOMYCIN 750 MG in SODIUM CHLORIDE 0.9% 250 ML IVPB SCH ×4 (00:41→23:16)
[2018-11-15] MEDS: methylPREDNISolone SOD SUCCI 125 MG/2 ML VIAL IV SCH ×2 (06:07)
[2018-11-15] MEDS: IPRATROPIUM 0.5 MG/2.5 ML NEBU INHALATION SCH ×4 (07:06→21:07)
[2018-11-15] MEDS: BUDESONIDE 0.5 MG/2 ML NEBU INHALATION SCH ×2 (07:06→21:06)
[2018-11-15 07:18] LABS: Glucose,Whole Blood 498 mg/dL (75-99)
[2018-11-15] MEDS: INSULIN ASPART (NovoLOG) 100 UNIT/ML VIAL SQ SCH ×4 (07:57→22:05)
[2018-11-15] MEDS ORDERED: INSULIN ASPART (NovoLOG) 100 UNIT/ML VIAL SQ ONE (08:09)
[2018-11-15] MEDS: INSULIN DETEMIR (LEVEMIR) 100 UNIT/ML SYR SQ SCH (08:30)
[2018-11-15] MEDS: CEFEPIME 1 GM in SODIUM CHLORIDE 0.9% 50 ML IVPB SCH ×2 (08:32→22:10)
[2018-11-15] MEDS: ATORVASTATIN 10 MG TAB PO SCH (08:32)
[2018-11-15] MEDS: DULoxetine HCL 60 MG CAPSULE.DR PO SCH (08:33)
[2018-11-15] MEDS: DILTIAZEM CD 180 MG CAP.ER.24H PO SCH (08:33)
[2018-11-15] MEDS: FAMOTIDINE 20 MG TAB PO SCH ×2 (08:34→22:05)
[2018-11-15] MEDS: FERROUS SULFATE 325 MG TAB PO SCH (08:34)
[2018-11-15] MEDS: FLUTICASONE 50MCG/SPRAY NASAL 16GM EA NOSTRIL SCH ×2 (08:34→22:06)
[2018-11-15] MEDS: EZETIMIBE 10 MG TAB PO SCH (08:34)
[2018-11-15] MEDS: FUROSEMIDE 20 MG TAB PO SCH (08:35)
[2018-11-15] MEDS: NYSTATIN 100,000 UNIT/ML SUSP 500,000 UNIT/5 ML CUP PO SCH ×4 (08:35→22:10)
[2018-11-15] MEDS: POLYETHYLENE GLYCOL 3350 17 GM POWD.PACK PO SCH (08:38)
[2018-11-15] MEDS: NICOTINE 21MG/24HR PATCH TRANSDERM SCH (08:38)
[2018-11-15] MEDS: PANTOPRAZOLE 40 MG TABLET PO SCH (08:39)
[2018-11-15] MEDS: predniSONE 20 MG TAB PO SCH (08:40)
[2018-11-15] MEDS: METOPROLOL TARTRATE 25 MG TAB PO SCH (08:40)
--- NOTE | 2018-11-15 08:55 | P.PN ---
Progress Note - Text Progress Note Date: 11/15/18 The patient is resting comfortably in bed. She describes no significant abdominal pain. She's had issues with chronic constipation. On exam her vital signs are stable. Her abdomen soft. Patient will be prepped for colonoscopy on Saturday.
[2018-11-15 09:05] LABS: Anisocytosis Marked; Basophils % (A) 0 %; Eosinophils % (A) 0 %; HCT 37.8 % (34.0-46.0); HGB 9.8 gm/dL (11.4-16.0); Hypochromasia Marked; Lymphocytes # (A) 0.3 k/uL (1.0-4.8); Lymphocytes % (A) 2 %; MCH 20.5 pg (25.0-35.0); MCHC 25.9 g/dL (31.0-37.0); MCV 79.1 fL (80.0-100.0); Mean Platelet Volume 6.8; Microcytosis Moderate; Monocytes # (A) 0.2 k/uL (0-1.0); Monocytes % (A) 2 %; Neutrophils # (A) 12.9 k/uL (1.3-7.7); Neutrophils % (A) 96 %; Platelet Count 333 k/uL (150-450); Poikilocytosis Marked; RBC 4.79 m/uL (3.80-5.40); WBC 13.5 k/uL (3.8-10.6)
[2018-11-15 09:07] LABS: RDW 25.2 % (11.5-15.5)
[2018-11-15 09:13] LABS: African American GFR (CKD) >90 (>60 ml/min/1.73 sqM); Anion Gap 9 mmol/L; Blood Urea Nitrogen 20 mg/dL (7-17); Calcium 8.9 mg/dL (8.4-10.2); Carbon Dioxide 27 mmol/L (22-30); Chloride 95 mmol/L (98-107); Potassium 4.6 mmol/L (3.5-5.1); Sodium 131 mmol/L (137-145)
[2018-11-15 09:31] LABS: Glucose 542 mg/dL (74-99)
--- NOTE | 2018-11-15 10:30 | P.PN ---
Subjective Progress Note Date: 11/15/18 Ainsley Hernandez is a 68 yo F with PMH COPD on 2-3 L home O2, diastolic CHF, T1DM on pump, HTN, HLD who presented to the ED on recommendation of her visiting home nurse. She was recently admitted a few weeks ago for COPD exacerbation and treated at that time with steroids, ceftriaxone and azithromycin. She was also found to be anemic during that admission and required a transfusion. Pt completed omnicef after discharge and a 10 day prednisone taper and felt her breathing was improved, but still not back to baseline. She had been seen by visiting nurse and BP was measured to be very low, so pt came in to the ED. On her initial presentation BP 79/45 and SpO2 86% on 3 L O2. Pt was given 1 L NS and her BP improved to 100/60 and SpO2 98% on 2 L. WBC on admission 17 and Hgb 9.5. Her CXR showed a new L basilar infiltrate compared to previous admission. She complains of malaise and fatigue today as well as dyspnea on exertion and cough which are largely at her baseline. 11/13/2018 maintain on cefepime on nebulized bronchodilators, oral steroids with breathing slowly improving. Less wheezing, now in bilateral lower lobes. Cough improved-Loose congested, nonproductive cough and occasional clear thick sputum. Telemetry sinus rhythm with PACs. Maintaining O2 sats of 100% on 3 L nasal cannula which can be titrated down to 2 L, patient's baseline. Ambulating tolerating exertion well-denies shortness of breath with exertion with O2. Good diet intake, and nausea vomiting or diarrhea. Positive bowel movement. Vital signs stable. Hemoglobin stable. 11/14/2018 continues on nebulized bronchodilators,steroids and cefepime. reports no changes in breathing, not sleeping well.maintaining O2 sats in the high 90s to 100 on 3 L nasal cannula.afebrile,WBC improving, down to 12.2. Platelets dec reased to 451. Hemoglobin decreased to 8.8, suspect dilutional. 3. Pt remains on 3 L O2 and feels her breathing is at her baseline. Endorses nonproductive cough and dyspnea with exertion. She did get high dose solumedrol per pulmonary yesterday and thinks that may have helped dry up her mucus. Her Hgb is increased to at 9.8 today. General surgery is planning on inpatient EGD and colonoscopy Saturday. Objective - Vital Signs Vital signs: Vital Signs Temp 98.5 F 11/15/18 07:00 Pulse 88 11/15/18 07:29 Resp 16 11/15/18 07:00 BP 187/95 11/15/18 07:00 Pulse Ox 95 11/15/18 07:00 Intake & Output 11/14/18 11/15/18 11/15/18 18:59 06:59 18:59 Intake Total 900 Balance 900 Intake: Oral 900 Other: Voiding Method Toilet Toilet # Voids 3 1 - Exam GENERAL: Sitting up in bed, no acute distress HEENT: Conjunctivae normal. eyes normal CARDIOVASCULAR: S1, S2 regular.No murmur. Pulses 2+ RESPIRATION: Nonlabored, Breath sounds diminished in the bases. Scattered rhonchi, no crackles. Decreased Expiratory wheezing bilateral lower lobes. ABDOMEN: Soft, nontender. No guarding. no masses palpable. No ascites, No hepatosplenomegaly. Bowel sounds heard. LEGS: No edema Skin: no lesions, no rash - Labs CBC & Chem 7: 11/15/18 08:40 11/15/18 08:40 Labs: Abnormal Lab Results - Last 24 Hours (Table) 11/14/18 11/14/18 11/15/18 Range/Units 16:47 20:31 06:59 WBC (3.8-10.6) k/uL Hgb (11.4-16.0) gm/dL MCV (80.0-100.0) fL MCH (25.0-35.0) pg MCHC (31.0-37.0) g/dL RDW (11.5-15.5) % Neutrophils # (1.3-7.7) k/uL Lymphocytes # (1.0-4.8) k/uL Sodium (137-145) mmol/L Chloride (98-107) mmol/L BUN (7-17) mg/dL Creatinine (0.52-1.04) mg/dL Glucose (74-99) mg/dL POC Glucose (mg/dL) 366 H 313 H 498 H (75-99) mg/dL 11/15/18 11/15/18 Range/Units 08:40 08:40 WBC 13.5 H (3.8-10.6) k/uL Hgb 9.8 L (11.4-16.0) gm/dL MCV 79.1 L (80.0-100.0) fL MCH 20.5 L (25.0-35.0) pg MCHC 25.9 L (31.0-37.0) g/dL RDW 25.2 H (11.5-15.5) % Neutrophils # 12.9 H (1.3-7.7) k/uL Lymphocytes # 0.3 L (1.0-4.8) k/uL Sodium 131 L (137-145) mmol/L Chloride 95 L (98-107) mmol/L BUN 20 H (7-17) mg/dL Creatinine 0.42 L (0.52-1.04) mg/dL Glucose 542 H* (74-99) mg/dL POC Glucose (mg/dL) (75-99) mg/dL Microbiology - Last 24 Hours (Table) 11/14/18 09:00 Gram Stain - Preliminary Sputum Sputum Culture - Preliminary 11/11/18 21:00 Blood Culture - Preliminary Blood No Growth after 72 hours Assessment and Plan (1) HCAP (healthcare-associated pneumonia) Current Visit: Yes Status: Acute Code(s): J18.9 - PNEUMONIA, UNSPECIFIED ORGANISM SNOMED Code(s): 971835223 (2) Sepsis associated hypotension Current Visit: Yes Status: Acute Code(s): A41.9 - SEPSIS, UNSPECIFIED ORGANISM; I95.9 - HYPOTENSION, UNSPECIFIED SNOMED Code(s): 84667399 (3) Sepsis due to pneumonia Current Visit: Yes Status: Acute Code(s): J18.9 - PNEUMONIA, UNSPECIFIED ORGANISM; A41.9 - SEPSIS, UNSPECIFIED ORGANISM SNOMED Code(s): 02404476 (4) Diastolic CHF Current Visit: No Status: Acute Code(s): I50.30 - UNSPECIFIED DIASTOLIC (CONGESTIVE) HEART FAILURE SNOMED Code(s): 534627041 (5) Type 1 diabetes mellitus Current Visit: No Status: Acute Code(s): E10.9 - TYPE 1 DIABETES MELLITUS WITHOUT COMPLICATIONS SNOMED Code(s): 48328736 Plan: 1. Sepsis/HCAP. SIRS 3/4 positive with suspected respiratory source. Blood culture negative. Sputum culture with gram negative rods. Continue cefepime and vancomycin 2. Hypotension, resolved. BP normalized with IVF 3. COPD on 2 L home O2. Oxygen requirements at baseline. Pulmonology consulted. Cough improved after high dose solumedrol yesterday. Resume prednisone 20 mg qd. Continue pulmicort and duonebs 4. Iron def anemia. Surgery consulted and planning on EGD/colonoscopy 11/17. Hold Xarelto tomorrow 5. Diastolic CHF. Continue lasix 6. CAD. Continue toprol and diltiazem 7. Hx PE. Hold xarelto before procedure [facility] prophylaxis protonix
[2018-11-15] MEDS ORDERED: FLUCONAZOLE 150 MG TAB PO STA (10:47)
[2018-11-15 11:49] LABS: Glucose,Whole Blood 271 mg/dL (75-99)
--- NOTE | 2018-11-15 12:06 | P.PN ---
Subjective Progress Note Date: 11/15/18 Principal diagnosis: pneumonia, hypotension, sepsis, diastolic heart failure, diverticulosis, type 1 diabetes mellitus, chronic hypoxic respiratory failure, history of CVA in the p ast, chronic anemia 11/15/2018, patient seen eval examined she is the oxygen dependent and prednison e dependent, with end-stage COPD came into the hospital with pneumonia she also has crampy abdominal pain predominantly on the left side general surgery is following patient is scheduled to have a colonoscopy early next week, glucose is improved to 271 now from 542 this morning jump is mainly due to IV steroids for 4 doses she is getting then she will go back to 20 mg of prednisone, white cell count is 13,000 hemoglobin is 9.8, sodium is 131, chest x-ray revealed left- sided infiltrate with small left-sided pleural effusion could be related to secondary due to abdominal process as well, currently she is on cepepime and vancomycin, we'll repeat a follow-up chest x-ray PA and lateral Objective - Vital Signs Vital signs: Vital Signs Temp 98.5 F 11/15/18 07:00 Pulse 88 11/15/18 11:10 Resp 16 11/15/18 07:00 BP 187/95 11/15/18 07:00 Pulse Ox 95 11/15/18 07:00 Intake & Output 11/14/18 11/15/18 11/15/18 18:59 06:59 18:59 Intake Total 900 Balance 900 Intake: Oral 900 Other: Voiding Method Toilet Toilet # Voids 3 1 - Constitutional General appearance: Present: average body habitus, disheveled - EENT Eyes: Present: EOMI, PERRLA, normal appearance Ears: bilateral: normal - Neck Neck: Present: normal ROM Carotids: bilateral: upstroke normal Thyroid: bilateral: normal size - Respiratory Respiratory: bilateral: diminished, prolonged expiration, negative: dullness, rales, rhonchi, wheezing - Cardiovascular Rhythm: regular Heart sounds: normal: S1, S2 - Gastrointestinal General gastrointestinal: Present: decreased bowel sounds, soft Localized gastrointestinal: tender: LUQ (Mild) - Integumentary Integumentary: Present: normal turgor - Neurologic Neurologic: Present: CNII-XII intact - Musculoskeletal Musculoskeletal: Present: gait normal, generalized weakness, strength equal bilaterally - Psychiatric Psychiatric: Present: A&O x's 3, appropriate affect, intact judgment & insight - Labs CBC & Chem 7: 11/15/18 08:40 11/15/18 08:40 Labs: Abnormal Lab Results - Last 24 Hours (Table) 11/14/18 11/14/18 11/15/18 Range/Units 16:47 20:31 06:59 WBC (3.8-10.6) k/uL Hgb (11.4-16.0) gm/dL MCV (80.0-100.0) fL MCH (25.0-35.0) pg MCHC (31.0-37.0) g/dL RDW (11.5-15.5) % Neutrophils # (1.3-7.7) k/uL Lymphocytes # (1.0-4.8) k/uL Sodium (137-145) mmol/L Chloride (98-107) mmol/L BUN (7-17) mg/dL Creatinine (0.52-1.04) mg/dL Glucose (74-99) mg/dL POC Glucose (mg/dL) 366 H 313 H 498 H (75-99) mg/dL 11/15/18 11/15/18 11/15/18 Range/Units 08:40 08:40 11:47 WBC 13.5 H (3.8-10.6) k/uL Hgb 9.8 L (11.4-16.0) gm/dL MCV 79.1 L (80.0-100.0) fL MCH 20.5 L (25.0-35.0) pg MCHC 25.9 L (31.0-37.0) g/dL RDW 25.2 H (11.5-15.5) % Neutrophils # 12.9 H (1.3-7.7) k/uL Lymphocytes # 0.3 L (1.0-4.8) k/uL Sodium 131 L (137-145) mmol/L Chloride 95 L (98-107) mmol/L BUN 20 H (7-17) mg/dL Creatinine 0.42 L (0.52-1.04) mg/dL Glucose 542 H* (74-99) mg/dL POC Glucose (mg/dL) 271 H (75-99) mg/dL Microbiology - Last 24 Hours (Table) 11/14/18 09:00 Gram Stain - Preliminary Sputum Sputum Culture - Preliminary 11/11/18 21:00 Blood Culture - Preliminary Blood No Growth after 72 hours - Imaging and Cardiology Chest x-ray: report reviewed, image reviewed (Chest x-ray on admit Left lower lobe infiltrate and atelectasis and effusion) Assessment and Plan Assessment: Left lower lobe pneumonia Small left-sided pleural effusion Left upper quadrant abdominal discomfort likely diverticulitis, we'll add Flagyl Chronic hypoxic respiratory failure Chronic anemia Uncontrolled hyperglycemia and diabetes Hyponatremia Generalized weakness Plan: Continue gentle rehydration Continue breathing treatments IV steroids to be switched to oral prednisone Colonoscopy in early next week general surgery is following Add IV Flagyl Chest x-ray PA and lateral Further recommendations pending plan of care as per clinical response of patient Time with Patient: Greater than 30
--- NOTE | 2018-11-15 14:30 | XR ---
EXAMINATION TYPE: XR chest 2V DATE OF EXAM: 11/15/2018 HISTORY: LLL Pneumonia and Effusion. REFERENCE: Previous study dated 11/11/2018. FINDINGS: There is a levoscoliosis present. The lungs are overinflated. Left lower lobe infiltrate has largely cleared. Some residual persists. T he right lung is clear. The heart is not enlarged. There is chronic blunting of both CP angles. IMPRESSION: 1 COPD 2. IMPROVING LEFT LOWER LOBE INFILTRATE
[2018-11-15] MEDS ORDERED: ONDANSETRON 4 MG TAB PO PRN (15:50)
[2018-11-15 16:11] LABS: Glucose,Whole Blood 170 mg/dL (75-99)
[2018-11-15] MEDS: metroNIDAZOLE-NS PMX 500 MG in SALINE 1 100ML.BAG IVPB SCH (16:40)
[2018-11-15 17:00] LABS: Glucose,Whole Blood 158 mg/dL (75-99)
[2018-11-15 20:12] LABS: Glucose,Whole Blood 235 mg/dL (75-99)
[2018-11-15] MEDS: HYDROcodone/APAP 5-325MG 1 EACH TAB PO PRN (22:04)
[2018-11-15] MEDS: traZODone HCL 100 MG TAB PO SCH (22:05)
[2018-11-15] MEDS: GABAPENTIN 300 MG CAP PO SCH (23:12)
[2018-11-15] MEDS: MELATONIN 3 MG TABLET PO SCH (23:12)
[2018-11-16] MEDS: metroNIDAZOLE-NS PMX 500 MG in SALINE 1 100ML.BAG IVPB SCH ×3 (02:18→18:44)
[2018-11-16] MEDS: VANCOMYCIN 750 MG in SODIUM CHLORIDE 0.9% 250 ML IVPB SCH ×3 (06:13→22:16)
[2018-11-16] MEDS ORDERED: INSULIN DETEMIR (LEVEMIR) 100 UNIT/ML SYR SQ SCH (07:00)
[2018-11-16 07:24] LABS: Anisocytosis Marked; Basophils % (A) 0 %; Eosinophils # (A) 0.1 k/uL (0-0.7); Eosinophils % (A) 0 %; HCT 36.1 % (34.0-46.0); HGB 9.8 gm/dL (11.4-16.0); Hypochromasia Marked; Lymphocytes # (A) 1.4 k/uL (1.0-4.8); Lymphocytes % (A) 8 %; MCH 21.2 pg (25.0-35.0); MCHC 27.3 g/dL (31.0-37.0); MCV 77.7 fL (80.0-100.0); Microcytosis Marked; Monocytes % (A) 5 %; Neutrophils # (A) 15.1 k/uL (1.3-7.7); Neutrophils % (A) 86 %; Platelet Count 391 k/uL (150-450); Poikilocytosis Marked; RBC 4.64 m/uL (3.80-5.40); WBC 17.7 k/uL (3.8-10.6)
[2018-11-16 07:26] LABS: ALT 32 U/L (9-52); AST 22 U/L (14-36); African American GFR (CKD) >90 (>60 ml/min/1.73 sqM); Albumin 3.4 g/dL (3.5-5.0); Alkaline Phosphatase 107 U/L (38-126); Anion Gap 6 mmol/L; Blood Urea Nitrogen 18 mg/dL (7-17); Calcium 8.7 mg/dL (8.4-10.2); Carbon Dioxide 34 mmol/L (22-30); Chloride 93 mmol/L (98-107); Glucose 358 mg/dL (74-99); Potassium 5.4 mmol/L (3.5-5.1); Sodium 133 mmol/L (137-145); Total Bilirubin 0.6 mg/dL (0.2-1.3); Total Protein 5.5 g/dL (6.3-8.2)
[2018-11-16 07:29] LABS: Glucose,Whole Blood 450 mg/dL (75-99)
[2018-11-16 07:39] LABS: RDW 26.4 % (11.5-15.5)
[2018-11-16] MEDS: NYSTATIN 100,000 UNIT/ML SUSP 500,000 UNIT/5 ML CUP PO SCH ×4 (07:53→22:16)
[2018-11-16] MEDS: DILTIAZEM CD 180 MG CAP.ER.24H PO SCH (07:53)
[2018-11-16] MEDS: EZETIMIBE 10 MG TAB PO SCH (07:53)
[2018-11-16] MEDS: FLUTICASONE 50MCG/SPRAY NASAL 16GM EA NOSTRIL SCH ×2 (07:53→20:53)
[2018-11-16] MEDS: NICOTINE 21MG/24HR PATCH TRANSDERM SCH (07:58)
[2018-11-16] MEDS: PANTOPRAZOLE 40 MG TABLET PO SCH (07:58)
[2018-11-16] MEDS: FAMOTIDINE 20 MG TAB PO SCH ×2 (07:58→20:53)
[2018-11-16] MEDS: METOPROLOL TARTRATE 25 MG TAB PO SCH (07:59)
[2018-11-16] MEDS: FUROSEMIDE 20 MG TAB PO SCH (08:00)
[2018-11-16] MEDS: IPRATROPIUM 0.5 MG/2.5 ML NEBU INHALATION SCH ×4 (08:00→19:43)
[2018-11-16] MEDS: BUDESONIDE 0.5 MG/2 ML NEBU INHALATION SCH ×2 (08:00→19:43)
[2018-11-16] MEDS ORDERED: VANCOMYCIN TROUGH DUE 1 EACH MISC MISCELLANE ONE ×2 (08:00→21:00)
[2018-11-16] MEDS: DULoxetine HCL 60 MG CAPSULE.DR PO SCH (08:00)
[2018-11-16] MEDS: FERROUS SULFATE 325 MG TAB PO SCH (08:01)
[2018-11-16] MEDS: INSULIN ASPART (NovoLOG) 100 UNIT/ML VIAL SQ SCH ×4 (08:04→20:47)
[2018-11-16] MEDS: ATORVASTATIN 10 MG TAB PO SCH (08:09)
[2018-11-16] MEDS: predniSONE 20 MG TAB PO SCH (08:09)
[2018-11-16] MEDS: POLYETHYLENE GLYCOL 3350 17 GM POWD.PACK PO SCH ×2 (08:09→08:30)
--- NOTE | 2018-11-16 10:13 | P.PN ---
Progress Note - Text Progress Note Date: 11/16/18 The patient remained stable. She still has complaints of constipation. She's had some mild GERD. On exam her vital signs are stable. Random soft. Patient will undergo EGD and colonoscopy in the a.m.
[2018-11-16] MEDS ORDERED: PEG 3350-NA SULF,BICARB,CL/KCL 4,000 ML BOTTLE PO ONE (12:00)
[2018-11-16 12:04] LABS: Glucose,Whole Blood 208 mg/dL (75-99)
[2018-11-16] MEDS: CEFEPIME 1 GM in SODIUM CHLORIDE 0.9% 50 ML IVPB SCH ×2 (12:31→20:59)
--- NOTE | 2018-11-16 16:03 | P.PN ---
Subjective Progress Note Date: 11/16/18 Ainsley Hernandez is a 68 yo F with PMH COPD on 2-3 L home O2, diastolic CHF, T1DM on pump, HTN, HLD who presented to the ED on recommendation of her visiting home nurse. She was recently admitted a few weeks ago for COPD exacerbation and treated at that time with steroids, ceftriaxone and azithromycin. She was also found to be anemic during that admission and required a transfusion. Pt completed omnicef after discharge and a 10 day prednisone taper and felt her breathing was improved, but still not back to baseline. She had been seen by visiting nurse and BP was measured to be very low, so pt came in to the ED. On her initial presentation BP 79/45 and SpO2 86% on 3 L O2. Pt was given 1 L NS and her BP improved to 100/60 and SpO2 98% on 2 L. WBC on admission 17 and Hgb 9.5. Her CXR showed a new L basilar infiltrate compared to previous admission. She complains of malaise and fatigue today as well as dyspnea on exertion and cough which are largely at her baseline. 11/13/2018 maintain on cefepime on nebulized bronchodilators, oral steroids with breathing slowly improving. Less wheezing, now in bilateral lower lobes. Cough improved-Loose congested, nonproductive cough and occasional clear thick sputum. Telemetry sinus rhythm with PACs. Maintaining O2 sats of 100% on 3 L nasal cannula which can be titrated down to 2 L, patient's baseline. Ambulating tolerating exertion well-denies shortness of breath with exertion with O2. Good diet intake, and nausea vomiting or diarrhea. Positive bowel movement. Vital signs stable. Hemoglobin stable. 11/14/2018 continues on nebulized bronchodilators,steroids and cefepime. reports no changes in breathing, not sleeping well.maintaining O2 sats in the high 90s to 100 on 3 L nasal cannula.afebrile,WBC improving, down to 12.2. Platelets dec reased to 451. Hemoglobin decreased to 8.8, suspect dilutional. 3. Pt remains on 3 L O2 and feels her breathing is at her baseline. Endorses nonproductive cough and dyspnea with exertion. She did get high dose solumedrol per pulmonary yesterday and thinks that may have helped dry up her mucus. Her Hgb is increased to at 9.8 today. General surgery is planning on inpatient EGD and colonoscopy Saturday. 11/16. She reports no change in her breathing today. Continues to complain of nonproductive cough and dyspnea with exertion. Her sputum culture showed olga and rare gram negative rods. Her WBC is increased today after high dose IV steroids yesterday. Hgb is stable and she will go for EGD/colonoscopy tomorrow. Objective - Vital Signs Vital signs: Vital Signs Temp 98.1 F 11/16/18 15:11 Pulse 60 11/16/18 15:11 Resp 16 11/16/18 15:11 BP 123/72 11/16/18 15:11 Pulse Ox 98 11/16/18 15:11 Intake & Output 11/15/18 11/16/18 11/16/18 18:59 06:59 18:59 Intake Total 800 700 Balance 800 700 Intake: Oral 800 700 Other: Voiding Method Toilet # Voids 2 1 2 # Bowel Movements 1 - Exam GENERAL: Sitting up in bed, no acute distress HEENT: Conjunctivae normal. eyes normal CARDIOVASCULAR: S1, S2 regular.No murmur. Pulses 2+ RESPIRATION: Nonlabored, Breath sounds diminished in the bases. Scattered rhonchi, no crackles. Decreased Expiratory wheezing bilateral lower lobes. ABDOMEN: Soft, nontender. No guarding. no masses palpable. No ascites, No hepatosplenomegaly. Bowel sounds heard. LEGS: No edema Skin: no lesions, no rash - Labs CBC & Chem 7: 11/16/18 06:26 11/16/18 06:26 Labs: Abnormal Lab Results - Last 24 Hours (Table) 11/15/18 11/15/18 11/15/18 Range/Units 16:07 16:57 20:00 WBC (3.8-10.6) k/uL Hgb (11.4-16.0) gm/dL MCV (80.0-100.0) fL MCH (25.0-35.0) pg MCHC (31.0-37.0) g/dL RDW (11.5-15.5) % Neutrophils # (1.3-7.7) k/uL Sodium (137-145) mmol/L Potassium (3.5-5.1) mmol/L Chloride (98-107) mmol/L Carbon Dioxide (22-30) mmol/L BUN (7-17) mg/dL Creatinine (0.52-1.04) mg/dL Glucose (74-99) mg/dL POC Glucose (mg/dL) 170 H 158 H 235 H (75-99) mg/dL Total Protein (6.3-8.2) g/dL Albumin (3.5-5.0) g/dL 11/16/18 11/16/18 11/16/18 Range/Units 06:26 06:26 07:22 WBC 17.7 H (3.8-10.6) k/uL Hgb 9.8 L (11.4-16.0) gm/dL MCV 77.7 L (80.0-100.0) fL MCH 21.2 L (25.0-35.0) pg MCHC 27.3 L (31.0-37.0) g/dL RDW 26.4 H (11.5-15.5) % Neutrophils # 15.1 H (1.3-7.7) k/uL Sodium 133 L (137-145) mmol/L Potassium 5.4 H (3.5-5.1) mmol/L Chloride 93 L (98-107) mmol/L Carbon Dioxide 34 H (22-30) mmol/L BUN 18 H (7-17) mg/dL Creatinine 0.47 L (0.52-1.04) mg/dL Glucose 358 H (74-99) mg/dL POC Glucose (mg/dL) 450 H (75-99) mg/dL Total Protein 5.5 L (6.3-8.2) g/dL Albumin 3.4 L (3.5-5.0) g/dL 11/16/18 Range/Units 12:00 WBC (3.8-10.6) k/uL Hgb (11.4-16.0) gm/dL MCV (80.0-100.0) fL MCH (25.0-35.0) pg MCHC (31.0-37.0) g/dL RDW (11.5-15.5) % Neutrophils # (1.3-7.7) k/uL Sodium (137-145) mmol/L Potassium (3.5-5.1) mmol/L Chloride (98-107) mmol/L Carbon Dioxide (22-30) mmol/L BUN (7-17) mg/dL Creatinine (0.52-1.04) mg/dL Glucose (74-99) mg/dL POC Glucose (mg/dL) 208 H (75-99) mg/dL Total Protein (6.3-8.2) g/dL Albumin (3.5-5.0) g/dL Microbiology - Last 24 Hours (Table) 11/14/18 09:00 Gram Stain - Final Sputum Sputum Culture - Final Olga albicans 11/11/18 21:00 Blood Culture - Preliminary Blood No Growth after 96 hours Assessment and Plan (1) HCAP (healthcare-associated pneumonia) Current Visit: Yes Status: Acute Code(s): J18.9 - PNEUMONIA, UNSPECIFIED ORGANISM SNOMED Code(s): 259868938 (2) Sepsis associated hypotension Current Visit: Yes Status: Acute Code(s): A41.9 - SEPSIS, UNSPECIFIED ORGANISM; I95.9 - HYPOTENSION, UNSPECIFIED SNOMED Code(s): 54317484 (3) Sepsis due to pneumonia Current Visit: Yes Status: Acute Code(s): J18.9 - PNEUMONIA, UNSPECIFIED ORGANISM; A41.9 - SEPSIS, UNSPECIFIED ORGANISM SNOMED Code(s): 77446714 (4) Diastolic CHF Current Visit: No Status: Acute Code(s): I50.30 - UNSPECIFIED DIASTOLIC (CONGESTIVE) HEART FAILURE SNOMED Code(s): 811471365 (5) Type 1 diabetes mellitus Current Visit: No Status: Acute Code(s): E10.9 - TYPE 1 DIABETES MELLITUS WITHOUT COMPLICATIONS SNOMED Code(s): 63101640 Plan: 1. Sepsis/HCAP. Blood culture negative. Sputum culture with gram negative rods. Continue cefepime and vancomycin. Added flagyl yesterday per pulm 2. Hypotension, resolved. BP normalized with IVF 3. COPD on 2 L home O2. Oxygen requirements at baseline. Pulmonology on board. Continue prednisone. Continue pulmicort and duonebs 4. Iron def anemia. Surgery consulted and planning on EGD/colonoscopy 11/17. Hold Xarelto 5. Diastolic CHF. Continue lasix 6. CAD. Continue toprol and diltiazem 7. Hx PE. Hold xarelto before procedure [facility] prophylaxis protonix
--- NOTE | 2018-11-16 16:08 | P.PN ---
Subjective Progress Note Date: 11/16/18 Principal diagnosis: pneumonia, hypotension, sepsis, diastolic heart failure, diverticulosis, type 1 diabetes mellitus, chronic hypoxic respiratory failure, history of CVA in the p ast, chronic anemia 11/16/2018, patient seen eval reexamined during the rounds denies any chest pain ongoing cough and dyspnea patient is for endoscopy tomorrow labs reviewed medications reviewed 11/15/2018, patient seen eval examined she is the oxygen dependent and prednisone dependent, with end-stage COPD came into the hospital with pneumonia she also has crampy abdominal pain predominantly on the left side general surgery is following patient is scheduled to have a colonoscopy early next week, glucose is improved to 271 now from 542 this morning jump is mainly due to IV steroids for 4 doses she is getting then she will go back to 20 mg of prednisone, white cell count is 13,000 hemoglobin is 9.8, sodium is 131, chest x-ray revealed left-sided infiltrate with small left-sided pleural effusion could be related to secondary due to abdominal process as well, currently she is on cepepime and vancomycin, we'll repeat a follow-up chest x-ray PA and lateral Objective - Vital Signs Vital signs: Vital Signs Temp 98.1 F 11/16/18 15:11 Pulse 60 11/16/18 15:11 Resp 16 11/16/18 15:11 BP 123/72 11/16/18 15:11 Pulse Ox 98 11/16/18 15:11 Intake & Output 11/15/18 11/16/18 11/16/18 18:59 06:59 18:59 Intake Total 800 700 Balance 800 700 Intake: Oral 800 700 Other: Voiding Method Toilet # Voids 2 1 2 # Bowel Movements 1 - Exam Constitutional General appearance: Present: average body habitus, disheveled - EENT Eyes: Present: EOMI, PERRLA, normal appearance Ears: bilateral: normal - Neck Neck: Present: normal ROM Carotids: bilateral: upstroke normal Thyroid: bilateral: normal size - Respiratory Respiratory: bilateral: diminished, prolonged expiration, negative: dullness, rales, rhonchi, wheezing - Cardiovascular Rhythm: regular Heart sounds: normal: S1, S2 - Gastrointestinal General gastrointestinal: Present: decreased bowel sounds, soft Localized gastrointestinal: tender: LUQ (Mild) - Integumentary Integumentary: Present: normal turgor - Neurologic Neurologic: Present: CNII-XII intact - Musculoskeletal Musculoskeletal: Present: gait normal, generalized weakness, strength equal bilaterally - Psychiatric Psychiatric: Present: A&O x's 3, appropriate affect, intact judgment & insight - Labs CBC & Chem 7: 11/16/18 06:26 11/16/18 06:26 Labs: Abnormal Lab Results - Last 24 Hours (Table) 11/15/18 11/15/18 11/15/18 Range/Units 16:07 16:57 20:00 WBC (3.8-10.6) k/uL Hgb (11.4-16.0) gm/dL MCV (80.0-100.0) fL MCH (25.0-35.0) pg MCHC (31.0-37.0) g/dL RDW (11.5-15.5) % Neutrophils # (1.3-7.7) k/uL Sodium (137-145) mmol/L Potassium (3.5-5.1) mmol/L Chloride (98-107) mmol/L Carbon Dioxide (22-30) mmol/L BUN (7-17) mg/dL Creatinine (0.52-1.04) mg/dL Glucose (74-99) mg/dL POC Glucose (mg/dL) 170 H 158 H 235 H (75-99) mg/dL Total Protein (6.3-8.2) g/dL Albumin (3.5-5.0) g/dL 11/16/18 11/16/18 11/16/18 Range/Units 06:26 06:26 07:22 WBC 17.7 H (3.8-10.6) k/uL Hgb 9.8 L (11.4-16.0) gm/dL MCV 77.7 L (80.0-100.0) fL MCH 21.2 L (25.0-35.0) pg MCHC 27.3 L (31.0-37.0) g/dL RDW 26.4 H (11.5-15.5) % Neutrophils # 15.1 H (1.3-7.7) k/uL Sodium 133 L (137-145) mmol/L Potassium 5.4 H (3.5-5.1) mmol/L Chloride 93 L (98-107) mmol/L Carbon Dioxide 34 H (22-30) mmol/L BUN 18 H (7-17) mg/dL Creatinine 0.47 L (0.52-1.04) mg/dL Glucose 358 H (74-99) mg/dL POC Glucose (mg/dL) 450 H (75-99) mg/dL Total Protein 5.5 L (6.3-8.2) g/dL Albumin 3.4 L (3.5-5.0) g/dL 11/16/18 Range/Units 12:00 WBC (3.8-10.6) k/uL Hgb (11.4-16.0) gm/dL MCV (80.0-100.0) fL MCH (25.0-35.0) pg MCHC (31.0-37.0) g/dL RDW (11.5-15.5) % Neutrophils # (1.3-7.7) k/uL Sodium (137-145) mmol/L Potassium (3.5-5.1) mmol/L Chloride (98-107) mmol/L Carbon Dioxide (22-30) mmol/L BUN (7-17) mg/dL Creatinine (0.52-1.04) mg/dL Glucose (74-99) mg/dL POC Glucose (mg/dL) 208 H (75-99) mg/dL Total Protein (6.3-8.2) g/dL Albumin (3.5-5.0) g/dL Microbiology - Last 24 Hours (Table) 11/14/18 09:00 Gram Stain - Final Sputum Sputum Culture - Final Olga albicans 11/11/18 21:00 Blood Culture - Preliminary Blood No Growth after 96 hours Assessment and Plan Assessment: Left lower lobe pneumonia Small left-sided pleural effusion Left upper quadrant abdominal discomfort likely diverticulitis, we'll add Flagyl Chronic hypoxic respiratory failure Chronic anemia Uncontrolled hyperglycemia and diabetes Hyponatremia Generalized weakness Plan: Continue gentle rehydration Continue breathing treatments IV steroids to be switched to oral prednisone next 24 hours Colonoscopy in early tomorrow general surgery is following Continue IV Flagyl Chest x-ray PA and lateral from yesterday reviewed improving left lower lobe pneumonia Further recommendations pending plan of care as per clinical response of patient Time with Patient: Greater than 30
[2018-11-16 17:13] LABS: Glucose,Whole Blood 32 mg/dL (75-99)
[2018-11-16 17:29] LABS: Glucose,Whole Blood 47 mg/dL (75-99)
[2018-11-16 17:49] LABS: Glucose,Whole Blood 90 mg/dL (75-99)
[2018-11-16] MEDS: IPRATROPIUM-ALBUTEROL 3 ML NEB INHALATION PRN (19:41)
[2018-11-16] MEDS ORDERED: RISEDRONATE SODIUM 35 MG PO SCH (19:42)
[2018-11-16] MEDS: MELATONIN 3 MG TABLET PO SCH (20:52)
[2018-11-16] MEDS: traZODone HCL 100 MG TAB PO SCH (20:52)
[2018-11-16] MEDS: GABAPENTIN 300 MG CAP PO SCH (20:52)
[2018-11-16 20:53] LABS: Glucose,Whole Blood 142 mg/dL (75-99)
[2018-11-17 01:49] LABS: Glucose,Whole Blood 72 mg/dL (75-99)
[2018-11-17 02:46] LABS: Glucose,Whole Blood 81 mg/dL (75-99)
[2018-11-17] MEDS: metroNIDAZOLE-NS PMX 500 MG in SALINE 1 100ML.BAG IVPB SCH ×3 (03:17→16:15)
[2018-11-17 05:14] LABS: Glucose,Whole Blood 151 mg/dL (75-99)
[2018-11-17 07:00] LABS: ALT 74 U/L (9-52); AST 92 U/L (14-36); African American GFR (CKD) >90 (>60 ml/min/1.73 sqM); Albumin 2.7 g/dL (3.5-5.0); Alkaline Phosphatase 83 U/L (38-126); Anion Gap 2 mmol/L; Blood Urea Nitrogen 9 mg/dL (7-17); Calcium 8.1 mg/dL (8.4-10.2); Carbon Dioxide 39 mmol/L (22-30); Chloride 94 mmol/L (98-107); Glucose 178 mg/dL (74-99); Potassium 3.6 mmol/L (3.5-5.1); Sodium 135 mmol/L (137-145); Total Bilirubin 0.5 mg/dL (0.2-1.3); Total Protein 4.5 g/dL (6.3-8.2)
[2018-11-17 07:07] LABS: Glucose,Whole Blood 229 mg/dL (75-99)
[2018-11-17 07:18] LABS: Anisocytosis Marked; Basophils % (A) 0 %; Eosinophils # (A) 0.1 k/uL (0-0.7); Eosinophils % (A) 1 %; HGB 9.6 gm/dL (11.4-16.0); Hypochromasia Marked; Lymphocytes # (A) 1.7 k/uL (1.0-4.8); Lymphocytes % (A) 12 %; MCH 21.2 pg (25.0-35.0); MCHC 28.2 g/dL (31.0-37.0); MCV 75.2 fL (80.0-100.0); Mean Platelet Volume 6.8; Microcytosis Marked; Monocytes # (A) 0.9 k/uL (0-1.0); Monocytes % (A) 7 %; Neutrophils % (A) 80 %; Platelet Count 313 k/uL (150-450); Poikilocytosis Marked; RBC 4.52 m/uL (3.80-5.40); WBC 13.8 k/uL (3.8-10.6)
[2018-11-17 07:25] LABS: RDW 26.8 % (11.5-15.5)
[2018-11-17] MEDS: IPRATROPIUM 0.5 MG/2.5 ML NEBU INHALATION SCH ×4 (07:35→19:21)
[2018-11-17] MEDS: BUDESONIDE 0.5 MG/2 ML NEBU INHALATION SCH ×2 (07:37→19:21)
[2018-11-17] MEDS: FAMOTIDINE 20 MG TAB PO SCH ×2 (09:06→21:53)
[2018-11-17] MEDS: PANTOPRAZOLE 40 MG TABLET PO SCH (09:06)
[2018-11-17] MEDS: INSULIN ASPART (NovoLOG) 100 UNIT/ML VIAL SQ SCH ×4 (09:06→20:57)
[2018-11-17] MEDS: INSULIN DETEMIR (LEVEMIR) 100 UNIT/ML SYR SQ SCH (09:06)
[2018-11-17] MEDS: ATORVASTATIN 10 MG TAB PO SCH (09:06)
[2018-11-17] MEDS: NYSTATIN 100,000 UNIT/ML SUSP 500,000 UNIT/5 ML CUP PO SCH ×4 (09:16→21:53)
[2018-11-17] MEDS: POLYETHYLENE GLYCOL 3350 17 GM POWD.PACK PO SCH (09:16)
[2018-11-17] MEDS: DILTIAZEM CD 180 MG CAP.ER.24H PO SCH (09:19)
[2018-11-17] MEDS: METOPROLOL TARTRATE 25 MG TAB PO SCH (09:19)
[2018-11-17] MEDS: FLUTICASONE 50MCG/SPRAY NASAL 16GM EA NOSTRIL SCH ×2 (09:19→21:53)
[2018-11-17] MEDS: NICOTINE 21MG/24HR PATCH TRANSDERM SCH (09:19)
[2018-11-17] MEDS: CEFEPIME 1 GM in SODIUM CHLORIDE 0.9% 50 ML IVPB SCH (09:20)
[2018-11-17] MEDS ORDERED: IV FLUID CONTINUATION 400 ML IV ONE (10:45)
[2018-11-17] MEDS ORDERED: PROPOFOL 10 MG/ML 20 ML VIAL IV ONE (10:48)
[2018-11-17] MEDS ORDERED: LIDOCAINE 1% INJ 10MG/ML (20 ML MDV) ONE (10:48)
--- NOTE | 2018-11-17 10:54 | P.PN ---
Subjective Progress Note Date: 11/17/18 Ainsley Hernandez is a 68 yo F with PMH COPD on 2-3 L home O2, diastolic CHF, T1DM on pump, HTN, HLD who presented to the ED on recommendation of her visiting home nurse. She was recently admitted a few weeks ago for COPD exacerbation and treated at that time with steroids, ceftriaxone and azithromycin. She was also found to be anemic during that admission and required a transfusion. Pt completed omnicef after discharge and a 10 day prednisone taper and felt her breathing was improved, but still not back to baseline. She had been seen by visiting nurse and BP was measured to be very low, so pt came in to the ED. On her initial presentation BP 79/45 and SpO2 86% on 3 L O2. Pt was given 1 L NS and her BP improved to 100/60 and SpO2 98% on 2 L. WBC on admission 17 and Hgb 9.5. Her CXR showed a new L basilar infiltrate compared to previous admission. She complains of malaise and fatigue today as well as dyspnea on exertion and cough which are largely at her baseline. 11/13/2018 maintain on cefepime on nebulized bronchodilators, oral steroids with breathing slowly improving. Less wheezing, now in bilateral lower lobes. Cough improved-Loose congested, nonproductive cough and occasional clear thick sputum. Telemetry sinus rhythm with PACs. Maintaining O2 sats of 100% on 3 L nasal cannula which can be titrated down to 2 L, patient's baseline. Ambulating tolerating exertion well-denies shortness of breath with exertion with O2. Good diet intake, and nausea vomiting or diarrhea. Positive bowel movement. Vital signs stable. Hemoglobin stable. 11/14/2018 continues on nebulized bronchodilators,steroids and cefepime. reports no changes in breathing, not sleeping well.maintaining O2 sats in the high 90s to 100 on 3 L nasal cannula.afebrile,WBC improving, down to 12.2. Platelets de creased to 451. Hemoglobin decreased to 8.8, suspect dilutional. 3. Pt remains on 3 L O2 and feels her breathing is at her baseline. Endorses nonproductive cough and dyspnea with exertion. She did get high dose solumedrol per pulmonary yesterday and thinks that may have helped dry up her mucus. Her Hgb is increased to at 9.8 today. General surgery is planning on inpatient EGD and colonoscopy Saturday. 11/16. She reports no change in her breathing today. Continues to complain of nonproductive cough and dyspnea with exertion. Her sputum culture showed olga and rare gram negative rods. Her WBC is increased today after high dose IV steroids yesterday. Hgb is stable and she will go for EGD/colonoscopy tomorrow. 11/17/2018 nothing by mouth, colonoscopy pending. No bleeding reported. Left lower quadrant pain fluctuating. Hemoglobin up to 9.6. Respiratory status improving with decreased WBC, O2 at baseline, minimal cough, afebrile. Sputum culture reporting a few Olga albicans, few gram-negative bacilli. Objective - Vital Signs Vital signs: Vital Signs Temp 98.1 F 11/17/18 07:04 Pulse 76 11/17/18 07:49 Resp 16 11/17/18 07:04 BP 167/78 11/17/18 07:04 Pulse Ox 94 L 11/17/18 07:04 Intake & Output 11/16/18 11/17/18 11/17/18 18:59 06:59 18:59 Intake Total 700 200 Output Total 400 Balance 700 -200 Weight 55.934 kg Intake: Oral 700 200 Output: Urine 400 Other: Voiding Method Toilet # Voids 2 # Bowel Movements 4 - Exam PHYSICAL EXAM: VITAL SIGNS: [As above] GENERAL: Sitting up in bed, no acute distress HEENT: Conjunctivae normal. eyes normal. NECK: No JVD. No thyroid enlargement. No LNs CARDIOVASCULAR: S1, S2 regular.No murmur. Pulses 2+ RESPIRATION: Nonlabored, Breath sounds diminished in the bases. Scattered rhonchi,no crackles. Occasional Expiratory wheezing bilateral lower lobes. ABDOMEN: Soft, nondistended, minimal left lower quadrant tenderness . No guarding. no masses palpable. No ascites, No hepatosplenomegaly.Bowel sounds heard. LEGS: No edema. no swelling PSYCHIATRY: Alert and oriented X3, mood and affect normal. NERVOUS SYSTEM: Cranial N 2-12 grossly normal. Moves all 4 limbs. Diffuse weakness No focal deficits. Strength and sensation grossly intact. Skin: no lesions, no rash Microbiology 11/11/18 21:00 Blood Blood Culture - Preliminary No Growth after 120 hours 11/14/18 09:00 Sputum Gram Stain - Final 11/14/18 09:00 Sputum Sputum Culture - Final Olga albicans - Labs CBC & Chem 7: 11/17/18 06:20 11/17/18 06:20 Labs: Abnormal Lab Results - Last 24 Hours (Table) 11/16/18 11/16/18 11/16/18 Range/Units 12:00 17:11 17:28 WBC (3.8-10.6) k/uL Hgb (11.4-16.0) gm/dL MCV (80.0-100.0) fL MCH (25.0-35.0) pg MCHC (31.0-37.0) g/dL RDW (11.5-15.5) % Neutrophils # (1.3-7.7) k/uL Sodium (137-145) mmol/L Chloride (98-107) mmol/L Carbon Dioxide (22-30) mmol/L Creatinine (0.52-1.04) mg/dL Glucose (74-99) mg/dL POC Glucose (mg/dL) 208 H 32 L 47 L (75-99) mg/dL Calcium (8.4-10.2) mg/dL AST (14-36) U/L ALT (9-52) U/L Total Protein (6.3-8.2) g/dL Albumin (3.5-5.0) g/dL 11/16/18 11/17/18 11/17/18 Range/Units 20:41 01:47 05:11 WBC (3.8-10.6) k/uL Hgb (11.4-16.0) gm/dL MCV (80.0-100.0) fL MCH (25.0-35.0) pg MCHC (31.0-37.0) g/dL RDW (11.5-15.5) % Neutrophils # (1.3-7.7) k/uL Sodium (137-145) mmol/L Chloride (98-107) mmol/L Carbon Dioxide (22-30) mmol/L Creatinine (0.52-1.04) mg/dL Glucose (74-99) mg/dL POC Glucose (mg/dL) 142 H 72 L 151 H (75-99) mg/dL Calcium (8.4-10.2) mg/dL AST (14-36) U/L ALT (9-52) U/L Total Protein (6.3-8.2) g/dL Albumin (3.5-5.0) g/dL 11/17/18 11/17/18 11/17/18 Range/Units 06:20 06:20 07:01 WBC 13.8 H (3.8-10.6) k/uL Hgb 9.6 L (11.4-16.0) gm/dL MCV 75.2 L (80.0-100.0) fL MCH 21.2 L (25.0-35.0) pg MCHC 28.2 L (31.0-37.0) g/dL RDW 26.8 H (11.5-15.5) % Neutrophils # 11.0 H (1.3-7.7) k/uL Sodium 135 L (137-145) mmol/L Chloride 94 L (98-107) mmol/L Carbon Dioxide 39 H (22-30) mmol/L Creatinine 0.31 L (0.52-1.04) mg/dL Glucose 178 H (74-99) mg/dL POC Glucose (mg/dL) 229 H (75-99) mg/dL Calcium 8.1 L (8.4-10.2) mg/dL AST 92 H (14-36) U/L ALT 74 H (9-52) U/L Total Protein 4.5 L (6.3-8.2) g/dL Albumin 2.7 L (3.5-5.0) g/dL Microbiology - Last 24 Hours (Table) 11/11/18 21:00 Blood Culture - Preliminary Blood No Growth after 120 hours 11/14/18 09:00 Gram Stain - Final Sputum Sputum Culture - Final Olga albicans Assessment and Plan Assessment: (1) HCAP (healthcare-associated pneumonia), left lower lobe Current Visit: Yes Status: Acute Code(s): J18.9 - PNEUMONIA, UNSPECIFIED ORGANISM SNOMED Code(s): 011492712 (2) Sepsis associated hypotension, resolved Current Visit: Yes Status: Acute Code(s): A41.9 - SEPSIS, UNSPECIFIED ORGANISM; I95.9 - HYPOTENSION, UNSPECIFIED SNOMED Code(s): 82180546 (3) Sepsis due to pneumonia Current Visit: Yes Status: Acute Code(s): J18.9 - PNEUMONIA, UNSPECIFIED ORGANISM; A41.9 - SEPSIS, UNSPECIFIED ORGANISM SNOMED Code(s): 81089835 (4) Diastolic CHF Current Visit: No Status: Acute Code(s): I50.30 - UNSPECIFIED DIASTOLIC (CONGESTIVE) HEART FAILURE SNOMED Code(s): 492095345 (5) Type 1 diabetes mellitus, hemoglobin A1c 7.6 Current Visit: No Status: Acute Code(s): E10.9 - TYPE 1 DIABETES MELLITUS WITHOUT COMPLICATIONS SNOMED Code(s): 67210882 (6) COPD, stable (7) chronic hypoxic respiratory failure, is 2 L nasal cannula at home. At baseline (8) CAD (9) history of PE, Xarelto on hold prior to colonoscopy (10) acute anemia, colonoscopy. (11) nicotine dependence Plan: continue current medication regime ,monitoring and symptomatic treatment. Xarelto on hold, NPO, colonoscopy pending. Maintain cefepime, vancomycin and Flagyl .Significant clinical improvement of repiratory status. Smoking cessation readdressed. Discharge planning in progress for tomorrow. The impression and plan of care has been dictated as directed. : I performed a history and examination of this patient, discussed the same with the dictator. I agree with the dictator's note ,documented as a scribe. Any additional findings or plans will be noted.
[2018-11-17] MEDS ORDERED: PEG 3350-NA SULF,BICARB,CL/KCL 4,000 ML BOTTLE PO ONE (11:05)
--- NOTE | 2018-11-17 11:05 | P.OP ---
Date of Procedure: 11/17/18 Preoperative Diagnosis: GERD Constipation Postoperative Diagnosis: Antral gastritis Incomplete colonoscopy secondary to poor prep Procedure(s) Performed: EGD Colonoscopy Anesthesia: MAC Surgeon: Balbir Gruber Pathology: other (Antrum) Condition: stable Disposition: PACU Description of Procedure: The patient's placed on the endoscopy table in the lateral position. She received IV sedation. The gastroscope placed oropharynx passed in the esophagus and into the stomach. Scope was then placed through the pylorus. First and second portion of the duodenum appeared normal. The scope was then brought back the antrum this is minimal inflamed. A biopsies performed. The scope was unretroflexed and remainder of the stomach appeared normal. There is no significant hiatal hernia. The GE junction was at 40 cm. The distal esophagus appeared normal. The proximal esophagus appeared normal. Scope was withdrawn for patient. Next digital rectal exam was performed which revealed a large amount liquid stool the flexible colonoscope was then placed patient anus passed with colon. Scope was passed beyond the sigmoid colon secondary to a poor prep there was a large amount of liquid brown/green stool scope couldn't be advanced because the colon could not be well visualized. This point the scope was withdrawn. The patient will be rescheduled for colonoscopy in the a.m. After further prep.
[2018-11-17 11:51] LABS: Glucose,Whole Blood 356 mg/dL (75-99)
[2018-11-17] MEDS: FERROUS SULFATE 325 MG TAB PO SCH (11:59)
[2018-11-17] MEDS: predniSONE 20 MG TAB PO SCH (12:00)
[2018-11-17] MEDS: FUROSEMIDE 20 MG TAB PO SCH (12:00)
[2018-11-17] MEDS: EZETIMIBE 10 MG TAB PO SCH (12:00)
[2018-11-17] MEDS: DULoxetine HCL 60 MG CAPSULE.DR PO SCH (12:00)
[2018-11-17] MEDS: VANCOMYCIN 750 MG in SODIUM CHLORIDE 0.9% 250 ML IVPB SCH ×2 (12:01→17:30)
[2018-11-17 16:52] LABS: Glucose,Whole Blood 243 mg/dL (75-99)
[2018-11-17] MEDS: IPRATROPIUM-ALBUTEROL 3 ML NEB INHALATION PRN (19:21)
--- NOTE | 2018-11-17 19:57 | PN ---
PROGRESS NOTE DATE OF SERVICE: 11/17/2018 This patient has less shortness of breath but is to undergo EGD with colonoscopy, as she has been having trouble with GI bleeding. On physical examination, her blood pressure is 167/78, respiratory rate 16, pulse rate 80, temperature 98.1. Oxygen saturation on 2 L by nasal cannula is 94%. HEENT is unremarkable. Chest reveals decreased breath sounds. Cardiovascular system reveals an S1, S2. Abdomen is soft. There is no edema. White count is 13.8, hemoglobin 9.6. Sodium 135, potassium 3.6, chloride 94, bicarb 39, BUN 9, creatinine of 0.31. IMPRESSION AT THIS TIME: 1. Gastrointestinal bleed. 2. Left lower zone pneumonia. 3. Acute on chronic hypoxic respiratory failure. Continue bronchodilators, aerosolized steroids, IV antibiotics. Increase her activity level. Her prognosis is fair. MMODL / IJN: [id number] /
[2018-11-17 20:20] LABS: Glucose,Whole Blood 264 mg/dL (75-99)
[2018-11-17] MEDS: traZODone HCL 100 MG TAB PO SCH (21:53)
[2018-11-17] MEDS: GABAPENTIN 300 MG CAP PO SCH (21:53)
[2018-11-17] MEDS: MELATONIN 3 MG TABLET PO SCH (21:53)
[2018-11-18] MEDS: CEFEPIME 1 GM in SODIUM CHLORIDE 0.9% 50 ML IVPB SCH ×3 (00:06→22:47)
[2018-11-18] MEDS: metroNIDAZOLE-NS PMX 500 MG in SALINE 1 100ML.BAG IVPB SCH ×2 (01:21→08:02)
[2018-11-18] MEDS: HYDROcodone/APAP 5-325MG 1 EACH TAB PO PRN ×3 (02:00→21:12)
[2018-11-18] MEDS: VANCOMYCIN 750 MG in SODIUM CHLORIDE 0.9% 250 ML IVPB SCH ×3 (02:28→17:41)
[2018-11-18 05:46] LABS: Glucose,Whole Blood 408 mg/dL (75-99)
[2018-11-18 07:11] LABS: Glucose,Whole Blood 407 mg/dL (75-99)
[2018-11-18] MEDS: FAMOTIDINE 20 MG TAB PO SCH ×2 (07:53→21:12)
[2018-11-18] MEDS: ATORVASTATIN 10 MG TAB PO SCH (07:53)
[2018-11-18] MEDS: DULoxetine HCL 60 MG CAPSULE.DR PO SCH (07:54)
[2018-11-18] MEDS: PANTOPRAZOLE 40 MG TABLET PO SCH (07:54)
[2018-11-18] MEDS: FUROSEMIDE 20 MG TAB PO SCH (07:54)
[2018-11-18] MEDS: FERROUS SULFATE 325 MG TAB PO SCH (07:54)
[2018-11-18] MEDS: predniSONE 20 MG TAB PO SCH (07:55)
[2018-11-18] MEDS: NYSTATIN 100,000 UNIT/ML SUSP 500,000 UNIT/5 ML CUP PO SCH ×4 (07:55→21:12)
[2018-11-18] MEDS: POLYETHYLENE GLYCOL 3350 17 GM POWD.PACK PO SCH (07:55)
[2018-11-18] MEDS: DILTIAZEM CD 180 MG CAP.ER.24H PO SCH (07:55)
[2018-11-18] MEDS: EZETIMIBE 10 MG TAB PO SCH (07:56)
[2018-11-18] MEDS: METOPROLOL TARTRATE 25 MG TAB PO SCH (07:59)
[2018-11-18] MEDS: INSULIN DETEMIR (LEVEMIR) 100 UNIT/ML SYR SQ SCH (07:59)
[2018-11-18] MEDS: NICOTINE 21MG/24HR PATCH TRANSDERM SCH (08:00)
[2018-11-18] MEDS: FLUTICASONE 50MCG/SPRAY NASAL 16GM EA NOSTRIL SCH ×2 (08:02→21:12)
[2018-11-18] MEDS: BUDESONIDE 0.5 MG/2 ML NEBU INHALATION SCH ×2 (08:39→21:16)
[2018-11-18] MEDS: IPRATROPIUM 0.5 MG/2.5 ML NEBU INHALATION SCH (08:40)
[2018-11-18] MEDS ORDERED: IPRATROPIUM-ALBUTEROL 3 ML NEB INHALATION PRN (09:13)
[2018-11-18] MEDS: INSULIN ASPART (NovoLOG) 100 UNIT/ML VIAL SQ SCH ×4 (09:17→21:07)
[2018-11-18 09:21] LABS: Glucose,Whole Blood 401 mg/dL (75-99)
[2018-11-18 10:01] LABS: African American GFR (CKD) >90 (>60 ml/min/1.73 sqM); Anion Gap 8 mmol/L; Blood Urea Nitrogen 10 mg/dL (7-17); Calcium 8.3 mg/dL (8.4-10.2); Carbon Dioxide 32 mmol/L (22-30); Chloride 96 mmol/L (98-107); Glucose 387 mg/dL (74-99); Potassium 3.9 mmol/L (3.5-5.1); Sodium 136 mmol/L (137-145)
[2018-11-18 10:15] LABS: Anisocytosis Marked; Basophils % (A) 0 %; Eosinophils # (A) 0.1 k/uL (0-0.7); Eosinophils % (A) 1 %; HCT 33.1 % (34.0-46.0); HGB 9.3 gm/dL (11.4-16.0); Hypochromasia Marked; Lymphocytes % (A) 11 %; MCH 20.8 pg (25.0-35.0); MCHC 28.1 g/dL (31.0-37.0); MCV 74.1 fL (80.0-100.0); Mean Platelet Volume 7.5; Microcytosis Marked; Monocytes # (A) 0.7 k/uL (0-1.0); Monocytes % (A) 8 %; Neutrophils % (A) 81 %; Platelet Count 296 k/uL (150-450); Poikilocytosis Moderate; RBC 4.46 m/uL (3.80-5.40); WBC 9.9 k/uL (3.8-10.6)
[2018-11-18 10:23] LABS: RDW 28.7 % (11.5-15.5)
[2018-11-18] MEDS ORDERED: PROPOFOL 10 MG/ML 20 ML VIAL IV ONE (11:20)
[2018-11-18] MEDS ORDERED: IV FLUID CONTINUATION 900 ML IV ONE (11:25)
--- NOTE | 2018-11-18 11:38 | P.OP ---
Date of Procedure: 11/18/18 Preoperative Diagnosis: Diverticulitis Postoperative Diagnosis: Diverticulosis Procedure(s) Performed: Colonoscopy Anesthesia: MAC Surgeon: Balbir Gruber Pathology: none sent Condition: stable Disposition: PACU Description of Procedure: The patient's placed on the endoscopy table in the lateral position. She received IV sedation. Digital rectal exam was performed which revealed a few external hemorrhoids. The possible colonoscope was then placed patient anus passed throughout the entire colon. The ileocecal valve was visually is. The cecum, ascending and transverse colon appeared normal. In the descending colon a few scattered diverticula. Patient a previous low anterior section. The princess stomosisAppeared normal without evidence of inflammation. There there was no evidence of any stricture. The scope was brought back the rectum and this appeared normal. Scope was withdrawn for patient.
[2018-11-18 12:10] LABS: Glucose,Whole Blood 219 mg/dL (75-99)
[2018-11-18] MEDS: IPRATROPIUM-ALBUTEROL 3 ML NEB INHALATION SCH ×3 (12:48→21:16)
[2018-11-18 14:23] VITALS: BMI 24.9
--- NOTE | 2018-11-18 15:19 | P.PN ---
Subjective Progress Note Date: 11/18/18 Ainsley Hernandez is a 68 yo F with PMH COPD on 2-3 L home O2, diastolic CHF, T1DM on pump, HTN, HLD who presented to the ED on recommendation of her visiting home nurse. She was recently admitted a few weeks ago for COPD exacerbation and treated at that time with steroids, ceftriaxone and azithromycin. She was also found to be anemic during that admission and required a transfusion. Pt completed omnicef after discharge and a 10 day prednisone taper and felt her breathing was improved, but still not back to baseline. She had been seen by visiting nurse and BP was measured to be very low, so pt came in to the ED. On her initial presentation BP 79/45 and SpO2 86% on 3 L O2. Pt was given 1 L NS and her BP improved to 100/60 and SpO2 98% on 2 L. WBC on admission 17 and Hgb 9.5. Her CXR showed a new L basilar infiltrate compared to previous admission. She complains of malaise and fatigue today as well as dyspnea on exertion and cough which are largely at her baseline. 11/13/2018 maintain on cefepime on nebulized bronchodilators, oral steroids with breathing slowly improving. Less wheezing, now in bilateral lower lobes. Cough improved-Loose congested, nonproductive cough and occasional clear thick sputum. Telemetry sinus rhythm with PACs. Maintaining O2 sats of 100% on 3 L nasal cannula which can be titrated down to 2 L, patient's baseline. Ambulating tolerating exertion well-denies shortness of breath with exertion with O2. Good diet intake, and nausea vomiting or diarrhea. Positive bowel movement. Vital signs stable. Hemoglobin stable. 11/14/2018 continues on nebulized bronchodilators,steroids and cefepime. reports no changes in breathing, not sleeping well.maintaining O2 sats in the high 90s to 100 on 3 L nasal cannula.afebrile,WBC improving, down to 12.2. Platelets de creased to 451. Hemoglobin decreased to 8.8, suspect dilutional. 3. Pt remains on 3 L O2 and feels her breathing is at her baseline. Endorses nonproductive cough and dyspnea with exertion. She did get high dose solumedrol per pulmonary yesterday and thinks that may have helped dry up her mucus. Her Hgb is increased to at 9.8 today. General surgery is planning on inpatient EGD and colonoscopy Saturday. 11/16. She reports no change in her breathing today. Continues to complain of nonproductive cough and dyspnea with exertion. Her sputum culture showed olga and rare gram negative rods. Her WBC is increased today after high dose IV steroids yesterday. Hgb is stable and she will go for EGD/colonoscopy tomorrow. 11/17/2018 nothing by mouth, colonoscopy pending. No bleeding reported. Left lower quadrant pain fluctuating. Hemoglobin up to 9.6. Respiratory status improving with decreased WBC, O2 at baseline, minimal cough, afebrile. Sputum culture reporting a few Olga albicans, few gram-negative bacilli. 11/18/2018 EGD performed yesterday reporting antral gastritis, colonoscopy aborted secondary to poor prep. Received further prep, underwent colonoscopy today reporting diverticulosis, few external hemorrhoids, few scattered diverticula in the descending colon. Tolerated procedure well. Hemoglobin 9.3. VSS. Objective - Vital Signs Vital signs: Vital Signs Temp 98.3 F 11/18/18 13:00 Pulse 79 11/18/18 13:00 Resp 16 11/18/18 13:00 BP 140/71 11/18/18 13:00 Pulse Ox 92 L 11/18/18 13:00 Intake & Output 11/17/18 11/18/18 11/18/18 18:59 06:59 18:59 Intake Total 460 100 Output Total 5 Balance 460 -5 100 Weight 55.934 kg Intake: IV 100 100 Oral 360 Output: Urine/Stool Mix 5 Other: Voiding Method Toilet Toilet # Voids 2 # Bowel Movements 3 - Labs CBC & Chem 7: 11/18/18 06:33 11/18/18 06:33 Labs: Abnormal Lab Results - Last 24 Hours (Table) 11/17/18 11/17/18 11/18/18 Range/Units 16:49 20:19 05:44 Hgb (11.4-16.0) gm/dL Hct (34.0-46.0) % MCV (80.0-100.0) fL MCH (25.0-35.0) pg MCHC (31.0-37.0) g/dL RDW (11.5-15.5) % Neutrophils # (1.3-7.7) k/uL Sodium (137-145) mmol/L Chloride (98-107) mmol/L Carbon Dioxide (22-30) mmol/L Creatinine (0.52-1.04) mg/dL Glucose (74-99) mg/dL POC Glucose (mg/dL) 243 H 264 H 408 H (75-99) mg/dL Calcium (8.4-10.2) mg/dL 11/18/18 11/18/18 11/18/18 Range/Units 06:33 06:33 06:59 Hgb 9.3 L (11.4-16.0) gm/dL Hct 33.1 L (34.0-46.0) % MCV 74.1 L (80.0-100.0) fL MCH 20.8 L (25.0-35.0) pg MCHC 28.1 L (31.0-37.0) g/dL RDW 28.7 H (11.5-15.5) % Neutrophils # 8.0 H (1.3-7.7) k/uL Sodium 136 L (137-145) mmol/L Chloride 96 L (98-107) mmol/L Carbon Dioxide 32 H (22-30) mmol/L Creatinine 0.41 L (0.52-1.04) mg/dL Glucose 387 H (74-99) mg/dL POC Glucose (mg/dL) 407 H (75-99) mg/dL Calcium 8.3 L (8.4-10.2) mg/dL 11/18/18 11/18/18 Range/Units 09:10 11:59 Hgb (11.4-16.0) gm/dL Hct (34.0-46.0) % MCV (80.0-100.0) fL MCH (25.0-35.0) pg MCHC (31.0-37.0) g/dL RDW (11.5-15.5) % Neutrophils # (1.3-7.7) k/uL Sodium (137-145) mmol/L Chloride (98-107) mmol/L Carbon Dioxide (22-30) mmol/L Creatinine (0.52-1.04) mg/dL Glucose (74-99) mg/dL POC Glucose (mg/dL) 401 H 219 H (75-99) mg/dL Calcium (8.4-10.2) mg/dL Microbiology - Last 24 Hours (Table) 11/11/18 21:00 Blood Culture - Final Blood No Growth after 144 hours Assessment and Plan Assessment: (1) HCAP (healthcare-associated pneumonia), left lower lobe Current Visit: Yes Status: Acute Code(s): J18.9 - PNEUMONIA, UNSPECIFIED ORGANISM SNOMED Code(s): 432960293 (2) Sepsis associated hypotension, resolved Current Visit: Yes Status: Acute Code(s): A41.9 - SEPSIS, UNSPECIFIED ORGANISM; I95.9 - HYPOTENSION, UNSPECIFIED SNOMED Code(s): 75899630 (3) Sepsis due to pneumonia Current Visit: Yes Status: Acute Code(s): J18.9 - PNEUMONIA, UNSPECIFIED ORGANISM; A41.9 - SEPSIS, UNSPECIFIED ORGANISM SNOMED Code(s): 14857033 (4) Diastolic CHF Current Visit: No Status: Acute Code(s): I50.30 - UNSPECIFIED DIASTOLIC (CONGESTIVE) HEART FAILURE SNOMED Code(s): 283100949 (5) Type 1 diabetes mellitus, hemoglobin A1c 7.6 Current Visit: No Status: Acute Code(s): E10.9 - TYPE 1 DIABETES MELLITUS WITHOUT COMPLICATIONS SNOMED Code(s): 43464128 (6) COPD, stable (7) chronic hypoxic respiratory failure, is 2 L nasal cannula at home. At baseline (8) CAD (9) history of PE, Xarelto on hold prior to colonoscopy (10) acute anemia, status post colonoscopy reporting diverticulosis. Status post EGD reporting gastritis. (11) nicotine dependence Plan: continue current medication regime ,monitoring and symptomatic treatment. Resume Xarelto . Diet to be resumed as per GI, consistent carb. Initiate patient's insulin pump .Maintain cefepime, vancomycin and Flagyl . Discharge planning in progress for tomorrow. The impression and plan of care has been dictated as directed. : I performed a history and examination of this patient, discussed the same with the dictator. I agree with the dictator's note ,documented as a scribe. Any additional findings or plans will be noted.
--- NOTE | 2018-11-18 15:51 | PN ---
PROGRESS NOTE DATE OF SERVICE: 11/18/2018 The patient is a 68-year-old female who is sitting up at the bedside; does state that she is feeling better. Patient is status post EGD, I believe yesterday, and colonoscopy today. According to Nursing, no sign of active bleeding was found. The patient is hemodynamically stable, afebrile, in no acute distress. PHYSICAL EXAMINATION: VITAL SIGNS: Temperature 98.3, heart rate 79, respiratory rate 16, blood pressure 140/71, oxygen saturation 92% on 2 L oxygen via nasal cannula. HEENT: Head is normocephalic, atraumatic. NECK: Supple. Trachea is midline. LUNGS: Diminished breath sounds and prolonged expiratory phase. HEART: S1 and S2 are heard. Not tachycardic. ABDOMEN: Soft. Bowel sounds are positive. EXTREMITIES: One plus edema bilaterally. NEUROLOGIC: Patient is awake and alert. LABS/IMAGING: White count is 9.9, hemoglobin 9.3, hematocrit 33.1 with 296,000 platelets. Sodium is 136, potassium 3.9, chloride 96. CO2 is 32. Anion gap is 8. BUN is 10, creatinine 0.41. Glucose is 387. Calcium is 8.3. No new imaging to review. IMPRESSION AT THIS TIME: 1. Gastrointestinal bleed. No clear etiology. 2. Left lower zone pneumonia. 3. Acute on chronic hypoxic respiratory failure. PLAN: Continue current medications, which have been reviewed. Continue the bronchodilators, aerosolized steroids, IV antibiotics. Will start weaning systemic steroids. Continue to increase activity as tolerated. We will follow patient closely with you, making further changes as necessary. MMODL / IJN: [id number] /
[2018-11-18 17:25] LABS: Glucose,Whole Blood 341 mg/dL (75-99)
[2018-11-18] MEDS: metroNIDAZOLE 500 MG TAB PO SCH ×2 (17:38→22:47)
[2018-11-18] MEDS: MELATONIN 3 MG TABLET PO SCH (21:12)
[2018-11-18] MEDS: traZODone HCL 100 MG TAB PO SCH (21:12)
[2018-11-18] MEDS: GABAPENTIN 300 MG CAP PO SCH (21:12)
[2018-11-19] MEDS: VANCOMYCIN 750 MG in SODIUM CHLORIDE 0.9% 250 ML IVPB SCH (01:07)
[2018-11-19 07:05] LABS: Glucose,Whole Blood 140 mg/dL (75-99)
[2018-11-19] MEDS: metroNIDAZOLE 500 MG TAB PO SCH (07:31)
[2018-11-19] MEDS: HYDROcodone/APAP 5-325MG 1 EACH TAB PO PRN (07:32)
[2018-11-19] MEDS: METOPROLOL TARTRATE 25 MG TAB PO SCH (07:32)
[2018-11-19] MEDS: DULoxetine HCL 60 MG CAPSULE.DR PO SCH (07:32)
[2018-11-19] MEDS: FAMOTIDINE 20 MG TAB PO SCH (07:32)
[2018-11-19] MEDS: ATORVASTATIN 10 MG TAB PO SCH (07:32)
[2018-11-19] MEDS: FUROSEMIDE 20 MG TAB PO SCH (07:32)
[2018-11-19] MEDS: predniSONE 20 MG TAB PO SCH (07:33)
[2018-11-19] MEDS: FERROUS SULFATE 325 MG TAB PO SCH (07:33)
[2018-11-19] MEDS: DILTIAZEM CD 180 MG CAP.ER.24H PO SCH (07:34)
[2018-11-19] MEDS: PANTOPRAZOLE 40 MG TABLET PO SCH (07:34)
[2018-11-19] MEDS: FLUTICASONE 50MCG/SPRAY NASAL 16GM EA NOSTRIL SCH (07:35)
[2018-11-19] MEDS: EZETIMIBE 10 MG TAB PO SCH (07:35)
[2018-11-19] MEDS: NYSTATIN 100,000 UNIT/ML SUSP 500,000 UNIT/5 ML CUP PO SCH (07:35)
[2018-11-19] MEDS: NICOTINE 21MG/24HR PATCH TRANSDERM SCH (07:36)
[2018-11-19 07:37] VITALS: BP 157/76; RESP 16; TEMP 98.2
[2018-11-19] MEDS: INSULIN DETEMIR (LEVEMIR) 100 UNIT/ML SYR SQ SCH (07:48)
[2018-11-19] MEDS: INSULIN ASPART (NovoLOG) 100 UNIT/ML VIAL SQ SCH (07:48)
[2018-11-19] MEDS: POLYETHYLENE GLYCOL 3350 17 GM POWD.PACK PO SCH (07:49)
[2018-11-19] MEDS: BUDESONIDE 0.5 MG/2 ML NEBU INHALATION SCH (07:53)
[2018-11-19] MEDS: IPRATROPIUM-ALBUTEROL 3 ML NEB INHALATION SCH (07:54)
[2018-11-19 08:10] VITALS: PULSE 84
[2018-11-19 08:18] LABS: Anisocytosis Marked; Basophils % (A) 0 %; Eosinophils # (A) 0.2 k/uL (0-0.7); Eosinophils % (A) 2 %; HCT 35.3 % (34.0-46.0); Hypochromasia Marked; Lymphocytes # (A) 1.7 k/uL (1.0-4.8); Lymphocytes % (A) 14 %; MCHC 28.2 g/dL (31.0-37.0); MCV 77.8 fL (80.0-100.0); Mean Platelet Volume 6.9; Microcytosis Marked; Monocytes # (A) 0.7 k/uL (0-1.0); Monocytes % (A) 6 %; Neutrophils # (A) 9.4 k/uL (1.3-7.7); Neutrophils % (A) 77 %; Platelet Count 260 k/uL (150-450); Poikilocytosis Marked; RBC 4.54 m/uL (3.80-5.40); WBC 12.3 k/uL (3.8-10.6)
[2018-11-19 08:37] LABS: African American GFR (CKD) >90 (>60 ml/min/1.73 sqM); Anion Gap 6 mmol/L; Blood Urea Nitrogen 17 mg/dL (7-17); Calcium 9.2 mg/dL (8.4-10.2); Carbon Dioxide 34 mmol/L (22-30); Chloride 97 mmol/L (98-107); Glucose 114 mg/dL (74-99); Potassium 3.5 mmol/L (3.5-5.1); Sodium 137 mmol/L (137-145)
[2018-11-19 08:52] LABS: RDW 29.2 % (11.5-15.5)
[2018-11-19] MEDS ORDERED: CEFDINIR 300 MG CAP PO SCH (09:00)
[2018-11-19 09:59] LABS: Polychromasia Present
[2018-11-19 10:00] LABS: RBC Fragments Present
[2018-11-19] MEDS ORDERED: INSULIN PUMP BASAL RATES 1 EACH MISC MISCELLANE PRN (11:04)
[2018-11-19] MEDS ORDERED: INSPUCOR MISCELLANE PRN (11:04)
[2018-11-19] MEDS ORDERED: INSULIN PUMP TARGET GLUCOSE 1 EACH MISC MISCELLANE PRN (11:04)
[2018-11-19] MEDS ORDERED: INSULIN PUMP ACTIVE INSULIN 1 EACH MISC MISCELLANE PRN (11:04)
--- NOTE | 2018-11-19 11:53 | P.DS ---
Providers Date of admission: 11/11/18 19:39 Expected date of discharge: 11/19/18 Attending physician: Pipe Antonio MD Consults: 11/12/18 16:32 Consult Physician Routine Consulting Provider: John Teresa Consult Reason/Comments: See s patient outpt Do you want consulting provider notified?: Yes 11/14/18 09:47 Consult Physician Routine Consulting Provider: Balbir Gruber Consult Reason/Comments: pt. requesting, anemia Do you want consulting provider notified?: Yes Primary care physician: Lo Dugan [facility] Course: Final Diagnoses: (1) HCAP (healthcare-associated pneumonia) Current Visit: Yes Status: Acute Code(s): J18.9 - PNEUMONIA, UNSPECIFIED ORGANISM SNOMED Code(s): 228643583 (2) Sepsis associated hypotension Current Visit: Yes Status: Acute Code(s): A41.9 - SEPSIS, UNSPECIFIED ORGANISM; I95.9 - HYPOTENSION, UNSPECIFIED SNOMED Code(s): 25908965 (3) Sepsis due to pneumonia Current Visit: Yes Status: Acute Code(s): J18.9 - PNEUMONIA, UNSPECIFIED ORGANISM; A41.9 - SEPSIS, UNSPECIFIED ORGANISM SNOMED Code(s): 90498525 (4) Diastolic CHF Current Visit: No Status: Acute Code(s): I50.30 - UNSPECIFIED DIASTOLIC (CONGESTIVE) HEART FAILURE SNOMED Code(s): 467752041 (5) Type 1 diabetes mellitus Current Visit: No Status: Acute Code(s): E10.9 - TYPE 1 DIABETES MELLITUS WITHOUT COMPLICATIONS SNOMED Code(s): 52725187 Hospital course:Ainsley Hernandez is a 68 yo F with PMH COPD on 2-3 L home O2, diastolic CHF, T1DM on pump, HTN, HLD who presented to the ED on recommendation of her visiting home nurse. She was recently admitted a few weeks ago for COPD exacerbation and treated at that time with steroids, ceftriaxone and azithromycin. She was also found to be anemic during that admission and required a transfusion. Pt completed omnicef after discharge and a 10 day prednisone taper and felt her breathing was improved, but still not back to baseline. She had been seen by visiting nurse and BP was measured to be very low, so pt came in to the ED. On her initial presentation BP 79/45 and SpO2 86% on 3 L O2. Pt was given 1 L NS and her BP improved to 100/60 and SpO2 98% on 2 L. WBC on admission 17 and Hgb 9.5. Her CXR showed a new L basilar infiltrate compared to previous admission. She complains of malaise and fatigue today as well as dyspnea on exertion and cough which are largely at her baseline. 11/13/2018 maintain on cefepime on nebulized bronchodilators, oral steroids with breathing slowly improving. Less wheezing, now in bilateral lower lobes. Cough improved-Loose congested, nonproductive cough and occasional clear thick sputum. Telemetry sinus rhythm with PACs. Maintaining O2 sats of 100% on 3 L nasal cannula which can be titrated down to 2 L, patient's baseline. Ambulating tolerating exertion well-denies shortness of breath with exertion with O2. Good diet intake, and nausea vomiting or diarrhea. Positive bowel movement. Vital signs stable. Hemoglobin stable. 11/14/2018 continues on nebulized bronchodilators,steroids and cefepime. reports no changes in breathing, not sleeping well.maintaining O2 sats in the high 90s to 100 on 3 L nasal cannula.afebrile,WBC improving, down to 12.2. Platelets decreased to 451. Hemoglobin decreased to 8.8, suspect dilutional. 11/15. Pt remains on 3 L O2 and feels her breathing is at her baseline. Endorses nonproductive cough and dyspnea with exertion. She did get high dose solumedrol per pulmonary yesterday and thinks that may have helped dry up her mucus. Her Hgb is increased to at 9.8 today. General surgery is planning on inpatient EGD and colonoscopy Saturday. 11/16. She reports no change in her breathing today. Continues to complain of nonproductive cough and dyspnea with exertion. Her sputum culture showed robe and rare gram negative rods. Her WBC is increased today after high dose IV steroids yesterday. Hgb is stable and she will go for EGD/colonoscopy tomorrow. Significant clinical improvement. Cleared by all consults for discharge. Patient is being discharged home in a stable condition with guarded prognosis. Patient is being discharged home on a steroid taper with further extended wean as per PCP. Recommended chest x-ray in one month ruling out resolution of pneumonia. - Exam GENERAL: alert & oriented X 3, no acute distress CARDIOVASCULAR: S1, S2 regular.No murmur. Pulses 2+ RESPIRATION: Nonlabored, Breath sounds diminished in the bases. Scattered rhonchi, no crackles. ABDOMEN: Soft, nontender. No guarding. no masses palpable.Bowel sounds heard. NEURO: No focal deficits The impression and plan of care has been dictated as directed. : I performed a history and examination of this patient, discussed the same with the dictator. I agree with the dictator's note ,documented as a scribe. Any additional findings or plans will be noted. Time taken: 35 minutes Patient Condition at Discharge: Stable Plan - Discharge Summary Discharge Rx Participant: No New Discharge Prescriptions: New metroNIDAZOLE [Flagyl] 500 mg PO Q8H #21 tab Nicotine 21Mg/24Hr Patch [Habitrol] 1 patch TRANSDERM DAILY #30 patch Isosorbide Mononitrate ER [Imdur] 30 mg PO DAILY #30 tab Nystatin 100,000 Unit/ml Susp [Mycostatin Oral Susp] 500,000 unit PO QID #140 ml Cefdinir [Omnicef] 300 mg PO BID #14 cap predniSONE 10 mg PO DIRECTED #15 tab Continue Tiotropium 18 Mcg/Puff [Spiriva] 1 puff INHALATION RT-DAILY Risedronate Sodium [Atelvia] 35 mg PO MCKEON Furosemide 20 mg PO DAILY SUMAtriptan SUCCINATE [Imitrex] 100 mg PO BID PRN PRN Reason: Migraine Headache Metoprolol Tartrate 25 mg PO DAILY Gabapentin 300 mg PO HS Diltiazem HCl [Diltiazem 24Hr ER] 360 mg PO DAILY Nitroglycerin Sl Tabs [Nitrostat] 0.4 mg PO Q5M PRN PRN Reason: Chest Pain Omeprazole [PriLOSEC] 40 mg PO DAILY Ezetimibe [Zetia] 10 mg PO DAILY Atorvastatin [Lipitor] 10 mg PO DAILY Insulin Aspart (For Pump) [NovoLOG (For Pump)] 50 - 60 unit SQ-PUMP DAILY Polyethylene Glycol 3350 [Miralax] 17 gm PO DAILY Rivaroxaban [Xarelto] 20 mg PO DAILY Ipratropium-Albuterol Nebulize [Duoneb 0.5 mg-3 mg/3 ml Soln] 3 ml INHALATION QID PRN #90 ampul.neb PRN Reason: Dyspnea Baclofen 10 - 20 mg PO HS PRN PRN Reason: Muscle Spasm Nystatin 100,000 Unit/ml Susp [Mycostatin Oral Susp] 5 ml PO QID Albuterol Nebulized [Ventolin Nebulized] 2.5 mg INHALATION Q6H PRN PRN Reason: Shortness Of Breath DULoxetine HCL [Cymbalta] 60 mg PO DAILY Fluticasone Nasal Irons [Flonase Nasal Irons] 1 spray EA NOSTRIL BID Ferrous Sulfate [Iron (65 MG Elemental)] 325 mg PO DAILY Discontinued Isosorbide Mononitrate [Imdur] 60 mg PO DAILY Ranitidine HCl [Zantac] 150 mg PO BID Discharge Medication List Furosemide 20 mg PO DAILY 11/04/13 [History] Risedronate Sodium [Atelvia] 35 mg PO MCKEON 11/04/13 [History] Tiotropium 18 Mcg/Puff [Spiriva] 1 puff INHALATION RT-DAILY 11/04/13 [History] Diltiazem HCl [Diltiazem 24Hr ER] 360 mg PO DAILY 12/29/15 [History] Gabapentin 300 mg PO HS 12/29/15 [History] Metoprolol Tartrate 25 mg PO DAILY 12/29/15 [History] Nitroglycerin Sl Tabs [Nitrostat] 0.4 mg PO Q5M PRN 12/29/15 [History] SUMAtriptan SUCCINATE [Imitrex] 100 mg PO BID PRN 12/29/15 [History] Atorvastatin [Lipitor] 10 mg PO DAILY 07/07/17 [History] Ezetimibe [Zetia] 10 mg PO DAILY 07/07/17 [History] Insulin Aspart (For Pump) [NovoLOG (For Pump)] 50 - 60 unit SQ-PUMP DAILY 07/07/17 [History] Omeprazole [PriLOSEC] 40 mg PO DAILY 07/07/17 [History] Polyethylene Glycol 3350 [Miralax] 17 gm PO DAILY 07/07/17 [History] Rivaroxaban [Xarelto] 20 mg PO DAILY 11/01/18 [History] Ipratropium-Albuterol Nebulize [Duoneb 0.5 mg-3 mg/3 ml Soln] 3 ml INHALATION QID PRN #90 ampul.neb 11/03/18 [Rx] Albuterol Nebulized [Ventolin Nebulized] 2.5 mg INHALATION Q6H PRN 11/11/18 [History] Baclofen 10 - 20 mg PO HS PRN 11/11/18 [History] DULoxetine HCL [Cymbalta] 60 mg PO DAILY 11/11/18 [History] Ferrous Sulfate [Iron (65 MG Elemental)] 325 mg PO DAILY 11/11/18 [History] Fluticasone Nasal Irons [Flonase Nasal Irons] 1 spray EA NOSTRIL BID 11/11/18 [History] Nystatin 100,000 Unit/ml Susp [Mycostatin Oral Susp] 5 ml PO QID 11/11/18 [History] Cefdinir [Omnicef] 300 mg PO BID #14 cap 11/19/18 [Rx] Isosorbide Mononitrate ER [Imdur] 30 mg PO DAILY #30 tab 11/19/18 [Rx] Nicotine 21Mg/24Hr Patch [Habitrol] 1 patch TRANSDERM DAILY #30 patch 11/19/18 [Rx] Nystatin 100,000 Unit/ml Susp [Mycostatin Oral Susp] 500,000 unit PO QID #140 ml 11/19/18 [Rx] metroNIDAZOLE [Flagyl] 500 mg PO Q8H #21 tab 11/19/18 [Rx] predniSONE 10 mg PO DIRECTED #15 tab 11/19/18 [Rx] Follow up Appointment(s)/Referral(s): Lo Dugan DO [Primary Care Provider] - 11/24/18 11:00 am John Teresa MD [STAFF PHYSICIAN] - 12/03/18 2:45 pm [facility] Visiting Nurse, [NON-STAFF] - 1 Week Patient Instructions/Handouts: Pneumonia (DC) Activity/Diet/Wound Care/Special Instructions: Follow-up chest x-ray in one month - resolution of pneumonia Prednisone taper: Prednisone 20 mg 5 days then 10 mg 5 days with further/ long extended wean as per PCP.
[2018-11-19] MEDS ORDERED: INSULIN PUMP MEAL BOLUS 1 UNIT MISC MISCELLANE SCH (12:30)
[2018-11-19] MEDS ORDERED: metroNIDAZOLE 500 MG TAB PO SCH (16:00)
== END 2018-11-19 11:54 | disposition home health service (06) | DRG 871 ==
LOC: EC 15:50 → 4SSUR 19:39
PROVIDERS: ADMIT Family Medicine; ATTEND Family Medicine
PROC: 0DB78ZX Excision of Stomach, Pylorus, Via Natural or Artificial Opening Endoscopic, Diagnostic (ICD-10-PCS; principal; 2018-11-17 07:30)
PROC: 0DJD8ZZ Inspection of Lower Intestinal Tract, Via Natural or Artificial Opening Endoscopic (ICD-10-PCS; 2018-11-17 07:30)
PROC: 0DJD8ZZ Inspection of Lower Intestinal Tract, Via Natural or Artificial Opening Endoscopic (ICD-10-PCS; 2018-11-18)
DX: A41.9 Sepsis, unspecified organism (principal); J18.1 Lobar pneumonia, unspecified organism; J96.21 Acute and chronic respiratory failure with hypoxia; K29.71 Gastritis, unspecified, with bleeding; K57.31 Diverticulosis of large intestine without perforation or abscess with bleeding; E87.1 Hypo-osmolality and hyponatremia; I50.32 Chronic diastolic (congestive) heart failure; J44.0 Chronic obstructive pulmonary disease with (acute) lower respiratory infection; I69.954 Hemiplegia and hemiparesis following unspecified cerebrovascular disease affecting left non-dominant side; I95.9 Hypotension, unspecified; I11.0 Hypertensive heart disease with heart failure; E10.42 Type 1 diabetes mellitus with diabetic polyneuropathy; E10.65 Type 1 diabetes mellitus with hyperglycemia; D50.9 Iron deficiency anemia, unspecified; E78.5 Hyperlipidemia, unspecified; F17.200 Nicotine dependence, unspecified, uncomplicated; G40.909 Epilepsy, unspecified, not intractable, without status epilepticus; I25.10 Atherosclerotic heart disease of native coronary artery without angina pectoris; I25.2 Old myocardial infarction; K21.9 Gastro-esophageal reflux disease without esophagitis; K59.09 Other constipation; K64.4 Residual hemorrhoidal skin tags; M81.0 Age-related osteoporosis without current pathological fracture; G43.909 Migraine, unspecified, not intractable, without status migrainosus; G89.29 Other chronic pain; M19.90 Unspecified osteoarthritis, unspecified site; M54.5 Low back pain; Z79.01 Long term (current) use of anticoagulants; Z79.4 Long term (current) use of insulin; Z79.899 Other long term (current) drug therapy; Z86.711 Personal history of pulmonary embolism; Z99.81 Dependence on supplemental oxygen; Z96.41 Presence of insulin pump (external) (internal); Z90.710 Acquired absence of both cervix and uterus; Z90.49 Acquired absence of other specified parts of digestive tract; Z87.01 Personal history of pneumonia (recurrent); Z88.1 Allergy status to other antibiotic agents; Z98.42 Cataract extraction status, left eye; Z98.41 Cataract extraction status, right eye; Z96.1 Presence of intraocular lens; Z82.49 Family history of ischemic heart disease and other diseases of the circulatory system; Z83.3 Family history of diabetes mellitus; Z84.1 Family history of disorders of kidney and ureter; Y95 Nosocomial condition
CPT/HCPCS: 36415; 43239; 45330; 45378; 71045; 71046; 80048; 80053; 80076; 80202; 81003; 83036; 83690; 83735; 84132; 84484; 85025; 85027; 85610; 86850; 86900; 86901; 87040; 87070; 87205; 88305; 93005; 94640; 94760; 96360; 96361; 99285

== ENCOUNTER → 2019-04-29 | Outpatient (CLI) | payer MEDICARE ==
[2019-04-29 10:40] LABS: HCT 43.5 % (34.0-46.0); HGB 13.8 gm/dL (11.4-16.0); MCH 31.5 pg (25.0-35.0); MCHC 31.7 g/dL (31.0-37.0); MCV 99.3 fL (80.0-100.0); Mean Platelet Volume 9.1; Platelet Count 286 k/uL (150-450); RBC 4.38 m/uL (3.80-5.40); RDW 12.4 % (11.5-15.5); WBC 11.9 k/uL (3.8-10.6)
[2019-04-29 17:57] LABS: Albumin 4.5 g/dL (3.80-4.90); Albumin/Globulin Ratio 3.21 (1.60-3.17); Anion Gap 10.5 mmol/L (4.00-12.00); BUN/Creat Ratio 18.33 Ratio (12.00-20.00); Calcium 9.4 mg/dL (8.7-10.3); Carbon Dioxide 30.5 mmol/L (21.6-31.8); Chol/HDL Ratio 1.7; Globulin 1.4 g/dL (1.6-3.3); LDL Cholesterol,Calculated 46.2 mg/dL (0.0-131.0); Non-African American GFR(CKD) 92.4 (60.0-200.0); Total Bilirubin 0.7 mg/dL (0.3-1.2); Total Protein 5.9 g/dL (6.2-8.2); VLDL Calculation 13.8 mg/dL (5.00-40.00)
[2019-04-29 19:03] LABS: Urine Creatinine 87.7 mg/dL
== END | disposition home or self-care (01) ==
LOC: LABWHC1 09:49
PROVIDERS: ATTEND Internal Medicine Interventional Cardiology
DX: E10.65 Type 1 diabetes mellitus with hyperglycemia (principal)
CPT/HCPCS: 36415; 80053; 80061; 82043; 82570; 83036; 84443; 85027

== ENCOUNTER 2019-08-21 17:41 | Inpatient (IN) | payer MEDICARE ==
[2019-08-21] MEDS ORDERED: IPRATROPIUM-ALBUTEROL 3 ML NEB INHALATION STA (18:25)
[2019-08-21] MEDS ORDERED: methylPREDNISolone SOD SUCCI 125 MG/2 ML VIAL IV STA (18:25)
[2019-08-21 18:54] LABS: Basophils # (A) 0.1 k/uL (0-0.2); Basophils % (A) 0 %; Eosinophils # (A) 0.1 k/uL (0-0.7); Eosinophils % (A) 1 %; HCT 45.2 % (34.0-46.0); HGB 14.2 gm/dL (11.4-16.0); Lymphocytes # (A) 1.1 k/uL (1.0-4.8); Lymphocytes % (A) 6 %; MCH 31.1 pg (25.0-35.0); MCHC 31.4 g/dL (31.0-37.0); MCV 99.1 fL (80.0-100.0); Mean Platelet Volume 9.2; Monocytes # (A) 0.9 k/uL (0-1.0); Monocytes % (A) 4 %; Neutrophils # (A) 17.6 k/uL (1.3-7.7); Neutrophils % (A) 88 %; Platelet Count 295 k/uL (150-450); RBC 4.56 m/uL (3.80-5.40); RDW 12.6 % (11.5-15.5)
[2019-08-21 19:03] LABS: ALT 32 U/L (4-34); AST 34 U/L (14-36); African American GFR (CKD) >90 (>60 ml/min/1.73 sqM); Albumin 4.2 g/dL (3.5-5.0); Alkaline Phosphatase 103 U/L (38-126); Anion Gap 7 mmol/L; Blood Urea Nitrogen 16 mg/dL (7-17); Calcium 9.8 mg/dL (8.4-10.2); Carbon Dioxide 37 mmol/L (22-30); Chloride 86 mmol/L (98-107); Glucose 97 mg/dL (74-99); Magnesium 1.7 mg/dL (1.6-2.3); Non-African American GFR(CKD) >90 (>60 ml/min/1.73 sqM); Potassium 4.6 mmol/L (3.5-5.1); Sodium 130 mmol/L (137-145); Total Bilirubin 0.7 mg/dL (0.2-1.3); Total Protein 6.6 g/dL (6.3-8.2)
[2019-08-21 19:26] LABS: D-Dimer 0.18 mg/L FEU (<0.60); INR 1.1 (<1.2); Partial Thromboplastin Time 23.9 sec (22.0-30.0)
[2019-08-21] MEDS ORDERED: SODIUM CHLORIDE 0.9% 500 ML 500 ML IV ONE (19:44)
[2019-08-21] MEDS: SODIUM CHLORIDE 0.9% 1,000 ML IV SCH (19:51)
--- NOTE | 2019-08-21 19:53 | XR ---
EXAMINATION TYPE: XR chest 2V DATE OF EXAM: 08/21/2019 COMPARISON: Prior chest x-ray 11/15/[address] 09/23/2017 HISTORY: Difficulty breathing TECHNIQUE: Frontal and lateral views of the chest are obtained. FINDINGS: There are prominent lung volumes which may be indicative of underlying COPD. The aorta is dense. Interstitium is increased. Heart size is stable and within normal limits. Patient is again rot ated. No evident airspace disease, pneumothorax, or pleural effusion. Pulmonary vascularity and kashif are stable. There are overlying cardiac leads. There there are coronary artery calcifications. IMPRESSION: Interstitial lung disease, emphysema
[2019-08-21] MEDS ORDERED: cefTRIAXone IN SWFI 1,000 MG/10 ML SYRINGE IVP STA (20:08)
[2019-08-21 20:55] LABS: Appearance,Urine Clear (Clear); Bilirubin,Urine Negative (Negative); Blood,Urine Negative (Negative); Color,Urine Yellow; Glucose,Urine (UA) Negative (Negative); Ketones,Urine 2+ (Negative); Leukocyte Esterase,Urine Negative (Negative); Nitrite,Urine Negative (Negative); Protein,Urine Trace (Negative); Specific Gravity,Urine 1.023 (1.001-1.035)
[2019-08-21] MEDS ORDERED: IPRATROPIUM-ALBUTEROL 3 ML NEB INHALATION PRN (20:55)
--- NOTE | 2019-08-21 20:57 | ED ---
SOB HPI - General Chief Complaint: Shortness of Breath Stated Complaint: SOB Time Seen by Provider: 08/21/19 17:59 Source: patient Mode of arrival: wheelchair Limitations: no limitations - History of Present Illness Initial Comments: 69-year-old female presenting today for chief Complaint of shortness of breath. Patient states her shortness of breath has been increasing from her baseline for the past few days. She states she feels weak all over. Patient denies any leg swelling chest pain pain with deep inspiration denies any history of DVT or post erior M wasn't denies a known cancer. Patient states she does have severe COPD is usually on 2 L of home oxygen however has had increase this to 4 L to maintain her oxygen saturation. Patient denies any jaw pain on pain nausea vomiting. Patient denies fevers or cough. Denies dsyuria, urgency ,frequency or recent urinary tract infections. Remaining ROS (-). Upon arrival patient appears well there is no signs of acute distress. - Related Data Home Medications Medication Instructions Recorded Confirmed Furosemide 20 mg PO DAILY 11/04/13 11/11/18 Risedronate Sodium [Atelvia] 35 mg PO MCKEON 11/04/13 11/11/18 Tiotropium 18 Mcg/Puff [Spiriva] 1 puff INHALATION RT-DAILY 11/04/13 11/11/18 Diltiazem HCl [Diltiazem 24Hr ER] 360 mg PO DAILY 12/29/15 11/11/18 Gabapentin 300 mg PO HS 12/29/15 11/11/18 Metoprolol Tartrate 25 mg PO DAILY 12/29/15 11/11/18 Nitroglycerin Sl Tabs [Nitrostat] 0.4 mg PO Q5M PRN 12/29/15 11/11/18 SUMAtriptan SUCCINATE [Imitrex] 100 mg PO BID PRN 12/29/15 11/11/18 Atorvastatin [Lipitor] 10 mg PO DAILY 07/07/17 11/11/18 Ezetimibe [Zetia] 10 mg PO DAILY 07/07/17 11/11/18 Insulin Aspart (For Pump) [NovoLOG 50 - 60 unit SQ-PUMP DAILY 07/07/17 11/11/18 (For Pump)] Omeprazole [PriLOSEC] 40 mg PO DAILY 07/07/17 11/11/18 Polyethylene Glycol 3350 [Miralax] 17 gm PO DAILY 07/07/17 11/11/18 Rivaroxaban [Xarelto] 20 mg PO DAILY 11/01/18 11/11/18 Albuterol Nebulized [Ventolin 2.5 mg INHALATION Q6H PRN 11/11/18 11/11/18 Nebulized] Baclofen 10 - 20 mg PO HS PRN 11/11/18 11/11/18 DULoxetine HCL [Cymbalta] 60 mg PO DAILY 11/11/18 11/11/18 Ferrous Sulfate [Iron (65 MG 325 mg PO DAILY 11/11/18 11/11/18 Elemental)] Fluticasone Nasal Adolphus [Flonase 1 spray EA NOSTRIL BID 11/11/18 11/11/18 Nasal Adolphus] Nystatin 100,000 Unit/ml Susp 5 ml PO QID 11/11/18 11/11/18 [Mycostatin Oral Susp] Previous Rx's Medication Instructions Recorded Ipratropium-Albuterol Nebulize 3 ml INHALATION QID PRN #90 11/03/18 [Duoneb 0.5 mg-3 mg/3 ml Soln] ampul.neb Cefdinir [Omnicef] 300 mg PO BID #14 cap 11/19/18 Isosorbide Mononitrate ER [Imdur] 30 mg PO DAILY #30 tab 11/19/18 Nicotine 21Mg/24Hr Patch [Habitrol] 1 patch TRANSDERM DAILY #30 patch 11/19/18 Nystatin 100,000 Unit/ml Susp 500,000 unit PO QID #140 ml 11/19/18 [Mycostatin Oral Susp] metroNIDAZOLE [Flagyl] 500 mg PO Q8H #21 tab 11/19/18 predniSONE 10 mg PO DIRECTED #15 tab 11/19/18 Allergies Allergy/AdvReac Type Severity Reaction Status Date / Time erythromycin base Allergy Rash/Hives Verified 08/21/19 17:56 Review of Systems ROS Statement: Those systems with pertinent positive or pertinent negative responses have been documented in the HPI. ROS Other: All systems not noted in ROS Statement are negative. 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 Last Myocardial Infarction Date:: 1993 History of Any Multi-Drug Resistant Organisms: None Reported Past Surgical History: Appendectomy, Bowel Resection, Cholecystectomy, Heart Catheterization, Hysterectomy Additional Past Surgical History / Comment(s): PTCA in 1993, bowel resection-pt cannot recall reason at this time, EGD, colonoscopy, R carpal tunnel release, R thumb tendon surgery, L breast benign bx, bilateral cataract removals. Past Anesthesia/Blood Transfusion Reactions: Previous Problems w/ Anesthesia, Motion Sickness, Postoperative Nausea & Vomiting (PONV) Additional Past Anesthesia/Blood Transfusion Reaction / Comment(s): past blood transfusion-no reaction Past Psychological History: No Psychological Hx Reported Smoking Status: Current every day smoker Past Alcohol Use History: None Reported Past Drug Use History: None Reported - Past Family History Father Family Medical History: Diabetes Mellitus, Myocardial Infarction ([place]) Mother Family Medical History: Diabetes Mellitus, Renal Disease General Exam - General Exam Comments Initial Comments: General: The patient is awake and alert, in no distress Eye: +3 mm pupils are equal, round and reactive to light, extra-ocular movements are intact. No nystagmus. There is normal conjunctiva bilaterally. No signs of icterus. Ears, nose, mouth and throat: There are moist mucous membranes and no oral lesions. Neck: The neck is supple, there is no tenderness or JVD. Cardiovascular: There is a regular rate and rhythm. No murmur, rub or gallop is appreciated. Respiratory: Respirations are non-labored, breath sounds are equal yet very diminished, minimal movement, no obvious wheeze stridor, rales, or rhonchi. Gastrointestinal: Soft, non-distended, non-tender abdomen without masses or organomegaly noted. There is no rebound or guarding present. Musculoskeletal: Normal ROM, no tenderness. Strength 5/5. Sensation intact. Radial pulses equal bilaterally 2+. Neurological: A&O x 3. CN II-XII intact grossly, There are no obvious motor or sensory deficits. Coordination appears grossly intact. Speech is normal. Skin: Skin is warm and dry and no rashes or lesions are noted. NO LE edema. NO calf pain Psychiatric: Cooperative, appropriate mood & affect, normal judgment. Limitations: no limitations Course Vital Signs 08/21/19 08/21/19 08/21/19 17:50 18:54 19:00 Temperature 97.6 F Pulse Rate 62 68 72 Respiratory 18 Rate Blood Pressure 146/78 O2 Sat by Pulse 98 Oximetry Medical Decision Making - Medical Decision Making 6-year-old female presenting for increasing shortness of breath. Patient has had to increase her oxygen home at use from 2 L to 4 L to maintain saturations. Patient's chest x-ray revealed significant interstitial lung disease consistent with her diagnosis of emphysema. Patient's lung examination reveals minimal air movement. Patient had minimal improvement after 1 DuoNeb treatment. Patie nt showed poor negative d-dimer negative EKG no acute findings. She denies any chest pain. Patient will be admitted for COPD exacerbation, further evaluation of leukocytosis. Given rocephin and blood culture drawn in ER - Lab Data Result diagrams: 08/21/19 18:37 08/21/19 18:37 Lab Results 08/21/19 08/21/19 08/21/19 Range/Units 18:37 18:37 18:37 WBC 20.0 H (3.8-10.6) k/uL RBC 4.56 (3.80-5.40) m/uL Hgb 14.2 (11.4-16.0) gm/dL Hct 45.2 (34.0-46.0) % MCV 99.1 (80.0-100.0) fL MCH 31.1 (25.0-35.0) pg MCHC 31.4 (31.0-37.0) g/dL RDW 12.6 (11.5-15.5) % Plt Count 295 (150-450) k/uL Neutrophils % 88 % Lymphocytes % 6 % Monocytes % 4 % Eosinophils % 1 % Basophils % 0 % Neutrophils # 17.6 H (1.3-7.7) k/uL Lymphocytes # 1.1 (1.0-4.8) k/uL Monocytes # 0.9 (0-1.0) k/uL Eosinophils # 0.1 (0-0.7) k/uL Basophils # 0.1 (0-0.2) k/uL PT 11.0 (9.0-12.0) sec INR 1.1 (<1.2) APTT 23.9 (22.0-30.0) sec D-Dimer 0.18 (<0.60) mg/L FEU Sodium 130 L (137-145) mmol/L Potassium 4.6 (3.5-5.1) mmol/L Chloride 86 L (98-107) mmol/L Carbon Dioxide 37 H (22-30) mmol/L Anion Gap 7 mmol/L BUN 16 (7-17) mg/dL Creatinine 0.49 L (0.52-1.04) mg/dL Est GFR (CKD-EPI)AfAm >90 (>60 ml/min/1.73 sqM) Est GFR (CKD-EPI)NonAf >90 (>60 ml/min/1.73 sqM) Glucose 97 (74-99) mg/dL Plasma Lactic Acid James (0.7-2.0) mmol/L Calcium 9.8 (8.4-10.2) mg/dL Magnesium 1.7 (1.6-2.3) mg/dL Total Bilirubin 0.7 (0.2-1.3) mg/dL AST 34 (14-36) U/L ALT 32 (4-34) U/L Alkaline Phosphatase 103 (38-126) U/L Troponin I (0.000-0.034) ng/mL NT-Pro-B Natriuret Pep pg/mL Total Protein 6.6 (6.3-8.2) g/dL Albumin 4.2 (3.5-5.0) g/dL 08/21/19 08/21/19 08/21/19 Range/Units 18:37 18:37 18:37 WBC (3.8-10.6) k/uL RBC (3.80-5.40) m/uL Hgb (11.4-16.0) gm/dL Hct (34.0-46.0) % MCV (80.0-100.0) fL MCH (25.0-35.0) pg MCHC (31.0-37.0) g/dL RDW (11.5-15.5) % Plt Count (150-450) k/uL Neutrophils % % Lymphocytes % % Monocytes % % Eosinophils % % Basophils % % Neutrophils # (1.3-7.7) k/uL Lymphocytes # (1.0-4.8) k/uL Monocytes # (0-1.0) k/uL Eosinophils # (0-0.7) k/uL Basophils # (0-0.2) k/uL PT (9.0-12.0) sec INR (<1.2) APTT (22.0-30.0) sec D-Dimer (<0.60) mg/L FEU Sodium (137-145) mmol/L Potassium (3.5-5.1) mmol/L Chloride (98-107) mmol/L Carbon Dioxide (22-30) mmol/L Anion Gap mmol/L BUN (7-17) mg/dL Creatinine (0.52-1.04) mg/dL Est GFR (CKD-EPI)AfAm (>60 ml/min/1.73 sqM) Est GFR (CKD-EPI)NonAf (>60 ml/min/1.73 sqM) Glucose (74-99) mg/dL Plasma Lactic Acid James 1.7 (0.7-2.0) mmol/L Calcium (8.4-10.2) mg/dL Magnesium (1.6-2.3) mg/dL Total Bilirubin (0.2-1.3) mg/dL AST (14-36) U/L ALT (4-34) U/L Alkaline Phosphatase (38-126) U/L Troponin I <0.012 (0.000-0.034) ng/mL NT-Pro-B Natriuret Pep 130 pg/mL Total Protein (6.3-8.2) g/dL Albumin (3.5-5.0) g/dL Disposition Clinical Impression: Dyspnea, COPD exacerbation, Leukocytosis, Hypochloremia, Hyponatremia Disposition: ADMITTED IP TO THIS HOSP Condition: Stable Is patient prescribed a controlled substance at d/c from ED?: No Referrals: Lo Dugan DO [Primary Care Provider] - 1-2 days Time of Disposition: 20:55 Decision to Admit Reason: Admit from EC Decision Date: 08/21/19 Decision Time: 20:55
[2019-08-21] MEDS: NICOTINE 14MG/24HR PATCH TRANSDERM SCH (22:15)
[2019-08-21] MEDS ORDERED: RIVAROXABAN 20 MG TAB PO STA (22:33)
[2019-08-21] MEDS ORDERED: ATORVASTATIN 10 MG TAB PO STA (22:33)
[2019-08-21] MEDS ORDERED: EZETIMIBE 10 MG TAB PO STA (22:35)
[2019-08-22] MEDS: IPRATROPIUM-ALBUTEROL 3 ML NEB INHALATION SCH ×4 (08:01→20:17)
[2019-08-22] MEDS ORDERED: ACETAMINOPHEN TAB 325 MG TAB PO STA (08:18)
[2019-08-22] MEDS: NICOTINE 14MG/24HR PATCH TRANSDERM SCH (09:48)
[2019-08-22] MEDS: SODIUM CHLORIDE 0.9% 1,000 ML IV SCH (09:48)
[2019-08-22] MEDS ORDERED: methylPREDNISolone SOD SUCCI 40 MG/ML 1 ML VIAL IV SCH (10:55)
[2019-08-22] MEDS ORDERED: ONDANSETRON 4 MG TAB PO PRN (11:13)
[2019-08-22] MEDS ORDERED: SUMAtriptan SUCCINATE 50 MG TAB PO STA (11:14)
[2019-08-22 11:31] LABS: Glucose,Whole Blood 441 mg/dL (75-99)
[2019-08-22] MEDS: AZITHROMYCIN 500 MG TAB PO SCH (12:03)
[2019-08-22] MEDS: METOPROLOL TARTRATE 25 MG TAB PO SCH (12:04)
[2019-08-22] MEDS: DULoxetine HCL 60 MG CAPSULE.DR PO SCH (12:04)
[2019-08-22] MEDS: ACETAMINOPHEN TAB 325 MG TAB PO PRN ×2 (12:04→18:54)
[2019-08-22] MEDS ORDERED: INSPUCOR MISCELLANE PRN (12:10)
[2019-08-22] MEDS ORDERED: INSULIN PUMP BASAL RATES 1 EACH MISC MISCELLANE PRN (12:10)
[2019-08-22] MEDS ORDERED: INSULIN ASPART (NovoLOG) 100 UNIT/ML VIAL SQ PRN (12:10)
[2019-08-22] MEDS: INSULIN PUMP MEAL BOLUS 1 UNIT MISC MISCELLANE SCH ×2 (12:40→17:18)
[2019-08-22 14:18] LABS: Glucose,Whole Blood 331 mg/dL (75-99)
[2019-08-22] MEDS ORDERED: METOCLOPRAMIDE 5 MG/ML 2 ML VIAL IVP STA (15:29)
[2019-08-22 16:58] LABS: Glucose,Whole Blood 293 mg/dL (75-99)
--- NOTE | 2019-08-22 19:40 | P.HPIM ---
History of Present Illness H&P Date: 08/22/19 Chief Complaint: Shortness of breath Patient is 69-year-old female with a known history of coronary artery disease with history of stent placement, history of CVA/TIA with left-sided weakness currently on anticoagulation for secondary stroke prophylaxis, hypertension, hyperlipidemia, history of [place], seizure disorder, COPD on home oxygen at 2 L via nasal cannula at bedtime and when necessary, diabetes type 2 with insulin pump, bilateral peripheral neuropathy diabetic, migraine headaches, chronic low back pain and history of bowel resection and currently ongoing active nicotine addiction was brought to the hospital by her family due to complaints of worsening shortness of breath. Patient has been having increasing short of breath for the past few days. She also felt weak all over. Family thought she is not her usual normal and was brought to the hospital. Patient does complaining of chest pain which deep inspiration. No complaints of leg swelling.Patient states she does have severe COPD is usually on 2 L of home oxygen however has had increase this to 4 L to maintain her oxygen saturation. Denied any fever or chills. Patient does have nausea. No episodes of vomiting or abdominal pain or diarrhea. No dysuria or hematuria. Chest x-ray showed interstitial lung disease, emphysema. WBC 20.1 Sodium 130 chloride 86, bicarb 37 UA negative for infection Weathers virus PCR negative Review of Systems Constitutional: Patient denies any fever or chills . No generalized weakness or weight loss. Abdomen: Patient denied nausea vomiting and diarrhea and abdominal pain. Cardiovascular: Patient denies any chest pain or short of breath no palpitations. Respiratory: patient denied any cough is from production. Does have shortness of breath Neurologic: Patient denied any numbness or tingling headache. Musculoskeletal: Patient denies any complaints of joint swelling or deformity. Skin: Negative Psychiatric: Negative Endocrine: No heat or cold intolerance. No recent weight gain. Genitourinary: No dysuria or hematuria. All other 14 point ROS negative except the above Past Medical History Past Medical History: Coronary Artery Disease (CAD), COPD, CVA/TIA, Diabetes Mellitus, GERD/Reflux, Hyperlipidemia, Hypertension, Myocardial Infarction ([place]), Pneumonia, Seizure Disorder Additional Past Medical History / Comment(s): Recently tx at home for pne, recurrent pne, home oxygen at 2L/NC at hs and prn, IDDM type II with insulin pump, neuropathy bilateral hands/fingers, CVA 2009 with L sided weakness, one seizure in 2002, moderate protein calorie malnutrition, diverticular disease, osteoporosis, migraines, chronic low back pain, L eye retinal leak. Last Myocardial Infarction Date:: 1993 History of Any Multi-Drug Resistant Organisms: None Reported Past Surgical History: Appendectomy, Bowel Resection, Cholecystectomy, Heart Catheterization, Hysterectomy Additional Past Surgical History / Comment(s): PTCA in 1993, bowel resection-pt cannot recall reason at this time, EGD, colonoscopy, R carpal tunnel release, R thumb tendon surgery, L breast benign bx, bilateral cataract removals. Past Anesthesia/Blood Transfusion Reactions: Previous Problems w/ Anesthesia, Motion Sickness, Postoperative Nausea & Vomiting (PONV) Additional Past Anesthesia/Blood Transfusion Reaction / Comment(s): past blood transfusion-no reaction Past Psychological History: No Psychological Hx Reported Smoking Status: Current every day smoker Past Alcohol Use History: None Reported Past Drug Use History: None Reported - Past Family History Father Family Medical History: Diabetes Mellitus, Myocardial Infarction ([place]) Mother Family Medical History: Diabetes Mellitus, Renal Disease Medications and Allergies Home Medications Medication Instructions Recorded Confirmed Type Furosemide 20 mg PO DAILY 11/04/13 08/21/19 History Risedronate Sodium [Atelvia] 35 mg PO MCKEON 11/04/13 08/21/19 History Diltiazem HCl [Diltiazem 24Hr ER] 360 mg PO DAILY 12/29/15 08/21/19 History Gabapentin 300 mg PO HS 12/29/15 08/21/19 History Metoprolol Tartrate 25 mg PO DAILY 12/29/15 08/21/19 History Atorvastatin [Lipitor] 10 mg PO HS 07/07/17 08/21/19 History Ezetimibe [Zetia] 10 mg PO HS 07/07/17 08/21/19 History Insulin Aspart (For Pump) [NovoLOG 0.01 unit SQ-PUMP CONTINUOUS 07/07/17 08/21/19 History (For Pump)] Rivaroxaban [Xarelto] 20 mg PO HS 11/01/18 08/21/19 History DULoxetine HCL [Cymbalta] 60 mg PO DAILY 11/11/18 08/21/19 History Isosorbide Mononitrate ER [Imdur] 30 mg PO DAILY #30 tab 11/19/18 08/21/19 Rx Calcium Carbonate [Calcium] 600 mg PO HS 08/21/19 08/21/19 History Omeprazole 20 mg PO HS 08/21/19 08/21/19 History Allergies Allergy/AdvReac Type Severity Reaction Status Date / Time erythromycin base Allergy Rash/Hives Verified 08/21/19 23:31 Physical Exam Vitals: Vital Signs Temp Pulse Pulse Resp BP BP Pulse Ox 08/22/19 08:36 88 18 127/75 97 08/22/19 08:12 77 08/22/19 08:01 80 08/22/19 08:00 98.3 F 102 H 16 88/62 99 08/22/19 07:16 84 16 127/75 98 08/21/19 23:37 96 08/21/19 22:20 80 18 104/62 98 08/21/19 21:16 73 16 96/71 96 08/21/19 19:00 72 08/21/19 18:54 68 08/21/19 17:50 97.6 F 62 18 146/78 98 Intake and Output 08/21/19 08/22/19 08/22/19 22:59 06:59 14:59 Other: Weight 44.452 kg PHYSICAL EXAMINATION: Patient is lying in the bed comfortably, no acute distress, awake alert and oriented.. HEENT: Normocephalic. Neck is supple. Pupils reactive. Nostrils clear. Oral cavity is moist. Ears reveal no drainage. Neck reveals no JVD, carotid bruits, or thyromegaly. CHEST EXAMINATION: Trachea is central. Symmetrical expansion. Bilateral diminished air entry with expiratory wheezing. CARDIAC: Normal S1, S2 with no gallops. No murmurs ABDOMEN: Soft. Bowel sounds normal. No organomegaly. No abdominal bruits. Extremities: reveal no edema. No clubbing or cyanosis Neurologically awake, alert, oriented x3 with well-coordinated movements. No focal deficits noted Skin: No rash or skin lesions. Psychiatric: Coperative. Nonsuicidal Musculoskeletal: No joint swelling or deformity. Normal range of motion. Results CBC & Chem 7: 08/21/19 18:37 08/21/19 18:37 Labs: Abnormal Lab Results - Last 24 Hours (Table) 08/21/19 08/21/19 08/21/19 Range/Units 18:37 18:37 20:45 WBC 20.0 H (3.8-10.6) k/uL Neutrophils # 17.6 H (1.3-7.7) k/uL Sodium 130 L (137-145) mmol/L Chloride 86 L (98-107) mmol/L Carbon Dioxide 37 H (22-30) mmol/L Creatinine 0.49 L (0.52-1.04) mg/dL Urine Protein Trace H (Negative) Urine Ketones 2+ H (Negative) Thrombosis Risk Factor Assmnt - DVT/VTE Prophylaxis DVT/VTE Prophylaxis: Pharmacologic Prophylaxis ordered Assessment and Plan Assessment: Shortness of breath secondary to acute COPD exacerbation Tracheobronchitis and possible pneumonia Leukocytosis Hypovolemic hyponatremia Coronary artery disease with history of PCI History of CVA with left-sided residual weakness. On xarelto for stroke pro phylaxis Diabetes type 2 on insulin pump at home GERD Hypertension Hyperlipidemia History of [place] Bilateral diabetic neuropathy Chronic hypoxic respiratory failure secondary to COPD on home oxygen History of seizures in 2002 Moderate protein calorie malnutrition Paxton lung disease History of migraine headaches Chronic back pain Currently ongoing nicotine addiction every day smoker Plan: Patient will be continued on DuoNeb's and IV steroids methylprednisolone 40 mg daily 8 hourly. Continue with antibiotics the form of azithromycin. Gentle hydration. Hold Lasix. Continue the home medications. Patient will be started back on insulin pump and insulin sliding scale for better blood sugar control. Follow up closely. PTOT will be consulted. Further recommendations based on the clinical course. Smoking cessation has been counseled extensively. No sinus guarded with multiple medical problems and comorbid conditions. Time with Patient: Greater than 30
[2019-08-22 20:29] LABS: Glucose,Whole Blood 354 mg/dL (75-99)
[2019-08-22] MEDS: methylPREDNISolone SOD SUCCI 40 MG/ML 1 ML VIAL IV SCH (21:24)
[2019-08-22] MEDS: CALCIUM CARBONATE 500 MG CHEWABLE PO SCH (21:24)
[2019-08-22] MEDS: RIVAROXABAN 20 MG TAB PO SCH (21:25)
[2019-08-22] MEDS: PANTOPRAZOLE 40 MG TABLET PO SCH (21:25)
[2019-08-22] MEDS: MELATONIN 3 MG TABLET PO SCH ×2 (21:25→21:26)
[2019-08-22] MEDS: GABAPENTIN 300 MG CAP PO SCH (21:26)
[2019-08-22] MEDS: ATORVASTATIN 10 MG TAB PO SCH (21:26)
[2019-08-22] MEDS: EZETIMIBE 10 MG TAB PO SCH (21:29)
[2019-08-23] MEDS: INSULIN PUMP MEAL BOLUS 1 UNIT MISC MISCELLANE SCH ×5 (04:32→20:13)
[2019-08-23 06:03] LABS: Glucose,Whole Blood 388 mg/dL (75-99)
[2019-08-23] MEDS: IPRATROPIUM-ALBUTEROL 3 ML NEB INHALATION SCH ×4 (07:51→19:53)
[2019-08-23] MEDS: AZITHROMYCIN 500 MG TAB PO SCH (08:00)
[2019-08-23] MEDS: DULoxetine HCL 60 MG CAPSULE.DR PO SCH (08:00)
[2019-08-23] MEDS: METOPROLOL TARTRATE 25 MG TAB PO SCH (08:00)
[2019-08-23] MEDS: ISOSORBIDE MONONITRATE ER 30 MG TAB.ER.24H PO SCH (08:00)
[2019-08-23] MEDS: NICOTINE 14MG/24HR PATCH TRANSDERM SCH (08:00)
[2019-08-23] MEDS: methylPREDNISolone SOD SUCCI 40 MG/ML 1 ML VIAL IV SCH (08:46)
[2019-08-23] MEDS ORDERED: RISEDRONATE SODIUM 35 MG PO SCH (10:52)
[2019-08-23 11:04] LABS: African American GFR (CKD) >90 (>60 ml/min/1.73 sqM); Anion Gap 9 mmol/L; Blood Urea Nitrogen 17 mg/dL (7-17); Calcium 8.8 mg/dL (8.4-10.2); Carbon Dioxide 29 mmol/L (22-30); Chloride 89 mmol/L (98-107); Glucose 374 mg/dL (74-99); Non-African American GFR(CKD) >90 (>60 ml/min/1.73 sqM); Sodium 127 mmol/L (137-145)
[2019-08-23 11:08] LABS: Basophils % (A) 0 %; Eosinophils % (A) 0 %; HCT 43.1 % (34.0-46.0); HGB 13.3 gm/dL (11.4-16.0); Hypochromasia Slight; Lymphocytes # (A) 0.6 k/uL (1.0-4.8); Lymphocytes % (A) 3 %; MCH 31.8 pg (25.0-35.0); MCHC 30.9 g/dL (31.0-37.0); MCV 102.7 fL (80.0-100.0); Macrocytosis Slight; Mean Platelet Volume 9.5; Monocytes # (A) 0.8 k/uL (0-1.0); Monocytes % (A) 4 %; Neutrophils # (A) 18.6 k/uL (1.3-7.7); Neutrophils % (A) 92 %; Platelet Count 263 k/uL (150-450); RDW 12.5 % (11.5-15.5); WBC 20.2 k/uL (3.8-10.6)
[2019-08-23 11:10] LABS: Glucose,Whole Blood 381 mg/dL (75-99)
[2019-08-23] MEDS: INSULIN ASPART (NovoLOG) 100 UNIT/ML VIAL SQ SCH ×3 (12:26→20:12)
[2019-08-23 16:57] LABS: Glucose,Whole Blood 302 mg/dL (75-99)
[2019-08-23] MEDS: SODIUM CHLORIDE 0.9% 1,000 ML IV SCH (17:43)
[2019-08-23 19:40] LABS: Glucose,Whole Blood 330 mg/dL (75-99)
[2019-08-23] MEDS: CALCIUM CARBONATE 500 MG CHEWABLE PO SCH (20:11)
[2019-08-23] MEDS: ATORVASTATIN 10 MG TAB PO SCH (20:11)
[2019-08-23] MEDS: EZETIMIBE 10 MG TAB PO SCH (20:11)
[2019-08-23] MEDS: GABAPENTIN 300 MG CAP PO SCH (20:12)
[2019-08-23] MEDS: PANTOPRAZOLE 40 MG TABLET PO SCH (20:12)
[2019-08-23] MEDS: RIVAROXABAN 20 MG TAB PO SCH (20:12)
[2019-08-23] MEDS: MELATONIN 3 MG TABLET PO SCH (20:13)
--- NOTE | 2019-08-24 00:33 | P.PN ---
Subjective Progress Note Date: 08/23/19 Principal diagnosis: Acute COPD exacerbation Patient is 69-year-old female with a known history of coronary artery disease with history of stent placement, history of CVA/TIA with left-sided weakness currently on anticoagulation for secondary stroke prophylaxis, hypertension, hy perlipidemia, history of [place], seizure disorder, COPD on home oxygen at 2 L via nasal cannula at bedtime and when necessary, diabetes type 2 with insulin pump, bilateral peripheral neuropathy diabetic, migraine headaches, chronic low back pain and history of bowel resection and currently ongoing active nicotine addiction was brought to the hospital by her family due to complaints of worsening shortness of breath. Patient has been having increasing short of breath for the past few days. She also felt weak all over. Family thought she is not her usual normal and was brought to the hospital. Patient does complaining of chest pain which deep inspiration. No complaints of leg swelling.Patient states she does have severe COPD is usually on 2 L of home oxygen however has had increase this to 4 L to maintain her oxygen saturation. Denied any fever or chills. Patient does have nausea. No episodes of vomiting or abdominal pain or diarrhea. No dysuria or hematuria. Chest x-ray showed interstitial lung disease, emphysema. WBC 20.1 Sodium 130 chloride 86, bicarb 37 UA negative for infection Weathers virus PCR negative 08/23/2019 Patient is currently sitting in the chair comfortably. Patient's breathing status is much improved. Otherwise patient is hyperglycemic due to IV steroids. Steroids changed to by mouth today. Currently on 2 L oxygen with another cannula., Which is her home regimen. Still having leukocytosis up to 20.2, likely steroids contributing. Sodium level is 127 along with hyperglycemia. Patient will be given gentle IV hydration with normal saline and follow-up CBC and BMP tomorrow. Blood pressure is on the lower side. Home dose of Cardizem and Lasix is on hold. No complains of fever or chills. No headache or dizziness or lightheadedness. Tolerating oral diet. Anticipate discharge in the next 24-48 hours. Current medications reviewed. Objective - Vital Signs Vital signs: Vital Signs Temp 98.1 F 08/23/19 20:00 Pulse 96 08/23/19 20:05 Resp 18 08/23/19 20:00 BP 119/64 08/23/19 20:00 Pulse Ox 93 L 08/23/19 20:00 Intake & Output 08/23/19 08/23/19 08/24/19 06:59 18:59 06:59 Intake Total 540 180 Output Total 250 200 Balance -250 540 -20 Intake: Oral 540 180 Output: Urine 250 200 Other: # Voids 2 1 1 - Exam PHYSICAL EXAMINATION: Patient is lying in the bed comfortably, no acute distress, awake alert and oriented.. HEENT: Normocephalic. Neck is supple. Pupils reactive. Nostrils clear. Oral cavity is moist. Ears reveal no drainage. Neck reveals no JVD, carotid bruits, or thyromegaly. CHEST EXAMINATION: Trachea is central. Symmetrical expansion. Bilateral air entry improving. No wheezing. No crackles. CARDIAC: Normal S1, S2 with no gallops. No murmurs ABDOMEN: Soft. Bowel sounds normal. No organomegaly. No abdominal bruits. Extremities: reveal no edema. No clubbing or cyanosis Neurologically awake, alert, oriented x3 with well-coordinated movements. No focal deficits noted Skin: No rash or skin lesions. Psychiatric: Coperative. Nonsuicidal Musculoskeletal: No joint swelling or deformity. Normal range of motion. - Labs CBC & Chem 7: 08/23/19 10:32 08/23/19 10:32 Labs: Abnormal Lab Results - Last 24 Hours (Table) 08/23/19 08/23/19 08/23/19 Range/Units 06:02 10:32 10:32 WBC 20.2 H (3.8-10.6) k/uL MCV 102.7 H (80.0-100.0) fL MCHC 30.9 L (31.0-37.0) g/dL Neutrophils # 18.6 H (1.3-7.7) k/uL Lymphocytes # 0.6 L (1.0-4.8) k/uL Sodium 127 L (137-145) mmol/L Chloride 89 L (98-107) mmol/L Creatinine 0.47 L (0.52-1.04) mg/dL Glucose 374 H (74-99) mg/dL POC Glucose (mg/dL) 388 H (75-99) mg/dL 08/23/19 08/23/19 08/23/19 Range/Units 11:08 16:55 19:39 WBC (3.8-10.6) k/uL MCV (80.0-100.0) fL MCHC (31.0-37.0) g/dL Neutrophils # (1.3-7.7) k/uL Lymphocytes # (1.0-4.8) k/uL Sodium (137-145) mmol/L Chloride (98-107) mmol/L Creatinine (0.52-1.04) mg/dL Glucose (74-99) mg/dL POC Glucose (mg/dL) 381 H 302 H 330 H (75-99) mg/dL Microbiology - Last 24 Hours (Table) 08/21/19 20:34 Blood Culture - Preliminary Blood No Growth after 24 hours Assessment and Plan Assessment: Shortness of breath secondary to acute COPD exacerbation Tracheobronchitis and possible pneumonia Leukocytosis Hypovolemic hyponatremia and pseudohyponatremia Coronary artery disease with history of PCI History of CVA with left-sided residual weakness. On xarelto for stroke pro phylaxis Diabetes type 2 on insulin pump at home Hyperglycemia likely due to steroids. GERD Hypertension Hyperlipidemia History of [place] Bilateral diabetic neuropathy Chronic hypoxic respiratory failure secondary to COPD on home oxygen History of seizures in 2002 Moderate protein calorie malnutrition Paxton lung disease History of migraine headaches Chronic back pain Currently ongoing nicotine addiction every day smoker Plan: Patient will be continued on DuoNeb's and IV steroids methylprednisolone 40 mg daily 8 hourly. IV steroids changed to by mouth. Continue with antibiotics the form of azithromycin. Gentle hydration. Hold Lasix. Continue the home medications. Patient will be started back on insulin pump and insulin sliding scale for better blood sugar control. Follow up closely. Anticipate discharge in next 24-48 hours. Further recommendations based on the clinical course. Smoking cessation has been counseled extensively. Prognosis is guarded with multiple medical problems and comorbid conditions. Time with Patient: Greater than 30
[2019-08-24] MEDS: SODIUM CHLORIDE 0.9% 1,000 ML IV SCH (04:56)
[2019-08-24] MEDS: ACETAMINOPHEN TAB 325 MG TAB PO PRN ×3 (05:36→22:47)
[2019-08-24 06:06] LABS: Glucose,Whole Blood 235 mg/dL (75-99)
[2019-08-24] MEDS: INSULIN ASPART (NovoLOG) 100 UNIT/ML VIAL SQ SCH ×4 (06:30→22:01)
[2019-08-24 06:51] LABS: Basophils % (A) 0 %; Eosinophils # (A) 0.1 k/uL (0-0.7); Eosinophils % (A) 1 %; HCT 42.4 % (34.0-46.0); HGB 13.6 gm/dL (11.4-16.0); Lymphocytes # (A) 1.7 k/uL (1.0-4.8); Lymphocytes % (A) 13 %; MCH 32.1 pg (25.0-35.0); MCV 100.3 fL (80.0-100.0); Monocytes # (A) 0.9 k/uL (0-1.0); Monocytes % (A) 7 %; Neutrophils # (A) 10.1 k/uL (1.3-7.7); Neutrophils % (A) 77 %; Platelet Count 284 k/uL (150-450); RBC 4.23 m/uL (3.80-5.40); RDW 12.8 % (11.5-15.5); WBC 13.1 k/uL (3.8-10.6)
[2019-08-24 07:07] LABS: African American GFR (CKD) >90 (>60 ml/min/1.73 sqM); Anion Gap 8 mmol/L; Blood Urea Nitrogen 14 mg/dL (7-17); Calcium 8.5 mg/dL (8.4-10.2); Carbon Dioxide 27 mmol/L (22-30); Chloride 93 mmol/L (98-107); Glucose 227 mg/dL (74-99); Non-African American GFR(CKD) >90 (>60 ml/min/1.73 sqM); Potassium 4.9 mmol/L (3.5-5.1); Sodium 128 mmol/L (137-145)
[2019-08-24] MEDS: INSULIN PUMP MEAL BOLUS 1 UNIT MISC MISCELLANE SCH ×4 (07:11→21:58)
[2019-08-24] MEDS: ISOSORBIDE MONONITRATE ER 30 MG TAB.ER.24H PO SCH (07:38)
[2019-08-24] MEDS: AZITHROMYCIN 500 MG TAB PO SCH (07:38)
[2019-08-24] MEDS: METOPROLOL TARTRATE 25 MG TAB PO SCH (07:38)
[2019-08-24] MEDS: predniSONE 10 MG TAB PO SCH (07:38)
[2019-08-24] MEDS: NICOTINE 14MG/24HR PATCH TRANSDERM SCH (07:39)
[2019-08-24] MEDS: DULoxetine HCL 60 MG CAPSULE.DR PO SCH (07:39)
[2019-08-24] MEDS: IPRATROPIUM-ALBUTEROL 3 ML NEB INHALATION SCH ×4 (09:51→21:07)
[2019-08-24 11:47] LABS: Glucose,Whole Blood 75 mg/dL (75-99)
[2019-08-24] MEDS: BUDESONIDE 0.5 MG/2 ML NEBU INHALATION SCH ×2 (13:16→21:07)
--- NOTE | 2019-08-24 13:51 | P.PN ---
Subjective Progress Note Date: 08/24/19 Acute COPD exacerbation Patient is 69-year-old female with a known history of coronary artery disease with history of stent placement, history of CVA/TIA with left-sided weakness currently on anticoagulation for secondary stroke prophylaxis, hypertension, hyperlipidemia, history of [place], seizure disorder, COPD on home oxygen at 2 L via nasal cannula at bedtime and when necessary, diabetes type 2 with insulin pump, bilateral peripheral neuropathy diabetic, migraine headaches, chronic low back pain and history of bowel resection and currently ongoing active nicotine addiction was brought to the hospital by her family due to complaints of worsening shortness of breath. Patient has been having increasing short of breath for the past few days. She also felt weak all over. Family thought she is not her usual normal and was brought to the hospital. Patient does complaining of chest pain which deep inspiration. No complaints of leg swelling.Patient states she does have severe COPD is usually on 2 L of home oxygen however has had increase this to 4 L to maintain her oxygen saturation. Denied any fever or chills. Patient does have nausea. No episodes of vomiting or abdominal pain or diarrhea. No dysuria or hematuria. Chest x-ray showed interstitial lung disease, emphysema. WBC 20.1 Sodium 130 chloride 86, bicarb 37 UA negative for infection Weathers virus PCR negative 08/24/19 maintained on antibiotics of Zithromax, steroids and nebulized bronchodilators with significant expiratory wheezing scattered throughout. Mild tachycardia with heart rates in the low 100s. Afebrile, with leukocytosis improving, trending down to 13.1, in a patient on steroids. Maintaining O2 sats in the 90s on 2 L nasal cannula-(wears 2 L nasal cannula at home). Receiving gentle IV fluid hydration with sodium up to 128. Cardiazem/Lasix had been on hold secondary to borderline hypotension, currently systolic blood pressures in the 130s to 140s. Objective - Vital Signs Vital signs: Vital Signs Temp 98.4 F 08/24/19 11:47 Pulse 70 08/24/19 11:47 Resp 20 08/24/19 11:47 BP 139/76 08/24/19 11:47 Pulse Ox 97 08/24/19 11:47 Intake & Output 08/23/19 08/24/19 08/24/19 18:59 06:59 18:59 Intake Total 540 420 360 Output Total 320 Balance 540 100 360 Intake: Oral 540 420 360 Output: Urine 320 Other: Voiding Method Toilet # Voids 1 1 - Exam PHYSICAL EXAMINATION: Patient is lying in the bed comfortably, no acute distress, awake alert and oriented.. HEENT: Normocephalic. Neck is supple. Pupils reactive. Nostrils clear. Oral cav ity is moist. Neck reveals no JVD, carotid bruits, or thyromegaly. CHEST EXAMINATION: Trachea is central. Symmetrical expansion. Bilateral air entry improving. Scattered expiratory wheezing throughout wheezing. No crackles. CARDIAC: Normal S1, S2 with no gallops. No murmurs ABDOMEN: Soft. Bowel sounds normal. No organomegaly. No abdominal bruits. Extremities: reveal no edema. No clubbing or cyanosis Neurologically awake, alert, oriented x3 with well-coordinated movements. No focal deficits noted Skin: No rash. - Labs CBC & Chem 7: 08/24/19 06:22 08/24/19 06:22 Labs: Abnormal Lab Results - Last 24 Hours (Table) 08/23/19 08/23/19 08/24/19 Range/Units 16:55 19:39 06:05 WBC (3.8-10.6) k/uL MCV (80.0-100.0) fL Neutrophils # (1.3-7.7) k/uL Sodium (137-145) mmol/L Chloride (98-107) mmol/L Creatinine (0.52-1.04) mg/dL Glucose (74-99) mg/dL POC Glucose (mg/dL) 302 H 330 H 235 H (75-99) mg/dL 08/24/19 08/24/19 Range/Units 06:22 06:22 WBC 13.1 H (3.8-10.6) k/uL MCV 100.3 H (80.0-100.0) fL Neutrophils # 10.1 H (1.3-7.7) k/uL Sodium 128 L (137-145) mmol/L Chloride 93 L (98-107) mmol/L Creatinine 0.37 L (0.52-1.04) mg/dL Glucose 227 H (74-99) mg/dL POC Glucose (mg/dL) (75-99) mg/dL Microbiology - Last 24 Hours (Table) 08/21/19 20:34 Blood Culture - Preliminary Blood No Growth after 48 hours Assessment and Plan Assessment: Shortness of breath secondary to acute COPD exacerbation Tracheobronchitis and possible pneumonia Leukocytosis Hypovolemic hyponatremia and pseudohyponatremia Coronary artery disease with history of PCI History of CVA with left-sided residual weakness. On xarelto for stroke prophylaxis Diabetes type 2 on insulin pump at home Hyperglycemia likely due to steroids. GERD Hypertension Hyperlipidemia History of IN Bilateral diabetic neuropathy Chronic hypoxic respiratory failure secondary to COPD on home oxygen History of seizures in 2002 Moderate protein calorie malnutrition Paxton lung disease History of migraine headaches Chronic back pain Currently ongoing nicotine addiction every day smoker Plan: Continue on current medication regime ,monitoring and symptomatic treatment. Significant scattered expiratory wheezing throughout, Pulmicort added in addition to nebulized bronchodilators, steroids, antibiotics. Cardizem resumed. The impression and plan of care has been dictated as directed. : I performed a history and examination of this patient, discussed the same with the dictator. I agree with the dictator's note ,documented as a scribe. Any additional findings or plans will be noted.
[2019-08-24] MEDS: DILTIAZEM CD 180 MG CAP.ER.24H PO SCH (15:25)
[2019-08-24 16:47] LABS: Glucose,Whole Blood 349 mg/dL (75-99)
[2019-08-24 17:57] LABS: Hemoglobin A1C 7.6 % (4.0-6.0)
[2019-08-24 20:19] LABS: Glucose,Whole Blood 355 mg/dL (75-99)
[2019-08-24] MEDS: GABAPENTIN 300 MG CAP PO SCH (22:01)
[2019-08-24] MEDS: RIVAROXABAN 20 MG TAB PO SCH (22:01)
[2019-08-24] MEDS: ATORVASTATIN 10 MG TAB PO SCH (22:01)
[2019-08-24] MEDS: CALCIUM CARBONATE 500 MG CHEWABLE PO SCH (22:01)
[2019-08-24] MEDS: MELATONIN 3 MG TABLET PO SCH (22:01)
[2019-08-24] MEDS: PANTOPRAZOLE 40 MG TABLET PO SCH (22:01)
[2019-08-24] MEDS: EZETIMIBE 10 MG TAB PO SCH (22:01)
[2019-08-24 22:50] VITALS: RESP 20
[2019-08-25 02:59] LABS: Glucose,Whole Blood 101 mg/dL (75-99)
[2019-08-25 06:12] LABS: Glucose,Whole Blood 176 mg/dL (75-99)
[2019-08-25] MEDS: INSULIN ASPART (NovoLOG) 100 UNIT/ML VIAL SQ SCH (06:12)
[2019-08-25] MEDS: ACETAMINOPHEN TAB 325 MG TAB PO PRN (06:54)
[2019-08-25] MEDS: INSULIN PUMP MEAL BOLUS 1 UNIT MISC MISCELLANE SCH (07:30)
[2019-08-25] MEDS: METOPROLOL TARTRATE 25 MG TAB PO SCH (08:05)
[2019-08-25] MEDS: predniSONE 10 MG TAB PO SCH (08:05)
[2019-08-25] MEDS: AZITHROMYCIN 500 MG TAB PO SCH (08:05)
[2019-08-25] MEDS: NICOTINE 14MG/24HR PATCH TRANSDERM SCH (08:05)
[2019-08-25] MEDS: ISOSORBIDE MONONITRATE ER 30 MG TAB.ER.24H PO SCH (08:05)
[2019-08-25] MEDS: DULoxetine HCL 60 MG CAPSULE.DR PO SCH (08:05)
[2019-08-25] MEDS: DILTIAZEM CD 180 MG CAP.ER.24H PO SCH (08:05)
[2019-08-25 08:14] VITALS: BP 147/79; TEMP 98.2
[2019-08-25] MEDS: BUDESONIDE 0.5 MG/2 ML NEBU INHALATION SCH (08:16)
[2019-08-25] MEDS: IPRATROPIUM-ALBUTEROL 3 ML NEB INHALATION SCH (08:17)
[2019-08-25 08:21] VITALS: PULSE 88
--- NOTE | 2019-08-25 15:12 | P.DS ---
Providers Date of admission: 08/21/19 20:54 Expected date of discharge: 08/25/19 Attending physician: Pipe Antonio MD Primary care physician: Lo Dugan [facility] Course: Final Diagnoses: Shortness of breath secondary to acute COPD exacerbation Tracheobronchitis and possible pneumonia Leukocytosis Hypovolemic hyponatremia and pseudohyponatremia Coronary artery disease with history of PCI History of CVA with left-sided residual weakness. On xarelto for stroke prophylaxis Diabetes type 2 on insulin pump at home Hyperglycemia likely due to steroids. GERD Hypertension Hyperlipidemia History of HI Bilateral diabetic neuropathy Chronic hypoxic respiratory failure secondary to COPD on home oxygen History of seizures in 2002 Moderate protein calorie malnutrition Paxton lung disease History of migraine headaches Chronic back pain Currently ongoing nicotine addiction every day smoker Hospital course:Patient is 69-year-old female with a known history of coronary artery disease with history of stent placement, history of CVA/TIA with left- sided weakness currently on anticoagulation for secondary stroke prophylaxis, hypertension, hyperlipidemia, history of [place], seizure disorder, COPD on home oxygen at 2 L via nasal cannula at bedtime and when necessary, diabetes type 2 with insulin pump, bilateral peripheral neuropathy diabetic, migraine headaches, chronic low back pain and history of bowel resection and currently ongoing active nicotine addiction was brought to the hospital by her family due to complaints of worsening shortness of breath. Patient has been having increasing short of breath for the past few days. She also felt weak all over. Family thought she is not her usual normal and was brought to the hospital. Patient does complaining of chest pain which deep inspiration. No complaints of leg swelling.Patient states she does have severe COPD is usually on 2 L of home oxygen however has had increase this to 4 L to maintain her oxygen saturation. Denied any fever or chills. Patient does have nausea. No episodes of vomiting or abdominal pain or diarrhea. No dysuria or hematuria. Chest x-ray showed interstitial lung disease, emphysema. WBC 20.1 Sodium 130 chloride 86, bicarb 37 UA negative for infection Weathers virus PCR negative 08/24/19 maintained on antibiotics of Zithromax, steroids and nebulized bronchodilators with significant expiratory wheezing scattered throughout. Mild tachycardia with heart rates in the low 100s. Afebrile, with leukocytosis improving, trending down to 13.1, in a patient on steroids. Maintaining O2 sats in the 90s on 2 L nasal cannula-(wears 2 L nasal cannula at home). Receiving gentle IV fluid hydration with sodium up to 128. Cardiazem/Lasix had been on hold secondary to borderline hypotension, currently systolic blood pressures in the 130s to 140s. Cardizem resumed. Significant clinical improvement. Patient is being discharged home in a stable condition with guarded prognosis. We'll continue holding Lasix, current sodium 128-reevaluate outpatient with PCP on Saturday. The impression and plan of care has been dictated as directed. : I performed a history and examination of this patient, discussed the same with the dictator. I agree with the dictator's note ,documented as a scribe. Any additional findings or plans will be noted. Patient Condition at Discharge: Stable Plan - Discharge Summary Discharge Rx Participant: No New Discharge Prescriptions: New Nicotine 14Mg/24Hr Patch [Habitrol] 1 patch TRANSDERM DAILY #30 patch predniSONE 10 mg PO DIRECTED #18 tab Azithromycin [Zithromax] 500 mg PO DAILY #3 tab Fluticasone/Vilanterol [Breo Ellipta 100-25 Mcg Inhaler] 1 inhalation PO Q24HR #1 inhaler Continue Risedronate Sodium [Atelvia] 35 mg PO MCKEON Metoprolol Tartrate 25 mg PO DAILY Gabapentin 300 mg PO HS Diltiazem HCl [Diltiazem 24Hr ER] 360 mg PO DAILY Ezetimibe [Zetia] 10 mg PO HS Atorvastatin [Lipitor] 10 mg PO HS Insulin Aspart (For Pump) [NovoLOG (For Pump)] 0.01 unit SQ-PUMP CONTINUOUS Rivaroxaban [Xarelto] 20 mg PO HS DULoxetine HCL [Cymbalta] 60 mg PO DAILY Isosorbide Mononitrate ER [Imdur] 30 mg PO DAILY #30 tab Omeprazole 20 mg PO HS Calcium Carbonate [Calcium] 600 mg PO HS Discharge Medication List Risedronate Sodium [Atelvia] 35 mg PO MCKEON 11/04/13 [History] Diltiazem HCl [Diltiazem 24Hr ER] 360 mg PO DAILY 12/29/15 [History] Gabapentin 300 mg PO HS 12/29/15 [History] Metoprolol Tartrate 25 mg PO DAILY 12/29/15 [History] Atorvastatin [Lipitor] 10 mg PO HS 07/07/17 [History] Ezetimibe [Zetia] 10 mg PO HS 07/07/17 [History] Insulin Aspart (For Pump) [NovoLOG (For Pump)] 0.01 unit SQ-PUMP CONTINUOUS 07/07/17 [History] Rivaroxaban [Xarelto] 20 mg PO HS 11/01/18 [History] DULoxetine HCL [Cymbalta] 60 mg PO DAILY 11/11/18 [History] Isosorbide Mononitrate ER [Imdur] 30 mg PO DAILY #30 tab 11/19/18 [Rx] Calcium Carbonate [Calcium] 600 mg PO HS 08/21/19 [History] Omeprazole 20 mg PO HS 08/21/19 [History] Azithromycin [Zithromax] 500 mg PO DAILY #3 tab 08/25/19 [Rx] Fluticasone/Vilanterol [Breo Ellipta 100-25 Mcg Inhaler] 1 inhalation PO Q24HR #1 inhaler 08/25/19 [Rx] Nicotine 14Mg/24Hr Patch [Habitrol] 1 patch TRANSDERM DAILY #30 patch 08/25/19 [Rx] predniSONE 10 mg PO DIRECTED #18 tab 08/25/19 [Rx] Follow up Appointment(s)/Referral(s): Pipe Antonio MD [STAFF PHYSICIAN] - 08/31/19 3:45 pm (SATURDAY) Ambulatory/Diagnostic Orders: Complete Blood Count w/diff [LAB.AMB] Time Frame: 3 Days, Location: None Selected Patient Instructions/Handouts: COPD (Chronic Obstructive Pulmonary Disease) (DC) Activity/Diet/Wound Care/Special Instructions: Continue holding Lasix, reevaluate at follow-up visit with PCP(leeann) Discharge Disposition: HOME SELF-CARE
== END 2019-08-25 11:03 | disposition home or self-care (01) | DRG 190 ==
LOC: EC 17:41 → 4SSUR 20:54 → 3SCARD 08-22 06:06
PROVIDERS: ADMIT Family Medicine; ATTEND Family Medicine
DX: J43.9 Emphysema, unspecified (principal); J18.9 Pneumonia, unspecified organism; E87.1 Hypo-osmolality and hyponatremia; E44.0 Moderate protein-calorie malnutrition; I69.354 Hemiplegia and hemiparesis following cerebral infarction affecting left non-dominant side; J96.11 Chronic respiratory failure with hypoxia; Z96.41 Presence of insulin pump (external) (internal); K21.9 Gastro-esophageal reflux disease without esophagitis; I10 Essential (primary) hypertension; I25.10 Atherosclerotic heart disease of native coronary artery without angina pectoris; G89.29 Other chronic pain; E11.42 Type 2 diabetes mellitus with diabetic polyneuropathy; E78.5 Hyperlipidemia, unspecified; J40 Bronchitis, not specified as acute or chronic; E87.8 Other disorders of electrolyte and fluid balance, not elsewhere classified; M54.9 Dorsalgia, unspecified; G43.909 Migraine, unspecified, not intractable, without status migrainosus; E11.65 Type 2 diabetes mellitus with hyperglycemia; T38.0X5A Adverse effect of glucocorticoids and synthetic analogues, initial encounter; E86.1 Hypovolemia; G40.909 Epilepsy, unspecified, not intractable, without status epilepticus; F17.210 Nicotine dependence, cigarettes, uncomplicated; M81.0 Age-related osteoporosis without current pathological fracture; Z20.828 Contact with and (suspected) exposure to other viral communicable diseases; I25.2 Old myocardial infarction; Z87.01 Personal history of pneumonia (recurrent); Z98.61 Coronary angioplasty status; Z99.81 Dependence on supplemental oxygen; Z79.899 Other long term (current) drug therapy; Z79.52 Long term (current) use of systemic steroids; Z79.4 Long term (current) use of insulin; Z79.01 Long term (current) use of anticoagulants; Z83.3 Family history of diabetes mellitus; Z88.1 Allergy status to other antibiotic agents; Z90.49 Acquired absence of other specified parts of digestive tract; Z90.710 Acquired absence of both cervix and uterus; Z82.49 Family history of ischemic heart disease and other diseases of the circulatory system; Z90.89 Acquired absence of other organs; Z98.890 Other specified postprocedural states; Z98.42 Cataract extraction status, left eye; Z98.41 Cataract extraction status, right eye; Z95.5 Presence of coronary angioplasty implant and graft
CPT/HCPCS: 36415; 71046; 80048; 80053; 81003; 83036; 83605; 83735; 83880; 84484; 85025; 85379; 85610; 85730; 87040; 87635; 93005; 94640; 94760; 96361; 96374; 96375; 99285